=== PATIENT | female | born 1950 | race Caucasian/White ===

== ENCOUNTER → 2017-11-26 08:41 | Outpatient (CLI) | payer BC, OTHER, MEDICARE, SELFPAY ==
[2017-11-26 10:01] LABS: Absolute Lymphocyte Count 0.95 X10^3/ul (0.83-4.51); Absolute Neutrophil Count 3.1 X10^3/uL (2.0-7.7); Basophil# 0.03 X10^3/uL; Basophil% 0.6 % (0-1); Eosinophil# 0.23 X10^3/uL; Eosinophils% 4.8 % (0-5); Hematocrit 39.9 % (37-47); Hemoglobin 13.2 g/dl (12.0-15.0); Lymphocyte # 0.95 X10^3/ul (4.0); Lymphocyte % 19.8 % (19-41); Mean Corp Hgb Conc 33.1 g/gl (32-36); Mean Corpuscular Hgb 29.6 pg (27.0-32.0); Mean Corpuscular Volume 89.5 fL (81-99); Mean Platelet Vol. 10.4 fl (6.2-12.0); Monocyte# 0.53 X10^3/uL; Neutrophil # 3.06 X10^3/uL (2.7-7.7); Neutrophil % 63.6 % (47-70); Platelet Count 319 K/mm3 (150-450); RBC Distribution Width CV 13.3 % (11.6-14.6); RBC Distribution Width SD 43.7 fl (35.1-43.9); Red Blood Count 4.46 M/mm3 (4.2-5.4); White Blood Count 4.8 K/mm3 (4.4-11.0)
[2017-11-26 10:02] LABS: POSITIVE COUNT NO; POSITIVE DIFFERENTIAL NO; POSITIVE MORPHOLOGY NO
[2017-11-26 10:55] LABS: Anion Gap 9 (5-15); BUN 15 mg/dL (7-18); BUN/Creat Ratio 24.5 RATIO (10-20); Calcium,Total 9.2 mg/dL (8.5-10.1); Chloride 100 mmol/L (98-107); Cholesterol 192 mg/dL (200); Creatinine, Serum 0.61 mg/dL (0.55-1.02); EST Glomerular Filtration Rate 103 mL/min (>60); Est Glom Filt Rate - Afr Amer 125 mL/min (>60); Glucose 88 mg/dL (74-106); High Density Lipoprotein 69 mg/dL; Potassium 3.8 mmol/L (3.5-5.1); Sodium Level 139 mmol/L (136-145); Thyroid Stim Hormone (TSH) 1.53 uIU/mL (0.358-3.74); Triglycerides 115 mg/dL; Very Low Density Lipoprotein 23 mg/dL (5-40)
== END ==
PROVIDERS: Family Provider Family Medicine; PCP Family Medicine; Visit Provider Family Medicine
DX: I10 Essential (primary) hypertension (principal); E78.00 Pure hypercholesterolemia, unspecified; E03.9 Hypothyroidism, unspecified
CPT/HCPCS: 36415; 80048; 80061; 84443; 85025

== ENCOUNTER → 2017-12-15 09:20 | Outpatient (CLI) | payer BC, MEDICARE, OTHER, SELFPAY ==
--- NOTE | 2017-12-15 09:30 | BD_ITS ---
STUDY: DUAL ENERGY X-RAY ABSORPTIOMETRY / DXA REASON FOR EXAM: Female, 67 years old. Postmenopausal screening TECHNIQUE: Bone Mineral Density (BMD) measurements of lumbar spine and bilateral hips were obtained. COMPARISON: 2006 FINDINGS: Lumbar Spine (L1-L4): g/cm2 (1.122) / T-score (-0.5) / Z-score (1.1) Findings are suggestive of normal bone density with a low fracture risk. Left Femur Total: g/cm2 (0.851) / T-score (-1.2) / Z-score (0.1) Left Femoral Neck: g/cm2 (0.774) / T-score (-1.9) / Z-score (-0.3) Right Femur Total: g/cm2 (0.822) / T-score (-1.5) / Z-score (-0.1) Right Femoral Neck: g/cm2 (0.737) / T-score (-2.2) / Z-score (-0.6) The T-Scores on the most recent prior examination were: Lumbar Spine (L1-L4): There has been improvement of bone density since the previous examination. BD/Dexa Bone Density Study IMPRESSION: The patient is considered osteopenic as outlined below according to World Julio C Organization (WHO) criteria with a moderate fracture risk. There has been improvement of bone density since the previous examination. Reference Information: The T-score is the number of standard deviations above or below the standard which is normal for young adults at their peak bone mineral density. The World Health Organization (WHO) interprets the T-scores as follows: Above -1 Normal bone density Between -1 and -2.5 Osteopenia Equal to / or below -2.5 Osteoporosis As a practical clinical guideline, osteopenia may be graded as follows: Mild -1 through -1.5 Moderate -1.6 through -2.0 Severe -2.1 through -2.4 The Z-score is the number of standard deviations above or below age-matched controls. A Z-score of less than -1.5 would be considered abnormal. References: 1. NIH Osteoporosis and Related Bone Diseases http://www.osteo.org 2. International Society for Clinical Densitometry http://www.iscd.org 3. National Osteoporosis Foundation http://www.nof.org Electronically Signed: Errol Wiley MD at 9:43 EDT , Service support ,
== END ==
PROVIDERS: Family Provider Family Medicine; PCP Family Medicine; Visit Provider Family Medicine
DX: Z13.228 Encounter for screening for other metabolic disorders (principal); Z78.0 Asymptomatic menopausal state
CPT/HCPCS: 77080

== ENCOUNTER → 2017-12-23 07:12 | Outpatient (CLI) | payer BC, OTHER, MEDICARE, SELFPAY ==
--- NOTE | 2017-12-23 07:14 | BI_ITS ---
MAMMOGRAPHY - BILATERAL SCREENING REASON FOR EXAM: Female, 67 years old. Routine annual screening examination. PERTINENT HISTORY: Personal history of breast cancer. History of subtotal right mastectomy. TECHNIQUE: Digital bilateral breast [place] (3D mammographic acquisition) in the CC and MLO projections. 2-D mediolateral oblique (MLO) and craniocaudad (CC) views of both breasts were obtained. CAD: Full Field Digital Mammography with Computer Added Detection was performed. COMPARISON: Comparison is made with prior study dated December 16, 2016 and November 27, 2010. FINDINGS: Breast Composition: There are scattered areas of fibroglandular density. There are no dominant masses or suspicious calcifications. The patient is status post right subtotal mastectomy. Once again, there is a postoperative deformity of the right breast. Stable architectural distortion in the deep inferior aspect of the right breast in keeping with postsurgical change. No other significant abnormalities are identified. There has been no significant change since the prior study. BI/SCREENING MAMM (CAD), BILAT IMPRESSION: Stable bilateral screening mammogram. Yearly follow-up mammogram recommended. (A) ASSESSMENT CATEGORY: BIRADS Category 2: Benign. A letter regarding these results will be sent to the patient by the facility within 30 days. Approximately 10% of breast cancers are not detected by mammography. A normal mammogram should not delay biopsy of a clinically suspicious abnormality. [id number] Electronically Signed: Rob Ocampo MD at 13:48 EDT Tel [phone], Service support ,
--- NOTE | 2017-12-23 09:58 | RAD_ITS ---
STUDY: X-RAY - LEFT SHOULDER REASON FOR EXAM: Female, 67 years old. Pain in proximal humerus for 3 years. TECHNIQUE: 4 view(s) of the shoulder. COMPARISON: None. FINDINGS: There is severe degenerative arthrosis of the glenohumeral articulation. Normal acromioclavicular joint. There is no acute fracture, dislocation or destructive osseous pathology. There is a bony density in the subcoracoid space. Question joint mouse. There is flattening of the articular surface of the humeral head with productivity along the inferior margin. There is generalized osteopenia. The soft tissue structures are unremarkable. Normal visualized pulmonary apex. RAD/Shoulder min 2 Views IMPRESSION: Marked degenerative changes of the left shoulder. Electronically Signed: Erwin Nunez DO at 19:52 EDT Tel [phone], Service support ,
== END ==
PROVIDERS: Family Provider Family Medicine; PCP Family Medicine; Visit Provider Surgery
DX: Z12.31 Encounter for screening mammogram for malignant neoplasm of breast (principal); M19.012 Primary osteoarthritis, left shoulder
CPT/HCPCS: 73030; 77063; 77067

== ENCOUNTER → 2018-01-05 07:50 | Outpatient (CLI) | payer BC, OTHER, MEDICARE, SELFPAY | PROVIDERS: Family Provider Family Medicine; PCP Family Medicine; Visit Provider Surgery | DX: N60.02 Solitary cyst of left breast (principal) | CPT/HCPCS: 76642 ==

== ENCOUNTER → 2018-04-12 08:09 | Outpatient (CLI) | payer BC, MEDICARE, OTHER, SELFPAY ==
--- NOTE | 2018-04-12 08:00 | RAD_ITS ---
PROCEDURE: Fluoroscopic guided left shoulder Injection DATE: April 12, 2018. INDICATION: Female, 67 years old. Chronic left shoulder pain. PHYSICIAN: Rob Ocampo M.D. MEDICATIONS: 6 mg of blood betamethasone and 3 cc of 1% lidocaine. 2% Lidocaine administered subcutaneously for local anesthesia. ACCESS SITE: Left shoulder. NEEDLE: 22-gauge spinal needle. FLUOROSCOPY TIME (if supplied): (0:34) minutes/seconds FINDINGS: The risks, benefits, and alternatives to the procedure were explained to the patient. The specific risks of bleeding, infection, and neurovascular injury were detailed and accepted. Witnessed informed consent was obtained. A 22-gauge spinal needle was positioned under fluoroscopic localization. Approximately 2 cc of Isovue-300 instilled for localization purposes. Medication was then injected. The patient tolerated the procedure well without any immediate complications. The patient was placed supine with head elevated and returned to the floor in stable condition. RAD/Inj/Asp Miguelito Jt Should/Hip/Knee IMPRESSION: 1. Successful fluoroscopic guided hip injection. Electronically Signed: Rob Ocampo MD at 10:35 EST Tel [phone], Service support ,
== END ==
PROVIDERS: Family Provider Family Medicine; PCP Family Medicine; Referring Provider Specialist; Visit Provider Specialist
DX: M19.012 Primary osteoarthritis, left shoulder (principal)
CPT/HCPCS: 20610; 77002; Q9967; J0702

== ENCOUNTER → 2018-11-22 08:25 | Outpatient (CLI) | payer BC, MEDICARE, OTHER, SELFPAY ==
[2018-11-22 10:57] LABS: Anion Gap 9 (5-15); BUN 12 mg/dL (7-18); BUN/Creat Ratio 17.5 RATIO (10-20); Calcium,Total 9.7 mg/dL (8.5-10.1); Chloride 101 mmol/L (98-107); Cholesterol 192 mg/dL (200); Creatinine, Serum 0.68 mg/dL (0.55-1.02); EST Glomerular Filtration Rate 91 mL/min (>60); Est Glom Filt Rate - Afr Amer 110 mL/min (>60); Glucose 93 mg/dL (74-106); High Density Lipoprotein 71 mg/dL; Potassium 4.1 mmol/L (3.5-5.1); Sodium Level 141 mmol/L (136-145); Thyroid Stim Hormone (TSH) 2.09 uIU/mL (0.358-3.74); Triglycerides 117 mg/dL; Very Low Density Lipoprotein 23 mg/dL (5-40)
== END ==
PROVIDERS: Family Provider Family Medicine; PCP Family Medicine; Referring Provider Family Medicine; Visit Provider Family Medicine
DX: I10 Essential (primary) hypertension (principal); E78.00 Pure hypercholesterolemia, unspecified; E03.9 Hypothyroidism, unspecified
CPT/HCPCS: 36415; 80048; 80061; 84443

== ENCOUNTER → 2018-12-27 07:31 | Outpatient (CLI) | payer BC, MEDICARE, OTHER, SELFPAY ==
--- NOTE | 2018-12-27 07:00 | BI_ITS ---
MAMMOGRAPHY - BILATERAL SCREENING REASON FOR EXAM: Female, 68 years old. Routine annual screening examination. PERTINENT HISTORY: Personal history of breast cancer. Prior right mastectomy. TECHNIQUE: Digital bilateral breast maria esther (3D mammographic acquisition) in the CC and MLO projections. 2-D mediolateral oblique (MLO) and craniocaudad (CC) views of both breasts were obtained. CAD: Full Field Digital Mammography with Computer Added Detection was performed. COMPARISON: Comparison is made with prior study dated December 23, 2017 and December 16, 2016. FINDINGS: Breast Composition: There are scattered areas of fibroglandular density. There are no dominant masses or suspicious calcifications. Stable appearance of the right subtotal mastectomy. Stable deformity of the residual right breast with overlying skin thickening. No other significant abnormalities are identified. There has been no significant change since the prior study. BI/SCREEN MAMM (CAD) W/MARIA ESTHER BILAT IMPRESSION: Stable bilateral screening mammogram. Yearly follow-up mammogram recommended. (A) ASSESSMENT CATEGORY: BIRADS Category 2: Benign. A letter regarding these results will be sent to the patient by the facility within 30 days. Approximately 10% of breast cancers are not detected by mammography. A normal mammogram should not delay biopsy of a clinically suspicious abnormality. [id number] Electronically Signed: Rob Ocampo, at 8:16 EDT , Service support ,
== END ==
PROVIDERS: Family Provider Family Medicine; PCP Family Medicine; Referring Provider Surgery; Visit Provider Surgery
DX: Z12.31 Encounter for screening mammogram for malignant neoplasm of breast (principal); Z85.3 Personal history of malignant neoplasm of breast
CPT/HCPCS: 77063; 77067

== ENCOUNTER → 2019-10-31 08:26 | Outpatient (CLI) | payer BC, MEDICARE, OTHER, SELFPAY ==
[2019-05-07 08:17] VITALS: BMI 28.1
--- NOTE | 2019-10-31 08:31 | RAD_ITS ---
PROCEDURE: Fluoroscopic guided left shoulder Injection DATE: October 31, 2019. INDICATION: Female, 69 years old. Chronic shoulder pain. PHYSICIAN: Rob Ocampo M.D. MEDICATIONS: 80 mg of Kenalog and 4 cc of 1% lidocaine. 2% lidocaine administered subcutaneously for local anesthesia. ACCESS SITE: Left shoulder. NEEDLE: 22-gauge spinal needle. FLUOROSCOPY TIME (if supplied): (0:34) minutes/seconds FINDINGS: The risks, benefits, and alternatives to the procedure were explained to the patient. The specific risks of bleeding, infection, and neurovascular injury were detailed and accepted. Witnessed informed consent was obtained. A 22-gauge spinal needle was positioned under radiographic fluoroscopic localization. Approximately 2 cc of Isovue-300 instilled for localization purposes. Medication was then injected. The patient tolerated the procedure well without any immediate complications. The patient was placed supine with head elevated and returned to the floor in stable condition. RAD/Inj/Asp Miguelito Jt Should/Hip/Knee IMPRESSION: 1. Successful fluoroscopic guided left shoulder injection. Electronically Signed: Rob Ocampo, at 9:35 EDT , Service support ,
== END ==
PROVIDERS: PCP Family Medicine; Referring Provider Specialist; Visit Provider Specialist
DX: M19.012 Primary osteoarthritis, left shoulder (principal)
CPT/HCPCS: 20610; 77002; Q9965; J0702

== ENCOUNTER → 2019-11-16 08:30 | Outpatient (CLI) | payer BC, MEDICARE, OTHER, SELFPAY ==
[2019-05-07 08:17] VITALS: BMI 28.1
--- NOTE | 2019-11-16 08:41 | RAD_ITS ---
STUDY: X-RAY - PELVIS AND RIGHT HIP REASON FOR EXAM: Female, 69 years old. CHRONIC PAIN NOW RADIATES INTO GROIN, NKI TECHNIQUE: 3 views of the pelvis and hip. COMPARISON: None. FINDINGS: There is a non-specific bowel gas pattern. Normal visualized soft tissue structures. Normal bilateral iliac wings, sacroiliac joints and visualized sacrum. Normal bilateral superior and inferior pubic rami. Normal pubic symphysis. Normal bilateral ischial tuberosities. Normal visualized femoral head. Normal acetabulum. There is moderate to severe articular joint space narrowing of the hip. No demonstrated fracture or subchondral changes. However, the arthritic changes of the right hip are more advanced than those in the left hip. RAD/HIP, UNI W/ Pelvis 2-3 Views IMPRESSION: Moderate to severe right hip arthrosis without demonstrated fracture or suspicious osseous lesion Electronically Signed: Errol Wiley MD at 9:00 EDT , Service support ,
== END ==
PROVIDERS: PCP Family Medicine; Referring Provider Family Medicine; Visit Provider Family Medicine
DX: R10.31 Right lower quadrant pain (principal)
CPT/HCPCS: 73502

== ENCOUNTER → 2019-11-22 10:46 | Outpatient (CLI) | payer BC, MEDICARE, OTHER, SELFPAY ==
[2019-05-07 08:17] VITALS: BMI 28.1
[2019-11-22 13:11] LABS: ALB/GLOB Ratio 1.4 RATIO (0.9-2.4); AST(SGOT) 12 U/L (15-37); Alanine Aminotransfer ALT/SGPT 20 U/L (13-56); Albumin, Serum 4.4 g/dL (3.2-5.0); Alkaline Phosphatase 55 U/L (45-117); Anion Gap 9 (5-15); BUN 19 mg/dL (7-18); BUN/Creat Ratio 25.7 RATIO (10-20); Calcium,Total 9.5 mg/dL (8.5-10.1); Chloride 98 mmol/L (98-107); Cholesterol 204 mg/dL (200); Creatinine, Serum 0.74 mg/dL (0.55-1.02); EST Glomerular Filtration Rate 83 mL/min (>60); Est Glom Filt Rate - Afr Amer 100 mL/min (>60); Globulin 3.1 g/dL (2.2-4.2); Glucose 85 mg/dL (74-106); High Density Lipoprotein 75 mg/dL; Potassium 4.1 mmol/L (3.5-5.1); Protein, Total 7.5 g/dL (6.4-8.2); Sodium Level 136 mmol/L (136-145); Thyroid Stim Hormone (TSH) 0.98 uIU/mL (0.358-3.74); Triglycerides 101 mg/dL; Very Low Density Lipoprotein 20 mg/dL (5-40)
== END ==
PROVIDERS: PCP Family Medicine; Visit Provider Family Medicine
DX: I10 Essential (primary) hypertension (principal); E03.9 Hypothyroidism, unspecified
CPT/HCPCS: 36415; 80053; 80061; 84443

== ENCOUNTER → 2019-12-29 07:02 | Outpatient (CLI) | payer BC, MEDICARE, OTHER, SELFPAY ==
[2019-05-07 08:17] VITALS: BMI 28.1
--- NOTE | 2019-12-29 07:03 | BI_ITS ---
MAMMOGRAPHY - BILATERAL SCREENING REASON FOR EXAM: Female, 69 years old. Routine annual screening examination. PERTINENT HISTORY: Personal history of breast cancer. Prior right mastectomy. TECHNIQUE: Digital bilateral breast maria esther (3D mammographic acquisition) in the CC and MLO projections. 2-D mediolateral oblique (MLO) and craniocaudad (CC) views of both breasts were obtained. CAD: Full Field Digital Mammography with Computer Added Detection was performed. COMPARISON: Comparison is made with prior examination dated 12/27/2018 and 12/23/2017. FINDINGS: Breast Composition: There are scattered areas of fibroglandular density. There are no dominant masses or suspicious calcifications. Stable appearance of the right subtotal mastectomy. Resultant of breast deformity and overlying skin thickening. No other significant abnormalities are identified. There has been no significant change since the prior study. BI/SCREEN MAMM (CAD) W/MARIA ESTHER BILAT IMPRESSION: Stable bilateral screening mammogram. Yearly follow-up mammogram recommended. (A) ASSESSMENT CATEGORY: BIRADS Category 2: Benign. A letter regarding these results will be sent to the patient by the facility within 30 days. Approximately 10% of breast cancers are not detected by mammography. A normal mammogram should not delay biopsy of a clinically suspicious abnormality. [id number] Electronically Signed: Rob Ocampo, at 9:23 EDT , Service support ,
== END ==
PROVIDERS: PCP Family Medicine; Referring Provider Surgery; Visit Provider Surgery
DX: Z12.31 Encounter for screening mammogram for malignant neoplasm of breast (principal); Z90.11 Acquired absence of right breast and nipple; Z85.3 Personal history of malignant neoplasm of breast
CPT/HCPCS: 77063; 77067

== ENCOUNTER 2020-01-31 06:09 | Day surgery (SDC) | payer BC, MEDICARE, OTHER, SELFPAY ==
[2020-01-01 05:17] VITALS: BMI 27.1
--- NOTE | 2020-01-24 09:06 | EKG12_ITS ---
Test Reason : PRE OP Blood Pressure : / mmHG Vent. Rate : 068 BPM Atrial Rate : 068 BPM P-R Int : 178 ms QRS Dur : 092 ms QT Int : 382 ms P-R-T Axes : 048 018 030 degrees QTc Int : 406 ms Normal sinus rhythm Normal ECG Confirmed by DONN CAT, LEXA ([id number]), scientific editor JULIETA MARTIN ([id number]) on 01/25/2020 11:00:06 AM Referred By: Homer Hernandez Confirmed By:LEXA POP MD
[2020-01-24 09:26] LABS: Hematocrit 41.1 % (37-47); Hemoglobin 13.1 g/dL (12.0-15.0); Mean Corp Hgb Conc 31.9 g/dL (32-36); Mean Corpuscular Volume 91.1 fL (81-99); Mean Platelet Vol. 9.8 fl (6.2-12.0); Platelet Count 348 K/mm3 (150-450); RBC Distribution Width CV 12.8 % (11.6-14.6); RBC Distribution Width SD 42.3 fl (35.1-43.9); Red Blood Count 4.51 M/mm3 (4.2-5.4); White Blood Count 5.8 K/mm3 (4.4-11.0)
[2020-01-24 10:00] LABS: Anion Gap 5 (5-15); BUN 17 mg/dL (7-18); BUN/Creat Ratio 23.1 RATIO (10-20); Calcium,Total 9.3 mg/dL (8.5-10.1); Chloride 101 mmol/L (98-107); Creatinine, Serum 0.74 mg/dL (0.55-1.02); EST Glomerular Filtration Rate 83 mL/min (>60); Est Glom Filt Rate - Afr Amer 101 mL/min (>60); Glucose 96 mg/dL (74-106); Potassium 3.8 mmol/L (3.5-5.1); Sodium Level 136 mmol/L (136-145)
[2020-01-31] VITALS (11 sets, daily range): BP systolic 111–133; BP diastolic 58–95; PULSE 82–93; RESP 14–16; TEMP 36.1–36.8; O2SAT 93–100; BMI 26.5
[2020-01-31] MEDS: Lactated Ringers 1,000 ML 100 ML IV ×2 (07:02→10:17)
--- NOTE | 2020-01-31 08:05 | DCINST_ITS ---
Discharge Diet: Light diet - advance as tolerated - if you have questions about your diet instructions, please talk to you doctor. Discharge Activity: May Not Drive - for 3-5 days or while taking narcotic pain medicine. May shower in (days): 1 Lifting Restrictions: 10 pounds Call your doctor if your incision/area has: Continuous Slow Oozing, Sudden Increased Bleeding, Increased Pain/ Swelling, Increased Redness, Foul Smelling Discharge Call your doctor if you observe: Fever of 101 or Higher Suture Line Care: Avoid Pulling/Pushing, Avoid Pinching/Bending Additional Dressing/Incision Instructions:: Change or remove dressing in 4 days. Leave steri-strips in place for 1 week. Allergies/Adverse Reactions: Allergies adhesive tape Allergy (Mild, Verified 01/22/20 08:52) rash Penicillins Allergy (Mild, Verified 01/22/20 08:52) rash Sulfa (Sulfonamide Antibiotics) Allergy (Mild, Verified 01/22/20 08:52) rash morphine Adverse Reaction (Verified 01/22/20 09:22) Nausea Medications to take at Discharge levothyroxine 112 mcg tablet 112 mcg PO QDAY 12/31/17 meloxicam 15 mg tablet 15 mg PO QDAY 12/31/17 pantoprazole 40 mg tablet,delayed release 40 mg PO QDAY PRN 12/31/17 triamterene 37.5 mg-hydrochlorothiazide 25 mg tablet 1 tab PO QDAY 12/31/17 multivitamin,ev-eigx-jdtqgeiu 1 tab PO DAILY 05/07/19 Cholecalciferol (VIT D3) [Vitamin D3] 1,000 unit PO DAILY 01/22/20 Hydrocodone Bitart/Apap 5-325 [[place] 5MG-325MG] 1 tab PO Q6H PRN PRN 2 Days #6 tab 01/31/20 The following prescriptions were given: Hydrocodone Bitart/Apap 5-325 [[place] 5MG-325MG] 1 tab PO Q6H PRN PRN 2 Days #6 tab PRN Reason: Pain Transmission Status: Sent to [facility] Primary Care Physician: Thomas Carter MD [Primary Care Provider] - Test Results: Test results from this visit will be discussed in further detail at your follow- up appointment, if applicable. Please Follow Up With: Homer Hernandez MD - [phone] When: Call for appt. can be a ph call, or virtual, or onsite
[2020-01-31] MEDS: Bupivacaine Mpf 0.5% 30 ML VIAL (09:32)
--- NOTE | 2020-01-31 09:34 | OP.PCM_ITS ---
Problem List (1) Inguinal hernia bilateral, non-recurrent Status: Acute Qualifiers: Report of Operation Date of Procedure: 01/31/20 Pre-Operative Diagnosis: Bilateral inguinal hernias, right greater than left Post-Operative Diagnosis: Indirect bilateral inguinal hernias Surgery/Procedure Performed:: Laparoscopic bilateral inguinal herniorrhaphy. Right large Bard 3D max mesh. Lot [id number]. Reference #[id number]. Expiry date 07/21/2024. Left large Bard 3D max mesh. Lot [id number], reference #[id number], expiry date 07/21/2024. Secure strap lot [id number], expiry date May 2021 Description of Surgical Findings:: Timeout and informed consent was obtained. 69-year-old female was taken operating placed on the table underwent general endotracheal intubation anesthesia. Clindamycin 900 mg were given intravenously. The abdomen sterilely prepped and draped. 0.5% Marcaine was used as local anesthetic. Throughout the procedure total 30 cc was used. Skin sites were pre-anesthetized. A vertical incision was made the umbilicus sharp dissection carried down through the subcutaneous tissue but I could not find a free plane. So then in the right mid abdomen I used a 5 mm Visiport technology to get clean access to the abdomen. The abdomen was insufflated with CO2 to a pressure of 10 mmHg pressure. 5- minute trocar was inserted. I then was able to place an Baum catheter at the umbilicus. An additional 5 mm trocar was placed in the left lower quadrant. There was felt to be indirect inguinal hernias bilaterally. The peritoneum s uperior lateral to the internal ring on the right was incised carried medially and the peritoneum was completely dissected free until the direct indirect and femoral area was identified. Small indirect hernia identified. On the left similar technique was used. There was a cord lipoma on the left that was dissected free. The retropubic space was completely dissected. Having now completely exposed each groin and on the left some fibrofatty tissue overlying the iliac vessels had to be further mobilized. This did not look like lymph node tissue simply indurated cord lipoma. Hemoclips were used for hemostasis. I then placed a Bard 3D max left and subsequent right mesh. They just met in the midline I secured them there with secure strap. Each we then secured superiorly and laterally with secure strap. I felt that I had good coverage of the involved area. The peritoneum was then approximated to itself using secure strap and hemoclips. Complete obliteration of the mesh was achieve d. The abdomen was allowed to deflate of the CO2 via the antiviral valve. Trochars were removed. The fascia at the umbilicus approximated running 0 Vicryl. Skin edges approximated with interrupted 4-0 Monocryl subdermal stitches. At the end of the procedure I try to do an ileal inguinal nerve block bilaterally with the Marcaine percutaneously. I had already closed the incisions. Sponge and instrument and needle counts were reported to the surgeon to be correct. Blood loss minimal. She tolerated the procedure well was taken to the recovery room in satisfactory addition without apparent complication. Specimens none. Drains none. Blood loss minimal. Homer Hernandez M.D., F.A.C.S. Type of Anesthesia:: General Anesthesiologist: Almaz Izquierdo
--- NOTE | 2020-01-31 09:36 | PCM.HP.BLA ---
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 Is patient in pain?: No Allergies adhesive tape Allergy (Mild, Verified 01/01/20 07:21) rash Penicillins Allergy (Mild, Verified 01/01/20 07:21) rash Sulfa (Sulfonamide Antibiotics) Allergy (Mild, Verified 01/01/20 07:21) rash Medications levothyroxine 112 mcg tablet 112 mcg PO QDAY 12/31/17 [History Confirmed 01/01/20] meloxicam 15 mg tablet 15 mg PO QDAY 12/31/17 [History Confirmed 01/01/20] pantoprazole 40 mg tablet,delayed release 40 mg PO QDAY 12/31/17 [History Confirmed 01/01/20] triamterene 37.5 mg-hydrochlorothiazide 25 mg tablet 1 tab PO QDAY 12/31/17 [History Confirmed 01/01/20] multivitamin,ty-qvxn-bjdblxir 1 tab PO DAILY 05/07/19 [History Confirmed 01/01/20] Is last menstrual period known: No Post menopausal: Yes Patient : No [facility] Medical History Screening for intestinal cancer (Acute) History of right breast cancer (Acute) Arthritis (Acute) Chronic back pain (Acute) GERD (gastroesophageal reflux disease) (Acute) Hay fever (Acute) History of breast cancer (Acute) Hypothyroidism (Acute) Osteoarthritis (Acute) Shoulder pain (Acute) HTN (hypertension) (Chronic) Surgical History History of hysterectomy (Acute) History of lumpectomy of right breast (Acute) History of right total mastectomy (Acute) History of total bilateral knee replacement (Acute) S/P eye surgery (Acute) S/P hernia repair (Acute) S/P tonsillectomy (Acute) Family History Mother CVA (cerebral vascular accident) Hypertension Father CHF (congestive heart failure) Social History (Updated 01/01/20 @ 07:[address] Homer Hernandez MD) Smoking Status: Never smoker alcohol intake: current alcohol intake frequency: a few times a month HPI HPI HPI: DARIAN BAIRES, is a 69 F who presents to the office today for 2 separate issues. One is for long-term follow-up of right breast cancer. She had a mastectomy performed remotely by Dr. Ben Archibald. This was multiple years ago. She has had no problems with recurrence. We have followed her for a fibrous fullness upper quadrant right breast that is been mobile. We even did a biopsy. No evidence of malignancy was identified. On a separate issue the patient concerns about a right groin bulge. She also notes some mild swelling on the left as well Aided Screening [facility] Imaging Services [address] [place] [address] SCREEN MAMM (CAD) W/MARIA ESTHER BILAT MR#: [id number] Name: DARIAN BAIRES [facility] #:[id number] : 1950F 69 From: Rob Ocampo MD PCP:Dr. Thomas Carter MD Status:[facility] Study:SCREEN MAMM (CAD) W/MARIA ESTHER BILAT Date of Exam:12/29/19 Exam#[id number] Ordering Dr: Homer Hernandez MD MAMMOGRAPHY - BILATERAL SCREENING REASON FOR EXAM: Female, 69 years old. Routine annual screening examination. PERTINENT HISTORY: Personal history of breast cancer. Prior right mastectomy. TECHNIQUE: Digital bilateral breast maria esther (3D mammographic acquisition) in the CC and MLO projections. 2-D mediolateral oblique (MLO) and craniocaudad (CC) views of both breasts were obtained. CAD: Full Field Digital Mammography with Computer Added Detection was performed. COMPARISON: Comparison is made with prior examination dated 12/27/2018 and 12/23/2017. FINDINGS: Breast Composition: There are scattered areas of fibroglandular density. There are no dominant masses or suspicious calcifications. Stable appearance of the right subtotal mastectomy. Resultant of breast deformity and overlying skin thickening. No other significant abnormalities are identified. There has been no significant change since the prior study. BI/SCREEN MAMM (CAD) W/MARIA ESTHER BILAT IMPRESSION: Stable bilateral screening mammogram. Yearly follow-up mammogram recommended. (A) ASSESSMENT CATEGORY: BIRADS Category 2: Benign. A letter regarding these results will be sent to the patient by the facility within 30 days. Approximately 10% of breast cancers are not detected by mammography. A normal mammogram should not delay biopsy of a clinically suspicious abnormality. [id number] Electronically Signed: Rob Ocampo, at 9:23 EDT , Service support , Her previous history is noted as below: HPI: DARIAN BAIRES, is a 69 F who presents to the office today for ongoing surgical follow-up regarding right breast cancer. 68-year-old female. Menses at age 12. First child was born when she was 32. She had a previous remote right breast cancer by Dr. Ben Archibald. She has had no evidence of recurrence and has had a good performance function. On December 23, 2017 at the [facility] she had bilateral mammogram. Scattered areas of fibro-granular density on the left. No dominant masses. It is of note that on my review I see what appears to be a new density lateral left breast. I suspect that this is a lymph node but there is no special comment made about it The right mastectomy site demonstrates some postoperative change and residual fibrofatty tissue. BI-RADS Category 2. She has routine aches and pains nothing consistent or unusual. No unexpected weight loss. No change in bowel habit. It is of note that previously December 17, 2016 because of a abnormal clinical exam because some distortion of the right mastectomy site I did obtain a ultrasound at the [facility] and this was not remarkable for focal mass. December 16, 2016 the screening mammography at that time and suggested some focal distortion in the midportion of the right breast after what was said was subtotal mastectomy. The patient actually has had a mastectomy simply with some exuberant fibrofatty flaps remaining. HPI HPI HPI: DARIAN BAIRES, is a 69 F who presents to the office today for ROS General General: Yes weight change, fatigue and breast cancer HEENT HEENT: Yes eye surgery; no difficulty swallowing, eye injury, swollen glands or hoarseness Endo Endocrine: Yes thyroid disease; no diabetes mellitus, thyroid cancer, Hair loss, heat intolerance or cold intolerance Breast Breast: No left breast lump, right breast lump, nipple discharge, breast pain, abnormal mammogram, abnormal US or breast enlargement Musc Musculoskeletal: Yes back problems and arthritis; no rheumatoid arthritis, gout or joint pain Cardio Cardiovascular: Yes high blood pressure; no murmur, pacemaker, heart disease, atrial fibrillation, heart attack, heart stent, palpitations, shortness of breat with exertion or chest pain Resp Respiratory: No shortness of breath, No sleep apnea, No cough, No COPD, No asthma, No emphysema, No wheezing Gastro Gastrointestinal: No abdominal pain, No nausea or vomiting, No diarrhea, No constipation, No blood in stool, Yes acid reflux, No hemorrhoids, No ulcers, No gallbladder problem, No black,tarry stools Exam Const General: cooperative, healthy appearing, comfortable, no acute distress Nutritional Appearance: average body habitus Orientation: alert, awake HENPA Head: normal to inspection Chest Breast Palpation: No nipple discharge Other: Right mastectomy site: 6 cm diameter fibrous mobile area upper outer quadrant right mastectomy. Similar to previous examinations. No skin involvement. No distortion. No axillary or clavicular adenopathy Left breast: No focal mass. No nipple discharge. No axillary or clavicular adenopathy Resp Effort & Inspection: normal respiratory effort Auscultation: clear to auscultation bilaterally Cardio Rate: regular rate Rhythm: regular rhythm Heart Sounds: no murmurs GI Other: Soft, nontender, evidence of previous umbilical surgery Other: Reducible probably direct right inguinal hernia. Mild tenderness Left groin with laxity as well Musc Cervical Spine: normal cervical lordosis Skin General: no rashes or lesions noted Neuro Cognition: normal cognition Extrem General: no calf tenderness Psych Affect: normal affect Assessment & Plan Problems 1. History of right breast cancer Z85.3 2. Non-recurrent bilateral inguinal hernia without obstruction or gangrene K40.20 Plan 69-year-old female with a remote history of right breast cancer treated with mastectomy. No clinical evidence of recurrence. Left breast unremarkable on mammogram and clinical exam. Mammographic imaging of the residual tissue of the right chest wall also without change New complaint of right groin tenderness and bulge with laxity on the left as well. Clinical examination consistent with bilateral inguinal hernias. I have discussed with her recommendations for a laparoscopic bilateral inguinal hernia repair with mesh. I discussed technique, benefit, risk of alternatives. No guarantees of success have been offered. It is of note that the patient's had a remote umbilical hernia repair in infancy. Great care will need to be taken upon entering the abdomen. Because the patient does lifting and straining at work as well as with her grandchild she is interested in pursuing repair. She is well aware of the Covid-19 pandemic. She is aware that the [facility] is currently reporting a low local incidence. We will schedule and proceed at her discretion. I appreciate the ongoing opportunity of assisting with her surgical care. Copy: Dr. Thomas Hernandez M.D., F.A.C.S. Coding Level of Care Code Off vis,est,level 3 Diagnoses History of right breast cancer Z85.3 Non-recurrent bilateral inguinal hernia without obstruction or gangrene K40.20 ??Obstruction and gangrene presence: without obstruction or gangrene ??Recurrence: non-recurrent I have re-examined the patient. There are no clinical changes since date of exam. Procedure Criteria Procedure Type: Elective COVID Risk Discussion: The surgeon/proceduralist and patient have discussed in detail the risk of exposure to and/or potential harm posed by the COVID-19 virus with having a surgery/procedure at this time versus the risk of delaying the surgery/procedure. It is not possible to know either the risk of delaying the surgery or procedure or chance of getting an infection with perfect accuracy, but a joint decision was made between the patient and the surgeon/proceduralist to proceed at this time with the scheduled surgery/procedure as indicated on the consent form.
== END 2020-01-31 16:05 | disposition home or self-care (01) ==
LOC: SDC 06:10 → AC 06:10
PROVIDERS: Anesthesiology; PCP Family Medicine; Referring Provider Surgery; Visit Provider Surgery
PROC: (CPT 49650; principal; 2020-01-31 07:40)
DX: K40.20 Bilateral inguinal hernia, without obstruction or gangrene, not specified as recurrent (principal); K21.9 Gastro-esophageal reflux disease without esophagitis; I10 Essential (primary) hypertension; E03.9 Hypothyroidism, unspecified; M19.90 Unspecified osteoarthritis, unspecified site; Z85.3 Personal history of malignant neoplasm of breast; Z90.11 Acquired absence of right breast and nipple; Z79.1 Long term (current) use of non-steroidal anti-inflammatories (NSAID); Z79.899 Other long term (current) drug therapy; Z11.59 Encounter for screening for other viral diseases
CPT/HCPCS: 49650; 36415; 80048; 85027; 87635; 93005; C9803; J7120; A4216; C1781; J2405; U0003

== ENCOUNTER 2020-06-28 09:51 | Outpatient (RCR) | payer BC, MEDICARE, OTHER, SELFPAY ==
[2020-01-31 06:42] VITALS: BMI 26.5
== END 2020-06-28 23:59 ==
LOC: IMMUN 09:51
PROVIDERS: PCP Family Medicine; Visit Provider Family Medicine
DX: Z23 Encounter for immunization (principal)
CPT/HCPCS: 0011A; 0012A

== ENCOUNTER → 2020-11-26 08:26 | Outpatient (CLI) | payer BC, MEDICARE, OTHER, SELFPAY ==
[2020-11-26 10:57] LABS: ALB/GLOB Ratio 1.3 RATIO (0.9-2.4); AST(SGOT) 18 U/L (15-37); Alanine Aminotransfer ALT/SGPT 23 U/L (13-56); Albumin, Serum 3.9 g/dL (3.2-5.0); Alkaline Phosphatase 48 U/L (45-117); Anion Gap 6 (5-15); BUN 17 mg/dL (7-18); BUN/Creat Ratio 20.8 RATIO (10-20); Calcium,Total 9.3 mg/dL (8.5-10.1); Chloride 101 mmol/L (98-107); Cholesterol 183 mg/dL (200); Creatinine, Serum 0.82 mg/dL (0.55-1.02); EST Glomerular Filtration Rate 74 mL/min (>60); Est Glom Filt Rate - Afr Amer 89 mL/min (>60); Globulin 2.9 g/dL (2.2-4.2); Glucose 92 mg/dL (74-106); High Density Lipoprotein 63 mg/dL; Potassium 4.5 mmol/L (3.5-5.1); Protein, Total 6.8 g/dL (6.4-8.2); Sodium Level 138 mmol/L (136-145); Thyroid Stim Hormone (TSH) 0.83 uIU/mL (0.358-3.74); Triglycerides 120 mg/dL; Very Low Density Lipoprotein 24 mg/dL (5-40)
== END ==
PROVIDERS: PCP Family Medicine; Visit Provider Family Medicine
DX: E03.9 Hypothyroidism, unspecified (principal); E78.00 Pure hypercholesterolemia, unspecified
CPT/HCPCS: 36415; 80053; 80061; 84443

== ENCOUNTER → 2021-01-09 07:08 | Outpatient (CLI) | payer BC, MEDICARE, OTHER, SELFPAY ==
--- NOTE | 2021-01-09 07:10 | BI_ITS ---
MAMMOGRAPHY - BILATERAL SCREENING REASON FOR EXAM: Female, 70 years old. Routine annual screening examination. PERTINENT HISTORY: Personal history of breast cancer. Prior right mastectomy. TECHNIQUE: Digital bilateral breast maria esther (3D mammographic acquisition) in the CC and MLO projections. 2-D mediolateral oblique (MLO) and craniocaudad (CC) views of both breasts were obtained. CAD: Full Field Digital Mammography with Computer Added Detection was performed. COMPARISON: Comparison is made with prior study dated 12/29/2019 and 12/27/2018. FINDINGS: Breast Composition: There are scattered areas of fibroglandular density. There are no dominant masses or suspicious calcifications. Stable appearance of the right subtotal mastectomy. Resultant deformity and scarring of the remanent of the right breast. No other significant abnormalities are identified. There has been no significant change since the prior study. BI/SCRN MAMM (CAD)W/MARIA ESTHER BILAT IMPRESSION: Stable bilateral screening mammogram. Yearly follow-up mammogram recommended. (A) ASSESSMENT CATEGORY: BIRADS Category 2: Benign. A letter regarding these results will be sent to the patient by the facility within 30 days. Approximately 10% of breast cancers are not detected by mammography. A normal mammogram should not delay biopsy of a clinically suspicious abnormality. [id number] Electronically Signed: Rob Ocampo MD at 8:33 EDT , Service support ,
== END ==
PROVIDERS: PCP Family Medicine; Referring Provider Surgery; Visit Provider Surgery
DX: Z12.31 Encounter for screening mammogram for malignant neoplasm of breast (principal); Z90.11 Acquired absence of right breast and nipple; Z85.3 Personal history of malignant neoplasm of breast
CPT/HCPCS: 77063; 77067

== ENCOUNTER → 2021-02-06 06:45 | Outpatient (CLI) | payer BC, MEDICARE, OTHER, SELFPAY ==
--- NOTE | 2021-02-06 06:51 | CT_ITS ---
STUDY: CT PELVIS WITH CONTRAST REASON FOR EXAM: Female, 70 years old. Right inguinal hernia RADIATION DOSAGE (If Supplied By Facility): CTDIvol = ( 28.06 ) mGy, DLP = ( 1089.82 ) mGycm TECHNIQUE: Transaxial imaging of the pelvis was performed with oral contrast. Oral and amp;amp; IV Readi-CAT and amp;amp; 100mL Isovue-300 was administered intravenously. Individualized dose optimization techniques were used for this CT. COMPARISON: None. FINDINGS: Normal urinary bladder. The patient is status post hysterectomy. Normal visualized small intestine. There are multiple colonic diverticula of the sigmoid colon consistent with chronic diverticulosis. There is no pelvic fluid. There is no pelvic lymphadenopathy or mass lesion. There is diffuse atherosclerotic calcification of the pelvic arteries. There is a right inguinal hernia containing fat. Small umbilical hernia containing fat. There are diffuse degenerative changes of the visualized lumbar spine. Levoscoliosis. Grade 1 anterior listhesis of L4 on L5. There is a marked degree of joint space narrowing with subchondral cysts of the right femoral head and acetabulum. CT/Pelvis WITH IV Contrast IMPRESSION: Small right inguinal hernia containing fat. Small umbilical hernia containing fat. Electronically Signed: Rob Ocampo MD at 9:55 EDT , Service support ,
[2021-02-06 07:06] LABS: CREATININE FINGERSTICK 0.8 mg/dL (0.55-1.02); EGFR FINGERSTICK > 60.0000 mL/min (>60)
== END ==
PROVIDERS: PCP Family Medicine; Referring Provider Surgery; Visit Provider Surgery
DX: K40.90 Unilateral inguinal hernia, without obstruction or gangrene, not specified as recurrent (principal); K42.9 Umbilical hernia without obstruction or gangrene
CPT/HCPCS: 72193; Q9967

== ENCOUNTER → 2021-05-13 09:22 | Outpatient (CLI) | payer BC, MEDICARE, OTHER, SELFPAY ==
[2021-05-13 12:20] LABS: Absolute Lymphocyte Count 1.03 X10^3/uL (0.83-4.51); Absolute Neutrophil Count 4.3 X10^3/uL (2.0-7.7); Basophil# 0.05 X10^3/uL; Basophil% 0.8 % (0-1); Eosinophil# 0.11 X10^3/uL; Eosinophils% 1.8 % (0-5); Hematocrit 40.1 % (37-47); Hemoglobin 12.8 g/dL (12.0-15.0); Lymphocyte # 1.03 X10^3/ul (0.83-4.51); Lymphocyte % 16.6 % (19-41); Mean Corp Hgb Conc 31.9 g/dL (32-36); Mean Corpuscular Volume 90.9 fL (81-99); Mean Platelet Vol. 9.8 fl (6.2-12.0); Monocyte# 0.66 X10^3/uL; Monocyte% 10.7 % (0-10); NRBC Flagged by Analyzer 0 % (0-5); Neutrophil # 4.32 X10^3/uL (2.7-7.7); Neutrophil % 69.8 % (47-70); Platelet Count 381 K/mm3 (150-450); RBC Distribution Width CV 12.9 % (11.6-14.6); RBC Distribution Width SD 43.2 fl (35.1-43.9); Red Blood Count 4.41 M/mm3 (4.2-5.4); White Blood Count 6.2 K/mm3 (4.4-11.0)
[2021-05-13 12:33] LABS: Vitamin D,25 Hydroxy 29.1 ng/mL
[2021-05-13 12:41] LABS: ALB/GLOB Ratio 1.1 RATIO (0.9-2.4); AST(SGOT) 20 U/L (15-37); Alanine Aminotransfer ALT/SGPT 26 U/L (13-56); Albumin, Serum 4.2 g/dL (3.2-5.0); Alkaline Phosphatase 60 U/L (45-117); Anion Gap 8 (5-15); BUN 20 mg/dL (7-18); Chloride 102 mmol/L (98-107); Cholesterol 202 mg/dL (200); Creatinine, Serum 0.74 mg/dL (0.55-1.02); EST Glomerular Filtration Rate 82 mL/min (>60); Est Glom Filt Rate - Afr Amer 99 mL/min (>60); Globulin 3.7 g/dL (2.2-4.2); Glucose 92 mg/dL (74-106); High Density Lipoprotein 74 mg/dL; Potassium 3.9 mmol/L (3.5-5.1); Protein, Total 7.9 g/dL (6.4-8.2); Sodium Level 138 mmol/L (136-145); T4 Free Direct 1.51 ng/dL (0.76-1.46); Thyroid Stim Hormone (TSH) 0.77 uIU/mL (0.358-3.74); Triglycerides 110 mg/dL; Very Low Density Lipoprotein 22 mg/dL (5-40)
[2021-05-19 08:53] LABS: Magnesium 2.3 mg/dL (1.6-2.6)
== END ==
PROVIDERS: Anesthesiology; PCP Family Medicine; Referring Provider Family Medicine; Visit Provider Family Medicine
DX: I10 Essential (primary) hypertension (principal); E78.00 Pure hypercholesterolemia, unspecified; E03.9 Hypothyroidism, unspecified; E55.9 Vitamin D deficiency, unspecified
CPT/HCPCS: 36415; 80053; 80061; 82306; 83735; 84439; 84443; 85025

== ENCOUNTER 2021-05-28 07:34 | Day surgery (SDC) | payer BC, MEDICARE, OTHER, SELFPAY ==
--- NOTE | 2021-05-12 21:51 | PCM.HP.BLA ---
History and Physical History and Physical [facility] Patient Name: Betsy Osorio : 1950 From: KARL PINEDA PA-C DATE OF SURGERY: 05/28/2021 SCHEDULED PROCEDURE: right total hip arthroplasty HISTORY OF PRESENT ILLNESS: Preoperative history and physical exam was performed on May 12, 2021. This is a 71-year-old female who is had ongoing pain for over 20 years. At that time she had a fall on a sidewalk in 2000. She denies any recent trauma or injury. She does have start up pain. Pain does awaken her at nighttime. Her pain reaches high as 6/10 with activities. Her pain has been constant. She has difficulty with activities of daily living including housework and shopping. She has tripped/stumbled due to the hip pain. She has tried home exercises and oral medications with minimal relief. She is currently using tramadol and meloxicam which only takes the edge off of her pain. She denies previous surgery on the right hip. However she has had previous hernia surgery with mesh. After failing conservative measures and discussing treatment options with Dr. Chilo Blount, the patient does wish to proceed with a right total hip arthroplasty. We are obtaining surgical clearance from the primary care physician. Patient has a medical history pertinent for thyroid disease, previous breast cancer, and hypertension. Denies any chest pain, shortening of breath, fevers chills, recent infections. Patient has had the previous hernia surgery and her general surgeon advised addressing the hip prior to any revision hernia surgery due to the concern for local injury that could occur intraoperatively. REVIEW OF SYSTEMS: ROS: Const: Denies anorexia, anxiety, change in appetite, fever and weight change,hard of hearing, and vision problems. CV: Denies chest pain, heart murmur, irregular heartbeat and peripheral vascular disease. Resp: Denies asthma, cough, pneumonia, sleep apnea, shortness of breath, tuberculosis and wheezing. GI: Denies constipation, diarrhea, heartburn, nausea, bloody stools and vomiting, and difficulty swallowing. : Denies incontinence. Musculo: Reports stiffness, but denies leg swelling, trouble walking and weakness and limp. Skin: Denies Raynaud's, history of shingles and tattoo. Neuro: Denies ambulatory dysfunction, dizziness, numbness/tingling and tremor. Psych: Reports claustrophobia, but denies anxiety, depression, insomnia, mental illness and stress. Endocrine: Reports thyroid disease. Hood/Lymph: Denies anemia, bleeding/bruising tendency and past transfusion. Allergy/Immuno: Reports hay fever. Reviewed, no changes. PAST MEDICAL HISTORY: Advance Care Plan: Other Directive, POA Effective Date: 04/04/2018 Other Directive, LIVING WILL Effective Date: 04/04/2018 PMH: Medical Problems: Thyroid Disease, Cancer, High Blood Pressure Accidents: None Surgical Hx: Mastectomy - 1999 Hysterectomy - 2002 Arthroscopy - Rt Knee - 1997 Knee Replacement - (01/03/2008) rt knee dr howard at [facility] LT TKR - (06/09/2011) [email or web address] Hernia Repair Anesthesia Complications: Nausea Assistive Devices: Glasses Reviewed, no changes. 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 Personal Habits: Tobacco Use: Patient has never smoked.Cigarette Use: Never.Smokeless Tobacco: Never Used Smokeless Tobacco.E-Cigarette Use: Never used.Alcohol: Currently consumes alcohol - 1-2x/week.Drug Use: Denies Use.Enjoy Exercising: Exercises 1-3 X/Week. Reviewed, no changes. VITALS: Ht: 63.8 Wt: 163lb 2oz Wt k.993 BMI: 28.2 BP: 140/86 Pulse: 84 Resp: 16 T: 96.6 T: 35.9C Pain Level: 8 ALLERGIES: Sulfa - hives PCN - hives Morphine Adhesives MEDICATIONS: Oxycodone HCL 5 mg 1-2 tab by mouth every 4 hours, Zofran 4 mg 1-2 by mouth every 8 as needed nausea, Tramadol HCL 50 mg 1 by mouth every 8 hours as needed pain, Synthroid 112 mcg 1po qday, Centrum Silver 1 tab PO daily, Triamterene/Hydrochlorothiazide 37.5-25 mg 1 by mouth every day, Meloxicam 7.5 mg 1 by mouth twice a day, Vitamin D3 1.25 MG (72624 Ut) unsure, Tylenol 8 Hour Arthritis Pain 650 mg every 4 hour as needed pain, Pepcid 20 mg 1 by mouth every day PRE-OP EXAM: General appearance:NORMAL Other: Eyes: Conjunctivae and lids: NORMAL Pupils: ERR Ears, Nose, Mouth, and Throat: NORMAL Other: Inspection of lips, teeth and gums: NORMAL Other: Neck: Examination of neck: no masses noted. Respiratory: Assessment of respiratory effort: NORMAL Other: Auscultation of lungs: clear to auscultation no wheezes, rhonchi or rales. Cardiovascular: Auscultation of heart: regular rate and rhythm, positive systolic murmur, no gallops or rubs. PHYSICAL EXAMINATION: Patient does walk with an antalgic gait. She does have a flexion contracture of the right hip approximately 10. Right leg is 7 mm shorter than the left. Right hip flexion 95 with obligatory external rotation, internal rotation 20, external rotation 40. Pain is increased with any range of motion of the right hip. There is positive crepitus. Minimal tenderness over the greater trochanteric bursa bilaterally. Sensation intact to light touch. IMAGING STUDIES: Previous x-rays of the right hip reveal joint space narrowing with subchondral sclerosis and osteophyte formation consistent with severe stage IV osteoarthritis with associated subchondral cysts and flattening/collapse of the femoral head causing shortening of the limb. IMPRESSION: 1. Severe right hip osteoarthritis 2. History of hernia surgery 3. Hypertension 4. Thyroid disease 5. Previous history of breast cancer with mastectomy PLAN: Dr. Chilo Blount did discuss and review with the patient all treatment options including surgical versus nonsurgical options. Patient does wish to proceed with the above-stated procedure. Potential risks, benefits, and complications of the procedure were discussed in detail including but not limited to , infection, nerve and blood vessel damage, persistent pain, numbness, tingling, paresthesias, blood clot, pulmonary embolism, and requirement for possible further surgery. The patient expressed full understanding and has no further questions for the doctor. Patient does agree to proceed with the above-stated procedure and has signed the surgery consent form. We discussed the current risks associated with COVID 19. This does include the risk of exposure while in the hospital. Patient was reassured local hospitals have low infection rates and are taking all necessary precautions to avoid exposure to patients. In addition, we discussed strategies that can be used to help limit exposure including those that limit the patient's time in the hospital. Also using strategies to limit the patient's need for continued inpatient services after being discharged from the hospital. Patient was notified that we will need to comply with any screening or testing the hospital wishes to perform or that surgery may be delayed for any positive results. This dictation was created using voice recognition software. Phonetic and/or grammatical errors may exist. ___ I have re-examined the patient. There are no clinical changes since date of exam. ___ See progress notes for changes. ___ Dictated on admission Date: Time: Signature:
[2021-05-28] VITALS (8 sets, daily range): BP systolic 118–146; BP diastolic 65–83; PULSE 74–102; RESP 16–18; TEMP 36–36.7; O2SAT 96–100; BMI 26.9
[2021-05-28] MEDS: Celecoxib 200 MG Capsule 400 MG PO (08:17)
[2021-05-28] MEDS: Acetaminophen 500 MG Tablet 1000 MG PO (08:17)
[2021-05-28] MEDS: Gabapentin 600 MG Tablet PO (08:17)
[2021-05-28 09:56] LABS: Bedside Glucose 92 mg/dL (70-110)
--- NOTE | 2021-05-28 10:37 | RAD_ITS ---
STUDY: X-RAY - PELVIS AND RIGHT HIP REASON FOR EXAM: Female, 71 years old. Intraoperative digital documentation images of right total hip arthroplasty. TECHNIQUE: 7 intraoperative digital documentation views of the pelvis and hip. COMPARISON: None. FINDINGS: 7 intraoperative digital documentation views show right total hip arthroplasty in anatomic alignment. . RAD/Hip 1 view with Pelvis IMPRESSION: Intraoperative digital documentation images. Electronically Signed: Jeremy Folye MD at 13:12 EST , Service support ,
--- NOTE | 2021-05-28 11:07 | OP.PCM_ITS ---
Report of Operation Date of Procedure: 05/28/21 Pre-Operative Diagnosis: Right hip primary osteoarthritis Post-Operative Diagnosis: Right hip primary osteoarthritis Surgery/Procedure Performed:: Right minimally invasive direct anterior total hip replacement Description of Surgical Findings:: Stable hip with equal leg length Surgeon: Chilo Blount substance abuse clinician: Aldo Breaux Type of Anesthesia: General Anesthesiologist: Jhoan James Special Medications: 2 g Ancef, 1 g TXA at incision, 1 g TXA closure, 10 mg Decadron, joint cocktail (5 mg Duramorph, 30 mL of 0.5% Ropivicaine, 1000 units of epinephrine, 30 mg of Toradol) Specimen's removed: Bony cuts Estimated Blood Loss (mL): 150 Fluids Replaced: 700 ML crystalloid Description of Procedure: Components used: 1. Accolade 2 Gunnar femoral stem size 5 127? 2. Gunnar trident 2 acetabular shell size 54 mm 3. Gunnar X3 polyethylene E 4. Gunnar Biolox delta 36mm, 0mm femoral head Brief history operative indications: 71 yo F who failed conservative measures for their hip osteoarthritis. X-rays were consistent with osteoarthritis including joint space narrowing, osteophyte formation and subchondral cysts. Total hip replacement was discussed with the patient with risks and benefits including but not limited to blood loss, DVTs, PEs, neurovascular damage, dislocation, general risks of anesthesia including loss of life. Patient demonstrated an understanding medical clearance is obtained the patient was consented for surgery. Procedure: On the date of procedure the patient's right hip was marked in the preoperative area. Patient was then taken back to the operating room where anesthesia assumed control of the C-spine and airway and administered anesthetic. Patient was transferred to the operating table and placed in the supine position. The hips were placed at the break of the bed and a sacral bump was placed. The right lower extremity was then prepped out in a sterile fashion using chlorhexidine while the surgeon scrubbed. The PA was vital in the positioning of the patient. Upon reentering the room the right lower extremity was draped in the standard orthopedic fashion and the incision was marked. A timeout was called and everyone agreed upon the side, the site, the procedure be performed, antibody given, and patient's identity. At this time incision was made through skin, subcutaneous tissue, and fat down to fascia. The fascia was then incised and the TFL was retracted laterally. A retractor was placed on the lateral border of the femoral neck. Attention was directed to the inferior portion of the approach and all crossing vessels were identified and appropriately coagulated. A retractor was then placed on the medial portion of the femoral neck. The anterior capsule was then cleared of all soft tissue and then H shaped capsulotomy was made. The retractors were then placed inside the capsule. The femoral neck was identified and a cleanup cut was made. At this time a power corkscrew was used to remove the femoral head. Attention was then turned toward the acetabulum where the soft tissues were appropriately retracted and the acetabulum was sequentially reamed to 54 mm. A 54 mm cup was then selected and impacted into place. Acetabular liner was impacted into place and locking mechanism was verified. The position of the acetabular cup was then verified under live fluoroscopy. Attention was then turned to the femur. Soft tissue releases on the medial and lateral femoral neck were appropriately done, the leg was externally rotated and lateralized. A Gabriel retractor was placed medially and proximally to the greater trochanter this allowed appropriate visualization and exposure of the femoral canal. Rongeour was then used to remove excess lateral bone. A canal finder and entry broach were used to open the proximal canal. Once we verified we were down the femoral canal we subsequently broached up to a size 5 femur. The appropriate neck was placed in the previously selected head was trialed with a 0 mm neck. Traction was pulled and the hip was reduced with internal rotation. Once it was appropriately reduced and stability was checked. There was minimal shuck, equal leg lengths and appropriate stability with hyperextension and external rotation as well as with 90? flexion and internal rotation. Fluoroscopy was then also used to verify the position of the components and leg lengths using the contralateral side for comparison. The trial components were then dislocated the proximal femur was again exposed and the components were removed from the wound. The final components were verified and opened. The wound was copiously irrigated out with normal saline. The acetabulum was checked for any residual debris. The final components were placed and impacted. Traction and internal rotation were again used to reduce the hip. After adequate reduction the hip remained stable with appropriate leg lengths. The final components were once again checked with live fluoroscopy and were found to be satisfactory. The wound was then copiously irrigated with normal saline once more, and hemostasis was obtained. Closure was then done using #1 Vicryl runner to close the fascia. A 2-0 vicryl interuppted sutures were used to close the subcutaneous skin. A 3-0 Monocryl and Steri-Strips were used for final skin closure. A Silverlon dressing was placed. Patient was awakened by anesthesia and transferred to the [facility]. Patient was then transferred to the PACU for recovery. During the course of the procedure the physician enrobing machine operator (PE) played a vital role. Their intimate knowledge of my steps in the procedure aided in safe and expedient completion of the procedure. The PE played a vital rolls in positioning particularly in obtaining the appropriate positioning of the sacral bump. The PE was also vital in the retraction of soft tissues during the exposure and especially the femoral work as this is a vital part of the proced ure to prevent complications and fractures. The PE was also vital and protecting soft tissues during times of bony cuts and reaming. He also played a vital role in closure with my direct supervision. The PE was also important during reduction and dislocation of the joint and trials intraoperatively. Postoperative plan: Patient will get 24 hours postop antibiotics. Patient will get in-house ph ysical therapy and will be weight-bear as tolerated. Patient will follow up in office in 2 weeks for a wound check and x-rays. Aspirin 81 mg twice daily. Complications No intraoperative complications Admit VTE Documentation VTE Present on Admission: No VTE Mechan Device Prophylaxis: SCD's and Thigh High LEOPOLDO Hose VTE Pharm Prophylaxis ordered?: Yes
--- NOTE | 2021-05-28 11:09 | RAD_ITS ---
STUDY: X-RAY - PELVIS AND RIGHT HIP REASON FOR EXAM: Female, 71 years old. New Total Hip Arthroplasty . TECHNIQUE: Frontal and lower lateral views of the pelvis and hip. COMPARISON: 11/16/2019. FINDINGS: There is a total hip arthroplasty in anatomic alignment with expected post-operative findings. There are no complications noted. RAD/Hip Min 2 Views (Portable) IMPRESSION: Placement of total hip arthroplasty in anatomic alignment without complications. Electronically Signed: Jeremy Foley MD at 13:46 EST , Service support ,
[2021-05-28] MEDS: Lactated Ringers 1,000 ML 999 ML IV (12:25)
[2021-05-28] MEDS: Cefazolin 1 GM/50 ML BAG IV (14:15)
[2021-05-28] MEDS: Ketorolac 30 MG/ML Syringe IV (15:07)
--- NOTE | 2021-05-28 17:06 | NURSING ---
PT STATES THAT SHE HAS A SHY BLADDER. WHEN UP TO BSC, DRIBBLED A LITTLE. DENIES NEED TO URINATE AT THIS TIME.
== END 2021-05-28 23:59 | disposition home or self-care (01) ==
LOC: SDC 07:35 → AC 07:37
PROVIDERS: PCP Family Medicine; Referring Provider Specialist; Visit Provider Specialist
PROC: (CPT 27284; principal; 2021-05-28 09:50)
DX: M16.11 Unilateral primary osteoarthritis, right hip (principal); M25.751 Osteophyte, right hip; M85.68 Other cyst of bone, other site; I10 Essential (primary) hypertension; G89.29 Other chronic pain; M19.90 Unspecified osteoarthritis, unspecified site; K21.9 Gastro-esophageal reflux disease without esophagitis; E03.9 Hypothyroidism, unspecified; Z85.3 Personal history of malignant neoplasm of breast; Z78.0 Asymptomatic menopausal state; Z79.899 Other long term (current) drug therapy
CPT/HCPCS: 27130; 01214; 73501; 73502; 76000; 82962; 87081; 97161; C1776; J7120; A4216

== ENCOUNTER 2021-06-19 09:14 | Emergency (ER) | payer BC, MEDICARE, OTHER, SELFPAY ==
[2021-06-19 09:15] VITALS: BP 163/80; PULSE 87; RESP 14; TEMP 36.3; O2SAT 99; BMI 27.9
[2021-06-19 09:39] VITALS: BP 143/79; PULSE 89; RESP 16; O2SAT 99
--- NOTE | 2021-06-19 09:39 | RAD_ITS ---
STUDY: X-RAY - PELVIS AND RIGHT HIP REASON FOR EXAM: Female, 71 years old. Injury/Pain TECHNIQUE: 3 views of the pelvis and hip. COMPARISON: Comparison is made with prior study dated 05/28/2021. FINDINGS: There is evidence of a superior anterior dislocation of the right prosthetic hip joint. RAD/HIP, UNI W/ Pelvis 2-3 Views IMPRESSION: Anterior superior dislocation of the right posterior hip joint. Electronically Signed: Rob Ocampo MD at 10:47 EST ,
[2021-06-19] MEDS: Ondansetron 4 MG/2 ML Vial IV (10:08)
[2021-06-19] MEDS: HYDROmorphone 1 MG/ML Syringe 0.5 MG IV (10:09)
[2021-06-19 11:04] VITALS: BP 155/74; PULSE 90; RESP 16; O2SAT 99
[2021-06-19 11:05] VITALS: BP 111/60; BP 116/60; BP 117/66; BP 123/74; BP 133/108; BP 155/74; PULSE 75; PULSE 76; PULSE 78; PULSE 80; PULSE 81; PULSE 85; PULSE 90; RESP 16; RESP 18; O2SAT 97; O2SAT 99
--- NOTE | 2021-06-19 11:15 | RAD_ITS ---
STUDY: X-RAY - PELVIS AND RIGHT HIP REASON FOR EXAM: Female, 71 years old. Dislocation TECHNIQUE: 1 views of the pelvis and hip. COMPARISON: Comparison is made with prior study done earlier today. FINDINGS: Satisfactory reduction of the right prostatic hip dislocation. RAD/Hip 1 view with Pelvis IMPRESSION: Satisfactory reduction of the right prosthetic hip dislocation. Electronically Signed: Rob Ocampo MD at 11:44 EST ,
[2021-06-19 11:26] VITALS: BP 117/66; PULSE 80; RESP 16; O2SAT 99
[2021-06-19] MEDS: Propofol 200 MG/20 ML Vial IV BOLUS (11:28)
--- NOTE | 2021-06-19 11:52 | ED.VIS.LOWEX ---
HPI History of Present Illness HPI Narrative: Patient presents with right hip pain that began this morning. Patient states she was putting on her pants when she felt something pop in her right hip. Patient states her pain is sharp. Patient states her pain is worse with movement. Patient states she had a right total hip replacement 3 weeks ago. Patient denies any radiation of the pain. Patient denies any paresthesias or weakness. Patient denies any other injuries. Chief Complaint: Lower Extremity Injury Informant: patient Occured/Mechanism Comment: Cross a pop while putting on her pants Onset/Context/Timing Onset: Today Context: Sudden Onset Timing: Continuous Worsened by: Movement Relieved by: Nothing Associated Symptoms Associated Symptoms: Negative for Parasthesia, Weakness and Loss of Funtion PFSH [facility] Medical History Alcohol use Arthritis Back pain Chronic back pain Gastric reflux GERD (gastroesophageal reflux disease) Hay fever History of breast cancer History of edema History of IBS History of pain when walking History of right breast cancer History of steroid therapy HTN (hypertension) Hypothyroidism Inguinal hernia bilateral, non-recurrent Migraine headache Neuralgia of inguinal region Non-smoker Osteoarthritis Post-menopausal Screening for intestinal cancer Shoulder pain Thyroid disease Wears glasses Home Medications levothyroxine 112 mcg tablet 112 mcg PO QDAY 12/31/17 [History Last Taken 05/28/21 06:00] meloxicam 15 mg tablet 15 mg PO QDAY 12/31/17 [History Last Taken Unknown] pantoprazole 40 mg tablet,delayed release 40 mg PO QDAY PRN 12/31/17 [History Last Taken 05/28/21 06:00] triamterene 37.5 mg-hydrochlorothiazide 25 mg tablet 1 tab PO QDAY 12/31/17 [History Last Taken Unknown] multivitamin,ne-bcnq-zbhhslpc 1 tab PO DAILY 05/07/19 [History Last Taken Unknown] cholecalciferol (vitamin D3) 4,000 unit PO DAILY 01/22/20 [History Last Taken Unknown] aspirin [Aspir-81] 81 mg PO DAILY 06/19/21 [History Last Taken Unknown] Allergy/AdvReac Type Severity Reaction Status Date / Time adhesive tape Allergy Mild rash Verified 06/19/21 09:18 Penicillins Allergy Mild rash Verified 06/19/21 09:18 Sulfa (Sulfonamide Allergy Mild rash Verified 06/19/21 09:18 Antibiotics) morphine AdvReac Nausea Verified 06/19/21 09:18 Family History Mother CVA (cerebral vascular accident) Hypertension Father CHF (congestive heart failure) Surgical History History of hysterectomy History of lumpectomy of right breast History of right total mastectomy History of total bilateral knee replacement Hx of inguinal hernia surgery S/P eye surgery S/P hernia repair S/P tonsillectomy Social History Smoking Status: Never smoker alcohol intake: current alcohol intake frequency: a few times a month ROS ROS ED Constitutional Constitutional ED: Denies chills or fever(s) Eyes Eyes: Denies blurry vision or change in vision ENT ENT ED: Denies rhinorrhea or sore throat Cardiovascular Cardiovascular: Denies chest pain or palpitations Respiratory/Chest Respiratory/Chest: Denies cough or dyspnea Gastrointestinal Gastrointestinal: Denies nausea or vomiting Genitourinary Genitourinary ED: Denies dysuria or hematuria Musculoskeletal Musculoskeletal: Denies back pain or neck pain Integumentary Denies abscess or rash Neurologic Neurologic: Denies headache(s) or weakness Allergic/Immunologic Allergic/Immunologic ED: Denies mouth swelling or urticaria EXAM Physical Exam Const Vital Signs: 06/19/21 09:15 06/19/21 09:39 06/19/21 11:04 Temperature 97.4 F L Temperature Source Oral Pulse Rate 87 89 90 Pulse Rate [1 (Initial Baseline)] Pulse Rate [2] Pulse Rate [3] Pulse Rate [4] Pulse Rate [5] Pulse Rate [6] Pulse Rate [7] Pulse Rate [8] Respiratory Rate 14 16 16 Respiratory Rate [1 (Initial Baseline)] Respiratory Rate [2] Respiratory Rate [3] Respiratory Rate [4] Respiratory Rate [5] Respiratory Rate [6] Respiratory Rate [7] Respiratory Rate [8] Blood Pressure 163/80 H 143/79 H 155/74 H Blood Pressure [1 (Initial Baseline)] Blood Pressure [2] Blood Pressure [3] Blood Pressure [4] Blood Pressure [5] Blood Pressure [6] Blood Pressure [7] Blood Pressure [8] Blood Pressure Mean 107 Pulse Ox 99 99 99 Oxygen Delivery Method Room Air Room Air Oxygen Delivery Method [1 (Initial Baseline)] Oxygen Delivery Method [2] Oxygen Delivery Method [3] Oxygen Delivery Method [4] Oxygen Delivery Method [5] Oxygen Delivery Method [6] Oxygen Delivery Method [7] Oxygen Delivery Method [8] Oxygen Flow Rate (L/min) [2] Oxygen Flow Rate (L/min) [3] Oxygen Flow Rate (L/min) [4] Oxygen Flow Rate (L/min) [5] Oxygen Flow Rate (L/min) [6] 06/19/21 11:05 06/19/21 11:26 Temperature Temperature Source Pulse Rate 80 Pulse Rate [1 (Initial Baseline)] 90 Pulse Rate [2] 81 Pulse Rate [3] 80 Pulse Rate [4] 85 Pulse Rate [5] 80 Pulse Rate [6] 75 Pulse Rate [7] 78 Pulse Rate [8] 76 Respiratory Rate 16 Respiratory Rate [1 (Initial Baseline)] 16 Respiratory Rate [2] 16 Respiratory Rate [3] 18 Respiratory Rate [4] 16 Respiratory Rate [5] 16 Respiratory Rate [6] 16 Respiratory Rate [7] 16 Respiratory Rate [8] 16 Blood Pressure 117/66 Blood Pressure [1 (Initial Baseline)] 155/74 H Blood Pressure [2] 133/108 H Blood Pressure [3] 133/108 H Blood Pressure [4] 133/108 H Blood Pressure [5] 123/74 H Blood Pressure [6] 116/60 Blood Pressure [7] 111/60 Blood Pressure [8] 117/66 Blood Pressure Mean Pulse Ox 99 Oxygen Delivery Method Room Air Oxygen Delivery Method [1 (Initial Baseline)] Nasal Cannula Oxygen Delivery Method [2] Nasal Cannula Oxygen Delivery Method [3] Nasal Cannula Oxygen Delivery Method [4] Nasal Cannula Oxygen Delivery Method [5] Nasal Cannula Oxygen Delivery Method [6] Nasal Cannula Oxygen Delivery Method [7] Room Air Oxygen Delivery Method [8] Room Air Oxygen Flow Rate (L/min) [2] 5 Oxygen Flow Rate (L/min) [3] 4 Oxygen Flow Rate (L/min) [4] 100 Oxygen Flow Rate (L/min) [5] 4 Oxygen Flow Rate (L/min) [6] 4 Positive well nourished and well developed General Appearance ED: well developed HEENT Reports moist mucous membranes normocephalic Neck full ROM Resp normal respiratory effort and clear to auscultation bilaterally Cardio regular rate and regular rhythm GI non-tender Palpation: soft Extremity Extremity Narrative: There is shortening and external rotation of the right lower extremity. Range of motion was limited in all motions of the right hip secondary to pain. Strength is 5/5 bilaterally. There are no sensory deficits noted. Pedal pulses are equal bilateral. Capillary refill is less than 2 seconds in all digits. Neuro oriented x3, CN's II-XII intact bilaterally, moves all extremities and no sensory deficits noted Sensorium / Orientation: alert Motor Exam: strength 5/5 throughout Psych mental status grossly normal MDM MDM MDM Narrative Medical decision making narrative: X-rays of the right hip were obtained. There are 3 views. On my interpretation, there is a anterior superior dislocation of the right hip. There is no acute fracture noted. Radiologist also interpreted the x-rays and agrees. Patient was advised of the need for conscious sedation. The procedure was explained to the patient. Patient was given opportunity ask questions. She had none. Patient was given a dose of 70 mg of propofol. Reduction was attempted and was initially thought to be reduced. However, when I was putting on the knee immobilizer, I noticed the right leg was still shortened. Patient was given a repeat dose of 70 mg of propofol. I again attempted reduction of the hip. Dr. Patton also came in and helped with the reduction. He was able to get the hip reduced. Knee immobilizer was applied. The leg lengths were equal. There were no episodes of cardiac dysrhythmias or hypoxia. Patient tolerated the procedure well. Patient felt better on reevaluation. Patient states her hip pain has resolved. Patient was instructed use ice to the area. Patient was instructed to follow-up with Dr. Blount from orthopedics in 5 to 7 days. Patient was instructed to maintain her knee immobilizer. Patient was instructed to return if worse in any way. Patient understood and was agreeable with the plan. All questions were answered. Lab Data Attestation: I reviewed the patient's lab results. Radiography X-Ray: Right Hip, Read by ED Physician, Read by Radiologist and - (Anterior superior dislocation) Diagnostic Testing: Clinical Impression(s) from Imaging Studies Hip/Pelvis X-Ray 06/19/21 09:39 IMPRESSION: Anterior superior dislocation of the right posterior hip joint. Electronically Signed: Rob Ocampo MD at 10:47 EST , Hip/Pelvis X-Ray 06/19/21 11:15 IMPRESSION: Satisfactory reduction of the right prosthetic hip dislocation. Electronically Signed: Rob Ocampo MD at 11:44 EST , Discharge Plan Triage Chief Complaint: Lower Extremity Injury ED Provider: Branden Stallings Dx/Rx/DC Orders Clinical Impression: Anterior dislocation of right hip Instructions: ED Hip Replace Dislocation Reduc Prescriptions: No Action levothyroxine [Synthroid] 112 mcg tablet 112 mcg PO QDAY RF: 0 triamterene-hydrochlorothiazid [Maxzide-25mg] 37.5-25 mg tablet 1 tab PO QDAY RF: 0 meloxicam 15 mg tablet 15 mg PO QDAY RF: 0 pantoprazole [Protonix] 40 mg tablet,delayed release (DR/EC) 40 mg PO QDAY PRN (Reason: gerd) RF: 0 Complete Multivitamin Tablet 1 tab PO DAILY RF: 0 cholecalciferol (vitamin D3) 1,000 UNIT tablet 4,000 unit PO DAILY RF: 0 aspirin [Aspir-81] 81 mg Tablet,Delayed Release (Dr/Ec) 81 mg PO DAILY RF: 0 Primary Care Provider: Thomas Parker Referrals: Thomas Parker MD [Primary Care Provider] - 5-7 Days Chilo Blount MD [STAFF PHYSICIAN] - 5-7 Days Disposition Disposition: Home, Self Care
[2021-06-19 12:22] VITALS: BP 153/76; PULSE 82; RESP 19; O2SAT 95
== END 2021-06-19 12:45 | disposition home or self-care (01) ==
PROVIDERS: Emergency Provider Emergency Medicine; PCP Family Medicine; Visit Provider Emergency Medicine
DX: S73.034A Other anterior dislocation of right hip, initial encounter (principal); X58.XXXA Exposure to other specified factors, initial encounter; Y93.89 Activity, other specified; Y99.8 Other external cause status; I10 Essential (primary) hypertension; E07.9 Disorder of thyroid, unspecified; K21.9 Gastro-esophageal reflux disease without esophagitis; M19.90 Unspecified osteoarthritis, unspecified site; Z79.82 Long term (current) use of aspirin; Z79.899 Other long term (current) drug therapy
CPT/HCPCS: 27250; 73501; 73502; 96374; 96375; 99152; 99153; 99285; J7030; A4216; J2405

== ENCOUNTER 2021-08-15 10:07 | Outpatient (CLI) | payer BC, MEDICARE, OTHER, SELFPAY ==
[2021-08-15 12:07] LABS: Absolute Lymphocyte Count 1.34 X10^3/uL (0.83-4.51); Absolute Neutrophil Count 3.6 X10^3/uL (2.0-7.7); Basophil# 0.07 X10^3/uL; Basophil% 1.2 % (0-1); Eosinophil# 0.24 X10^3/uL; Hematocrit 38.2 % (37-47); Hemoglobin 11.9 g/dL (12.0-15.0); Lymphocyte # 1.34 X10^3/ul (0.83-4.51); Lymphocyte % 22.4 % (19-41); Mean Corp Hgb Conc 31.2 g/dL (32-36); Mean Corpuscular Hgb 28.7 pg (27.0-32.0); Mean Corpuscular Volume 92.3 fL (81-99); Mean Platelet Vol. 10.3 fl (6.2-12.0); Monocyte# 0.64 X10^3/uL; Monocyte% 10.7 % (0-10); NRBC Flagged by Analyzer 0 % (0-5); Neutrophil # 3.63 X10^3/uL (2.7-7.7); Neutrophil % 60.9 % (47-70); Platelet Count 357 K/mm3 (150-450); RBC Distribution Width CV 12.6 % (11.6-14.6); RBC Distribution Width SD 42.8 fl (35.1-43.9); Red Blood Count 4.14 M/mm3 (4.2-5.4)
[2021-08-15 12:23] LABS: Vitamin D,25 Hydroxy 80.2 ng/mL
[2021-08-15 12:28] LABS: ALB/GLOB Ratio 1.2 RATIO (0.9-2.4); AST(SGOT) 12 U/L (15-37); Alanine Aminotransfer ALT/SGPT 19 U/L (13-56); Albumin, Serum 4.1 g/dL (3.2-5.0); Alkaline Phosphatase 63 U/L (45-117); Anion Gap 6 (5-15); BUN 15 mg/dL (7-18); BUN/Creat Ratio 21.5 RATIO (10-20); Calcium,Total 9.7 mg/dL (8.5-10.1); Chloride 99 mmol/L (98-107); Cholesterol 171 mg/dL (200); EST Glomerular Filtration Rate 88 mL/min (>60); Est Glom Filt Rate - Afr Amer 106 mL/min (>60); Globulin 3.4 g/dL (2.2-4.2); Glucose 86 mg/dL (74-106); High Density Lipoprotein 70 mg/dL; Protein, Total 7.5 g/dL (6.4-8.2); Sodium Level 136 mmol/L (136-145); T4 Free Direct 1.56 ng/dL (0.76-1.46); Thyroid Stim Hormone (TSH) 0.49 uIU/mL (0.358-3.74); Triglycerides 108 mg/dL; Very Low Density Lipoprotein 22 mg/dL (5-40)
[2021-08-18 15:00] LABS: Ferritin 28 ng/mL (8-252); Iron 58 ug/dL (50-170); Iron Binding Capacity,Total 378 ug/dL (250-450); PERCENT IRON SATURATION 15.3 % (15.0-55.0)
== END 2021-08-15 23:59 | disposition home or self-care (01) ==
LOC: MFPLAB 10:13
PROVIDERS: PCP Family Medicine; Referring Provider Family Medicine; Visit Provider Family Medicine
DX: D64.9 Anemia, unspecified (principal)
CPT/HCPCS: 36415; 80053; 80061; 82306; 82607; 82728; 82746; 83540; 83550; 84439; 84443; 85025

== ENCOUNTER 2021-08-25 09:34 | Outpatient (CLI) | payer BC, MEDICARE, OTHER, SELFPAY ==
[2021-08-25 11:37] LABS: Vitamin B12 603 pg/mL (211-911)
[2021-08-25 12:20] LABS: Ferritin 27 ng/mL (8-252); Iron 66 ug/dL (50-170); Iron Binding Capacity,Total 490 ug/dL (250-450)
== END 2021-08-25 23:59 | disposition home or self-care (01) ==
LOC: MFPLAB 09:35
PROVIDERS: PCP Family Medicine; Visit Provider Family Medicine
DX: D64.9 Anemia, unspecified (principal)
CPT/HCPCS: 36415; 82607; 82728; 82746; 83540; 83550

== ENCOUNTER 2021-11-21 15:17 | Inpatient (IN) | payer BC, MEDICARE, OTHER, SELFPAY ==
[2021-11-19 07:16] LABS: Absolute Lymphocyte Count 1.05 X10^3/uL (0.83-4.51); Absolute Neutrophil Count 4.2 X10^3/uL (2.0-7.7); Basophil# 0.04 X10^3/uL; Basophil% 0.6 % (0-1); Eosinophil# 0.24 X10^3/uL; Eosinophils% 3.7 % (0-5); Hematocrit 37.3 % (37-47); Hemoglobin 12.1 g/dL (12.0-15.0); Lymphocyte # 1.05 X10^3/ul (0.83-4.51); Lymphocyte % 16.3 % (19-41); Mean Corp Hgb Conc 32.4 g/dL (32-36); Mean Corpuscular Hgb 29.7 pg (27.0-32.0); Mean Corpuscular Volume 91.6 fL (81-99); Mean Platelet Vol. 9.6 fl (6.2-12.0); Monocyte# 0.89 X10^3/uL; Monocyte% 13.8 % (0-10); NRBC Flagged by Analyzer 0 % (0-5); Neutrophil # 4.18 X10^3/uL (2.7-7.7); Neutrophil % 65.1 % (47-70); Platelet Count 420 K/mm3 (150-450); RBC Distribution Width CV 13.3 % (11.6-14.6); RBC Distribution Width SD 44.8 fl (35.1-43.9); Red Blood Count 4.07 M/mm3 (4.2-5.4); White Blood Count 6.4 K/mm3 (4.4-11.0)
[2021-11-19 07:44] LABS: Albumin, Serum 3.6 g/dL (3.2-5.0)
[2021-11-19 07:52] LABS: Anion Gap 10 (5-15); BUN 8 mg/dL (7-18); BUN/Creat Ratio 12.9 RATIO (10-20); Calcium,Total 9.6 mg/dL (8.5-10.1); Chloride 96 mmol/L (98-107); Creatinine, Serum 0.62 mg/dL (0.55-1.02); EST Glomerular Filtration Rate 101 mL/min (>60); Est Glom Filt Rate - Afr Amer 122 mL/min (>60); Glucose 132 mg/dL (74-106); Magnesium 1.9 mg/dL (1.6-2.6); Potassium 3.2 mmol/L (3.5-5.1); Sodium Level 136 mmol/L (136-145); Thyroid Stim Hormone (TSH) 5.21 uIU/mL (0.358-3.74)
[2021-11-19 08:16] LABS: Hemoglobin A1c 5.3 % (3.8-5.6)
[2021-11-21] VITALS (10 sets, daily range): BP systolic 127–162; BP diastolic 63–83; PULSE 70–88; RESP 14–18; TEMP 36.1–37.4; O2SAT 94–100; BMI 26.5
--- NOTE | 2021-11-21 07:13 | HP.PCM_ITS ---
History and Physical History and Physical? Patient Name: Betsy Carlton: 1950 From:? JUANITO VENTURA PA-C? DATE OF SURGERY:? 11/21/2021 SCHEDULED PROCEDURE:? HISTORY OF PRESENT ILLNESS: Patient is a 71 year old female s/p Right hip Replacement? - (05/28/2021) SAW @ [facility] , patient states he was in [place] and dislocated her hip.? ? She has out of town and dislocated her right total hip arthroplasty.? She is currently in a wheelchair for todays appointment.? patient reports severe lateral hip pain.? She is requiring a walker to ambulate.? Patient's notes that patient was standing to look at something at the store and twisted towards her right hip when she then fell backwards.? Patient notes she knew right away her hip had? dislocated. she denies any current numbness and tingling.? She did require significant transporting hip was out for 6-8 hours.? Eventually after multiple attempts it sounds like the orthopedic doctor manager of administration hospital was able to get the hip reduced.? However, they did a CAT scan related to a greater trochanteric fracture patient's pain is located over the groin and lateral hip. REVIEW OF SYSTEMS: Review Of Systems: Constitutional: Denies anorexia, anxiety, change in appetite, fever and weight change,hard of hearing, and vision problems. Cardiovasular: Denies chest pain, heart murmur, irregular heartbeat and peripheral vascular disease. Respiratory: Denies asthma, cough, pneumonia, sleep apnea, shortness of breath, tuberculosis and wheezing. Gastrointestinal: Denies constipation, diarrhea, heartburn, nausea, bloody stools and vomiting, and difficulty swallowing. Genitourinary: . (F Genital Sx) Denies incontinence. Musculoskeletal: Reports leg swelling, stiffness and trouble walking, but denies weakness and limp. Skin: Denies Raynaud's, history of shingles and tattoo. Neurological: Reports dizziness but denies ambulatory dysfunction, numbness/tingling and tremor. Psychiatric: Reports claustrophobia and depression, but denies anxiety, insomnia, mental illness and stress. Endocrine: Reports thyroid disease. Hematologic/Lymphatic: Denies anemia, bleeding/bruising tendency and past transfusion. Allergy/Immunologic: Reports hay fever. Reviewed and updated. PAST MEDICAL HISTORY: Advance Care Plan: Other Directive, POA Effective Date: 04/04/2018 Other Directive, LIVING WILL Effective Date: 04/04/2018 Past Medical History: Medical Problems: Thyroid Disease Cancer - BREAST (PAST) High Blood Pressure Accidents: Other - (06/19/2021) rt hip came out of place ` RT Hip Dislocated - IN [place] / 11/12/2021? Surgical Hx: Mastectomy - (1999) RT Hysterectomy - 2002 Arthroscopy - Rt Knee - 1997 Knee Replacement - (01/03/2008) rt knee dr howard at [facility] LT TKR - (06/09/2011) LAURA@[facility] Hernia Repair Hip Replacement RT - (05/28/2021) LIZ @ [facility] Anesthesia Complications: Nausea Assistive Devices: Glasses Reviewed and updated. 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 Personal Habits:? Tobacco Use: Patient has never smoked.Cigarette Use: Never.Smokeless Tobacco: Never Used Smokeless Tobacco.E-Cigarette Use: Never used.Alcohol: Currently consumes alcohol - 1-2x/week.Drug Use: Denies Use.Enjoy Exercising: Exercises 1-3 X/Week. Reviewed, no changes. VITALS: Ht: 64 Wt: 160lb Wt k.576 BMI: 27.5 BP: 138/78 Pulse: 94 Resp: 12 T: 97.2 T: 36.2C Pain Level: 7 O2SatR: 96 ALLERGIES: Sulfa - hives PCN - hives Adhesive Tape Morphine Penicillins Adhesives Sulfa (Sulfonamide Antibiotics)? MEDICATIONS: Levothyroxine Sodium 112 mcg daily, Pantoprazole Sodium 40 mg daily, Synthroid 112 mcg 1po qday, Centrum Silver? 1 tab PO daily, Triamterene/Hydrochlorothiazide 37.5-25 mg 1 by mouth every day, Pepcid 20 mg 1 by mouth every day, Tylenol Extra Strength 500 mg 2 pills by mouth 3x/day, Motrin Ib 200 mg PRE-OP EXAM:? General appearance:NORMAL? ? ? Other: Eyes: Conjunctivae and lids: NORMAL? Pupils: ERR Ears, Nose, Mouth, and Throat: NORMAL? Other: Inspection of lips, teeth and gums: NORMAL? ?Other: Neck: Examination of neck: no masses noted. Respiratory: Assessment of respiratory effort: NORMAL? ?Other: ?Auscultation of lungs: clear to auscultation no wheezes, rhonchi or rales. Cardiovascular:? Auscultation of heart: regular rate and rhythm, no murmurs, gallops or rubs. Exam of carotid arteries: NORMAL? ?Other: Gastrointestinal:? Exam of abdomen: soft, nontender, nondistended bowel sounds present. Lymphatic:? Palpation of nodes in neck:? NORMAL? ? ?Other: ? Palpation of nodes in Axillae: NORMAL? ?Other: Neurological: see below Psychiatric:? Orientation to time, place and person: NORMAL? ? ?Other: ?Mood and affect: NORMAL? ?Other: PHYSICAL EXAMINATION: ?Exam: Const: Appears healthy.? No signs of apparent distress present.? Alert and oriented x 3.? Musculo: Mild Trendelenburg gait? Hips: ?Insp/Palp: Right hip: Incision appears well. No redness or signs of infection. patient has pain with range of motion of the hip.? Range of motion and strength were overall deferred secondary to positive logroll.? Neurovascular intact distally.? Skin: Skin is warm, dry and intact.? Neuro: Sensation to light touch is intact in the lower extremities deep peroneal, lower extremities dorsal cutaneous, lower extremities saphenous, lower extremities sural and lower extremities tibial nerve distribution.? Neurological and vascular function intact.? ?? IMAGING STUDIES: outside x-rays and CT scan of the hip were reviewed.? All x-rays including initial films of dislocation are consistent with greater trochanteric fracture.? Postreduction films show minimal displacement of fracture.? Femoral stem and acetabular component appear to be well fixed. ? IMPRESSION: 1.? Status post right total hip replacement (05/28/21) and acute dislocation with greater trochanteric fracture (11/12/21) 2.? Thyroid disease 3.? Breast cancer?remission 4.? Hypertension PLAN: Patient denies history of DVT or PE, open wounds or sores over the body, no allergies to antibiotics and no current antibiotic use. No current dental issues Aspirin 81 twice a day ?4 weeks for DVT prophylaxis postoperatively At this time patient has consented to proceed with a revision right total hip arthroplasty and open reduction internal fixation of right trochanteric fracture.? Dr. Blount did discuss and review with the patient all treatment options including surgical versus nonsurgical options.? Patient does wish to proceed with the above-stated procedure.? Potential risk, benefits, and complications of the procedure were discussed in detail including but not limited to , infection, nerve and blood vessel damage, persistent pain, numbness, tingling, paresthesias, blood clot, pulmonary embolism, and requirement for possible further surgery.? The patient expressed full understanding and has no further questions for the doctor.? Patient does agree to proceed with the above-stated procedure and has signed the surgery consent form. I have reviewed the [place] Automated Rx Reporting System (OARRS) report for this patient for refill pattern and other prescriber involvement as part of the appropriate surveillance for the provision of acute and chronic controlled medications.? The report was requested and reviewed on the date of this entry and was considered in the prescribing process. Discussed with the patient the risks associated with the COVID-19 virus including the risk of exposure while at the hospital.? The patient was reassured local hospitals have low infection rates and taken all necessary precautions to limit patient exposure to COVID-19.? Limiting the patient's time in the hospital may decrease their exposure to COVID-19.? The patient was notified that we will need to comply with any screening or testing the hospital wishes to perform and that surgery may be delayed for any positive test results. ___? I have re-examined the patient.? There are no clinical changes since date of exam. ___? See progress notes for changes. ___? Dictated on admission Date: ? ? ?Time: Signature:
[2021-11-21] MEDS: Gabapentin 600 MG Tablet PO (10:45)
[2021-11-21] MEDS: Acetaminophen 500 MG Tablet 1000 MG PO ×2 (10:45→22:13)
[2021-11-21] MEDS: Lactated Ringers 1,000 ML 999 ML IV ×2 (10:46→16:25)
[2021-11-21] MEDS: Magnesium 2 GM IV (10:46)
[2021-11-21 10:50] LABS: Bedside Glucose 123 mg/dL (74-106)
[2021-11-21] MEDS: Cefazolin 2 GM in 0.9% Normal Saline 100 ML IV (12:50)
[2021-11-21] MEDS: TXA 1000mg in NS100 100ml (IVPB at Incision) 660 MG IV (13:12)
[2021-11-21] MEDS: dexAMETHasone 10 MG/ML Vial IV (13:12)
[2021-11-21] MEDS: TXA 1000mg in NS100 100ml (IVPB at Closure) 660 MG IV (14:56)
--- NOTE | 2021-11-21 15:22 | OP.PCM_ITS ---
Report of Operation Date of Procedure: 11/21/21 Pre-Operative Diagnosis: Right total hip instability Right hip periprosthetic greater trochanteric fracture Exam under anesthesia right hip Post-Operative Diagnosis: Right total hip instability Right hip periprosthetic greater trochanteric fracture Exam under anesthesia right hip Surgery/Procedure Performed:: 1. Revision right total hip replacement femoral and acetabular component to dual mobility implant. 2. Right greater trochanteric fracture ORIF Description of Surgical Findings:: Stable hip with hyperextension and extreme external rotation. Stable hip with hyperflexion and internal rotation Surgeon: Chilo Blount drawing in machine tender helper: Myriam Boateng Type of Anesthesia: General Anesthesiologist: Brad Cordoba Special Medications: 2 g Ancef, 1 g TXA at incision, 1 g TXA closure, 10 mg Decadron, joint cocktail (5 mg Duramorph, 30 mL of 0.5% Ropivicaine, 1000 units of epinephrine, 30 mg of Toradol) Specimen's removed: 3 separate specimens were sent to microbiology Estimated Blood Loss (mL): 150 Fluids Replaced: crystalloid Description of Procedure: On the date of the procedure patient's right hip was marked in the preoperative area. Patient was brought back to the operating room where they were transferred the table in the supine position. Anesthesia assumed control C- spine and airway and remained controlled throughout the remainder the procedure. After patient was appropriately anesthetized patient was left in the supine position and we examined the hip. Patient remained stable on extreme external rotation and extension and flexion with internal rotation unfortunately was unable to recreate the position patient dislocated in. After examining the patient patient was placed in the lateral decubitus position. After patient was safely secured to the bed in the lateral decubitus position all bony prominences were identified well-padded and the right lower extremity was prepped in a sterile fashion. Surgeons then scrubbed. Upon reentering the room the right lower extremity was draped in a standard orthopedic fashion. Incision was marked out and timeout was called. When agreed upon the side, the site, the procedure to be performed, patient's identity and antibiotics given. After the timeout incision was taken down through skin subtenons tissue fat down to fascia. Hemostasis was obtained at this layer. We then incised the fascia in line with the skin. Once he did this were able to identify the greater trochanteric fracture after removing the bursa. We then carefully remove the external rotators distally and were able to gain access to the joint. Once we are in the joint we performed a synovectomy posteriorly and anteriorly. Posterior and anterior synovium were sent for culture. Were able to identify stem and it was well fixed into the distal portion of the femur. The hip was dislocated and the trunnion and femoral head were using a bone tamp. Once this was done we then carefully placed the femoral trunnion anterior to the pelvis and retracted out of the way. Zelpi was placed and we are able to gain access to the acetabular component. 1/4 inch osteotome was used to remove the acetabular component. Once this was done we were able to get membrane from behind the acetabulum for culture. The wound was then copiously irrigated out with normal saline after thorough debridement and removal of all implants to be removed. 6 L of normal saline were used under low-pressure lavage. Attention was then directed back towards the reconstruction. An MDM liner was selected to improve stability of the hip. We placed an MDM liner in alpha code D and impacted into place. Once this was done we trialed with a +2.5 mm MDM head. This gave us good stability with flexion beyond 90 degrees and internal rotation we then hyperextended the hip and externally rotated it to an extreme position. We were unable to dislocate the hip showing stability. Once we reduced the hip we had good reduction of the trochanteric fracture. Hip was then dislocated copiously irrigated out normal saline and the final femoral head components were opened. MDM polyethylene liner alpha code D and 28 mm C taper Biolox delta +2.5 mm femoral head and a see taper adapter for the femoral trunnion. We also opened a small trochanteric plate and passed 2 cables below the lesser trochanter. Trunnion was then exposed and cleaned and dried thoroughly. Femoral head was then impacted into place and Franklin taper was engaged. Once this was done we reduced the hip and again proved stable at extremes range of motion. The greater trochanteric fragment was then reduced and the claw plate and cables were passed and tightened. Once the cables were tightened and crimped excess cable was cut and the hip was taken again through range of motion and remained stable. After this a dilute Betadine lavage was used for 3 minutes followed by chlorhexidine lavage. Copious amounts of irrigation were then irrigated throughout the wound. We then were able to identify posterior capsule to tagged with #2 FiberWire and repair through bone tunnels. Once we did this we then irrigated out the wound once more and closed the fascia with #1 Vicryl. Deep fatty layer was closed #1 Vicryl. 2-0 Vicryl followed by 4 oh strata fix and finally skin closure was completed with laura. Sterile silver dressing was placed. Patient was awakened by anesthesia and transferred the PACU for recovery in stable condition. Postop plan for this patient: DVT prophylaxis 81 mg twice daily for 4 weeks. Patient will be partial weightbearing 50% and use a walker or cane and avoid active abduction for 6 weeks. Patient will follow strict posterior precautions for 3 months and also anterior precautions due to previous anterior hip surgery. Patient will be on doxycycline for 2 weeks as we follow cultures. Complications No intraoperative complications Admit VTE Documentation VTE Present on Admission: No VTE Mechan Device Prophylaxis: SCD's and Thigh High LEOPOLDO Hose VTE Pharm Prophylaxis ordered?: Yes
[2021-11-21] MEDS: Heparin 10,000 UNITS/10 ML Vial 10000 UNITS (15:30)
--- NOTE | 2021-11-21 16:13 | RAD_ITS ---
STUDY: X-RAY - PELVIS AND RIGHT HIP REASON FOR EXAM: Female, 71 years old. Post Op -- AP both hips on single meredith/lateral of op hip PACU TECHNIQUE: XR Hip Unilateral with Pelvis when performed; 2-3 Views COMPARISON: None. FINDINGS: There is no fracture or dislocation. There is anatomic alignment. The soft tissue planes are preserved. Total hip arthroplasty. Skin laura are seen along the anterior lateral aspect of the hip. There is an air-fluid level seen in the operative site. Joint space is preserved. Subcutaneous air is noted. Right proximal femoral cerclage wires in place. RAD/HIP, UNI W/ Pelvis 2-3 Views IMPRESSION: Successful total hip arthroplasty. Electronically Signed: Fadi Danielson MD at 16:41 EDT ,
--- NOTE | 2021-11-21 17:45 | PN.HOSP_ITS ---
Documented by User: Sharron Foote NP, FIXED WING PILOT-C 11/21/21 17:58 Subjective Subjective Patient seen and examined. Underwent right hip surgery per Dr. Blount. Reports post-op pain, currenlty tolerable. Denies other symptoms or complaints. Objective Data Objective Data Vital Signs: Vital Signs Temp Pulse Resp BP Pulse Ox O2 Del Method O2 Flow Rate 98.5 F 76 16 148/78 H 100 Room Air 2 11/21/21 17:16 11/21/21 17:16 11/21/21 17:16 11/21/21 17:16 11/21/21 17:16 11/21/21 17:00 11/21/21 17:16 Oxygen Flow Rate (L/min) 2 Oxygen Delivery Method Room Air Weight: 159 lb 9.6 oz Body Mass Index (BMI) 26.5 Intake & Output: Intake and Output for Last 24 Hours 11/19/21 11/20/21 11/21/21 23:59 23:59 23:59 Intake Total 1434 / 1434 Balance 1434 / 1434 Lab / Micro Data Result Diagrams: 11/19/21 06:47 11/19/21 06:47 Labs: Laboratory Results - last 24 hr 11/21/21 10:34: POC Glucose 123 H Micro: Microbiology 11/19/21 06:47 Swab (Method) Nasal Screen MRSA/MSSA - Final Radiography Diagnostic Testing: Radiology Impression Hip/Pelvis X-Ray 11/21/21 16:13 IMPRESSION: Successful total hip arthroplasty. Electronically Signed: Fadi Danielson MD at 16:41 EDT Reading Location ID and State: [facility] / [place] , Service support , Physical Exam Const alert, oriented x3 and no apparent distress Orientation / Consciousness: awake, oriented to person, oriented to place and oriented to time HEENT normocephalic and moist oral mucous membranes Eyes PERRL, EOMs intact bilaterally and conjunctivae normal Neck no lymphadenopathy Resp normal respiratory effort and clear to auscultation bilaterally Cardio regular rate, regular rhythm and no murmurs Peripheral Pulses: pulses 2+ throughout GI normal to inspection, nondistended, normoactive bowel sounds, non-tender and non-distended Extremity normal to inspection Skin no rashes or lesions noted Skin Narrative: Right hip post op dressing intact. Lesions: no lesions Rashes: no rashes Trauma: no lacerations or abrasions Neuro CN's II-XII intact bilaterally, no focal motor deficits, no sensory deficits noted and deep tendon reflexes 2+ bilaterally Psych mental status grossly normal and affect normal Assessment & Plan Assessment/Plan (1) HTN (hypertension): PLAN: Plan 1. Right total hip instability with right hip periprosthetic greater trochanter fracture status post revision right total hip replacement femoral and acetabular component to dual mobility implant/right greater trochanter fracture ORIF- management per orthopedic medicine. PT/OT. As needed pain regimen. 2. Hypertension-stable. Continue home triamterene/HCTZ. 3. Hypothyroidism-continue Synthroid. 4. GERD-continue PPI. DVT prophylaxis- Aspirin 81 mg BID per ortho This patient was seen by NEHA Reid under the supervision of Dr. Beckham. Time spent examining patient, reviewing data and subsequent management of care: 12 minutes Documented by User: Dr. Yumiko Beckham DO 11/21/21 21:19 Objective Data Lab / Micro Data Result Diagrams: 11/19/21 06:47 11/19/21 06:47 Assessment & Plan Assessment/Plan (1) HTN (hypertension): PLAN: Plan 1. Right total hip instability with right hip periprosthetic greater trochanter fracture status post revision right total hip replacement femoral and acetabular component to dual mobility implant/right greater trochanter fracture ORIF- management per orthopedic medicine. PT/OT. As needed pain regimen. 2. Hypertension-stable. Continue home triamterene/HCTZ. 3. Hypothyroidism-continue Synthroid. 4. GERD-continue PPI. DVT prophylaxis- Aspirin 81 mg BID per ortho This patient was seen by NEHA Reid under the supervision of Dr. Beckham. Time spent examining patient, reviewing data and subsequent management of care: 12 minutes This patient was seen in conjunction with Sharron Foote NP. I have independently interviewed and examined the patient and reviewed pertinent historical, laboratory and other data. Please refer to consult note for details of this patient's presentation, findings and recommendations. I have reviewed Sharron's note and concur fully with documented findings. In brief, patient is a 71-year-old female admitted for a revision of a right total hip replacement for right hip instability secondary to right greater trochanteric fracture. We have been asked to consult and manage HTN. Blood pressure is well controlled at this time and heart rate is within normal limits. A TSH on 11/19/2021 was mildly increased at 5.21. Her last T4 was in July and it was mildly increased. I agree with the P{E documented by Sharron Foote with no exceptions. Will continue the current antihypertensives. Physical examination: Agree with the physical examination done by Sharron Foote with no exceptions. She is alert, oriented x3 and appears to be in no acute distress at the present time. Lungs are clear to auscultation with no tachypnea and no conversational dyspnea The heart had a regular rate and rhythm with no murmurs, no gallop and no rub. The abdomen was soft, nontender, nondistended and had normal bowel sounds. No rashes and no skin breakdown. Cranial nerves II through XII are grossly intact with no focal motor deficits. Assessment: 1. Hypertension -continue the current medications 2. Hypothyroidism-continue Levothyroid I have discussed my assessment with Sharron and orders have been written. Charges/Coding Visit Charges Inpatient E&M: 89346 Subs Hosp L2
[2021-11-21] MEDS: Ensure Surgery 237 ML LIQUID PO (18:00)
[2021-11-21] MEDS: oxyCODONE 5 MG Tablet PO ×2 (18:00→22:13)
[2021-11-21] MEDS: Cefazolin 1 GM/50 ML BAG IV (20:16)
[2021-11-21] MEDS: Aspirin 81 MG TAB.CHEW PO (22:13)
[2021-11-21] MEDS: Senna/Docusate Sodium 1 Tablet 2 TABLET PO (22:14)
[2021-11-22] VITALS (7 sets, daily range): BP systolic 85–130; BP diastolic 40–76; PULSE 73–96; RESP 16–18; TEMP 36.4–36.8; O2SAT 92–96
[2021-11-22] MEDS: oxyCODONE 5 MG Tablet PO ×3 (03:37→21:55)
[2021-11-22] MEDS: Cefazolin 1 GM/50 ML BAG IV (04:03)
[2021-11-22] MEDS: Levothyroxine 112 MCG Tablet PO (04:03)
[2021-11-22] MEDS: Acetaminophen 500 MG Tablet 1000 MG PO ×3 (04:03→21:55)
[2021-11-22 07:56] LABS: Hematocrit 34.4 % (37-47); Mean Corpuscular Hgb 29.6 pg (27.0-32.0); Mean Corpuscular Volume 92.5 fL (81-99); Mean Platelet Vol. 9.2 fl (6.2-12.0); Platelet Count 431 K/mm3 (150-450); RBC Distribution Width CV 13.6 % (11.6-14.6); Red Blood Count 3.72 M/mm3 (4.2-5.4); White Blood Count 12.5 K/mm3 (4.4-11.0)
[2021-11-22] MEDS: Aspirin 81 MG TAB.CHEW PO ×2 (07:58→17:04)
[2021-11-22] MEDS: Cholecalciferol (VIT D3) 25 MCG TABLET (1,000 UNITS) 100 MCG PO (08:00)
[2021-11-22] MEDS: Senna/Docusate Sodium 1 Tablet 2 TABLET PO (08:00)
[2021-11-22] MEDS: Multivitamins,Ther W-Minerals Tablet 1 TABLET PO (08:01)
[2021-11-22] MEDS: Famotidine 20 MG Tablet PO (08:01)
[2021-11-22 08:12] LABS: Anion Gap 7 (5-15); BUN 10 mg/dL (7-18); BUN/Creat Ratio 14.2 RATIO (10-20); Chloride 96 mmol/L (98-107); Creatinine, Serum 0.71 mg/dL (0.55-1.02); EST Glomerular Filtration Rate 87 mL/min (>60); Est Glom Filt Rate - Afr Amer 105 mL/min (>60); Estimated Creatinine Clearance 46.43 ml/min; Glucose 118 mg/dL (74-106); Potassium 3.9 mmol/L (3.5-5.1); Sodium Level 134 mmol/L (136-145)
--- NOTE | 2021-11-22 08:59 | PCM.PN.ORT ---
Subjective Subjective Patient overall is doing well. She reports moderate pain in her thigh. She did have some decreased blood pressure earlier this morning around the time of her blood draw. She is responded well to a 500 mL bolus of fluid. No chest pain or shortness of breath this morning. No associated numbness tingling or neurologic deficits of the extremity reported. Objective Data Objective Data Vital Signs: Vital Signs Temp Pulse Resp BP Pulse Ox O2 Del Method O2 Flow Rate 97.8 F 77 16 85/40 L 94 Room Air 2 11/22/21 07:51 11/22/21 07:51 11/22/21 07:51 11/22/21 07:51 11/22/21 07:51 11/22/21 07:51 11/21/21 21:49 Oxygen Flow Rate (L/min) 2 Oxygen Delivery Method Room Air Weight: 159 lb 9.6 oz Body Mass Index (BMI) 26.5 Intake & Output: Intake and Output for Last 24 Hours 11/20/21 11/21/21 11/22/21 23:59 23:59 23:59 Intake Total 2484 / 2484 550 / 550 Output Total 0 / 0 500 / 500 Balance 2484 / 2484 50 / 50 Lab / Micro Data Attestation: I reviewed the patient's lab results. Result Diagrams: 11/22/21 07:40 11/22/21 07:40 Labs: Laboratory Results - last 24 hr 11/21/21 10:34: POC Glucose 123 H 11/22/21 07:40: WBC 12.5 H, RBC 3.72 L, Hgb 11.0 L, Hct 34.4 L, MCV 92.5, MCH 29.6, MCHC 32.0, RDW Std Deviation 46.0 H, RDW Coeff of Samra 13.6, Plt Count 431, MPV 9.2 11/22/21 07:40: Sodium 134 L, Potassium 3.9, Chloride 96 L, Carbon Dioxide 31.0, Anion Gap 7, BUN 10, Creatinine 0.71, Estim Creat Clear Calc 46.43, Est GFR (MDRD) Af Amer 105, Est GFR (MDRD) Non-Af 87, BUN/Creatinine Ratio 14.2, Glucose 118 H, Calcium 9.0 Micro: Microbiology 11/19/21 06:47 Swab (Method) Nasal Screen MRSA/MSSA - Final Radiography Diagnostic Testing: Radiology Impression Hip/Pelvis X-Ray 11/21/21 16:13 IMPRESSION: Successful total hip arthroplasty. Electronically Signed: Fadi Danielson MD at 16:41 EDT , X-rays personally reviewed showing stable fixation of greater trochanter and revision hip replacement. Physical Exam Const alert and oriented x3 Constitutional Narrative: Slightly decreased coloration. Extremity Extremity Narrative: Right lower extremity: Dressing is clean dry and intact Sensations intact to light touch saphenous, sural, superficial peroneal, deep peroneal, and tibial distributions Motors intact EHL, DF, PF calves are soft and supple Thigh is soft and supple without excessive swelling or ecchymosis. Assessment & Plan Assessment/Plan (1) Failure of right total hip arthroplasty with dislocation of hip: PLAN: Postop day 1 right hip revision for instability with open reduction internal fixation right greater trochanteric hip fracture. 1. DVT prophylaxis: Aspirin 81 mg twice daily 2. Therapy: 50% partial weightbearing anterior and posterior hip precautions. Use walker or cane for 6 weeks with no active abduction. Activity as tolerated 3. Postop hypotension likely related to fluid shifts perioperatively. Hemoglobin is stable. Thigh is soft and supple. No evidence of continuing blood loss. Otherwise vital signs are stable. 4. Pain control: Continue with current regimen Tylenol and oxycodone 5. Med management: Patient otherwise medically stable appreciate medical management of this patient. 6. Disposition: Plan for discharge home. However due to hypotension early this morning and continued pain in thigh as well as lack of significant therapy at this point I would recommend patient remain in the hospital today and obtain therapy. If she does well throughout the day we will plan on discharge tomorrow. Patient's plan is to be discharged home if possible. We will continue to assess patient's status to determine final discharge disposition. [facility] Office: (2) Fracture of greater trochanter of right femur:
--- NOTE | 2021-11-22 09:09 | DCINST_ITS ---
Discharge Instructions Diet Discharge Diet: No restrictions Activity Discharge Activity: May Not Drive (while taking narcotic pain medications.) and Use Walker (or cane, no active aBduction of hip.) May shower in (days): 1 May resume sexual activity in: 6 weeks Ice area for (Minutes): 20 Weight Bearing Status: Partial weight bearing Additional Activity Instructions:: Wear elastic stockings for 2 weeks. DO NOT use alcohol with narcotic pain medication. DO NOT make important decisions while taking narcotic medication. If you have problems with taking your medication (rash, itching, nausea, etc.) call the office at once. Dressing / Incision Call your doctor if your incision/area has: Increased Redness and Foul Smelling Discharge Call your doctor if you observe: Fever of 101 or Higher Remove Dressing in: 3 days Additional Dressing/Incision Instructions:: If incision is clean dry and intact may leave the wound open to air and continue showering. If there is continued drainage continue daily dry dressing changes and keep incision clean dry and intact until there is no drainage. Follow Up Care Please Follow Up With: Aldo Breaux PA-C When: 12/05/2021 9:00 [facility] office Test Results: Test results from this visit will be discussed in further detail at your follow- up appointment, if applicable. Discharge Plan Admission Admit Date/Time: 11/21/21 15:17 Attending Provider: Betsy Turpin Primary Care Provider: Thomas Parker Consulting Providers: Brad Cordoba ; Betsy Turpin ; Chilo Blount Discharge Orders/Prescriptions Prescriptions: New acetaminophen 500 mg Tablet 1,000 mg PO Q8 Qty: 0 0RF famotidine 20 mg Tablet 20 mg PO DAILY 30 Days Qty: 30 0RF doxycycline monohydrate 100 mg Capsule 100 mg PO BID 12 Days Qty: 24 0RF aspirin 81 mg Tablet,Chewable 81 mg PO BIDCM Qty: 0 0RF oxycodone 5 mg Tablet 5 - 10 mg PO Q4H PRN PRN (Reason: Pain Score 4-10) 7 Days Qty: 48 0RF insulin lispro [Humalog KwikPen Insulin] 100 unit/mL Insulin Pen 1 - 6 unit subcut Q4H PRN PRN (Reason: BG>/= 180, SEE PROTOCOL) Qty: 0 0RF sennosides-docusate sodium [Stool Softener-Stimulant Laxat] 8.6-50 mg Tablet 2 tab PO BID 7 Days Qty: 14 0RF Continued levothyroxine [Synthroid] 112 mcg tablet 112 mcg PO QDAY pantoprazole [Protonix] 40 mg tablet,delayed release (DR/EC) 40 mg PO QDAY PRN (Reason: gerd) Complete Multivitamin Tablet 1 tab PO DAILY cholecalciferol (vitamin D3) 1,000 UNIT tablet 4,000 unit PO DAILY Held triamterene-hydrochlorothiazid [Maxzide-25mg] 37.5-25 mg tablet 1 tab PO QDAY Hold Instructions: Resume on 12/21/21. monitor Blood pressuer at home if begins to elevate again contact pcp to restart medication. Discontinued acetaminophen [Acetaminophen Extra Strength] 500 mg Tablet 1,000 mg PO Q6H PRN (Reason: Pain) Referrals / Follow Up: Thomas Parker MD [Primary Care Provider] - Disposition Discharge Orders: Discharge Patient (Routine); Ordered 11/23/21 Ordered By: Dr. Chilo Blount
--- NOTE | 2021-11-22 09:12 | PCM.DC.SUM ---
Providers Date of Admission: 11/21/21 Primary Care Physician: Dr. Thomas Parker MD Consultations 11/21/21 15:17 Consult: Hospitalist Routine Consulting Provider: Betsy Turpin Reason for Consult: post op med management EMERGENT Consult: No MD Notified: Yes Date Notified: 11/21/21 Time Notified: 17:28 Method of Notification: Text Reason For Visit: TOTAL POSTERIOR HIP REV RT/ORIF TROCHANTERIC FX Diagnosis Discharge Diagnosis (1) Failure of right total hip arthroplasty with dislocation of hip: Status: Acute Code(s): T84.020A - Dislocation of internal right hip prosthesis, initial encounter Plan: Postop day 1 right hip revision for instability with open reduction internal fixation right greater trochanteric hip fracture. 1. DVT prophylaxis: Aspirin 81 mg twice daily 2. Therapy: 50% partial weightbearing anterior and posterior hip precautions. Use walker or cane for 6 weeks with no active abduction. Activity as tolerated 3. Postop hypotension likely related to fluid shifts perioperatively. Hemoglobin is stable. Thigh is soft and supple. No evidence of continuing blood loss. Otherwise vital signs are stable. 4. Pain control: Continue with current regimen Tylenol and oxycodone 5. Med management: Patient otherwise medically stable appreciate medical management of this patient. 6. Disposition: Plan for discharge home. However due to hypotension early this morning and continued pain in thigh as well as lack of significant therapy at this point I would recommend patient remain in the hospital today and obtain therapy. If she does well throughout the day we will plan on discharge tomorrow. Patient's plan is to be discharged home if possible. We will continue to assess patient's status to determine final discharge disposition. [facility] Office: (2) Fracture of greater trochanter of right femur: Status: Acute Code(s): S72.111A - Displaced fracture of greater trochanter of right femur, initial encounter for closed fracture Medications at Discharge Home Medications levothyroxine 112 mcg tablet (Synthroid) 112 mcg PO QDAY thyroid 12/31/17 pantoprazole 40 mg tablet,delayed release (Protonix) 40 mg PO QDAY PRN gerd 12/31/17 triamterene 37.5 mg-hydrochlorothiazide 25 mg tablet (Maxzide-25mg) 1 tab PO QDAY bp 12/31/17 multivitamin,xp-ybjo-wqyqbgyv (Complete Multivitamin) 1 tab PO DAILY supplement 05/07/19 cholecalciferol (vitamin D3) 25 mcg (1,000 unit) tablet 4,000 unit PO DAILY supplement 01/22/20 acetaminophen 500 mg tablet 1,000 mg PO Q8 #0 tabs 11/23/21 aspirin 81 mg chewable tablet 81 mg PO BIDCM #0 tabs 11/23/21 doxycycline monohydrate 100 mg capsule 100 mg PO BID 12 days #24 caps 11/23/21 famotidine 20 mg tablet 20 mg PO DAILY 30 days #30 tabs 11/23/21 insulin lispro 100 unit/mL subcutaneous pen (Humalog KwikPen (U-100) Insulin) 1 - 6 unit (0.01 - 0.06 mL) subcut Q4H PRN PRN BG>/= 180, SEE PROTOCOL #0 mL 11/23/21 oxycodone 5 mg tablet 5 - 10 mg PO Q4H PRN PRN Pain Score 4-10 7 days #48 tabs 11/23/21 sennosides 8.6 mg-docusate sodium 50 mg tablet (Stool Softener-Stimulant Laxative) 2 tab PO BID 7 days #14 tabs 11/23/21 Hospital Course Operations total hip replacement (Revision right total hip replacement with repair of greater trochanteric fracture.) Procedures None Summary of Care Provided Hospital Course: Patient was brought to the hospital for elective admission after surgery for instability of her right total replacement and greater trochanteric fracture. Surgery commenced without complications. Postoperatively patient did have some hypotension on postop day 1 in the morning. She was maintained in the hospital to monitor her continued clinical response and proceed with physical therapy. She was made 50% weightbearing with no active abduction. The following morning patient had done well with therapies patient participated in therapy on day of discharge and was eventually discharged home. Physical Exam Const alert and oriented x3 Extremity Extremity Narrative: Right lower extremity: Dressing is clean dry and intact Sensations intact to light touch saphenous, sural, superficial peroneal, deep peroneal, and tibial distributions Motors intact EHL, DF, PF calves are soft and supple Thigh soft and supple. Weight / BMI Weight Weight: 159 lb 9.6 oz Body Mass Index (BMI) 26.5 ABG / Lab / Microbiology Data Result Diagrams: 11/22/21 07:40 11/22/21 07:40 Laboratory: Laboratory Results - last 24 hr 11/21/21 10:34: POC Glucose 123 H 11/22/21 07:40: WBC 12.5 H, RBC 3.72 L, Hgb 11.0 L, Hct 34.4 L, MCV 92.5, MCH 29.6, MCHC 32.0, RDW Std Deviation 46.0 H, RDW Coeff of Samra 13.6, Plt Count 431, MPV 9.2 11/22/21 07:40: Sodium 134 L, Potassium 3.9, Chloride 96 L, Carbon Dioxide 31.0, Anion Gap 7, BUN 10, Creatinine 0.71, Estim Creat Clear Calc 46.43, Est GFR (MDRD) Af Amer 105, Est GFR (MDRD) Non-Af 87, BUN/Creatinine Ratio 14.2, Glucose 118 H, Calcium 9.0 Microbiology: Microbiology 11/19/21 06:47 Swab (Method) Nasal Screen MRSA/MSSA - Final Radiography Diagnostic Testing: Radiology Impression Hip/Pelvis X-Ray 11/21/21 16:13 IMPRESSION: Successful total hip arthroplasty. Electronically Signed: Fadi Danielson MD at 16:41 EDT Reading Location ID and State: [facility] / [place] , Service support , D/C Instructions Discharge Diet: No restrictions May shower in (days): 1 May resume sexual activity in: 6 weeks Ice area for (Minutes): 20 Weight Bearing Status: Partial weight bearing Additional Activity Instructions: Wear elastic stockings for 2 weeks. DO NOT use alcohol with narcotic pain medication. DO NOT make important decisions while taking narcotic medication. If you have problems with taking your medication (rash, itching, nausea, etc.) call the office at once. Call your doctor if your incision/area has: Increased Redness and Foul Smelling Discharge Call your doctor if you observe: Fever of 101 or Higher Additional Dressing/Incision Instructions: If incision is clean dry and intact may leave the wound open to air and continue showering. If there is continued drainage continue daily dry dressing changes and keep incision clean dry and intact until there is no drainage. Please Follow Up With: Aldo Breaux PA-C When: 12/05/2021 9:00 [facility] office Meaningful Use Info Meaningful Use Diagnoses (Choose all that apply): None applicable Discharge Plan Admission Admit Date/Time: 11/21/21 15:17 Attending Provider: Betsy Turpin Primary Care Provider: Thomas Parker Consulting Providers: Brad Cordoba ; Betsy Turpin ; Chilo Blount Discharge Orders/Prescriptions Prescriptions: New acetaminophen 500 mg Tablet 1,000 mg PO Q8 Qty: 0 0RF famotidine 20 mg Tablet 20 mg PO DAILY 30 Days Qty: 30 0RF doxycycline monohydrate 100 mg Capsule 100 mg PO BID 12 Days Qty: 24 0RF aspirin 81 mg Tablet,Chewable 81 mg PO BIDCM Qty: 0 0RF oxycodone 5 mg Tablet 5 - 10 mg PO Q4H PRN PRN (Reason: Pain Score 4-10) 7 Days Qty: 48 0RF insulin lispro [Humalog KwikPen Insulin] 100 unit/mL Insulin Pen 1 - 6 unit subcut Q4H PRN PRN (Reason: BG>/= 180, SEE PROTOCOL) Qty: 0 0RF sennosides-docusate sodium [Stool Softener-Stimulant Laxat] 8.6-50 mg Tablet 2 tab PO BID 7 Days Qty: 14 0RF Continued levothyroxine [Synthroid] 112 mcg tablet 112 mcg PO QDAY pantoprazole [Protonix] 40 mg tablet,delayed release (DR/EC) 40 mg PO QDAY PRN (Reason: gerd) Complete Multivitamin Tablet 1 tab PO DAILY cholecalciferol (vitamin D3) 1,000 UNIT tablet 4,000 unit PO DAILY Held triamterene-hydrochlorothiazid [Maxzide-25mg] 37.5-25 mg tablet 1 tab PO QDAY Hold Instructions: Resume on 12/21/21. monitor Blood pressuer at home if begins to elevate again contact pcp to restart medication. Discontinued acetaminophen [Acetaminophen Extra Strength] 500 mg Tablet 1,000 mg PO Q6H PRN (Reason: Pain) Referrals / Follow Up: Thomas Parker MD [Primary Care Provider] - Disposition Discharge Orders: Discharge Patient (Routine); Ordered 11/23/21 Ordered By: Dr. Chilo Blount
--- NOTE | 2021-11-22 11:05 | PCM.PN.HOSP ---
Documented by User: Sharron Foote NP, CRA-C 11/22/21 11:10 Subjective Subjective Patient seen and examined. Noted to have transient episode of hypotension this morning. Patient denies symptoms during episode. She does report some mild dizziness which she feels is related to pain medications. Denies other symptoms or complaints. Objective Data Objective Data Vital Signs: Vital Signs Temp Pulse Resp BP Pulse Ox O2 Del Method O2 Flow Rate 97.9 F 73 16 117/59 L 92 Room Air 2 11/22/21 08:59 11/22/21 08:59 11/22/21 08:59 11/22/21 08:59 11/22/21 08:59 11/22/21 08:59 11/21/21 21:49 Oxygen Flow Rate (L/min) 2 Oxygen Delivery Method Room Air Weight: 159 lb 9.6 oz Body Mass Index (BMI) 26.5 Intake & Output: Intake and Output for Last 24 Hours 11/20/21 11/21/21 11/22/21 23:59 23:59 23:59 Intake Total 2484 / 2484 550 / 550 Output Total 0 / 0 500 / 500 Balance 2484 / 2484 50 / 50 Lab / Micro Data Result Diagrams: 11/22/21 07:40 11/22/21 07:40 Labs: Laboratory Results - last 24 hr 11/22/21 07:40: WBC 12.5 H, RBC 3.72 L, Hgb 11.0 L, Hct 34.4 L, MCV 92.5, MCH 29.6, MCHC 32.0, RDW Std Deviation 46.0 H, RDW Coeff of Samra 13.6, Plt Count 431, MPV 9.2 11/22/21 07:40: Sodium 134 L, Potassium 3.9, Chloride 96 L, Carbon Dioxide 31.0, Anion Gap 7, BUN 10, Creatinine 0.71, Estim Creat Clear Calc 46.43, Est GFR (MDRD) Af Amer 105, Est GFR (MDRD) Non-Af 87, BUN/Creatinine Ratio 14.2, Glucose 118 H, Calcium 9.0 Micro: Microbiology 11/21/21 Unknown Tissue - Hip Gram Stain - Final 11/21/21 Unknown Tissue - Hip Gram Stain - Final 11/21/21 Unknown Tissue - Hip Gram Stain - Final 11/19/21 06:47 Swab (Method) Nasal Screen MRSA/MSSA - Final Radiography Diagnostic Testing: Radiology Impression Hip/Pelvis X-Ray 11/21/21 16:13 IMPRESSION: Successful total hip arthroplasty. Electronically Signed: Fadi Danielson MD at 16:41 EDT Reading Location ID and State: [facility] / [place] , Service support , Physical Exam Const alert, oriented x3 and no apparent distress Orientation / Consciousness: awake, oriented to person, oriented to place and oriented to time HEENT normocephalic and moist oral mucous membranes Eyes PERRL, EOMs intact bilaterally and conjunctivae normal Neck no lymphadenopathy Resp normal respiratory effort and clear to auscultation bilaterally Cardio regular rate, regular rhythm and no murmurs Peripheral Pulses: pulses 2+ throughout GI normal to inspection, nondistended, normoactive bowel sounds, non-tender and non-distended Extremity normal to inspection Skin no rashes or lesions noted Skin Narrative: Postop dressing intact Lesions: no lesions Rashes: no rashes Trauma: no lacerations or abrasions Neuro CN's II-XII intact bilaterally, no focal motor deficits, no sensory deficits noted and deep tendon reflexes 2+ bilaterally Psych mental status grossly normal and affect normal Assessment & Plan Assessment/Plan (1) Fracture of greater trochanter of right femur: (2) Failure of right total hip arthroplasty with dislocation of hip: (3) Hypotension: PLAN: Plan 1.? Right total hip instability with right hip periprosthetic greater trochanter fracture status post revision right total hip replacement femoral and acetabular component to dual mobility implant/right greater trochanter fracture ORIF-management per orthopedic medicine.? PT/OT.? As needed pain regimen. 2. Hypertension-transient episode of hypotension this morning. Asymptomatic. Hold home triamterene/HCTZ pending further monitoring. 3. Hypothyroidism-continue Synthroid. 4. GERD-continue PPI. DVT prophylaxis- Aspirin 81 mg BID per ortho This patient was seen by NEHA Reid under the supervision of Dr. Turpin. Documented by User: Dr. Betsy Turpin DO 11/22/21 13:48 Subjective Subjective Patient seen and examined. Noted to have transient episode of hypotension this morning. Patient denies symptoms during episode. She does report some mild dizziness which she feels is related to pain medications. Denies other symptoms or complaints. This patient was seen in conjunction with Sharron Foote NP. The following represents my independent history and physical examination. Please see below for addendum the above. I was called this morning with some hypotension. The patient seemed to be fairly asymptomatic however was just lying in bed. Did not seem to be any correlation with pain medication given. Patient was given a 500 cc fluid bolus and blood pressures have improved. Objective Data Lab / Micro Data Result Diagrams: 11/22/21 07:40 11/22/21 07:40 Physical Exam Const alert, oriented x3 and no apparent distress Constitutional Narrative: Older white female sitting up in bed, appears comfortable nontoxic, Dr. Blount at bedside HEENT head/scalp atraumatic, moist oral mucous membranes and oropharynx normal HEENT Narrative: Mallampati 2, no thrush Resp normal respiratory effort, no retractions, no use of accessory muscles and clear to auscultation bilaterally Cardio regular rate, regular rhythm, S1 normal heart sound, S2 normal heart sound, no murmurs, no rub, no gallops, no clicks and no JVD GI normal to inspection, nondistended, normoactive bowel sounds, soft to palpation, non-tender and non-distended Extremity no clubbing, cyanosis or edema Extremity Narrative: Postoperative dressing right hip examined this is clean dry and intact with mild postoperative edema and tenderness Neuro oriented x3 Assessment & Plan Assessment/Plan (1) Fracture of greater trochanter of right femur: (2) Failure of right total hip arthroplasty with dislocation of hip: (3) Hypotension: PLAN: Plan 1.? Right total hip instability with right hip periprosthetic greater trochanter fracture status post revision right total hip replacement femoral and acetabular component to dual mobility implant/right greater trochanter fracture ORIF-management per orthopedic medicine.? PT/OT.? As needed pain regimen. 2. Hypertension-transient episode of hypotension this morning. Asymptomatic. Hold home triamterene/HCTZ pending further monitoring. 3. Hypothyroidism-continue Synthroid. 4. GERD-continue PPI. DVT prophylaxis- Aspirin 81 mg BID per ortho This patient was seen by NEHA Reid under the supervision of Dr. Turpin. 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
[2021-11-22] MEDS: Doxycycline 100 MG CAPSULE PO ×2 (11:35→21:55)
--- NOTE | 2021-11-22 12:10 | CASEMGMT ---
MANUEL MARIANO assessment: Face to Face with patient for initial transition planning/care coordination assessment. MANUEL MARIANO introduced self and role at [facility], pt voices understanding and consents to assessment. Pt is sitting up in chair in no distress on room air. Pt is A/Ox4 and answers all questions appropriately.? Care providers, pharmacy,?and demographics verified. ? Presentation: Pt presented for planned right total hip Admitting dx: Right total hip PCP: Keith Specialists: Jose Alejandro ortho; Mary, surgeon Preferred Pharmacy: [facility] Insurance: [place]/MCR A/B/ Prescription Benefit:?[place] Living Will/HPOA: Pt has LW/HPOA and is aware that they are not on file at [facility]. Pt states her , Aneudy Osorio, is HPOA. LNOK: Aneudy Osorio, /HPOA; Jl Osorio, son Living Arrangements: Pt lives with in 3 story home and states no concerns at home. Pt is normally independent with ADL's. Transportation: Pt drives self and states no transportation concerns. DME/HHC: Pt has the following DME: cane, walker x2, and raised toilet seat. Pt declines need for any further DME. Pt states no hx of HHC or SNF in past but is set up with OP therapy at [facility] at discharge. Pt states no concerns with going home at time of discharge. 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 Pt states does not smoke cigarettes and drinks ETOH socially. Pt states no further concerns/needs. CM to follow for any further discharge planning/needs. Advised pt to ask for CM if any further questions/concerns/needs arise, voices understanding. Pt Goal: ? Home Plan: Home w/ OP therapy [place] MANUEL MARIANO
[2021-11-23 04:40] VITALS: BP 114/67; PULSE 96; RESP 18; TEMP 37; O2SAT 93
[2021-11-23] MEDS: Levothyroxine 112 MCG Tablet PO (04:44)
[2021-11-23] MEDS: Acetaminophen 500 MG Tablet 1000 MG PO (04:44)
--- NOTE | 2021-11-23 08:02 | PN.ORTHO_ITS ---
Subjective Subjective Patient doing well today. No acute events overnight. Participated well with physical therapy and Occupational Therapy yesterday. Remains comfortable and feels ready for discharge home today. Objective Data Objective Data Vital Signs: Vital Signs Temp Pulse Resp BP Pulse Ox O2 Del Method O2 Flow Rate 98.6 F 96 18 114/67 93 Room Air 2 11/23/21 04:40 11/23/21 04:40 11/23/21 04:40 11/23/21 04:40 11/23/21 04:40 11/23/21 04:40 11/21/21 21:49 Oxygen Flow Rate (L/min) 2 Oxygen Delivery Method Room Air Weight: 159 lb 9.6 oz Body Mass Index (BMI) 26.5 Intake & Output: Intake and Output for Last 24 Hours 11/21/21 11/22/21 11/23/21 23:59 23:59 23:59 Intake Total 2484 / 2484 1500 / 1500 Output Total 0 / 0 500 / 500 Balance 2484 / 2484 1000 / 1000 Lab / Micro Data Attestation: I reviewed the patient's lab results. Result Diagrams: 11/22/21 07:40 11/22/21 07:40 Labs: Laboratory Results - last 24 hr 11/22/21 07:40: Sodium 134 L, Potassium 3.9, Chloride 96 L, Carbon Dioxide 31.0, Anion Gap 7, BUN 10, Creatinine 0.71, Estim Creat Clear Calc 46.43, Est GFR (MDRD) Af Amer 105, Est GFR (MDRD) Non-Af 87, BUN/Creatinine Ratio 14.2, Glucose 118 H, Calcium 9.0 Micro: Microbiology 11/21/21 Unknown Tissue - Hip Gram Stain - Final 11/21/21 Unknown Tissue - Hip Wound Culture - Preliminary No growth-Final to follow 11/21/21 Unknown Tissue - Hip Gram Stain - Final 11/21/21 Unknown Tissue - Hip Wound Culture - Preliminary No growth-Final to follow 11/21/21 Unknown Tissue - Hip Gram Stain - Final 11/21/21 Unknown Tissue - Hip Wound Culture - Preliminary No growth-Final to follow 11/19/21 06:47 Swab (Method) Nasal Screen MRSA/MSSA - Final Physical Exam Const alert, oriented x3 and no apparent distress General Appearance: cooperative, comfortable and well kempt Extremity Extremity Narrative: Right lower extremity: Dressing is clean dry and intact Sensations intact to light touch saphenous, sural, superficial peroneal, deep peroneal, and tibial distributions Motors intact EHL, DF, PF calves are soft and supple Assessment & Plan Assessment/Plan (1) Hypotension: PLAN: Patient's home hypertensive medicines have been held. Discussed with patient continuing to hold as her blood pressure is well controlled and not currently hypertensive. Patient was instructed to monitor blood pressure at home she knows she does have a cuff. She will also be in the office for ph ysical therapy on Wednesday which we can check her blood pressure. If it begins to elevate again we will have her contact her primary care physician to resume these medications. (2) Failure of right total hip arthroplasty with dislocation of hip: PLAN: Postop day 2 right hip revision for instability with open reduction internal fixation right greater trochanteric hip fracture. 1.? DVT prophylaxis: Aspirin 81 mg twice daily 2.? Therapy: 50% partial weightbearing anterior and posterior hip precautions.? Use walker or cane for 6 weeks with no active abduction.? Activity as tolerated. Patient tolerated well. Recommended she stay for occupational and physical therapy today prior to discharge 3.? Postop hypotension: Most likely related to fluid shifts postoperatively. Responded well to fluid bolus yesterday. Has remained stable since then. We will continue to hold hypertension medications upon discharge. Plan discussed above 4.? Pain control: Continue with current regimen Tylenol and oxycodone 5.? Med management: Patient otherwise medically stable appreciate medical management of this patient. 6. Postop leukocytosis: Likely related to perioperative changes. No signs of infection or sepsis. 7.? Disposition: Plan for discharge home.? Patient has done well with therapy. She was encouraged to continue her round of therapy today with plans for discharge home afterwards. She is doing well and agreeable to this treatment plan. We did discuss her home going medications and DVT prophylaxis. We also discussed use of the oral antibiotics and increased hip precautions different from previous discharge. (3) Fracture of greater trochanter of right femur: PLAN: Status post open reduction internal fixation. No active abduction for 6 weeks.
[2021-11-23 08:36] VITALS: BP 114/68; PULSE 93; RESP 16; TEMP 36.8; O2SAT 94
[2021-11-23] MEDS: Aspirin 81 MG TAB.CHEW PO (09:29)
[2021-11-23] MEDS: Doxycycline 100 MG CAPSULE PO (09:29)
[2021-11-23] MEDS: Famotidine 20 MG Tablet PO (09:29)
[2021-11-23] MEDS: Cholecalciferol (VIT D3) 25 MCG TABLET (1,000 UNITS) 100 MCG PO (09:29)
[2021-11-23] MEDS: Senna/Docusate Sodium 1 Tablet 2 TABLET PO (09:29)
[2021-11-23] MEDS: Multivitamins,Ther W-Minerals Tablet 1 TABLET PO (09:30)
--- NOTE | 2021-11-23 09:30 | PN.HOSP_ITS ---
Documented by User: Sharron Foote NP, HOTEL ASSISTANT MANAGER-C 11/23/21 09:37 Subjective Subjective Patient seen and examined. Denies current symptoms or complaints. Pain controlled. BP has remained stable. Plan for DC per ortho. Stable for discharge home from a medical standpoint as well. Objective Data Objective Data Vital Signs: Vital Signs Temp Pulse Resp BP Pulse Ox O2 Del Method O2 Flow Rate 98.2 F 93 16 114/68 94 Room Air 2 11/23/21 08:36 11/23/21 08:36 11/23/21 08:36 11/23/21 08:36 11/23/21 08:36 11/23/21 08:36 11/21/21 21:49 Oxygen Flow Rate (L/min) 2 Oxygen Delivery Method Room Air Weight: 159 lb 9.6 oz Body Mass Index (BMI) 26.5 Intake & Output: Intake and Output for Last 24 Hours 11/21/21 11/22/21 11/23/21 23:59 23:59 23:59 Intake Total 2484 / 2484 1500 / 1500 Output Total 0 / 0 500 / 500 Balance 2484 / 2484 1000 / 1000 Lab / Micro Data Result Diagrams: 11/22/21 07:40 11/22/21 07:40 Micro: Microbiology 11/21/21 Unknown Tissue - Hip Gram Stain - Final 11/21/21 Unknown Tissue - Hip Wound Culture - Preliminary No growth-Final to follow 11/21/21 Unknown Tissue - Hip Gram Stain - Final 11/21/21 Unknown Tissue - Hip Wound Culture - Preliminary No growth-Final to follow 11/21/21 Unknown Tissue - Hip Gram Stain - Final 11/21/21 Unknown Tissue - Hip Wound Culture - Preliminary No growth-Final to follow 11/19/21 06:47 Swab (Method) Nasal Screen MRSA/MSSA - Final Physical Exam Const alert, oriented x3 and no apparent distress Orientation / Consciousness: awake, oriented to person, oriented to place and oriented to time HEENT normocephalic and moist oral mucous membranes Eyes PERRL, EOMs intact bilaterally and conjunctivae normal Neck no lymphadenopathy Resp normal respiratory effort and clear to auscultation bilaterally Cardio regular rate, regular rhythm and no murmurs Peripheral Pulses: pulses 2+ throughout GI normal to inspection, nondistended, normoactive bowel sounds, non-tender and non-distended Extremity normal to inspection Skin no rashes or lesions noted Skin Narrative: Right hip dressing clean dry and intact. Lesions: no lesions Rashes: no rashes Trauma: no lacerations or abrasions Neuro CN's II-XII intact bilaterally, no focal motor deficits, no sensory deficits not ed and deep tendon reflexes 2+ bilaterally Psych mental status grossly normal and affect normal Assessment & Plan Assessment/Plan (1) Fracture of greater trochanter of right femur: (2) Failure of right total hip arthroplasty with dislocation of hip: (3) Hypotension: PLAN: Plan 1.? Right total hip instability with right hip periprosthetic greater trochanter fracture status post revision right total hip replacement femoral and acetabular component to dual mobility implant/right greater trochanter fracture ORIF- management per orthopedic medicine.? PT/OT.? As needed pain regimen. Plan for DC per ortho. 2. Hypertension-Hold home triamterene/HCTZ at discharge as blood pressures have remained borderline. Monitor blood pressure twice daily. Follow-up with PCP for ongoing management. 3. Hypothyroidism-continue Synthroid. 4. GERD-continue PPI. DVT prophylaxis- Aspirin 81 mg BID per ortho This patient was seen by NEHA Reid under the supervision of Dr. Turpin. Documented by User: Dr. Betsy Turpin DO 11/23/21 14:02 Objective Data Lab / Micro Data Result Diagrams: 11/22/21 07:40 11/22/21 07:40 Assessment & Plan Assessment/Plan (1) Fracture of greater trochanter of right femur: (2) Failure of right total hip arthroplasty with dislocation of hip: (3) Hypotension: PLAN: Plan 1.? Right total hip instability with right hip periprosthetic greater trochanter fracture status post revision right total hip replacement femoral and acetabular component to dual mobility implant/right greater trochanter fracture ORIF- management per orthopedic medicine.? PT/OT.? As needed pain regimen. Plan for DC per ortho. 2. Hypertension-Hold home triamterene/HCTZ at discharge as blood pressures have remained borderline. Monitor blood pressure twice daily. Follow-up with PCP for ongoing management. 3. Hypothyroidism-continue Synthroid. 4. GERD-continue PPI. DVT prophylaxis- Aspirin 81 mg BID per ortho This patient was seen by NEHA Reid under the supervision of Dr. Turpin. This patient was seen in conjunction with Sharron Foote NP. The following represents my independent history and physical examination. Please see below for addendum the above. Patient has had no further hypotensive episodes and seems to be doing well clinically. Plan is for discharge home today per discussion with Dr. Blount. Charges/Coding Visit Charges Inpatient E&M: 72056 Subs Hosp L1
[2021-11-23] MEDS: Ondansetron 4 MG/2 ML Vial IV (09:52)
[2021-11-23] MEDS: 0.9% Saline Lock 10 ML Syringe IV (09:52)
== END 2021-11-23 11:27 | disposition home or self-care (01) | DRG 467 ==
LOC: MS3 15:58 → SDC 11-25 08:34
PROVIDERS: Anesthesiology; Admitting Provider Specialist; PCP Family Medicine; Referring Provider Specialist; Visit Provider Internal Medicine
PROC: 0SP90JZ Removal of Synthetic Substitute from Right Hip Joint, Open Approach (ICD-10-PCS; CPT 27134; principal; 2021-11-21 12:05)
DX: S72.111A Displaced fracture of greater trochanter of right femur, initial encounter for closed fracture (principal); M97.01XA Periprosthetic fracture around internal prosthetic right hip joint, initial encounter; K21.9 Gastro-esophageal reflux disease without esophagitis; W01.0XXA Fall on same level from slipping, tripping and stumbling without subsequent striking against object, initial encounter; E03.9 Hypothyroidism, unspecified; I10 Essential (primary) hypertension; M25.351 Other instability, right hip; I95.81 Postprocedural hypotension; Z90.11 Acquired absence of right breast and nipple; Z79.899 Other long term (current) drug therapy; Z85.3 Personal history of malignant neoplasm of breast
CPT/HCPCS: 36415; 73502; 80048; 82040; 82962; 83036; 83735; 84443; 85025; 85027; 87015; 87070; 87075; 87081; 87102; 87116; 87205; 87206; 97116; 97162; 97166; 97530; 99251; C1776; J7040; J7050; J7120; A4216; G0463; J2405

== ENCOUNTER → 2021-12-18 | Outpatient (CLI) | payer BC, MEDICARE, OTHER, SELFPAY ==
[2021-12-18 15:02] LABS: Absolute Lymphocyte Count 1.21 X10^3/uL (0.83-4.51); Absolute Neutrophil Count 3.3 X10^3/uL (2.0-7.7); Basophil# 0.05 X10^3/uL; Basophil% 0.9 % (0-1); Eosinophil# 0.51 X10^3/uL; Eosinophils% 8.9 % (0-5); Hematocrit 35.7 % (37-47); Hemoglobin 11.4 g/dL (12.0-15.0); Lymphocyte # 1.21 X10^3/ul (0.83-4.51); Lymphocyte % 21.1 % (19-41); Mean Corp Hgb Conc 31.9 g/dL (32-36); Mean Corpuscular Hgb 29.5 pg (27.0-32.0); Mean Corpuscular Volume 92.5 fL (81-99); Mean Platelet Vol. 10.2 fl (6.2-12.0); Monocyte# 0.64 X10^3/uL; Monocyte% 11.2 % (0-10); NRBC Flagged by Analyzer 0 % (0-5); Neutrophil % 57.6 % (47-70); Platelet Count 356 K/mm3 (150-450); RBC Distribution Width CV 13.9 % (11.6-14.6); Red Blood Count 3.86 M/mm3 (4.2-5.4); White Blood Count 5.7 K/mm3 (4.4-11.0)
[2021-12-18 15:18] LABS: Vitamin B12 511 pg/mL (211-911); Vitamin D,25 Hydroxy 55.3 ng/mL
[2021-12-18 15:43] LABS: ALB/GLOB Ratio 1.1 RATIO (0.9-2.4); AST(SGOT) 14 U/L (15-37); Alanine Aminotransfer ALT/SGPT 14 U/L (13-56); Alkaline Phosphatase 69 U/L (45-117); Anion Gap 7 (5-15); BUN 16 mg/dL (7-18); BUN/Creat Ratio 21.6 RATIO (10-20); Calcium,Total 9.7 mg/dL (8.5-10.1); Chloride 98 mmol/L (98-107); Cholesterol 199 mg/dL (200); Creatinine, Serum 0.74 mg/dL (0.55-1.02); EST Glomerular Filtration Rate 82 mL/min (>60); Est Glom Filt Rate - Afr Amer 99 mL/min (>60); Ferritin 120 ng/mL (8-252); Globulin 3.6 g/dL (2.2-4.2); Glucose 88 mg/dL (74-106); High Density Lipoprotein 64 mg/dL; Iron 63 ug/dL (50-170); Iron Binding Capacity,Total 360 ug/dL (250-450); Potassium 3.8 mmol/L (3.5-5.1); Protein, Total 7.6 g/dL (6.4-8.2); Sodium Level 135 mmol/L (136-145); T4 Free Direct 1.15 ng/dL (0.76-1.46); Triglycerides 121 mg/dL; Very Low Density Lipoprotein 24 mg/dL (5-40)
== END | disposition home or self-care (01) ==
PROVIDERS: PCP Family Medicine; Referring Provider Family Medicine; Visit Provider Family Medicine
DX: D64.9 Anemia, unspecified (principal); E55.9 Vitamin D deficiency, unspecified; I10 Essential (primary) hypertension; E78.00 Pure hypercholesterolemia, unspecified; E03.9 Hypothyroidism, unspecified
CPT/HCPCS: 36415; 80053; 80061; 82306; 82607; 82728; 82746; 83540; 83550; 84439; 84443; 85025

== ENCOUNTER → 2022-02-03 | Outpatient (CLI) | payer BC, MEDICARE, OTHER, SELFPAY ==
--- NOTE | 2022-02-03 08:07 | BI_ITS ---
MAMMOGRAPHY - BILATERAL SCREENING REASON FOR EXAM: Female, 71 years old. Routine annual screening examination. PERTINENT HISTORY: Personal history of breast cancer. Subtotal right mastectomy. TECHNIQUE: Digital bilateral breast maria esther (3D mammographic acquisition) in the CC and MLO projections. 2-D mediolateral oblique (MLO) and craniocaudad (CC) views of both breasts were obtained. CAD: Full Field Digital Mammography with Computer Added Detection was performed. COMPARISON: Comparison is made with prior study 01/09/2021 and 12/29/2019. FINDINGS: Breast Composition: There are scattered areas of fibroglandular density. There are no dominant masses or suspicious calcifications. Stable appearance of the right subtotal mastectomy. Stable resultant deformity and scarring along the inferior medial aspect of the breast. No other significant abnormalities are identified. There has been no significant change since the prior study. BI/SCRN MAMM (CAD)W/MARIA ESTHER BILAT IMPRESSION: Stable bilateral screening mammogram. Yearly follow-up mammogram recommended. (A) ASSESSMENT CATEGORY: BIRADS Category 2: Benign. A letter regarding these results will be sent to the patient by the facility within 30 days. Approximately 10% of breast cancers are not detected by mammography. A normal mammogram should not delay biopsy of a clinically suspicious abnormality. [id number] Electronically Signed: Rob Ocampo MD at 10:15 EDT ,
== END | disposition home or self-care (01) ==
LOC: OPBI 07:55
PROVIDERS: PCP Family Medicine; Referring Provider Surgery; Visit Provider Surgery
DX: Z12.31 Encounter for screening mammogram for malignant neoplasm of breast (principal); Z90.11 Acquired absence of right breast and nipple; Z85.3 Personal history of malignant neoplasm of breast
CPT/HCPCS: 77063; 77067

== ENCOUNTER → 2022-02-18 | Outpatient (CLI) | payer BC, MEDICARE, OTHER, SELFPAY ==
--- NOTE | 2022-02-18 14:06 | ECHODONC_ITS ---
Reason For Study: Palps Procedure This was a 2D Doppler, Color Flow transthoracic echocardiogram. Myocardial strain analysis was performed in this exam to aid in the assessment of cardiac function. Exam performed in department. Left Ventricle Normal LV size. The estimated ejection fraction is 55 %. No regional wall motion abnormalities noted. Right Ventricle Normal RV size. Normal systolic function. Atria Normal left atrium. Normal right atrium. Mitral Valve Normal mitral valve. Mild (1+) eccentric mitral valve insufficiency. Tricuspid Valve Normal tricuspid valve. Mild tricuspid valve insufficiency. Pulmonary artery systolic pressure is 30 mmHg. Aortic Valve Trisinus/trileaflet aortic valve. Mild (1+) aortic valve insufficiency. MMode/2D Measurements & Calculations LVIDd: 3.8 cm IVSd: 1.1 cm Ao root diam: 3.5 cm LVIDs: 2.2 cm LVPWd: 1.1 cm RVDd: 3.3 cm FS: 42.0 % LAV(MOD-bp): 37.5 ml LVAd ap4: 23.4 cm2 LVAd ap2: 27.1 cm2 LAV(MOD-bp) Indexed: 20.9 ml/m2 LVLd ap4: 7.4 cm LVLd ap2: 8.1 cm LAV(MOD-sp2): 30.9 ml EDV(MOD-sp4): 61.9 ml EDV(MOD-sp2): 75.3 ml LAV(MOD-sp4): 42.4 ml EDV(sp4-el): 63.0 ml EDV(sp2-el): 77.0 ml LVAs ap4: 14.7 cm2 LVAs ap2: 18.1 cm2 LVLs ap4: 6.5 cm LVLs ap2: 7.4 cm ESV(MOD-sp4): 28.5 ml ESV(MOD-sp2): 38.5 ml ESV(sp4-el): 28.4 ml ESV(sp2-el): 37.7 ml EF(MOD-sp4): 54.0 % EF(MOD-sp2): 48.9 % EF(sp4-el): 54.9 % SV(MOD-sp4): 33.4 ml SV(MOD-sp2): 36.8 ml SV(sp4-el): 34.6 ml LA A4 area: 16.9 cm2 LA dimension(2D): 3.9 cm RA A4 area: 10.4 cm2 Doppler Measurements & Calculations MV E max kiko: 55.1 cm/sec Lat Peak E' Kiko: 7.2 cm/sec Med Peak E' Kiko: 10.6 cm/sec MV A max kiko: 92.3 cm/sec E/E' lat: 7.6 E/E' med: 5.2 MV E/A: 0.60 Ao V2 max: 112.1 cm/sec LV V1 max: 79.4 cm/sec PA V2 max: 71.9 cm/sec Ao max P.0 mmHg LV V1 max P.5 mmHg Ao V2 mean: 82.0 cm/sec LV V1 mean P.6 mmHg Ao mean P.0 mmHg LV V1 mean: 59.3 cm/sec Ao V2 VTI: 23.4 cm LV V1 VTI: 17.8 cm TR max kiko: 250.0 cm/sec TR max P.4 mmHg ECHO/ONC Echo Complete Interpretation Summary Normal LV size. The estimated ejection fraction is 55 %. Mild (1+) eccentric mitral valve insufficiency. Mild tricuspid valve insufficiency. Pulmonary artery systolic pressure is 30 mmHg. The global longitudinal strain is normal. The global longitudinal strain = -18. 1 % (normal). Ordering Physician: Reg Gunderson Referring Physician: Reg Gunderson Performed By: Amy Richard RDCS
== END | disposition home or self-care (01) ==
LOC: CVS 14:05
PROVIDERS: PCP Family Medicine; Referring Provider Internal Medicine Cardiovascular Disease; Visit Provider Internal Medicine Cardiovascular Disease
DX: I34.0 Nonrheumatic mitral (valve) insufficiency (principal)
CPT/HCPCS: 93306; 93356

== ENCOUNTER → 2022-02-26 | Outpatient (CLI) | payer BC, MEDICARE, OTHER, SELFPAY ==
--- NOTE | 2022-02-26 14:55 | STRESSREP ---
Stress Test Report Pharmacologic myocardial perfusion stress test. 71-year-old lady with a history of palpitations. Stress protocol: Resting EKG demonstrates normal sinus rhythm with a rate of 75 bpm normal intervals are noted resting blood pressure is 130/72 mmHg. 0.4 mg of regadenoson was infused per usual protocol followed by wrap intravenous saline flush injection continuous EKG monitoring was performed. The maximum heart rate attained was 111 bpm which was 74% of max impacted heart rate the maximum workload was 1 metabolic equivalent. At rest there were no ST or T wave changes noted to suggest abnormal flow reserve and at peak infusion nonspecific ST changes were noted with did not meet the criteria for ischemia. Occasional premature ventricular complexes were noted during recovery which were asymptomatic. No clinical angina was noted the test was terminated on completion of the protocol. Myocardial perfusion protocol. 11.9 mCi of technetium 99m sestamibi was injected at rest. 0.4 mg of regadenoson was infused per usual protocol. At peak infusion 34.0 mCi of technetium 99m sestamibi was injected stress images were obtained stress and rest images were reconstructed and compared in the short axis vertical long and horizontal long axis. Gated images were also obtained. Perfusion SPECT analysis: Review of the stress images demonstrate normal uptake of tracer noted in all areas of the myocardium. The resting images similar demonstrate normal uptake of tracer noted in all areas of the myocardium. No areas of reversibility are noted to suggest ischemia and no previous infarct is noted. Gated SPECT analysis: The gated ejection fraction is 70%. Conclusion: Normal pharmacologic myocardial perfusion stress test. Preserved ejection fraction.
== END | disposition home or self-care (01) ==
LOC: CVS 06:34
PROVIDERS: PCP Family Medicine; Referring Provider Internal Medicine Cardiovascular Disease; Visit Provider Internal Medicine Cardiovascular Disease
DX: R06.09 Other forms of dyspnea (principal)
CPT/HCPCS: 78452; 93017; A9500; A4216; J2785

== ENCOUNTER → 2022-06-04 | Outpatient (CLI) | payer BC, MEDICARE, OTHER, SELFPAY ==
[2022-06-04 10:02] LABS: Absolute Neutrophil Count 4.3 X10^3/uL (2.0-7.7); Basophil# 0.07 X10^3/uL; Basophil% 1.1 % (0-1); Eosinophil# 0.22 X10^3/uL; Eosinophils% 3.3 % (0-5); Hematocrit 40.7 % (37-47); Hemoglobin 12.6 g/dL (12.0-15.0); Lymphocyte % 19.7 % (19-41); Mean Corpuscular Hgb 28.4 pg (27.0-32.0); Mean Corpuscular Volume 91.9 fL (81-99); Mean Platelet Vol. 10.4 fl (6.2-12.0); Monocyte# 0.71 X10^3/uL; Monocyte% 10.7 % (0-10); NRBC Flagged by Analyzer 0 % (0-5); Neutrophil # 4.26 X10^3/uL (2.7-7.7); Neutrophil % 64.4 % (47-70); Platelet Count 334 K/mm3 (150-450); RBC Distribution Width CV 13.5 % (11.6-14.6); RBC Distribution Width SD 46.1 fl (35.1-43.9); Red Blood Count 4.43 M/mm3 (4.2-5.4); White Blood Count 6.6 K/mm3 (4.4-11.0)
[2022-06-04 10:33] LABS: Vitamin B12 418 pg/mL (211-911); Vitamin D,25 Hydroxy 88.2 ng/mL
[2022-06-04 10:48] LABS: ALB/GLOB Ratio 1.4 RATIO (0.9-2.4); AST(SGOT) 13 U/L (15-37); Alanine Aminotransfer ALT/SGPT 17 U/L (13-56); Albumin, Serum 4.2 g/dL (3.2-5.0); Alkaline Phosphatase 61 U/L (45-117); Anion Gap 8 (5-15); BUN 17 mg/dL (7-18); Calcium,Total 9.9 mg/dL (8.5-10.1); Chloride 100 mmol/L (98-107); Cholesterol 196 mg/dL (200); Creatinine, Serum 0.71 mg/dL (0.55-1.02); EST Glomerular Filtration Rate 86 mL/min (>60); Est Glom Filt Rate - Afr Amer 104 mL/min (>60); Ferritin 19 ng/mL (8-252); Glucose 92 mg/dL (74-106); High Density Lipoprotein 76 mg/dL; Iron 75 ug/dL (50-170); Iron Binding Capacity,Total 387 ug/dL (250-450); Potassium 4.4 mmol/L (3.5-5.1); Protein, Total 7.2 g/dL (6.4-8.2); Sodium Level 137 mmol/L (136-145); T4 Free Direct 0.97 ng/dL (0.76-1.46); Thyroid Stim Hormone (TSH) 6.47 uIU/mL (0.358-3.74); Triglycerides 79 mg/dL; Very Low Density Lipoprotein 16 mg/dL (5-40)
== END | disposition home or self-care (01) ==
PROVIDERS: PCP Family Medicine; Visit Provider Family Medicine
DX: E55.9 Vitamin D deficiency, unspecified (principal); E03.9 Hypothyroidism, unspecified; I10 Essential (primary) hypertension; D64.9 Anemia, unspecified
CPT/HCPCS: 36415; 80053; 80061; 82306; 82607; 82728; 82746; 83540; 83550; 84439; 84443; 85025

== ENCOUNTER → 2022-06-11 | Outpatient (CLI) | payer BC, MEDICARE, OTHER, SELFPAY ==
--- NOTE | 2022-06-11 08:26 | BD_ITS ---
STUDY: DUAL ENERGY X-RAY ABSORPTIOMETRY / DXA REASON FOR EXAM: Female, 72 years old. 733.90OsteopeniaBONE DENSITY REASON FOR EXAM TECHNIQUE: Bone Mineral Density (BMD) measurements of lumbar spine and left hip were obtained. COMPARISON: Comparison is made with prior study dated 12/15/2017. FINDINGS: Lumbar Spine (L1-L4): g/cm2 (0.968) / T-score (-0.7) / Z-score (1.5) Findings are suggestive of normal bone density with a low fracture risk. Left Femur Total: g/cm2 (0.721) / T-score (-1.8) / Z-score (-0.2) Left Femoral Neck: g/cm2 (0.600) / T-score (-2.2) / Z-score (-0.3) The T-Scores on the most recent prior examination were: Lumbar Spine (L1-L4): There has been worsening of bone density since the previous examination. Left Femur Total: which represents a worsening of 8.8%. BD/Dexa Bone Density Study IMPRESSION: The patient is considered osteopenic as outlined below according to World Julio C Organization (WHO) criteria with a high fracture risk. There has been worsening of bone density since the previous examination. Reference Information: The T-score is the number of standard deviations above or below the standard which is normal for young adults at their peak bone mineral density. The World Health Organization (WHO) interprets the T-scores as follows: Above -1 Normal bone density Between -1 and -2.5 Osteopenia Equal to / or below -2.5 Osteoporosis As a practical clinical guideline, osteopenia may be graded as follows: Mild -1 through -1.5 Moderate -1.6 through -2.0 Severe -2.1 through -2.4 The Z-score is the number of standard deviations above or below age-matched controls. A Z-score of less than -1.5 would be considered abnormal. References: 1. NIH Osteoporosis and Related Bone Diseases www osteo.org 2. International Society for Clinical Densitometry www iscd.org 3. National Osteoporosis Foundation www nof.org Electronically Signed: Rob Ocampo MD at 10:41 EST ,
== END | disposition home or self-care (01) ==
PROVIDERS: PCP Family Medicine; Visit Provider Family Medicine
DX: M85.80 Other specified disorders of bone density and structure, unspecified site (principal); Z78.0 Asymptomatic menopausal state
CPT/HCPCS: 77080

== ENCOUNTER → 2022-06-19 | Outpatient (CLI) | payer BC, MEDICARE, OTHER, SELFPAY ==
--- NOTE | 2022-06-19 11:13 | RAD_ITS ---
STUDY: X-RAY CHEST REASON FOR EXAM: Female, 72 years old. Persistent cough. TECHNIQUE: Frontal and lateral views of the chest. COMPARISON: None. FINDINGS: Elevation of the right hemidiaphragm with atelectasis at the right base. Atelectasis of the left base. There is no demonstrated pleural abnormality. Cardiomegaly. Normal mediastinum and sebastian. Normal visualized pulmonary arteries. Aortic tortuosity with calcification. Thoracic osteopenia with diffuse mild spondylosis. 12 mm in diameter ossific fragment projected below the coracoid likely representing an intra-articular osteochondral body in the left shoulder. There is no demonstrated abnormality of the visualized soft tissue structures of the upper abdomen. RAD/Chest PA and Lateral IMPRESSION: Cardiomegaly with atelectasis at both bases. No focal consolidation or acute abnormality. Electronically Signed: Jeremy Foley, at 13:18 EST ,
== END | disposition home or self-care (01) ==
LOC: MTRAD 11:13
PROVIDERS: PCP Family Medicine; Referring Provider Family Medicine; Visit Provider Family Medicine
DX: R05.3 Chronic cough (principal)
CPT/HCPCS: 71046

== ENCOUNTER → 2022-11-27 | Outpatient (CLI) | payer BC, MEDICARE, OTHER, SELFPAY ==
[2022-11-27 10:15] LABS: Absolute Lymphocyte Count 1.35 X10^3/uL (0.83-4.51); Absolute Neutrophil Count 4.1 X10^3/uL (2.0-7.7); Basophil# 0.06 X10^3/uL; Basophil% 0.9 % (0-1); Eosinophil# 0.17 X10^3/uL; Eosinophils% 2.7 % (0-5); Hematocrit 36.4 % (37-47); Hemoglobin 11.8 g/dL (12.0-15.0); Lymphocyte # 1.35 X10^3/ul (0.83-4.51); Lymphocyte % 21.2 % (19-41); Mean Corp Hgb Conc 32.4 g/dL (32-36); Mean Corpuscular Hgb 30.3 pg (27.0-32.0); Mean Corpuscular Volume 93.3 fL (81-99); Mean Platelet Vol. 10.2 fl (6.2-12.0); Monocyte# 0.65 X10^3/uL; Monocyte% 10.2 % (0-10); NRBC Flagged by Analyzer 0 % (0-5); Neutrophil # 4.09 X10^3/uL (2.7-7.7); Neutrophil % 64.4 % (47-70); Platelet Count 349 K/mm3 (150-450); RBC Distribution Width CV 13.1 % (11.6-14.6); RBC Distribution Width SD 44.7 fl (35.1-43.9); White Blood Count 6.4 K/mm3 (4.4-11.0)
[2022-11-27 10:47] LABS: Vitamin D,25 Hydroxy 78.6 ng/mL
[2022-11-27 11:08] LABS: ALB/GLOB Ratio 1.1 RATIO (0.9-2.4); AST(SGOT) 13 U/L (15-37); Alanine Aminotransfer ALT/SGPT 17 U/L (13-56); Albumin, Serum 3.9 g/dL (3.2-5.0); Alkaline Phosphatase 53 U/L (45-117); Anion Gap 6 (5-15); BUN 24 mg/dL (7-18); BUN/Creat Ratio 28.4 RATIO (10-20); Calcium,Total 9.3 mg/dL (8.5-10.1); Chloride 101 mmol/L (98-107); Cholesterol 160 mg/dL (200); Creatinine, Serum 0.84 mg/dL (0.55-1.02); EST Glomerular Filtration Rate 70 mL/min (>60); Est Glom Filt Rate - Afr Amer 85 mL/min (>60); Globulin 3.5 g/dL (2.2-4.2); Glucose 93 mg/dL (74-106); High Density Lipoprotein 67 mg/dL; Potassium 3.9 mmol/L (3.5-5.1); Protein, Total 7.4 g/dL (6.4-8.2); Sodium Level 135 mmol/L (136-145); T4 Free Direct 1.28 ng/dL (0.76-1.46); Thyroid Stim Hormone (TSH) 1.71 uIU/mL (0.358-3.74); Triglycerides 67 mg/dL; Very Low Density Lipoprotein 13 mg/dL (5-40)
[2022-11-27 13:58] LABS: Ferritin 30 ng/mL (8-252); Iron 74 ug/dL (50-170); Iron Binding Capacity,Total 350 ug/dL (250-450)
[2022-11-27 13:59] LABS: Vitamin B12 312 pg/mL (211-911)
[2022-11-28 10:27] LABS: PERCENT IRON SATURATION 21.1 % (15.0-55.0)
== END | disposition home or self-care (01) ==
LOC: MFPLAB 08:51
PROVIDERS: PCP Family Medicine; Visit Provider Family Medicine
DX: I10 Essential (primary) hypertension (principal); E03.9 Hypothyroidism, unspecified; E78.00 Pure hypercholesterolemia, unspecified; E55.9 Vitamin D deficiency, unspecified; D64.9 Anemia, unspecified
CPT/HCPCS: 36415; 80053; 80061; 82306; 82607; 82728; 83540; 83550; 84439; 84443; 85025

== ENCOUNTER → 2023-02-04 | Outpatient (CLI) | payer BC, MEDICARE, OTHER, SELFPAY ==
--- NOTE | 2023-02-04 07:05 | BI_ITS ---
MAMMOGRAPHY - BILATERAL SCREENING REASON FOR EXAM: Female, 72 years old. Routine annual screening examination. PERTINENT HISTORY: Personal history of breast cancer. Prior right mastectomy. TECHNIQUE: Digital bilateral breast maria esther (3D mammographic acquisition) in the CC and MLO projections. 2-D mediolateral oblique (MLO) and craniocaudad (CC) views of both breasts were obtained. CAD: Full Field Digital Mammography with Computer Added Detection was performed. COMPARISON: Comparison is made with prior study February 03, 2022 and January 09, 2021. FINDINGS: Breast Composition: There are scattered areas of fibroglandular density. There are no dominant masses or suspicious calcifications. Stable appearance of the right subtotal mastectomy with resultant breast deformity and scarring along its inferior medial aspect. No other significant abnormalities are identified. There has been no significant change since the prior study. BI/SCRN MAMM (CAD)W/MARIA ESTHER BILAT IMPRESSION: Stable bilateral screening mammogram. Yearly follow-up mammogram recommended. (A) ASSESSMENT CATEGORY: BIRADS Category 2: Benign. A letter regarding these results will be sent to the patient by the facility within 30 days. Approximately 10% of breast cancers are not detected by mammography. A normal mammogram should not delay biopsy of a clinically suspicious abnormality. [id number] Electronically Signed: Rob Ocampo MD at 8:29 EDT ,
== END | disposition home or self-care (01) ==
LOC: OPBI 07:05
PROVIDERS: PCP Family Medicine; Referring Provider Surgery; Visit Provider Surgery
DX: Z12.31 Encounter for screening mammogram for malignant neoplasm of breast (principal); Z08 Encounter for follow-up examination after completed treatment for malignant neoplasm; Z90.11 Acquired absence of right breast and nipple; Z85.3 Personal history of malignant neoplasm of breast
CPT/HCPCS: 77063; 77067

== ENCOUNTER → 2023-06-03 | Outpatient (CLI) | payer BC, MEDICARE, OTHER, SELFPAY ==
--- OUTSIDE RECORDS SUMMARY | 2023-06-03 09:11 | XMS RPT_ITS | CCD ---
Author Name Unknown Address [address] [place] [address] Organization [facility] Care Team Providers Care Process Assistant Name Role Phone Homer Hernandez MD Unavailable Allergies Allergy Classification Reported Allergen(s) Allergy Type Date of Onset Reaction(s) Facility (2 sources) Penicillins (Antibiotic) drug allergy 12-29-[address] [facility] Work Phone: (2 sources) Sulfonamides (Antibiotic) drug allergy 12-29-2016 [facility] Work Phone: Medications Completed/Discontinued Medications Medication Drug Class(es) Dates Sig (Normalized) Sig (Original) hydroCHLOROthiazide 25 mg / triamterene 37.5 mg oral tablet (2 sources) Potassium-spari ng Diuretic, Thiazide Diuretic Start: 12-29-2016 take 1 tablet by mouth once daily TRIAMTERENE-HCTZ 37.5-25 MG TABS One tablet by mouth daily TRIAMTERENE-HCTZ [id number] Homer Hernandez MD LEVOTHYROXINE SODIUM (2 sources) l-Thyroxine Start: 12-29-2016 SYNTHROID 112 MCG TABS .11 LEVOTHYROXINE SODIUM [id number] Homer Hernandez MD Problems Active Problems Problem Classification Problem Date Documented Date Episodic/Chronic Esophageal disorders (2 sources) Gastroesophageal reflux disease; Translations: [Gastro-esophageal reflux disease without esophagitis] Onset: 12-29-2016 12-29-2016 Chronic Essential hypertension (2 sources) Hypertensive disorder; Translations: [Essential (primary) hypertension] Onset: 12-29-2016 12-29-2016 Chronic Osteoarthritis (2 sources) Osteoarthritis; Translations: [Polyosteoarthritis, unspecified] Onset: 12-29-2016 12-29-2016 Chronic Thyroid disorders (2 sources) Graves' disease; Translations: [Thyrotoxicosis with diffuse goiter without thyrotoxic crisis or storm] Onset: 12-29-2016 12-29-2016 Chronic Past or Other Problems Problem Classification Problem Date Documented Da te Episodic/Chronic Cancer of breast (2 sources) History of malignant neoplasm of breast; Translations: [Personal history of malignant neoplasm of breast] Onset: 12-29-2016 12-29-2016 Episodic Hemorrhoids (2 sources) Hemorrhoids; Translations: [Unspecified hemorrhoids] Onset: 12-29-2016 12-29-2016 Episodic Spondylosis; intervertebral disc disorders; other back problems (2 sources) Backache; Translations: [Dorsalgia, unspecified] Onset: 12-29-2016 12-29-2016 Episodic Results Test Name Value Interpretation Reference Range Facil ity Vital Signs Date Time Vital Sign Value Performing Clinician Facility 12-29-2016 07:39-0400 BMI (Body Mass Index) 28.35 kg/m2 Homer Hernandez MD [facility] Work Phone: 12-29-2016 07:39-0400 Body Temperature 98.7 [degF] Homer Hernandez MD [facility] Work Phone: 12-29-2016 07:39-0400 BP Diastolic 72 mm[Hg] Homer Hernandez MD [facility] Work Phone: 12-29-2016 07:39-0400 BP Systolic 130 mm[Hg] Homer Hernandez MD [facility] Work Phone: 12-29-2016 07:39-0400 Height 162.56 cm Homer Hernandez MD [facility] Work Phone: 12-29-2016 07:39-0400 Pulse (Heart Rate) 72 /min Homer Hernandez MD [facility] Work Phone: 12-29-2016 07:39-0400 Respiratory Rate 16 /min Homer Hernandez MD [facility] Work Phone: 12-29-2016 07:39-0400 Weight 74.93 kg Homer Hernandez MD [facility] Work Phone: Plan of Treatment Date Care Activity Detail Author Start: 12-29-2016 End: 12-29-[address] [facility] Work Phone: [facility] Work Phone: Additional Source Comments FOR RECORDS PERTAINING TO PATIENTS WHO ARE OR HAVE BEEN ENROLLED IN A CHEMICAL DEPENDENCY/SUBSTANCEABUSE PROGRAM, SOME INFORMATION MAY BE OMITTED. This clinical summary was aggregated from multiple sources. Caution should be exercised in using it in the provision of clinical care. This summary normalizes information from multiple sources, and as a consequence, information in this document may materially change the coding, format and clinical context of patient data. In addition, data may be omitted in some cases. CLINICAL DECISIONS SHOULD BE BASED ON THE PRIMARY CLINICAL RECORDS. [facility] [employer] [facility]. provides no warranty or guarantee of the accuracy or completeness of information in this document.
[2023-06-03 10:15] LABS: Basophil# 0.07 X10^3/uL; Eosinophil# 0.17 X10^3/uL; Eosinophils% 2.5 % (0-5); Hematocrit 37.2 % (37-47); Lymphocyte % 26.9 % (19-41); Mean Corp Hgb Conc 32.3 g/dL (32-36); Mean Corpuscular Hgb 29.8 pg (27.0-32.0); Mean Corpuscular Volume 92.3 fL (81-99); Monocyte# 0.61 X10^3/uL; Monocyte% 9.1 % (0-10); NRBC Flagged by Analyzer 0 % (0-5); Neutrophil % 60.1 % (47-70); Platelet Count 386 K/mm3 (150-450); RBC Distribution Width SD 43.9 fl (35.1-43.9); Red Blood Count 4.03 M/mm3 (4.2-5.4); White Blood Count 6.7 K/mm3 (4.4-11.0)
[2023-06-03 11:01] LABS: Vitamin D,25 Hydroxy 109.7 ng/mL
[2023-06-03 11:07] LABS: ALB/GLOB Ratio 1.1 RATIO (0.9-2.4); AST(SGOT) 17 U/L (15-37); Alanine Aminotransfer ALT/SGPT 18 U/L (13-56); Alkaline Phosphatase 50 U/L (45-117); Anion Gap 6 (5-15); BUN 21 mg/dL (7-18); BUN/Creat Ratio 25.6 RATIO (10-20); Calcium,Total 9.3 mg/dL (8.5-10.1); Chloride 101 mmol/L (98-107); Cholesterol 167 mg/dL (200); Creatinine, Serum 0.82 mg/dL (0.55-1.02); EST Glomerular Filtration Rate 73 mL/min (>60); Est Glom Filt Rate - Afr Amer 88 mL/min (>60); Globulin 3.5 g/dL (2.2-4.2); Glucose 94 mg/dL (74-106); High Density Lipoprotein 70 mg/dL; Potassium 4.3 mmol/L (3.5-5.1); Protein, Total 7.5 g/dL (6.4-8.2); Sodium Level 136 mmol/L (136-145); T4 Free Direct 1.18 ng/dL (0.76-1.46); Thyroid Stim Hormone (TSH) 1.83 uIU/mL (0.358-3.74); Triglycerides 95 mg/dL; Very Low Density Lipoprotein 19 mg/dL (5-40)
== END | disposition home or self-care (01) ==
LOC: MFPLAB 08:46
PROVIDERS: PCP Family Medicine; Visit Provider Family Medicine
DX: I10 Essential (primary) hypertension (principal); E03.9 Hypothyroidism, unspecified; E55.9 Vitamin D deficiency, unspecified
CPT/HCPCS: 36415; 80053; 80061; 82306; 84439; 84443; 85025

== ENCOUNTER → 2023-10-05 | Outpatient (CLI) | payer BC, MEDICARE, OTHER, SELFPAY ==
[2023-10-05 10:33] LABS: Absolute Neutrophil Count 4.1 X10^3/uL (2.0-7.7); Basophil# 0.06 X10^3/uL; Basophil% 0.9 % (0-1); Eosinophil# 0.21 X10^3/uL; Eosinophils% 3.1 % (0-5); Hematocrit 38.9 % (37-47); Hemoglobin 12.5 g/dL (12.0-15.0); Lymphocyte % 24.7 % (19-41); Mean Corp Hgb Conc 32.1 g/dL (32-36); Mean Corpuscular Hgb 29.9 pg (27.0-32.0); Mean Corpuscular Volume 93.1 fL (81-99); Mean Platelet Vol. 10.2 fl (6.2-12.0); Monocyte# 0.76 X10^3/uL; NRBC Flagged by Analyzer 0 % (0-5); Neutrophil # 4.12 X10^3/uL (2.7-7.7); Neutrophil % 59.9 % (47-70); Platelet Count 371 K/mm3 (150-450); RBC Distribution Width CV 13.2 % (11.6-14.6); RBC Distribution Width SD 44.7 fl (35.1-43.9); Red Blood Count 4.18 M/mm3 (4.2-5.4); White Blood Count 6.9 K/mm3 (4.4-11.0)
[2023-10-05 10:57] LABS: Vitamin D,25 Hydroxy 81.7 ng/mL
[2023-10-05 11:08] LABS: ALB/GLOB Ratio 1.1 RATIO (0.9-2.4); AST(SGOT) 14 U/L (15-37); Alanine Aminotransfer ALT/SGPT 17 U/L (13-56); Alkaline Phosphatase 46 U/L (45-117); Anion Gap 8 (5-15); BUN 17 mg/dL (7-18); BUN/Creat Ratio 18.7 RATIO (10-20); Calcium,Total 10.2 mg/dL (8.5-10.1); Chloride 101 mmol/L (98-107); Cholesterol 178 mg/dL (200); Creatinine, Serum 0.91 mg/dL (0.55-1.02); EST Glomerular Filtration Rate 64 mL/min (>60); Est Glom Filt Rate - Afr Amer 78 mL/min (>60); Globulin 3.5 g/dL (2.2-4.2); Glucose 98 mg/dL (74-106); High Density Lipoprotein 72 mg/dL; Magnesium 2.1 mg/dL (1.6-2.6); Potassium 4.2 mmol/L (3.5-5.1); Protein, Total 7.5 g/dL (6.4-8.2); Sodium Level 137 mmol/L (136-145); T4 Free Direct 1.41 ng/dL (0.76-1.46); Thyroid Stim Hormone (TSH) 1.72 uIU/mL (0.358-3.74); Triglycerides 89 mg/dL; Very Low Density Lipoprotein 18 mg/dL (5-40)
[2023-10-06 08:18] LABS: Bacteria 0 SEEN /hpf (None Seen); Mucous, Urine 0 SEEN /hpf (<or=2+); Red Blood Cells-Urine 0 SEEN /hpf (0-5); Squamous Epithelial Cells - UA 0 SEEN /hpf (5-10); White Blood Cells 0 SEEN /hpf (0-5)
[2023-10-06 10:16] LABS: Color, Urine Yellow (Yellow); Glucose, Dipstick Normal (Normal); Ketone-Dipstick Negative (Negative); Leukocyte Esterase-Dipstick Negative /ul (Negative); Nitrite-Dipstick Negative (Negative); Occult Blood-Urine Negative /ul (Negative); Protein-Dipstick Negative (Negative); Urine Bilirubin Dipstick Negative (Negative); Urine Clarity Clear (Clear); Urine Urobilinogen Normal (Normal)
[2023-10-06 15:40] LABS: PTHIN 25.1 pg/mL (18.4-80.1)
== END | disposition home or self-care (01) ==
LOC: MFPLAB 08:46
PROVIDERS: PCP Family Medicine; Visit Provider Family Medicine
DX: I10 Essential (primary) hypertension (principal); E03.9 Hypothyroidism, unspecified; E83.52 Hypercalcemia; M85.80 Other specified disorders of bone density and structure, unspecified site
CPT/HCPCS: 36415; 80053; 80061; 81001; 82306; 83735; 83970; 84439; 84443; 85025

== ENCOUNTER → 2024-02-07 | Outpatient (CLI) | payer BC, MEDICARE, OTHER, SELFPAY ==
--- NOTE | 2024-02-07 07:26 | BI_ITS ---
MAMMOGRAPHY - BILATERAL SCREENING REASON FOR EXAM: Female, 73 years old. Routine annual screening examination. PERTINENT HISTORY: Personal history of breast cancer. Prior right mastectomy. TECHNIQUE: Digital bilateral breast maria esther (3D mammographic acquisition) in the CC and MLO projections. 2-D mediolateral oblique (MLO) and craniocaudad (CC) views of both breasts were obtained. CAD: Full Field Digital Mammography with Computer Added Detection was performed. COMPARISON: Comparison is made with prior study dated February 04, 2023 and February 03, 2022. FINDINGS: Breast Composition: There are scattered areas of fibroglandular density. There are no dominant masses or suspicious calcifications. Stable appearance of the right subtotal mastectomy with resultant breast deformity and scarring along its inferior margin. No other significant abnormalities are identified. There has been no significant change since the prior study. BI/SCRN MAMM (CAD)W/MARIA ESTHER BILAT IMPRESSION: Stable bilateral screening mammogram. Yearly follow-up mammogram recommended. (A) ASSESSMENT CATEGORY: BIRADS Category 2: Benign. A letter regarding these results will be sent to the patient by the facility within 30 days. Approximately 10% of breast cancers are not detected by mammography. A normal mammogram should not delay biopsy of a clinically suspicious abnormality. [id number] Electronically Signed: Rob Ocampo MD at 8:36 EDT ,
== END | disposition home or self-care (01) ==
LOC: OPBI 07:26
PROVIDERS: PCP Family Medicine; Referring Provider Surgery; Visit Provider Surgery
DX: Z12.31 Encounter for screening mammogram for malignant neoplasm of breast (principal)
CPT/HCPCS: 77063; 77067

== ENCOUNTER → 2024-02-14 | Outpatient (CLI) | payer BC, MEDICARE, OTHER, SELFPAY ==
[2024-02-14 12:23] LABS: Absolute Lymphocyte Count 1.81 X10^3/uL (0.83-4.51); Absolute Neutrophil Count 3.7 X10^3/uL (2.0-7.7); Basophil# 0.06 X10^3/uL; Basophil% 0.9 % (0-1); Eosinophil# 0.14 X10^3/uL; Eosinophils% 2.2 % (0-5); Hematocrit 36.2 % (37-47); Hemoglobin 11.2 g/dL (12.0-15.0); Lymphocyte # 1.81 X10^3/ul (0.83-4.51); Lymphocyte % 28.2 % (19-41); Mean Corp Hgb Conc 30.9 g/dL (32-36); Mean Corpuscular Hgb 28.9 pg (27.0-32.0); Mean Corpuscular Volume 93.5 fL (81-99); Mean Platelet Vol. 10.2 fl (6.2-12.0); Monocyte# 0.67 X10^3/uL; Monocyte% 10.4 % (0-10); NRBC Flagged by Analyzer 0 % (0-5); Neutrophil # 3.71 X10^3/uL (2.7-7.7); Neutrophil % 57.8 % (47-70); Platelet Count 356 K/mm3 (150-450); RBC Distribution Width CV 13.1 % (11.6-14.6); RBC Distribution Width SD 45.1 fl (35.1-43.9); Red Blood Count 3.87 M/mm3 (4.2-5.4); White Blood Count 6.4 K/mm3 (4.4-11.0)
[2024-02-14 15:56] LABS: Vitamin D,25 Hydroxy 63.8 ng/mL
[2024-02-14 15:59] LABS: ALB/GLOB Ratio 1.2 RATIO (0.9-2.4); AST(SGOT) 16 U/L (15-37); Alanine Aminotransfer ALT/SGPT 12 U/L (13-56); Alkaline Phosphatase 45 U/L (45-117); Anion Gap 5 (5-15); BUN 21 mg/dL (7-18); Calcium,Total 9.8 mg/dL (8.5-10.1); Chloride 101 mmol/L (98-107); Cholesterol 172 mg/dL (200); Creatinine, Serum 0.96 mg/dL (0.55-1.02); EST Glomerular Filtration Rate 61 mL/min (>60); Est Glom Filt Rate - Afr Amer 74 mL/min (>60); Globulin 3.2 g/dL (2.2-4.2); Glucose 91 mg/dL (74-106); High Density Lipoprotein 73 mg/dL; Potassium 4.3 mmol/L (3.5-5.1); Protein, Total 7.2 g/dL (6.4-8.2); Sodium Level 136 mmol/L (136-145); T4 Free Direct 1.37 ng/dL (0.76-1.46); Triglycerides 94 mg/dL; Very Low Density Lipoprotein 19 mg/dL (5-40)
[2024-02-15 12:11] LABS: Vitamin B12 374 pg/mL (211-911)
[2024-02-15 12:21] LABS: Ferritin 41 ng/mL (8-252); Iron 45 ug/dL (50-170); Iron Binding Capacity,Total 328 ug/dL (250-450); PERCENT IRON SATURATION 13.7 % (15.0-55.0)
== END | disposition home or self-care (01) ==
LOC: MFPLAB 10:58
PROVIDERS: PCP Family Medicine; Visit Provider Family Medicine
DX: D64.9 Anemia, unspecified (principal); E03.9 Hypothyroidism, unspecified; E55.9 Vitamin D deficiency, unspecified; E78.00 Pure hypercholesterolemia, unspecified
CPT/HCPCS: 36415; 80053; 80061; 82306; 82607; 82728; 83540; 83550; 84439; 84443; 85025

== ENCOUNTER → 2024-06-13 | Outpatient (CLI) | payer BC, MEDICARE, OTHER, SELFPAY ==
[2024-06-13 10:10] LABS: Absolute Lymphocyte Count 2.25 X10^3/uL (0.83-4.51); Absolute Neutrophil Count 4.9 X10^3/uL (2.0-7.7); Basophil# 0.07 X10^3/uL; Basophil% 0.8 % (0-1); Eosinophil# 0.17 X10^3/uL; Eosinophils% 2.1 % (0-5); Hematocrit 38.9 % (37-47); Hemoglobin 12.5 g/dL (12.0-15.0); Lymphocyte # 2.25 X10^3/ul (0.83-4.51); Lymphocyte % 27.3 % (19-41); Mean Corp Hgb Conc 32.1 g/dL (32-36); Mean Corpuscular Hgb 29.8 pg (27.0-32.0); Mean Corpuscular Volume 92.6 fL (81-99); Mean Platelet Vol. 9.9 fl (6.2-12.0); Monocyte# 0.84 X10^3/uL; Monocyte% 10.2 % (0-10); NRBC Flagged by Analyzer 0 % (0-5); Neutrophil # 4.87 X10^3/uL (2.7-7.7); Neutrophil % 59.1 % (47-70); Platelet Count 405 K/mm3 (150-450); RBC Distribution Width SD 44.5 fl (35.1-43.9); White Blood Count 8.2 K/mm3 (4.4-11.0)
[2024-06-13 10:19] LABS: Vitamin D,25 Hydroxy 74.4 ng/mL
[2024-06-13 10:40] LABS: ALB/GLOB Ratio 1.2 RATIO (0.9-2.4); AST(SGOT) 13 U/L (15-37); Alanine Aminotransfer ALT/SGPT 16 U/L (13-56); Albumin, Serum 4.3 g/dL (3.2-5.0); Alkaline Phosphatase 51 U/L (45-117); Anion Gap 5 (5-15); BUN 25 mg/dL (7-18); BUN/Creat Ratio 25.7 RATIO (10-20); Calcium,Total 9.9 mg/dL (8.5-10.1); Chloride 100 mmol/L (98-107); Cholesterol 177 mg/dL (200); Creatinine, Serum 0.97 mg/dL (0.55-1.02); EST Glomerular Filtration Rate 60 mL/min (>60); Est Glom Filt Rate - Afr Amer 72 mL/min (>60); Ferritin 38 ng/mL (8-252); Globulin 3.6 g/dL (2.2-4.2); Glucose 95 mg/dL (74-106); High Density Lipoprotein 72 mg/dL; Iron 83 ug/dL (50-170); Iron Binding Capacity,Total 375 ug/dL (250-450); Potassium 3.9 mmol/L (3.5-5.1); Protein, Total 7.9 g/dL (6.4-8.2); Sodium Level 134 mmol/L (136-145); Triglycerides 98 mg/dL; Very Low Density Lipoprotein 20 mg/dL (5-40)
== END | disposition home or self-care (01) ==
PROVIDERS: PCP Family Medicine; Referring Provider Family Medicine; Visit Provider Family Medicine
DX: E03.9 Hypothyroidism, unspecified (principal); D50.9 Iron deficiency anemia, unspecified; E55.9 Vitamin D deficiency, unspecified
CPT/HCPCS: 36415; 80053; 80061; 82306; 82728; 83540; 83550; 84439; 84443; 85025

== ENCOUNTER → 2025-02-07 | Outpatient (CLI) | payer BC, MEDICARE, OTHER, SELFPAY ==
--- OUTSIDE RECORDS SUMMARY | 2025-02-07 07:12 | XMS RPT_ITS | CCD ---
Author Organization [facility] Care Team Providers Care Engineering Laboratory Technician Name Role Phone Homer Hernandez MD Unavailable [phone] Thomas Parker Primary Care Provider Dr. Chilo Blount Admit Provider Dr. Chilo Blount Referring Provider [phone]([facility])[phone] Dr. Chilo Blount Other Provider 1([facility])[phone] Brad Cordoba Other Provider Dr. Betsy Turpin Other Provider Qamar COLON, NEHA Mcdermott Attending Provider Dr. Thomas Parker Primary Care Provider [phone] Dr. Thomas Parker Referring Provider [phone] Reg Gunderson Attending Provider 1([facility])-[phone] Homer Hernandez Attending Provider Dr. Reg Gunderson Referring Provider [phone] Gunderson Other Provider KATELYN Cisneros Attending Provider Dr. Thomas Parker Primary Care Provider [phone] Dr. Reg Gunderson Attending Provider Dr. Thomas Parker Referring Provider Dr. Thomas Parker Primary Care Provider 1([facility] )[phone] Dr. Thomas Parker Primary Care Provider [phone] Dr. Homer Hernandez Attending Provider [phone] Dr. Homer Hernandez Referring Provider Thomas Parker Attending Unavailable Thomas Parker Primary Care Unavailable Thomas Parker Referring Unavailable Thomas Parker Primary Care Unavailable Thomas Parker Attending Unavailable Thomas Parker Primary Care Unavailable Robotcelina, Dee Attending Unavailable Francesca, Dee Referring Unavailable Thomas Parker Referring Unavailable Thomas Parker Primary Care Unavailable Jayden Gundersonril Attending Unavailable Thomas Parker Referring Unavailable Francesca, Dee Attending Unavailable Thomas Parker Primary Care Unavailable Allergies Allergy Classification Reported Allergen(s) Allergy Type Date of Onset Reaction(s) Facility (2 sources) Penicillins (Antibiotic) drug allergy 7 none [facility] Work Phone: (2 sources) Sulfonamides (Antibiotic) drug allergy 7 [facility] Work Phone: (12 sources) Adhesive Tape; Translations: [adhesive tape] Allergy to substance 2 rash [facility] (11 sources) Morphine Drug Allergy 2 Nausea [facility] (12 sources) Penicillins; Translations: [Penicillins] Allergy to substance 2 [facility] (12 sources) Sulfonamides (Antibiotic); Translations: [Sulfa (Sulfonamide Antibiotics)] Allergy to substance 2 rash [facility] (4 sources) nut - unspecified; Translations: [nut - unspecified] Allergy to substance 3 Anaphylaxis [facility] (1 source) Morphine Drug Allergy 5 [facility] Repository Medications Current Medications Medication Drug Class(es) Dates Sig (Normalized) Sig (Original) acetaminophen 500 mg oral tablet (20 sources) Start: 11-23-2021 End: 07-03-2022 take 1000 mg by mouth every eight hours Acetaminophen Active 1000 MG PO EVERY 8 HOURS July 03, 2022 2:01pm Start: 11-18-2021 End: 11-23-2021 take 2 tablets by mouth every six hours Acetaminophen (Acetaminophen Extra Strength) 500 mg Tablet Discontinued 1000 MG PO EVERY 6 HOURS November 17, 2021 11:00pm November 23, 2021 7:10am calcium carbonate 1500 mg oral tablet (6 sources) Start: 02-17-2022 take 1 tablet by mouth once daily Calcium Carbonate (Calcium 600) 600 mg calcium (1,500 mg) tablet Active 600 MG PO DAILY February 16, 2022 11:00pm cholecalciferol 0.025 mg oral tablet (11 sources) Vitamin D Start: 01-22-2020 take 4000 [IU] by mouth once daily Cholecalciferol (Vitamin D3) Active 4000 UNIT PO DAILY January 21, 2020 11:00pm famotidine 20 mg oral tablet (15 sources) Histamine-2 Receptor Antagonist Start: 11-23-2021 End: 02-18-2022 take 20 mg by mouth once daily Famotidine Active 20 MG PO DAILY February 18, 2022 11:20am hydroCHLOROthiazide 25 mg / triamterene 37.5 mg oral tablet (13 sources) Potassium-spari ng Diuretic, Thiazide Diuretic Start: 12-31-2017 take 1 tablet by mouth once daily Triamterene-Hydrochl orothiazid (Maxzide-25mg) 37.5-25 mg tablet Active 1 TABLET PO daily December 30, 2017 11:00pm Start: 12-29-2016 take 1 tablet by thalia once daily TRIAMTERENE-HCTZ 37.5-25 MG TABS One tablet by mouth daily TRIAMTERENE-HCTZ [id number] Homer Hernandez MD levothyroxine sodium 0.112 mg oral tablet (20 sources) l-Thyroxine Start: 07-03-2022 take 112 ug by mouth once daily Levothyroxine Active 112 MCG PO DAILY July 03, 2022 12:00am Start: 02-18-2022 End: 07-03-2022 take 100 ug by mouth once daily Levothyroxine Discontinued 100 MCG PO DAILY February 17, 2022 11:00pm July 03, 2022 2:01pm Start: 12-31-2017 End: 02-18-2022 take 1 tablet by mouth once daily Levothyroxine (Synthroid) 112 mcg tablet Discontinued 112 MCG PO daily December 30, 2017 11:00pm February 18, 2022 11:20am Start: 12-29-2016 SYNTHROID 112 MCG TABS .11 LEVOTHYROXINE SODIUM [id number] Homer Hernandez MD Start: 12-29-2016 SYNTHROID 112 MCG TABS .11 LEVOTHYROXINE SODIUM [id number] Homer Hernandez MD losartan potassium 50 mg oral tablet (4 sources) Angiotensin 2 Receptor Maria Alejandra Start: 07-03-2022 End: 04-28-2023 take 50 mg by mouth once daily Losartan Active 50 MG PO DAILY April 28, 2023 2:11pm meloxicam 7.5 mg oral tablet (11 sources) Nonsteroidal Anti-inflammatory Drug Start: 02-18-2022 End: 07-03-2022 take 7.5 mg by mouth once daily Meloxicam Active 7.5 MG PO DAILY July 03, 2022 2:02pm Start: 12-31-2017 take 15 mg by mouth once daily Meloxicam Active 15 MG PO daily December 31, 2017 2:11pm Multivitamin,Cc-Ambo-Pyxvyae s (Complete Multivitamin) tablet (11 sources) Start: 05-07-2019 take 1 tablet by mouth once daily Multivitamin,Gv-Ypih-Rgjzzrfq (Complete Multivitamin) tablet Active 1 TABLET PO DAILY May 07, 2019 9:20am Start: 05-07-2019 take 1 tablet by thalia once daily Multivitamin,Zk-Afjo-Wdgbddot (Complete Multivitamin) tablet Active 1 TABLET PO DAILY May 07, 2019 12:00am Start: 05-07-2019 take 1 tablet by thalia th once daily Multivitamin,Ac-Oqcg-Wpiomaqj (Complete Multivitamin) tablet Active 1 TABLET PO DAILY May 07, 2019 1:00am Vit C,L-Wd-Fxrrh-Lutein-Zeax an (Preservision Areds-2) 250-90-40-1 mg capsule (3 sources) Start: 07-03-2022 Vit C,A-Nc-Gmqpc-Lutein-Zeax an (Preservision Areds-2) 250-90-40-1 mg capsule Active 1 TABLET PO TWICE A DAY July 03, 2022 12:00am Start: 07-03-2022 Vit C,E-Zn-Ratoprinter sp-Ppiwax-Lwpszp (Preservision Areds-2) 250-90-40-1 mg capsule Active 1 TABLET PO TWICE A DAY July 03, 2022 1:00am Completed/Discontinued Medications Medication Drug Class(es) Dates Sig (Normalized) Sig (Original) acetaminophen 325 mg / HYDROcodone bitartrate 5 mg oral tablet (11 sources) Opioid Agonist Start: 01-31-2020 End: 02-02-2020 take 1 tablet by mouth every six hours as needed Hydrocodone-Acetam inophen Discontinued 1 TABLET PO EVERY 6 HOURS NEEDED 10 23January 31, 2020 February 01, 2020 11:02pm aspirin 81 mg chewable tablet (17 sources) Platelet Aggregation Inhibitor, Nonsteroidal Anti-inflammatory Drug Start: 02-18-2022 End: 07-03-2022 take 81 mg by mouth once daily Aspirin Discontinued 81 MG PO DAILY February 18, 2022 11:19am July 03, 2022 2:01pm Start: 11-23-2021 End: 02-18-2022 take 81 mg by mouth twice daily at mealtime Aspirin Discontinued 81 MG PO TWICE DAILY WITH MEALS 0 November 22, 2021 11:00pm February 18, 2022 11:22am Start: 06-19-2021 take 1 tablet by thalia once daily Aspirin (Aspir-81) 81 mg Tablet,Delayed Release (Dr/Ec) Active 81 MG PO DAILY June 19, 2021 10:18am azithromycin 250 mg oral tablet (17 sources) Macrolide Antimicrobial Start: 03-17-2022 End: 07-03-2022 Azithromycin Discontinued 0 PO .COMPLEX March 16, 2022 11:00pm July 03, 2022 2:01pm take 500 mg today (day 1), then 250 mg for 4 days (days 2-5) PO Start: 05-07-2019 End: 01-01-2020 take 2-5 tablets by mouth once daily Azithromycin (Zithromax Z-Manny) 250 mg tablet Discontinued 0 PO .COMPLEX May 07, 2019 12:00am January 01, 2020 6:21am take 500 mg today (day 1), then 250 mg for 4 days (days 2-5) PO docusate sodium 50 mg / sennosides, correction 8.6 mg oral tablet (9 sources) Start: 11-23-2021 End: 02-17-2022 take 2 tablets by mouth twice daily Sennosides-Docusate Sodium (Stool Softener-Stimulant Laxat) 8.6-50 mg Tablet Discontinued 2 TABLET PO TWICE A DAY 14 November 22, 2021 11:00pm February 17, 2022 9:11pm doxycycline monohydrate 100 mg oral capsule (9 sources) Tetracycline-cl ass Drug Start: 11-23-2021 End: 02-17-2022 take 100 mg by mouth twice daily Doxycycline Monohydrate Discontinued 100 MG PO TWICE A DAY 24 November 22, 2021 11:00pm February 17, 2022 9:11pm 3 ml insulin lispro 100 unt/ml pen injector (9 sources) Insulin Analog Start: 11-23-2021 End: 02-17-2022 Insulin Lispro (Humalog Kwikpen Insulin) 100 unit/mL Insulin Pen Discontinued 1 - 6 UNIT SC EVERY 4 HOURS NEEDED November 22, 2021 11:00pm February 17, 2022 9:11pm oxyCODONE hydrochloride 5 mg oral tablet (9 sources) Opioid Agonist Start: 11-23-2021 End: 02-17-2022 take 5-10 mg by mouth every four hours as needed Oxycodone Discontinued 5 - 10 MG PO EVERY 4 HOURS NEEDED 48 November 23, 2021 February 17, 2022 9:11pm pantoprazole 40 mg delayed release oral tablet (13 sources) Proton Pump Inhibitor Start: 12-31-2017 End: 02-17-2022 take 1 tablet by mouth once daily Pantoprazole (Protonix) 40 mg tablet,delayed release (DR/EC) Discontinued 40 MG PO daily December 30, 2017 11:00pm February 17, 2022 9:11pm Start: 12-29-2016 take 1 tablet by thalia once daily PANTOPRAZOLE SODIUM 40 MG TBEC One tablet by mouth daily PANTOPRAZOLE SODIUM [id number] Homer Hernandez MD Problems Active Problems Problem Classification Problem Date Documented Date Episodic/Chronic Abdominal hernia (20 sources) Recurrent inguinal hernia; Translations: [Unilateral inguinal hernia, without obstruction or gangrene, recurrent] 02-17-2022 Episodic Acute bronchitis (9 sources) Acute bronchitis; Translations: [Acute bronchitis, unspecified] 03-17-2022 Episodic Cancer of breast (17 sources) History of malignant neoplasm of breast; Translations: [Personal history of malignant neoplasm of breast] Onset: 12-29-2016 12-29-2016 Episodic Cardiac dysrhythmias (13 sources) Intermittent palpitations; Translations: [Palpitations] 02-17-2022 Episodic Complication of device; implant or graft (12 sources) Disorder of prosthetic joint; Translations: [Dislocation of internal right hip prosthesis, initial encounter] Episodic Esophageal disorders (2 sources) Gastroesophageal reflux disease; Translations: [Gastro-esophageal reflux disease without esophagitis] Onset: 12-29-2016 12-29-2016 Chronic Essential hypertension (15 sources) Hypertensive disorder; Translations: [Essential (primary) hypertension] Onset: 12-29-2016 12-29-2016 Chronic Fracture of neck of femur (hip) (12 sources) Fracture of greater trochanter; Translations: [Displaced fracture of greater trochanter of right femur, initial encounter for closed fracture] Episodic Joint disorders and dislocations; trauma-related (11 sources) Closed anterior dislocation of hip; Translations: [Other anterior dislocation of right hip, initial encounter] 06-27-2021 Episodic Osteoarthritis (2 sources) Osteoarthritis; Translations: [Polyosteoarthritis, unspecified] Onset: 12-29-2016 12-29-2016 Chronic Other circulatory disease (9 sources) Low blood pressure; Translations: [Hypotension, unspecified] 12-01-2021 Episodic Other circulatory disease (3 sources) Hypotension, unspecified; Translations: [Hypotension, unspecified] Episodic Other connective tissue disease (11 sources) Inguinal pain; Translations: [Neuralgia and neuritis, unspecified] 02-17-2022 Episodic Other screening for suspected conditions (not mental disorders or infectious disease) (13 sources) Patient encounter status; Translations: [Encounter for screening for malignant neoplasm of intestinal tract, unspecified] 02-17-2022 Episodic Other upper respiratory infections (11 sources) Acute frontal sinusitis; Translations: [Acute frontal sinusitis, unspecified] 02-17-2022 Episodic Thyroid disorders (3 sources) Graves' disease; Translations: [Hypothyroidism, unspecified] Onset: 12-29-2016 12-29-2016 Chronic Past or Other Problems Problem Classification Problem Date Documented Da te Episodic/Chronic Deficiency and other anemia (1 source) Anemia, unspecified; Translations: [Anemia, unspecified] Onset: 03-07-2024 Episodic Hemorrhoids (2 sources) Hemorrhoids; Translations: [Unspecified hemorrhoids] Onset: 12-29-2016 12-29-2016 Episodic Spondylosis; intervertebral disc disorders; other back problems (2 sources) Backache; Translations: [Dorsalgia, unspecified] Onset: 12-29-2016 12-29-2016 Episodic Results Test Name Value Interpretation Reference Range Facility Cardiology Visit Reporton Cardiology Visit Report [facility] [address] [place] [address] OFFICE VISIT Date of Service: 10/12/24 MR#: [id number] Acct: [id number] Name: BETSY BAIRES Rep #: [id number] : 1950 Provider: Dr. Reg Gunderson MD Age/Sex: 74/F Location: [facility] [place] Status: Signed HPI HPI History of Present Illness Details: She is a pleasant 74-year-old lady who is here for follow-up visit. She does have a history of right breast carcinoma with mastectomy in 1999. She received Adriamycin, Taxol, Herceptin and radiation. She has also had a history of thyroid disorder and has been on thyroid medication. She has been on low-dose diuretic for high blood pressure. She denies any dizziness diaphoresis near syncope or syncope she has not had any chest pain she has had some shortness of breath with exertion. She says that she has been checking her blood pressures at home and they have still been elevated with a diastolic over 80. As part of her work-up for her palpitations she underwent an echocardiogram in January 2022 which demonstrated an ejection fraction of 55%, mild mitral regurgitation and a global longitudinal strain of 18.1 which was normal. Her lipid profile demonstrates a total cholesterol 167, HDL of 70, LDL of 78. Her physical exam demonstrates clear lung mcdaniels regular rate and rhythm and no pedal edema. Intake Vital Signs 08/26/23 10:11 12/20/23 08:33 10/12/24 11:55 Height 5 ft 5 in 5 ft 5 in 5 ft 5 in Weight: 162 lb BMI 26.9 BP 130/79 H Blood Pressure Location Lt brachial Position Sitting Respiration 16 Pulse 76 Pulse Source Monitor Intake Visit Reasons: 1 Y [employer] Required: No Accompanied by: Self Is patient in pain?: No Allergies nut - unspecified Allergy (Severe, Verified 10/12/24 12:03) Anaphylaxis adhesive tape Allergy (Mild, Verified 10/12/24 12:03) rash Penicillins Allergy (Mild, Verified 10/12/24 12:03) rash Sulfa (Sulfonamide Antibiotics) Allergy (Mild, Verified 10/12/24 12:03) rash morphine Adverse Reaction (Verified 10/12/24 12:03) Nausea Medications ???Medication ???Instructions ???Recorded ???Confirmed ???Type triamterene 37.5 1 tab PO QDAY bp 12/31/17 10/12/24 History mg-hydrochlorothiaz karyna 25 mg tablet (Maxzide-25mg) multivitamin,tx-iro n-minerals 1 tab PO DAILY supplement 05/07/19 10/12/24 History (Complete Multivitamin tablet) cholecalciferol (vitamin D3) 25 4,000 unit PO DAILY supplement 10/12/24 History mcg (1,000 unit) tablet calcium carbonate (Calcium 600) 600 mg PO DAILY 02/17/22 10/12/24 History famotidine 20 mg tablet 20 mg PO DAILY PRN 02/18/22 History acetaminophen 500 mg tablet 1,000 mg PO Q8 PRN 07/03/22 History levothyroxine 112 mcg tablet 112 mcg PO DAILY 07/03/22 10/12/24 History meloxicam 7.5 mg tablet 7.5 mg PO DAILY PRN 07/03/2210/12 History vit C 250 mg-vit E 90 mg-zinc 40 1 tab PO BID 07/03/22 10/12/24 His tory mg-copper 1 fo-pxvapj-izqmiy capsule (PreserVision AREDS-2) losartan 50 mg tablet 50 mg PO DAILY #90 tabs 04/28/24 0 10/12/24 Rx latanoprost 0.005 % eye drops 1 drp ophthalmic (eye) QHS 5 10/12/24 History Have you fallen in the past year?: No PFSH Medical History Screening for breast cancer Acute bronchitis Recurrent inguinal hernia Rapid palpitations Intermittent palpitations Essential hypertension Fracture of greater trochanter of right femur Wears glasses Post-menopausal Alcohol use History of steroid therapy Migraine headache History of IBS Non-smoker History of pain when walking History of edema Recurrent inguinal hernia unilateral Neuralgia of inguinal region Inguinal hernia bilateral, non-recurrent Sinusitis, acute frontal Hay fever Arthritis Screening for intestinal cancer History of right breast cancer Hypothyroidism Chronic back pain Osteoarthritis GERD (gastroesophageal reflux disease) Surgical History History of eye surgery History of tonsillectomy Hx of inguinal hernia surgery History of total bilateral knee replacement History of hysterectomy History of right total mastectomy History of lumpectomy of right breast Family History Mother CVA (cerebral vascular accident) Hypertension Father CHF (congestive heart failure) Social History Smoking Status: Never smoker alcohol intake: current alcohol intake frequency: a few times a month substance use type: does not use caffeine: Yes Type: coffee Number of servings: 3 ROS Const Const: Negative for fatigue, weakness, headach (more content not included)... Normal [facility] CBC W/Diff, Automatedon - Absolute Lymph 2.25 X10 3/uL Normal 0.83-4.51 [facility] Comment on above: Order Comment: Order Date: 10/06/23 Order Info: [id number] - [id number] Performed By: #### L 506.1000, L500.4050, L500.4100, L100.0100, L506.0400, L501.9520 #### [facility] [address] [place], [place], [id number] Absolute Neut 4.9 X10 3/uL Normal 2.0-7.7 [facility] Comment on above: Order Comment: Order Date: 10/06/23 Order Info: [id number] - [id number] Performed By: #### L 506.1000, L500.4050, L500.4100, L100.0100, L506.0400, L501.9520 #### [facility] [address] [place], [address] Basophils/100 WBC (Bld) 0.8 % Normal 0-1 [facility] Comment on above: Order Comment: Order Date: 10/06/23 Order Info: [id number] - [id number] Performed By: #### L 506.1000, L500.4050, L500.4100, L100.0100, L506.0400, L501.9520 #### [facility] [address] [place], [address] Eosinophils/100 WBC (Bld) 2.1 % Normal 0-5 [facility] Comment on above: Order Comment: Order Date: 10/06/23 Order Info: [id number] - [id number] Performed By: #### L 506.1000, L500.4050, L500.4100, L100.0100, L506.0400, L501.9520 #### [facility] [address] [place], [address] Erythrocyte distribution width (RBC) [Ratio] 13.0 % Normal 11.6-14.6 [facility] Comment on above: Order Comment: Order Date: 10/06/23 Order Info: [id number] - VITD25 Performed By: #### L 506.1000, L500.4050, L500.4100, L100.0100, L506.0400, L501.9520 #### [facility] [address] [place], [address] Hematocrit (Bld) [Volume fraction] 38.9 % Normal 37-47 [facility] Comment on above: Order Comment: Order Date: 10/06/23 Order Info: [id number] - [id number] Performed By: #### L 506.1000, L500.4050, L500.4100, L100.0100, L506.0400, L501.9520 #### [facility] [address] [place], [address] Hemoglobin (Bld) [Mass/Vol] 12.5 g/dL Normal 12.0-15.0 [facility] Comment on above: Order Comment: Order Date: 10/06/23 Order Info: [id number] - VITD25 Performed By: #### L 506.1000, L500.4050, L500.4100, L100.0100, L506.0400, L501.9520 #### [facility] [address] [place], [address] IG% 0.500 Normal 0.0-0.9 [facility] Comment on above: Order Comment: Order Date: 10/06/23 Order Info: [id number] - [id number] Result Comment: IG% - Immature Granulocytes (promyelocytes, myelocytes and metamyelocytes) > 1% indicates that a LEFT SHIFT is Present. Performed By: #### L 506.1000, L500.4050, L500.4100, L100.0100, L506.0400, L501.9520 #### [facility] [address] [place], [address] Lymphocytes/100 WBC (Bld) 27.3 % Normal 19-41 [facility] Comment on above: Order Comment: Order Date: 10/06/23 Order Info: [id number] - VITD25 Performed By: #### L 506.1000, L500.4050, L500.4100, L100.0100, L506.0400, L501.9520 #### [facility] [address] [place], [address] MCH (RBC) [Entitic mass] 29.8 pg Normal 27.0-32.0 [facility] Comment on above: Order Comment: Order Date: 10/06/23 Order Info: [id number] - VITD25 Performed By: #### L 506.1000, L500.4050, L500.4100, L100.0100, L506.0400, L501.9520 #### [facility] [address] [place], [address] MCHC (RBC) [Mass/Vol] 32.1 g/dL Normal 32-36 [facility] Comment on above: Order Comment: Order Date: 10/06/23 Order Info: [id number] - VITD25 Performed By: #### L 506.1000, L500.4050, L500.4100, L100.0100, L506.0400, L501.9520 #### [facility] [address] [place], [address] MCV (RBC) [Entitic vol] 92.6 fL Normal 81-99 [facility] Comment on above: Order Comment: Order Date: 10/06/23 Order Info: [id number] - VITD25 Performed By: #### L 506.1000, L500.4050, L500.4100, L100.0100, L506.0400, L501.9520 #### [facility] [address] [place], [address] Monocytes/100 WBC (Bld) 10.2 % High 0-10 [facility] Comment on above: Order Comment: Order Date: 10/06/23 Order Info: [id number] - [id number] Performed By: #### L 506.1000, L500.4050, L500.4100, L100.0100, L506.0400, L501.9520 #### [facility] [address] [place], [address] Neutrophils/100 WBC (Bld) 59.1 % Normal 47-70 [facility] Comment on above: Order Comment: Order Date: 10/06/23 Order Info: [id number] - VITD25 Performed By: #### L 506.1000, L500.4050, L500.4100, L100.0100, L506.0400, L501.9520 #### [facility] [address] [place], [address] Nucleated RBC (Bld) [#/Vol] 0 10*3/uL Normal 0-5 [facility] Comment on above: Order Comment: Order Date: 10/06/23 Order Info: [id number] - VITD25 Performed By: #### L 506.1000, L500.4050, L500.4100, L100.0100, L506.0400, L501.9520 #### [facility] [address] [place], [address] Platelet mean volume (Bld) [Entitic vol] 9.9 fL Normal 6.2-12.0 [facility] Comment on above: Order Comment: Order Date: 10/06/23 Order Info: [id number] - [id number] Performed By: #### L 506.1000, L500.4050, L500.4100, L100.0100, L506.0400, L501.9520 #### [facility] [address] [place], [address] Platelets (Bld) [#/Vol] 405 10*3/uL Normal 150-450 [facility] Comment on above: Order Comment: Order Date: 10/06/23 Order Info: [id number] - VITD25 Performed By: #### L 506.1000, L500.4050, L500.4100, L100.0100, L506.0400, L501.9520 #### [facility] [address] [place], [address] RBC (Bld) [#/Vol] 4.20 10*6/uL Normal 4.2-5.4 [facility] Comment on above: Order Comment: Order Date: 10/06/23 Order Info: [id number] - [id number] Performed By: #### L 506.1000, L500.4050, L500.4100, L100.0100, L506.0400, L501.9520 #### [facility] [address] [place], [address] RDW SD 44.5 fl High 35.1-43.9 [facility] Comment on above: Order Comment: Order Date: 10/06/23 Order Info: [id number] - [id number] Performed By: #### L 506.1000, L500.4050, L500.4100, L100.0100, L506.0400, L501.9520 #### [facility] [address] [place], [address] WBC (Bld) [#/Vol] 8.2 10*3/uL Normal 4.4-11.0 [facility] Comment on above: Order Comment: Order Date: 10/06/23 Order Info: [id number] - [id number] Performed By: #### L 506.1000, L500.4050, L500.4100, L100.0100, L506.0400, L501.9520 #### [facility] [address] [place], [address] Comprehensive Metabolic Prof ilon 06-13-2024 Albumin [Mass/Vol] 4.3 g/dL Normal 3.2-5.0 [facility] Comment on above: Order Comment: Order Date: 10/06/23 Order Info: [id number] - VITD25 Performed By: #### L 506.1000, L500.4050, L500.4100, L100.0100, L506.0400, L501.9520 #### [facility] [address] [place], [address] Albumin/Globulin [Mass ratio] 1.2 {ratio} Normal 0.9-2.4 [facility] Comment on above: Order Comment: Order Date: 10/06/23 Order Info: [id number] - VITD25 Performed By: #### L 506.1000, L500.4050, L500.4100, L100.0100, L506.0400, L501.9520 #### [facility] [address] [place], [address] ALK P 51 U/L Normal 45-117 [facility] Comment on above: Order Comment: Order Date: 10/06/23 Order Info: [id number] - VITD25 Performed By: #### L 506.1000, L500.4050, L500.4100, L100.0100, L506.0400, L501.9520 #### [facility] [address] [place], [address] ALT [Catalytic activity/Vol] 16 U/L Normal 13-56 [facility] Comment on above: Order Comment: Order Date: 10/06/23 Order Info: [id number] - VITD25 Performed By: #### L 506.1000, L500.4050, L500.4100, L100.0100, L506.0400, L501.9520 #### [facility] [address] [place], [address] AST [Catalytic activity/Vol] 13 U/L Low 15-37 [facility] Comment on above: Order Comment: Order Date: 10/06/23 Order Info: [id number] - VITD25 Performed By: #### L 506.1000, L500.4050, L500.4100, L100.0100, L506.0400, L501.9520 #### [facility] [address] [place], [address] Bilirubin [Mass/Vol] 0.70 mg/dL Normal 0.20-1.00 [facility] Comment on above: Order Comment: Order Date: 10/06/23 Order Info: [id number] - VITD25 Result Comment: For patients on eltrombopag therapy, use of Dimension [place] TBIL is not recommended. Performed By: #### L 506.1000, L500.4050, L500.4100, L100.0100, L506.0400, L501.9520 #### [facility] [address] [place], [address] BUN/CRE 25.7 RATIO High 10-20 [facility] Comment on above: Order Comment: Order Date: 10/06/23 Order Info: [id number] - VITD25 Performed By: #### L 506.1000, L500.4050, L500.4100, L100.0100, L506.0400, L501.9520 #### [facility] [address] [place], [address] CA,Total 9.9 mg/dL Normal 8.5-10.1 [facility] Comment on above: Order Comment: Order Date: 10/06/23 Order Info: [id number] - VITD25 Performed By: #### L 506.1000, L500.4050, L500.4100, L100.0100, L506.0400, L501.9520 #### [facility] [address] [place], [address] Chloride [Moles/Vol] 100 mmol/L Normal 98-107 [facility] Comment on above: Order Comment: Order Date: 10/06/23 Order Info: [id number] - VITD25 Performed By: #### L 506.1000, L500.4050, L500.4100, L100.0100, L506.0400, L501.9520 #### [facility] [address] [place], [address] CO2 [Moles/Vol] 29.0 mmol/L Normal 21.0-32.0 [facility] Comment on above: Order Comment: Order Date: 10/06/23 Order Info: [id number] - VITD25 Performed By: #### L 506.1000, L500.4050, L500.4100, L100.0100, L506.0400, L501.9520 #### [facility] [address] [place], [address] Creatinine [Mass/Vol] 0.97 mg/dL Normal 0.55-1.02 [facility] Comment on above: Order Comment: Order Date: 10/06/23 Order Info: [id number] - VITD25 Result Comment: The validity of the calculated GFR GFRAA in patients over 70 years has not been determined. Clinical correlation is essential. Performed By: #### L 506.1000, L500.4050, L500.4100, L100.0100, L506.0400, L501.9520 #### [facility] [address] [place], [address] EST GFR - AA 72 mL/min Normal >60 [facility] Comment on above: Order Comment: Order Date: 10/06/23 Order Info: [id number] - VITD25 Result Comment: Afri can Kosovan GFR Calc Performed By: #### L 506.1000, L500.4050, L500.4100, L100.0100, L506.0400, L501.9520 #### [facility] [address] [place], [address] GAP 5 Normal 5-15 [facility] Comment on above: Order Comment: Order Date: 10/06/23 Order Info: [id number] - VITD25 Performed By: #### L 506.1000, L500.4050, L500.4100, L100.0100, L506.0400, L501.9520 #### [facility] [address] [place], [address] GFR/1.73 sq M.predicted among non-blacks MDRD (S/P/Bld) [Vol rate/Area] 60 mL/min/{1.73_m2} Normal >60 [facility] Comment on above: Order Comment: Order Date: 10/06/23 Order Info: [id number] - VITD25 Result Comment: Non- GFR Calc Performed By: #### L 506.1000, L500.4050, L500.4100, L100.0100, L506.0400, L501.9520 #### [facility] [address] [place], [address] Globulin (S) [Mass/Vol] 3.6 g/dL Normal 2.2-4.2 [facility] Comment on above: Order Comment: Order Date: 10/06/23 Order Info: [id number] - VITD25 Performed By: #### L 506.1000, L500.4050, L500.4100, L100.0100, L506.0400, L501.9520 #### [facility] [address] [place], [address] Glucose [Mass/Vol] 95 mg/dL Normal 74-106 [facility] Comment on above: Order Comment: Order Date: 10/06/23 Order Info: [id number] - VITD25 Performed By: #### L 506.1000, L500.4050, L500.4100, L100.0100, L506.0400, L501.9520 #### [facility] [address] [place], [address] Potassium [Moles/Vol] 3.9 mmol/L Normal 3.5-5.1 [facility] Comment on above: Order Comment: Order Date: 10/06/23 Order Info: [id number] - VITD25 Performed By: #### L 506.1000, L500.4050, L500.4100, L100.0100, L506.0400, L501.9520 #### [facility] [address] [place], [address] Sodium [Moles/Vol] 134 mmol/L Low 136-145 [facility] Comment on above: Order Comment: Order Date: 10/06/23 Order Info: [id number] - VITD25 Performed By: #### L 506.1000, L500.4050, L500.4100, L100.0100, L506.0400, L501.9520 #### [facility] [address] [place], [address] T PROT 7.9 g/dL Normal 6.4-8.2 [facility] Comment on above: Order Comment: Order Date: 10/06/23 Order Info: [id number] - VITD25 Performed By: #### L 506.1000, L500.4050, L500.4100, L100.0100, L506.0400, L501.9520 #### [facility] [address] [place], [address] Urea nitrogen [Mass/Vol] 25 mg/dL High 7-18 [facility] Comment on above: Order Comment: Order Date: 10/06/23 Order Info: [id number] - VITD25 Performed By: #### L 506.1000, L500.4050, L500.4100, L100.0100, L506.0400, L501.9520 #### [facility] [address] [place], [address] Ferritinon 06-13-2024 Ferritin [Mass/Vol] 38 ng/mL Normal 8-252 [facility] Comment on above: Order Comment: Order Date: 10/06/23 Order Info: [id number] - VITD25 Performed By: #### L 506.1000, L500.4050, L500.4100, L100.0100, L506.0400, L501.9520 #### [facility] [address] [place], [address] Ironon 06-13-2024 Iron [Mass/Vol] 83 ug/dL Normal 50-170 [facility] Comment on above: Order Comment: Order Date: 10/06/23 Order Info: [id number] - VITD25 Performed By: #### L 506.1000, L500.4050, L500.4100, L100.0100, L506.0400, L501.9520 #### [facility] [address] [place], [address] Iron Binding Capacity,Totalo n 06-13-2024 TIBC 375 ug/dL Normal 250-450 [facility] Comment on above: Order Comment: Order Date: 10/06/23 Order Info: [id number] - VITD25 Performed By: #### L 506.1000, L500.4050, L500.4100, L100.0100, L506.0400, L501.9520 #### [facility] [address] [place], [address] Lipid Profileon 06-13-2024 Cholesterol [Mass/Vol] 177 mg/dL Normal 200 [facility] Comment on above: Order Comment: Order Date: 10/06/23 Order Info: [id number] - VITD25 Result Comment: <200 mg/dL Desirable 200-240 mg/dL Borderline >240 mg/dL High Risk Performed By: #### L 506.1000, L500.4050, L500.4100, L100.0100, L506.0400, L501.9520 #### [facility] [address] [place], [address] Cholesterol in HDL [Mass/Vol] 72 mg/dL Normal [facility] Comment on above: Order Comment: Order Date: 10/06/23 Order Info: [id number] - VITD25 Result Comment: The drugs N-Acetylcysteine and Metamizole may falsely depress this assay. Reference Range HDL <40 mg/dL Low HDL Cholesterol HDL >or= 60 mg/dL High HDL Cholesterol Performed By: #### L 506.1000, L500.4050, L500.4100, L100.0100, L506.0400, L501.9520 #### [facility] [address] [place], [address] Cholesterol in LDL [Mass/Vol] 85 mg/dL Normal 0-130 [facility] Comment on above: Order Comment: Order Date: 10/06/23 Order Info: [id number] - VITD25 Performed By: #### L 506.1000, L500.4050, L500.4100, L100.0100, L506.0400, L501.9520 #### [facility] [address] [place], [address] Cholesterol in VLDL [Mass/Vol] 20 mg/dL Normal 5-40 [facility] Comment on above: Order Comment: Order Date: 10/06/23 Order Info: [id number] - VITD25 Performed By: #### L 506.1000, L500.4050, L500.4100, L100.0100, L506.0400, L501.9520 #### [facility] [address] [place], [place], [address] Triglyceride [Mass/Vol] 98 mg/dL Normal [facility] Comment on above: Order Comment: Order Date: 10/06/23 Order Info: [id number] - VITD25 Result Comment: The drugs N-Acetylcysteine and Metamizole may falsely depress this assay. Serum Triglycerides Reference Interval Normal <150 mg/dL Borderline high 150 - 199 mg/dL High 200 - 499 mg/dL Very High > or = 500 mg/dL Performed By: #### L 506.1000, L500.4050, L500.4100, L100.0100, L506.0400, L501.9520 #### [facility] [address] [place], [place], [address] T4 Free Directon 06-13-2024 T4 FREE DIRECT 1.40 ng/dL Normal 0.76-1.46 [facility] Comment on above: Order Comment: Order Date: 10/06/23 Order Info: [id number] - VITD25 Performed By: #### L 506.1000, L500.4050, L500.4100, L100.0100, L506.0400, L501.9520 #### [facility] [address] [place], [place], [address] Thyroid Stim Hormone (TSH)on 06-13-2024 TSH 1.110 uIU/mL Normal 0.358-3.740 [facility] Comment on above: Order Comment: Order Date: 10/06/23 Order Info: [id number] - VITD25 Performed By: #### L 506.1000, L500.4050, L500.4100, L100.0100, L506.0400, L501.9520 #### [facility] [address] [place], [place], [address] Vitamin D,25 Hydroxyon 06-13 Vitamin D 25-OH 74.4 ng/mL Normal [facility] Comment on above: Order Comment: Order Date: 10/06/23 Order Info: [id number] - VITD25 Result Comment: Shoshana min D 25(OH) Status Range Deficiency <20 ng/mL (50nmol/L) Insufficiency 20 - 30 ng/mL (50 - 75 nmol/L) Sufficiency 30 - 100 ng/mL (75 - 250 nmol/L) Toxicity >100 ng/mL (>250 nmol/L) Performed By: #### L 506.1000, L500.4050, L500.4100, L100.0100, L506.0400, L501.9520 #### [facility] [address] [place], [place], [address] Ferritinon 02-15-2024 Ferritin [Mass/Vol] 41 ng/mL Normal 8-252 [facility] Comment on above: Order Comment: Order Date: 10/06/23 Order Info: [id number] - VITD25 Performed By: #### L 506.1000, L500.4050, L500.4100, L100.0100, L506.0400, L501.9520 #### [facility] [address] [place], [place], [address] Iron+Iron Binding Capacityon 02-15-2024 Iron [Mass/Vol] 45 ug/dL Low 50-170 [facility] Comment on above: Order Comment: RADHA Hays ADD B12 MYRA IBC TO BLOOD DRAWN 02/14/24 PER Order Date: 10/06/23 Order Info: 0786-1 - CMP Order Info: [id number] - LIPID Order Info: [id number] - TSH Order Info: 3024-7 - T4F Performed By: #### L 503.6550, L503.0105, L503.6030 #### [facility] [address] [place], [place], [address] IRON SATURATION 13.7 Low 15.0-55.0 [facility] Comment on above: Order Comment: RADHA Hays ADD B12 MYRA IBC TO BLOOD DRAWN 02/14/24 PER Order Date: 10/06/23 Order Info: 0786-1 - CMP Order Info: [id number] - LIPID Order Info: 3 - TSH Order Info: [id number] - T4F Performed By: #### L 503.6550, L503.0105, L503.6030 #### [facility] [address] [place], [address] TIBC 328 ug/dL Normal 250-450 [facility] Comment on above: Order Comment: RADHA Hays ADD B12 MYRA IBC TO BLOOD DRAWN 02/14/24 PER Order Date: 10/06/23 Order Info: 0786 - CMP Order Info: [id number] - LIPID Order Info: [id number] - TSH Order Info: 3023-11 - T4F Performed By: #### L 503.6550, L503.0105, L503.6030 #### [facility] [address] [place], [address] Vitamin B12on 02-15-2024 Cobalamin (Vitamin B12) [Mass/Vol] 374 pg/mL Normal 211-911 [facility] Comment on above: Order Comment: RADHA Hays ADD B12 MYRA IBC TO BLOOD DRAWN 02/14/24 PER Order Date: 10/06/23 Order Info: [id number] - VITD25 Performed By: #### L 503.6550, L503.0105, L503.6030 #### [facility] [address] [place], [place], [address] CBC W/Diff, Automatedon 01-23 Absolute Lymph 1.81 X10 3/uL Normal 0.83-4.51 [facility] Comment on above: Order Comment: Order Date: 10/06/23 Order Info: 0184-1 - CBCD Performed By: #### L 506.1000, L500.4050, L500.4100, L100.0100, L506.0400, L501.9520 #### [facility] [address] [place], [address] Absolute Neut 3.7 X10 3/uL Normal 2.0-7.7 [facility] Comment on above: Order Comment: Order Date: 10/06/23 Order Info: 018-1 - CBCD Performed By: #### L 506.1000, L500.4050, L500.4100, L100.0100, L506.0400, L501.9520 #### [facility] [address] [place], [address] Basophils/100 WBC (Bld) 0.9 % Normal 0-1 [facility] Comment on above: Order Comment: Order Date: 10/06/23 Order Info: 018- - CBCD Performed By: #### L 506.1000, L500.4050, L500.4100, L100.0100, L506.0400, L501.9520 #### [facility] [address] [place], [address] Eosinophils/100 WBC (Bld) 2.2 % Normal 0-5 [facility] Comment on above: Order Comment: Order Date: 10/06/23 Order Info: 018-1 - CBCD Performed By: #### L 506.1000, L500.4050, L500.4100, L100.0100, L506.0400, L501.9520 #### [facility] [address] [place], [address] Erythrocyte distribution width (RBC) [Ratio] 13.1 % Normal 11.6-14.6 [facility] Comment on above: Order Comment: Order Date: 10/06/23 Order Info: 0184-1 - CBCD Performed By: #### L 506.1000, L500.4050, L500.4100, L100.0100, L506.0400, L501.9520 #### [facility] [address] [place], [address] Hematocrit (Bld) [Volume fraction] 36.2 % Low 37-47 [facility] Comment on above: Order Comment: Order Date: 10/06/23 Order Info: 0184-1 - CBCD Performed By: #### L 506.1000, L500.4050, L500.4100, L100.0100, L506.0400, L501.9520 #### [facility] [address] [place], [address] Hemoglobin (Bld) [Mass/Vol] 11.2 g/dL Low 12.0-15.0 [facility] Comment on above: Order Comment: Order Date: 10/06/23 Order Info: 0184-1 - CBCD Performed By: #### L 506.1000, L500.4050, L500.4100, L100.0100, L506.0400, L501.9520 #### [facility] [address] [place], [address] IG% 0.500 Normal 0.0-0.9 [facility] Comment on above: Order Comment: Order Date: 10/06/23 Order Info: 0184-1 - CBCD Result Comment: IG% - Immature Granulocytes (promyelocytes, myelocytes and metamyelocytes) > 1% indicates that a LEFT SHIFT is Present. Performed By: #### L 506.1000, L500.4050, L500.4100, L100.0100, L506.0400, L501.9520 #### [facility] [address] [place], [address] Lymphocytes/100 WBC (Bld) 28.2 % Normal 19-41 [facility] Comment on above: Order Comment: Order Date: 10/06/23 Order Info: 0184-1 - CBCD Performed By: #### L 506.1000, L500.4050, L500.4100, L100.0100, L506.0400, L501.9520 #### [facility] [address] [place], [address] MCH (RBC) [Entitic mass] 28.9 pg Normal 27.0-32.0 [facility] Comment on above: Order Comment: Order Date: 10/06/23 Order Info: 018- - CBCD Performed By: #### L 506.1000, L500.4050, L500.4100, L100.0100, L506.0400, L501.9520 #### [facility] [address] [place], [address] MCHC (RBC) [Mass/Vol] 30.9 g/dL Low 32-36 [facility] Comment on above: Order Comment: Order Date: 10/06/23 Order Info: 018- - CBCD Performed By: #### L 506.1000, L500.4050, L500.4100, L100.0100, L506.0400, L501.9520 #### [facility] [address] [place], [address] MCV (RBC) [Entitic vol] 93.5 fL Normal 81-99 [facility] Comment on above: Order Comment: Order Date: 10/06/23 Order Info: 018- - CBCD Performed By: #### L 506.1000, L500.4050, L500.4100, L100.0100, L506.0400, L501.9520 #### [facility] [address] [place], [address] Monocytes/100 WBC (Bld) 10.4 % High 0-10 [facility] Comment on above: Order Comment: Order Date: 10/06/23 Order Info: 018- - CBCD Performed By: #### L 506.1000, L500.4050, L500.4100, L100.0100, L506.0400, L501.9520 #### [facility] [address] [place], [address] Neutrophils/100 WBC (Bld) 57.8 % Normal 47-70 [facility] Comment on above: Order Comment: Order Date: 10/06/23 Order Info: 018- - CBCD Performed By: #### L 506.1000, L500.4050, L500.4100, L100.0100, L506.0400, L501.9520 #### [facility] [address] [place], [address] Nucleated RBC (Bld) [#/Vol] 0 10*3/uL Normal 0-5 [facility] Comment on above: Order Comment: Order Date: 10/06/23 Order Info: 018- - CBCD Performed By: #### L 506.1000, L500.4050, L500.4100, L100.0100, L506.0400, L501.9520 #### [facility] [address] [place], [address] Platelet mean volume (Bld) [Entitic vol] 10.2 fL Normal 6.2-12.0 [facility] Comment on above: Order Comment: Order Date: 10/06/23 Order Info: 018- - CBCD Performed By: #### L 506.1000, L500.4050, L500.4100, L100.0100, L506.0400, L501.9520 #### [facility] [address] [place], [address] Platelets (Bld) [#/Vol] 356 10*3/uL Normal 150-450 [facility] Comment on above: Order Comment: Order Date: 10/06/23 Order Info: 018- - CBCD Performed By: #### L 506.1000, L500.4050, L500.4100, L100.0100, L506.0400, L501.9520 #### [facility] [address] [place], [address] RBC (Bld) [#/Vol] 3.87 10*6/uL Low 4.2-5.4 [facility] Comment on above: Order Comment: Order Date: 10/06/23 Order Info: 0184-1 - CBCD Performed By: #### L 506.1000, L500.4050, L500.4100, L100.0100, L506.0400, L501.9520 #### [facility] [address] [place], [address] RDW SD 45.1 fl High 35.1-43.9 [facility] Comment on above: Order Comment: Order Date: 10/06/23 Order Info: 0184 - CBCD Performed By: #### L 506.1000, L500.4050, L500.4100, L100.0100, L506.0400, L501.9520 #### [facility] [address] [place], [address] WBC (Bld) [#/Vol] 6.4 10*3/uL Normal 4.4-11.0 [facility] Comment on above: Order Comment: Order Date: 10/06/23 Order Info: 0184- - CBCD Performed By: #### L 506.1000, L500.4050, L500.4100, L100.0100, L506.0400, L501.9520 #### [facility] [address] [facility] [place], [address] Comprehensive Metabolic Prof ilon 02-14-2024 Albumin [Mass/Vol] 4.0 g/dL Normal 3.2-5.0 [facility] Comment on above: Order Comment: Order Date: 10/06/23 Order Info: 0786-1 - CMP Order Info: [id number] - LIPID Order Info: [id number] - TSH Order Info: 3024-7 - T4F Performed By: #### L 506.1000, L500.4050, L500.4100, L100.0100, L506.0400, L501.9520 #### [facility] [address] [place], [address] Albumin/Globulin [Mass ratio] 1.2 {ratio} Normal 0.9-2.4 [facility] Comment on above: Order Comment: Order Date: 10/06/23 Order Info: 0786-1 - CMP Order Info: [id number] - LIPID Order Info: [id number] - TSH Order Info: 3024-7 - T4F Performed By: #### L 506.1000, L500.4050, L500.4100, L100.0100, L506.0400, L501.9520 #### [facility] [address] [place], [address] ALK P 45 U/L Normal 45-117 [facility] Comment on above: Order Comment: Order Date: 10/06/23 Order Info: 785- - CMP Order Info: [id number] - LIPID Order Info: [id number] - TSH Order Info: 3024-7 - T4F Performed By: #### L 506.1000, L500.4050, L500.4100, L100.0100, L506.0400, L501.9520 #### [facility] [address] [place], [address] ALT [Catalytic activity/Vol] 12 U/L Low 13-56 [facility] Comment on above: Order Comment: Order Date: 10/06/23 Order Info: 0786-1 - CMP Order Info: [id number] - LIPID Order Info: [id number] - TSH Order Info: 3024-7 - T4F Performed By: #### L 506.1000, L500.4050, L500.4100, L100.0100, L506.0400, L501.9520 #### [facility] [address] [place], [address] AST [Catalytic activity/Vol] 16 U/L Normal 15-37 [facility] Comment on above: Order Comment: Order Date: 10/06/23 Order Info: 785- - CMP Order Info: - LIPID Order Info: [id number] - TSH Order Info: 7 - T4F Performed By: #### L 506.1000, L500.4050, L500.4100, L100.0100, L506.0400, L501.9520 #### [facility] [address] [place], [address] Bilirubin [Mass/Vol] 0.50 mg/dL Normal 0.20-1.00 [facility] Comment on above: Order Comment: Order Date: 10/06/23 Order Info: 785- - CMP Order Info: - LIPID Order Info: [id number] - TSH Order Info: 7 - T4F Result Comment: For patients on eltrombopag therapy, use of Dimension [place] TBIL is not recommended. Performed By: #### L 506.1000, L500.4050, L500.4100, L100.0100, L506.0400, L501.9520 #### [facility] [address] [place], [address] BUN/CRE 22.0 RATIO High 10-20 [facility] Comment on above: Order Comment: Order Date: 10/06/23 Order Info: 785- - CMP Order Info: - LIPID Order Info: [id number] - TSH Order Info: [id number] - T4F Performed By: #### L 506.1000, L500.4050, L500.4100, L100.0100, L506.0400, [id number] #### [facility] [address] [place], [address] CA,Total 9.8 mg/dL Normal 8.5-10.1 [facility] Comment on above: Order Comment: Order Date: 10/06/23 Order Info: [id number]- - CMP Order Info: [id number] - LIPID Order Info: [id number] - TSH Order Info: 3024-7 - T4F Performed By: #### L 506.1000, L500.4050, L500.4100, L100.0100, L506.0400, [id number] #### [facility] [address] [place], [address] Chloride [Moles/Vol] 101 mmol/L Normal 98-107 [facility] Comment on above: Order Comment: Order Date: 10/06/23 Order Info: 86-1 - CMP Order Info: [id number] - LIPID Order Info: 3 - TSH Order Info: 7 - T4F Performed By: #### L 506.1000, L500.4050, L500.4100, L100.0100, L506.0400, L501.9520 #### [facility] [address] [place], [address] CO2 [Moles/Vol] 30.0 mmol/L Normal 21.0-32.0 [facility] Comment on above: Order Comment: Order Date: 10/06/23 Order Info: 785- - CMP Order Info: [id number] - LIPID Order Info: 3 - TSH Order Info: 7 - T4F Performed By: #### L 506.1000, L500.4050, L500.4100, L100.0100, L506.0400, L501.9520 #### [facility] [address] [place], [address] Creatinine [Mass/Vol] 0.96 mg/dL Normal 0.55-1.02 [facility] Comment on above: Order Comment: Order Date: 10/06/23 Order Info: 86-1 - CMP Order Info: [id number] - LIPID Order Info: 3 - TSH Order Info: [id number] - T4F Result Comment: The validity of the calculated GFR GFRAA in patients over 70 years has not been determined. Clinical correlation is essential. Performed By: #### L 506.1000, L500.4050, L500.4100, L100.0100, L506.0400, L501.9520 #### [facility] [address] [place], [address] EST GFR - AA 74 mL/min Normal >60 [facility] Comment on above: Order Comment: Order Date: 10/06/23 Order Info: 86-1 - CMP Order Info: [id number] - LIPID Order Info: 3 - TSH Order Info: [id number] - T4F Result Comment: Afri can Kosovan GFR Calc Performed By: #### L 506.1000, L500.4050, L500.4100, L100.0100, L506.0400, L501.9520 #### [facility] [address] [place], [address] GAP 5 Normal 5-15 [facility] Comment on above: Order Comment: Order Date: 10/06/23 Order Info: 785-05 - CMP Order Info: - LIPID Order Info: [id number] - TSH Order Info: 7 - T4F Performed By: #### L 506.1000, L500.4050, L500.4100, L100.0100, L506.0400, L501.9520 #### [facility] [address] [place], [address] GFR/1.73 sq M.predicted among non-blacks MDRD (S/P/Bld) [Vol rate/Area] 61 mL/min/{1.73_m2} Normal >60 [facility] Comment on above: Order Comment: Order Date: 10/06/23 Order Info: 785-1 - CMP Order Info: [id number] - LIPID Order Info: 3 - TSH Order Info: [id number] - T4F Result Comment: Non- GFR Calc Performed By: #### L 506.1000, L500.4050, L500.4100, L100.0100, L506.0400, L501.9520 #### [facility] [address] [place], [address] Globulin (S) [Mass/Vol] 3.2 g/dL Normal 2.2-4.2 [facility] Comment on above: Order Comment: Order Date: 10/06/23 Order Info: 785-1 - CMP Order Info: [id number] - LIPID Order Info: [id number] - TSH Order Info: 3024-7 - T4F Performed By: #### L 506.1000, L500.4050, L500.4100, L100.0100, L506.0400, L501.9520 #### [facility] [address] [place], [address] Glucose [Mass/Vol] 91 mg/dL Normal 74-106 [facility] Comment on above: Order Comment: Order Date: 10/06/23 Order Info: 785- - CMP Order Info: - LIPID Order Info: 3 - TSH Order Info: [id number] - T4F Performed By: #### L 506.1000, L500.4050, L500.4100, L100.0100, L506.0400, L501.9520 #### [facility] [address] [place], [address] Potassium [Moles/Vol] 4.3 mmol/L Normal 3.5-5.1 [facility] Comment on above: Order Comment: Order Date: 10/06/23 Order Info: 785- - CMP Order Info: [id number] - LIPID Order Info: [id number] - TSH Order Info: 3024-7 - T4F Performed By: #### L 506.1000, L500.4050, L500.4100, L100.0100, L506.0400, L501.9520 #### [facility] [address] [place], [address] Sodium [Moles/Vol] 136 mmol/L Normal 136-145 [facility] Comment on above: Order Comment: Order Date: 10/06/23 Order Info: 07-1 - CMP Order Info: - LIPID Order Info: [id number] - TSH Order Info: 7 - T4F Performed By: #### L 506.1000, L500.4050, L500.4100, L100.0100, L506.0400, L501.9520 #### [facility] [address] [place], [address] T PROT 7.2 g/dL Normal 6.4-8.2 [facility] Comment on above: Order Comment: Order Date: 10/06/23 Order Info: 785-05 - CMP Order Info: - LIPID Order Info: [id number] - TSH Order Info: [id number] - T4F Performed By: #### L 506.1000, L500.4050, L500.4100, L100.0100, L506.0400, L501.9520 #### [facility] [address] [place], [address] Urea nitrogen [Mass/Vol] 21 mg/dL High 7- [facility] Comment on above: Order Comment: Order Date: 10/06/23 Order Info: 785-05 - CMP Order Info: - LIPID Order Info: [id number] - TSH Order Info: [id number] - T4F Performed By: #### L 506.1000, L500.4050, L500.4100, L100.0100, L506.0400, L501.9520 #### [facility] [address] [place], [address] Lipid Profileon 02-14-2024 Cholesterol [Mass/Vol] 172 mg/dL Normal 200 [facility] Comment on above: Order Comment: Order Date: 10/06/23 Order Info: 86-1 - CMP Order Info: [id number] - LIPID Order Info: 3 - TSH Order Info: [id number] - T4F Result Comment: <200 mg/dL Desirable 200-240 mg/dL Borderline >240 mg/dL High Risk Performed By: #### L 506.1000, L500.4050, L500.4100, L100.0100, L506.0400, L501.9520 #### [facility] [address] [place], [address] Cholesterol in HDL [Mass/Vol] 73 mg/dL Normal [facility] Comment on above: Order Comment: Order Date: 10/06/23 Order Info: 785-05 - CMP Order Info: - LIPID Order Info: [id number] - TSH Order Info: 7 - T4F Result Comment: The drugs N-Acetylcysteine and Metamizole may falsely depress this assay. Reference Range HDL <40 mg/dL Low HDL Cholesterol HDL >or= 60 mg/dL High HDL Cholesterol Performed By: #### L 506.1000, L500.4050, L500.4100, L100.0100, L506.0400, L501.9520 #### [facility] [address] [place], [address] Cholesterol in LDL [Mass/Vol] 80 mg/dL Normal 0-130 [facility] Comment on above: Order Comment: Order Date: 10/06/23 Order Info: 785-05 - CMP Order Info: - LIPID Order Info: [id number] - TSH Order Info: 7 - T4F Performed By: #### L 506.1000, L500.4050, L500.4100, L100.0100, L506.0400, L501.9520 #### [facility] [address] [place], [address] Cholesterol in VLDL [Mass/Vol] 19 mg/dL Normal 5-40 [facility] Comment on above: Order Comment: Order Date: 10/06/23 Order Info: 785-05 - CMP Order Info: - LIPID Order Info: 3 - TSH Order Info: 7 - T4F Performed By: #### L 506.1000, L500.4050, L500.4100, L100.0100, L506.0400, L501.9520 #### [facility] [address] [place], [place], [id number] Triglyceride [Mass/Vol] 94 mg/dL Normal [facility] Comment on above: Order Comment: Order Date: 10/06/23 Order Info: 07 - CMP Order Info: - LIPID Order Info: 3 - TSH Order Info: 7 - T4F Result Comment: The drugs N-Acetylcysteine and Metamizole may falsely depress this assay. Serum Triglycerides Reference Interval Normal <150 mg/dL Borderline high 150 - 199 mg/dL High 200 - 499 mg/dL Very High > or = 500 mg/dL Performed By: #### L 506.1000, L500.4050, L500.4100, L100.0100, L506.0400, L501.9520 #### [facility] [address] [place], [place], [id number] T4 Free Directon 02-14-2024 T4 FREE DIRECT 1.37 ng/dL Normal 0.76-1.46 [facility] Comment on above: Order Comment: Order Date: 10/06/23 Order Info: 785-05 - CMP Order Info: - LIPID Order Info: 3 - TSH Order Info: 7 - T4F Performed By: #### L 506.1000, L500.4050, L500.4100, L100.0100, L506.0400, L501.9520 #### [facility] [address] [place], [place], [id number] Thyroid Stim Hormone (TSH)on 02-14-2024 TSH 1.020 uIU/mL Normal 0.358-3.740 [facility] Comment on above: Order Comment: Order Date: 10/06/23 Order Info: 785-05 - CMP Order Info: - LIPID Order Info: 63 - TSH Order Info: [id number] - T4F Performed By: #### L 506.1000, L500.4050, L500.4100, L100.0100, L506.0400, L501.9520 #### [facility] [address] [place], [place], [address] Vitamin D,25 Hydroxyon 02-13 Vitamin D 25-OH 63.8 ng/mL Normal [facility] Comment on above: Order Comment: Order Date: 10/06/23 Order Info: [id number] - VITD25 Result Comment: [place] min D 25(OH) Status Range Deficiency <20 ng/mL (50nmol/L) Insufficiency 20 - 30 ng/mL (50 - 75 nmol/L) Sufficiency 30 - 100 ng/mL (75 - 250 nmol/L) Toxicity >100 ng/mL (>250 nmol/L) Performed By: #### L 506.1000, L500.4050, L500.4100, L100.0100, L506.0400, L501.9520 #### [facility] [address] [place], [address] Surgery Visit Reporton 02-10 Surgery Visit Report [facility] [address] [place] [address] OFFICE VISIT Date of Service: 02/11/24 MR#: [id number] Acct: [id number] Name: BETSY BAIRES Rep #: [id number] : 1950 Provider: Dr. 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 Chief Complaint: 1 year breast check [employer] Required: No Is patient in pain?: No Allergies nut - unspecified Allergy (Severe, Verified 02/11/24 09:01) Anaphylaxis adhesive tape Allergy (Mild, Verified 02/11/24 09:01) rash Penicillins Allergy (Mild, Verified 02/11/24 09:01) rash Sulfa (Sulfonamide Antibiotics) Allergy (Mild, Verified 02/11/24 09:01) rash morphine Adverse Reaction (Verified 02/11/24 09:01) Nausea Medications ???Medication ???Instructions ???Recorded ???Confirmed ???Type triamterene 37.5 1 tab PO QDAY bp 12/31/17 02/11/24 History mg-hydrochlorothiaz karyna 25 mg tablet (Maxzide-25mg) multivitamin,tx-iro n-minerals 1 tab PO DAILY supplement 05/07/19 02/11/24 History (Complete Multivitamin tablet) cholecalciferol (vitamin D3) 25 4,000 unit PO DAILY supplement 01/22/20 02/11/24 History mcg (1,000 unit) tablet calcium carbonate (Calcium 600) 600 mg PO DAILY 02/17/22 02/11/24 History famotidine 20 mg tablet 20 mg PO DAILY PRN 02/18/22 02/11/24 History acetaminophen 500 mg tablet 1,000 mg PO Q8 PRN 07/03/22 02/11/24 History levothyroxine 112 mcg tablet 112 mcg PO DAILY 07/03/22 02/11/24 History meloxicam 7.5 mg tablet 7.5 mg PO DAILY PRN 07/03/22 02/11/24 History vit C 250 mg-vit E 90 mg-zinc 40 1 tab PO BID 07/03/22 02/11/24 History mg-copper 1 jp-paqdlv-eqgasl capsule (PreserVision AREDS-2) losartan 50 mg tablet 50 mg PO DAILY #90 tabs 04/28/23 02/11/24 Rx azithromycin 250 mg tablet See Rx Instructions PO .COMPLEX #6 12/20/23 02/11/24 Rx tabs Have you fallen in the past year?: No PFSH Medical History Screening for breast cancer Acute bronchitis Recurrent inguinal hernia Rapid palpitations Intermittent palpitations Essential hypertension Fracture of greater trochanter of right femur Wears glasses Post-menopausal Alcohol use History of steroid therapy Migraine headache History of IBS Non-smoker History of pain when walking History of edema Recurrent inguinal hernia unilateral Neuralgia of inguinal region Inguinal hernia bilateral, non-recurrent Sinusitis, acute frontal Hay fever Arthritis Screening for intestinal cancer History of right breast cancer Hypothyroidism Chronic back pain Osteoarthritis GERD (gastroesophageal reflux disease) Surgical History History of eye surgery History of tonsillectomy Hx of inguinal hernia surgery History of total bilateral knee replacement History of hysterectomy History of right total mastectomy History of lumpectomy of right breast Family History Mother CVA (cerebral vascular accident) Hypertension Father CHF (congestive heart failure) Social History Smoking Status: Never smoker alcohol intake: current alcohol intake frequency: a few times a month substance use type: does not use caffeine: Yes Type: coffee Number of servings: 3 HPI HPI HPI: 73-year-old female presents for discussion of annual screening mammography. Patient is status post a right mastectomy by Dr. Archibald and biopsy of some fullness in the right breast by Dr. Hernandez which was negative for malignancy. Patient's repeat mammogram was stable given a BI-RADS 2. Exam Const General: cooperative, healthy appearing and no acute distress [facility] Head: normal to inspection Chest Other: Breast inspection: Status post right mastectomy mound with fibrous Right breast: Right mastectomy mound with some fibrofatty fibrosis Left breast: Fibroglandular tissue, no masses on exam, no nipple discharge or pain, no change in overlying skin No axillary or supraclavicular adenopathy bilaterally Resp Effort Inspection: normal respiratory effort Cardio Rate: regular rate GI Inspection: non-distended Palpation: soft Skin General: no rashes or lesions noted Neuro General: patient oriented x3 Extrem General: no clubbing, cyanosis or edema Psych Affect: normal affect Assessment and Plan Assessment and Plan ( (more content not included)... Normal [facility] Absolute lymphocyte countOrd ered By: Thomas Parker on 06-03-2023 Lymphocytes Auto (Unsp spec) [#/Vol] 1.80 10*3/uL 0.83-4.51 [facility] Basophil percentageOrdered B y: Thomas Parker on 06-03-2023 Basophils/100 WBC (Bld) 1.0 % 0-1 [facility] Bilirubin [Mass/Vol] 0.70 mg/dL 0.20-1.00 [facility] Comment on above: For patients on eltr ombopag therapy, use of Dimension [place] TBIL is not recommended. Chloride [Moles/Vol] 101 mmol/L 98-107 [facility] Cholesterol [Mass/Vol] 167 mg/dL <200 [facility] Comment on above: <200 mg/dL Desirable 200-240 mg/dL Borderline >240 mg/dL High Risk Eosinophils/100 WBC (Bld) 2.5 % 0-5 [facility] Glucose [Mass/Vol] 94 mg/dL 74-106 [facility] Neutrophils (Bld) [#/Vol] 4.0 10*3/uL 2.0-7.7 [facility] Neutrophils/100 WBC (Bld) 60.1 % 47-70 [facility] Potassium [Moles/Vol] 4.3 mmol/L 3.5-5.1 [facility] Protein [Mass/Vol] 7.5 g/dL 6.4-8.2 [facility] Sodium [Moles/Vol] 136 mmol/L 136-145 [facility] Triglyceride [Mass/Vol] 95 mg/dL <199 [facility] Comment on above: The drugs N-Acetylcy steine and Metamizole may falsely depress this assay.Serum Triglycerides Reference Interval Normal <150 mg/dL Borderline high 150 - 199 mg/dL High 200 - 499 mg/dL Very High > or = 500 mg/dL WBC (Bld) [#/Vol] 6.7 10*3/uL 4.4-11.0 [facility] Blood erythrocytes count (nu mber/volume)Ordered By: Thomas Parker on 06-03-2023 RBC (Bld) [#/Vol] 4.03 10*6/uL 4.2-5.4 [facility] Blood hemoglobin measurement (mass/volume)Ordered By: Thomas Parker on 06-03-2023 Hemoglobin (Bld) [Mass/Vol] 12.0 g/dL 12.0-15.0 [facility] Blood lymphocytes/100 leukoc ytesOrdered By: Thomas Parker on 06-03-2023 Lymphocytes/100 WBC (Bld) 26.9 % 19-41 [facility] Blood monocytes/100 leukocyt esOrdered By: Thomas Parker on 06-03-2023 Monocytes/100 WBC (Bld) 9.1 % 0-10 [facility] Blood platelet mean volumeOr dered By: Thomas Parker on 06-03-2023 Platelet mean volume (Bld) [Entitic vol] 10.0 fL 6.2-12.0 [facility] Determination of erythrocyte mean corpuscular volume (MCV)Ordered By: Thomas Parker on 06-03-2023 MCV (RBC) [Entitic vol] 92.3 fL 81-99 [facility] Hematocrit Auto (Bld) [Volum e fraction]Ordered By: Thomas Parker on 06-03-2023 Hematocrit (Bld) [Volume fraction] 37.2 % 37-47 [facility] - Chemistry and C hemistry - challengeOrdered By: Thomas Parker on 06-03-2023 ALP [Catalytic activity/Vol] 50 U/L 45-117 [facility] ALT [Catalytic activity/Vol] 18 U/L 13-56 [facility] CO2 [Moles/Vol] 29.0 mmol/L 21.0-32.0 [facility] Free T4 [Mass/Vol] 1.18 ng/dL 0.76-1.46 [facility] Globulin (S) [Mass/Vol] 3.5 g/dL 2.2-4.2 [facility] Urea nitrogen/Creatinine [Mass ratio] 25.6 mg/mg 10-20 [facility] - Hematology and Cell countsOrdered By: Thomas Parker on 06-03-2023 Erythrocyte distribution width (RBC) [Entitic vol] 43.9 fL 35.1-43.9 [facility] Erythrocyte distribution width (RBC) [Ratio] 13.0 % 11.6-14.6 [facility] Immature granulocytes/100 WBC (Bld) 0.400 % 0.0-0.9 [facility] Comment on above: IG% - Immature Granu locytes (promyelocytes, myelocytes and metamyelocytes) > 1% indicates that a LEFT SHIFT is Present. MCH (RBC) [Entitic mass] 29.8 pg 27.0-32.0 [facility] Nucleated RBC/100 WBC (Bld) [Ratio] 0 % 0-5 [facility] Auto (RBC) [Mass/Vol]Or dered By: Thomas Parker on 06-03-2023 MCHC (RBC) [Mass/Vol] 32.3 g/dL 32-36 [facility] No Panel InformationOrdered By: Thomas Parker on 06-03-2023 Estimated GFR (MDRD) Amer 88 mL/min >60 [facility] Comment on above: GFR Calc Estimated GFR (MDRD) Non-Af Amer 73 mL/min >60 [facility] Comment on above: Non- GFR Calc Thyroid Stimulating Hormone (TSH) 1.83 uIU/mL 0.358-3.74 [facility] Vitamin D 25-Hydroxy 109.7 ng/mL [facility] Comment on above: Vitamin D 25(OH) Sta tus Range Deficiency <20 ng/mL (50nmol/L) Insufficiency 20 - 30 ng/mL (50 - 75 nmol/L) Sufficiency 30 - 100 ng/mL (75 - 250 nmol/L) Toxicity >100 ng/mL (>250 nmol/L)Evidence suggests that patients undergoing fluorescein dye angiography can retain small amounts of fluorescein in the body for up to 48 to 72 hours post-treatment. In the cases of patients with renal insufficiency, retention could be much longer. Samples containing fluorescein can produce falsely elevated values when tested with the [employer] Centaur Vitamin D assay. With fluorescein interference, observed Vitamin D values can be as high as >150 ng/mL (>375 nmol/L). Samples should be resubmitted post fluorescein clearance to ensure there is no interference with Vitamin D test results. Platelets bldOrdered By: Martin Parker on 06-03-2023 Platelets (Bld) [#/Vol] 386 10*3/uL 150-450 [facility] Serum or plasma albumin christine urement (mass/volume)Ordered By: Thomas Parker on 06-03-2023 Albumin [Mass/Vol] 4.0 g/dL 3.2-5.0 [facility] Serum or plasma albumin/glob ulin mass ratioOrdered By: Thomas Parker on 06-03-2023 Albumin/Globulin [Mass ratio] 1.1 {ratio} 0.9-2.4 [facility] Serum or plasma calcium christine urement (mass/volume)Ordered By: Thomas Parker on 06-03-2023 Calcium [Mass/Vol] 9.3 mg/dL 8.5-10.1 [facility] Serum or plasma cholesterol in HDL measurement (mass/volume)Ordered By: Thomas Parker on 06-03-2023 Cholesterol in HDL [Mass/Vol] 70 mg/dL >40 [facility] Comment on above: The drugs N-Acetylcy steine and Metamizole may falsely depress this assay. Reference Range HDL <40 mg/dL Low HDL Cholesterol HDL >or= 60 mg/dL High HDL Cholesterol Serum or plasma cholesterol in VLDL measurement (mass/volume)Ordered By: Thomas Parker on 06-03-2023 Cholesterol in VLDL [Mass/Vol] 19 mg/dL 5-40 [facility] Serum or plasma creatinine m easurement (mass/volume)Ordered By: Thomas Parker on 06-03-2023 Creatinine [Mass/Vol] 0.82 mg/dL 0.55-1.02 [facility] Comment on above: The validity of the calculated GFR & GFRAA in patients over 70 years has not been determined. Clinical correlation is essential. Serum or plasma low density lipoprotein (LDL) cholesterol measurement (mass/volume)Ordered By: Thomas Parker on 06-03-2023 Cholesterol in LDL [Mass/Vol] 78 mg/dL 0-130 [facility] Serum or plasma urea nitroge n measurement (mass/volume)Ordered By: Thomas Parker on 06-03-2023 Urea nitrogen [Mass/Vol] 21 mg/dL 7-18 [facility] Thin prep Papanicolaou smear with manual screeningOrdered By: Thomas Parker on 06-03-2023 Thin prep Papanicolaou smear with manual screening 17 U/L 15-37 [facility] Thin prep Papanicolaou smear with manual screening 6 5-15 [facility] Absolute lymphocyte countOrd ered By: Thomas Parker on 11-27-2022 Lymphocytes Auto (Unsp spec) [#/Vol] 1.35 10*3/uL 0.83-4.51 [facility] Basophil percentageOrdered B y: Thomas Parker on 11-27-2022 Basophils/100 WBC (Bld) 0.9 % 0-1 [facility] Bilirubin [Mass/Vol] 0.70 mg/dL 0.20-1.00 [facility] Comment on above: For patients on eltr ombopag therapy, use of Dimension [place] TBIL is not recommended. Chloride [Moles/Vol] 101 mmol/L 98-107 [facility] Cholesterol [Mass/Vol] 160 mg/dL <200 [facility] Comment on above: <200 mg/dL Desirable 200-240 mg/dL Borderline >240 mg/dL High Risk Eosinophils/100 WBC (Bld) 2.7 % 0-5 [facility] Glucose [Mass/Vol] 93 mg/dL 74-106 [facility] Neutrophils (Bld) [#/Vol] 4.1 10*3/uL 2.0-7.7 [facility] Neutrophils/100 WBC (Bld) 64.4 % 47-70 [facility] Potassium [Moles/Vol] 3.9 mmol/L 3.5-5.1 [facility] Protein [Mass/Vol] 7.4 g/dL 6.4-8.2 [facility] Sodium [Moles/Vol] 135 mmol/L 136-145 [facility] Triglyceride [Mass/Vol] 67 mg/dL <199 [facility] Comment on above: The drugs N-Acetylcy steine and Metamizole may falsely depress this assay.Serum Triglycerides Reference Interval Normal <150 mg/dL Borderline high 150 - 199 mg/dL High 200 - 499 mg/dL Very High > or = 500 mg/dL WBC (Bld) [#/Vol] 6.4 10*3/uL 4.4-11.0 [facility] Blood erythrocytes count (nu mber/volume)Ordered By: Thomas Parker on 11-27-2022 RBC (Bld) [#/Vol] 3.90 10*6/uL 4.2-5.4 [facility] Blood hemoglobin measurement (mass/volume)Ordered By: Thomas Parker on 11-27-2022 Hemoglobin (Bld) [Mass/Vol] 11.8 g/dL 12.0-15.0 [facility] Blood lymphocytes/100 leukoc ytesOrdered By: Thomas Parker on 11-27-2022 Lymphocytes/100 WBC (Bld) 21.2 % 19-41 [facility] Blood monocytes/100 leukocyt esOrdered By: Thomas Parker on 11-27-2022 Monocytes/100 WBC (Bld) 10.2 % 0-10 [facility] Blood platelet mean volumeOr dered By: Thomas Parker on 11-27-2022 Platelet mean volume (Bld) [Entitic vol] 10.2 fL 6.2-12.0 [facility] Determination of erythrocyte mean corpuscular volume (MCV)Ordered By: Thomas Parker on 11-27-2022 MCV (RBC) [Entitic vol] 93.3 fL 81-99 [facility] Hematocrit Auto (Bld) [Volum e fraction]Ordered By: Thomas Parker on 11-27-2022 Hematocrit (Bld) [Volume fraction] 36.4 % 37-47 [facility] Iron measurement (mass/mass) Ordered By: Thmoas Parker on 11-27-2022 Iron (Unsp spec) [Mass/Mass] 74 ug/dL 50-170 [facility] - Chemistry and C hemistry - challengeOrdered By: Thomas Parker on 11-27-2022 ALP [Catalytic activity/Vol] 53 U/L 45-117 [facility] ALT [Catalytic activity/Vol] 17 U/L 13-56 [facility] CO2 [Moles/Vol] 28.0 mmol/L 21.0-32.0 [facility] Cobalamin (Vitamin B12) [Mass/Vol] 312 pg/mL 211-911 [facility] Free T4 [Mass/Vol] 1.28 ng/dL 0.76-1.46 [facility] Globulin (S) [Mass/Vol] 3.5 g/dL 2.2-4.2 [facility] Urea nitrogen/Creatinine [Mass ratio] 28.4 mg/mg 10-20 [facility] Laboratory - Hematology and Cell countsOrdered By: Thomas Parker on 11-27-2022 Erythrocyte distribution width (RBC) [Entitic vol] 44.7 fL 35.1-43.9 [facility] Erythrocyte distribution width (RBC) [Ratio] 13.1 % 11.6-14.6 [facility] Immature granulocytes/100 WBC (Bld) 0.600 % 0.0-0.9 [facility] Comment on above: IG% - Immature Granu locytes (promyelocytes, myelocytes and metamyelocytes) > 1% indicates that a LEFT SHIFT is Present. MCH (RBC) [Entitic mass] 30.3 pg 27.0-32.0 [facility] Nucleated RBC/100 WBC (Bld) [Ratio] 0 % 0-5 [facility] MCHC Auto (RBC) [Mass/Vol]Or dered By: Thomas Parker on 11-27-2022 MCHC (RBC) [Mass/Vol] 32.4 g/dL 32-36 [facility] No Panel InformationOrdered By: Thomas Parker on 11-27-2022 Estimated GFR (MDRD) Amer 85 mL/min >60 [facility] Comment on above: GFR Calc Estimated GFR (MDRD) Non-Af Amer 70 mL/min >60 [facility] Comment on above: Non- GFR Calc Thyroid Stimulating Hormone (TSH) 1.71 uIU/mL 0.358-3.74 [facility] Total Iron Binding Capacity 350 ug/dL 250-450 [facility] Vitamin D 25-Hydroxy 78.6 ng/mL [facility] Comment on above: Vitamin D 25(OH) Sta tus Range Deficiency <20 ng/mL (50nmol/L) Insufficiency 20 - 30 ng/mL (50 - 75 nmol/L) Sufficiency 30 - 100 ng/mL (75 - 250 nmol/L) Toxicity >100 ng/mL (>250 nmol/L) Platelets bldOrdered By: Martin Parker on 11-27-2022 Platelets (Bld) [#/Vol] 349 10*3/uL 150-450 [facility] Serum or plasma albumin christine urement (mass/volume)Ordered By: Thomas Parker on 11-27-2022 Albumin [Mass/Vol] 3.9 g/dL 3.2-5.0 [facility] Serum or plasma albumin/glob ulin mass ratioOrdered By: Thomas Parker on 11-27-2022 Albumin/Globulin [Mass ratio] 1.1 {ratio} 0.9-2.4 [facility] Serum or plasma calcium christine urement (mass/volume)Ordered By: Thomas Parker on 11-27-2022 Calcium [Mass/Vol] 9.3 mg/dL 8.5-10.1 [facility] Serum or plasma cholesterol in HDL measurement (mass/volume)Ordered By: Thomas Parker on 11-27-2022 Cholesterol in HDL [Mass/Vol] 67 mg/dL >40 [facility] Comment on above: The drugs N-Acetylcy steine and Metamizole may falsely depress this assay. Reference Range HDL <40 mg/dL Low HDL Cholesterol HDL >or= 60 mg/dL High HDL Cholesterol Serum or plasma cholesterol in VLDL measurement (mass/volume)Ordered By: Thomas Parker on 11-27-2022 Cholesterol in VLDL [Mass/Vol] 13 mg/dL 5-40 [facility] Serum or plasma creatinine m easurement (mass/volume)Ordered By: Thomas Parker on 11-27-2022 Creatinine [Mass/Vol] 0.84 mg/dL 0.55-1.02 [facility] Comment on above: The validity of the calculated GFR & GFRAA in patients over 70 years has not been determined. Clinical correlation is essential. Serum or plasma ferritin ginger surement (mass/volume)Ordered By: Thomas Parker on 11-27-2022 Ferritin [Mass/Vol] 30 ng/mL 8-252 [facility] Serum or plasma iron saturat ion measurement (mass fraction)Ordered By: Thomas Parker on 11-27-2022 Iron saturation [Mass fraction] 21.1 % 15.0-55.0 [facility] Serum or plasma low density lipoprotein (LDL) cholesterol measurement (mass/volume)Ordered By: Thomas Parker on 11-27-2022 Cholesterol in LDL [Mass/Vol] 80 mg/dL 0-130 [facility] Serum or plasma urea nitroge n measurement (mass/volume)Ordered By: Thomas Parker on 11-27-2022 Urea nitrogen [Mass/Vol] 24 mg/dL 7-18 [facility] Thin prep Papanicolaou smear with manual screeningOrdered By: Thomas Parker on 11-27-2022 Thin prep Papanicolaou smear with manual screening 13 U/L 15-37 [facility] Thin prep Papanicolaou smear with manual screening 6 5-15 [facility] Absolute lymphocyte countOrd ered By: Dr. Parker on 06-04-2022 Lymphocytes Auto (Unsp spec) [#/Vol] 1.30 10*3/uL 0.83-4.51 [facility] Basophil percentageOrdered B y: Dr. Parker on 06-04-2022 Basophils/100 WBC (Bld) 1.1 % 0-1 [facility] Bilirubin [Mass/Vol] 0.70 mg/dL 0.20-1.00 [facility] Comment on above: For patients on eltr ombopag therapy, use of Dimension [place] TBIL is not recommended. Chloride [Moles/Vol] 100 mmol/L 98-107 [facility] Cholesterol [Mass/Vol] 196 mg/dL <200 [facility] Comment on above: <200 mg/dL Desirable 200-240 mg/dL Borderline >240 mg/dL High Risk Eosinophils/100 WBC (Bld) 3.3 % 0-5 [facility] Glucose [Mass/Vol] 92 mg/dL 74-106 [facility] Neutrophils (Bld) [#/Vol] 4.3 10*3/uL 2.0-7.7 [facility] Neutrophils/100 WBC (Bld) 64.4 % 47-70 [facility] Potassium [Moles/Vol] 4.4 mmol/L 3.5-5.1 [facility] Protein [Mass/Vol] 7.2 g/dL 6.4-8.2 [facility] Sodium [Moles/Vol] 137 mmol/L 136-145 [facility] Triglyceride [Mass/Vol] 79 mg/dL <199 [facility] Comment on above: The drugs N-Acetylcy steine and Metamizole may falsely depress this assay.Serum Triglycerides Reference Interval Normal <150 mg/dL Borderline high 150 - 199 mg/dL High 200 - 499 mg/dL Very High > or = 500 mg/dL WBC (Bld) [#/Vol] 6.6 10*3/uL 4.4-11.0 [facility] Blood erythrocytes count (nu mber/volume)Ordered By: Dr. Parker on 06-04-2022 RBC (Bld) [#/Vol] 4.43 10*6/uL 4.2-5.4 [facility] Blood hemoglobin measurement (mass/volume)Ordered By: Dr. Parker on 06-04-2022 Hemoglobin (Bld) [Mass/Vol] 12.6 g/dL 12.0-15.0 [facility] Blood lymphocytes/100 leukoc ytesOrdered By: Dr. Parker on 06-04-2022 Lymphocytes/100 WBC (Bld) 19.7 % 19-41 [facility] Blood monocytes/100 leukocyt esOrdered By: Dr. Parker on 06-04-2022 Monocytes/100 WBC (Bld) 10.7 % 0-10 [facility] Blood platelet mean volumeOr dered By: Dr. Parker on 06-04-2022 Platelet mean volume (Bld) [Entitic vol] 10.4 fL 6.2-12.0 [facility] Determination of erythrocyte mean corpuscular volume (MCV)Ordered By: Dr. Parker on 06-04-2022 MCV (RBC) [Entitic vol] 91.9 fL 81-99 [facility] Hematocrit Auto (Bld) [Volum e fraction]Ordered By: Dr. Parker on 06-04-2022 Hematocrit (Bld) [Volume fraction] 40.7 % 37-47 [facility] Iron measurement (mass/mass) Ordered By: Dr. Parker on 06-04-2022 Iron (Unsp spec) [Mass/Mass] 75 ug/dL 50-170 [facility] Laboratory - Chemistry and C hemistry - challengeOrdered By: Dr. Parker on 06-04-2022 ALP [Catalytic activity/Vol] 61 U/L 45-117 [facility] ALT [Catalytic activity/Vol] 17 U/L 13-56 [facility] CO2 [Moles/Vol] 29.0 mmol/L 21.0-32.0 [facility] Cobalamin (Vitamin B12) [Mass/Vol] 418 pg/mL 211-911 [facility] Free T4 [Mass/Vol] 0.97 ng/dL 0.76-1.46 [facility] Globulin (S) [Mass/Vol] 3.0 g/dL 2.2-4.2 [facility] Urea nitrogen/Creatinine [Mass ratio] 24.0 mg/mg 10-20 [facility] Laboratory - Hematology and Cell countsOrdered By: Dr. Parker on 06-04-2022 Erythrocyte distribution width (RBC) [Entitic vol] 46.1 fL 35.1-43.9 [facility] Erythrocyte distribution width (RBC) [Ratio] 13.5 % 11.6-14.6 [facility] Immature granulocytes/100 WBC (Bld) 0.800 % 0.0-0.9 [facility] Comment on above: IG% - Immature Granu locytes (promyelocytes, myelocytes and metamyelocytes) > 1% indicates that a LEFT SHIFT is Present. MCH (RBC) [Entitic mass] 28.4 pg 27.0-32.0 [facility] Nucleated RBC/100 WBC (Bld) [Ratio] 0 % 0-5 [facility] MCHC Auto (RBC) [Mass/Vol]Or dered By: Dr. Parker on 06-04-2022 MCHC (RBC) [Mass/Vol] 31.0 g/dL 32-36 [facility] No Panel InformationOrdered By: Dr. Parker on 06-04-2022 Estimated GFR (MDRD) Amer 104 mL/min >60 [facility] Comment on above: GFR Calc Estimated GFR (MDRD) Non-Af Amer 86 mL/min >60 [facility] Comment on above: Non- GFR Calc Thyroid Stimulating Hormone (TSH) 6.47 uIU/mL 0.358-3.74 [facility] Total Iron Binding Capacity 387 ug/dL 250-450 [facility] Vitamin D 25-Hydroxy 88.2 ng/mL [facility] Comment on above: Vitamin D 25(OH) Sta tus Range Deficiency <20 ng/mL (50nmol/L) Insufficiency 20 - 30 ng/mL (50 - 75 nmol/L) Sufficiency 30 - 100 ng/mL (75 - 250 nmol/L) Toxicity >100 ng/mL (>250 nmol/L) Platelets bldOrdered By: Dr. Parker on 06-04-2022 Platelets (Bld) [#/Vol] 334 10*3/uL 150-450 [facility] Serum or plasma albumin christine urement (mass/volume)Ordered By: Dr. Parker on 06-04-2022 Albumin [Mass/Vol] 4.2 g/dL 3.2-5.0 [facility] Serum or plasma albumin/glob ulin mass ratioOrdered By: Dr. Parker on 06-04-2022 Albumin/Globulin [Mass ratio] 1.4 {ratio} 0.9-2.4 [facility] Serum or plasma calcium christine urement (mass/volume)Ordered By: Dr. Parker on 06-04-2022 Calcium [Mass/Vol] 9.9 mg/dL 8.5-10.1 [facility] Serum or plasma cholesterol in HDL measurement (mass/volume)Ordered By: Dr. Parker on 06-04-2022 Cholesterol in HDL [Mass/Vol] 76 mg/dL >40 [facility] Comment on above: The drugs N-Acetylcy steine and Metamizole may falsely depress this assay. Reference Range HDL <40 mg/dL Low HDL Cholesterol HDL >or= 60 mg/dL High HDL Cholesterol Serum or plasma cholesterol in VLDL measurement (mass/volume)Ordered By: Dr. Parker on 06-04-2022 Cholesterol in VLDL [Mass/Vol] 16 mg/dL 5-40 [facility] Serum or plasma creatinine m easurement (mass/volume)Ordered By: Dr. Parker on 06-04-2022 Creatinine [Mass/Vol] 0.71 mg/dL 0.55-1.02 [facility] Comment on above: The validity of the calculated GFR & GFRAA in patients over 70 years has not been determined. Clinical correlation is essential. Serum or plasma ferritin ginger surement (mass/volume)Ordered By: Dr. Parker on 06-04-2022 Ferritin [Mass/Vol] 19 ng/mL 8-252 [facility] Serum or plasma folate measu rement (mass/volume)Ordered By: Dr. Parker on 06-04-2022 Folate [Mass/Vol] 16.40 ng/mL 3.1-55.4 [facility] Serum or plasma low density lipoprotein (LDL) cholesterol measurement (mass/volume)Ordered By: Dr. Parker on 06-04-2022 Cholesterol in LDL [Mass/Vol] 104 mg/dL 0-130 [facility] Serum or plasma urea nitroge n measurement (mass/volume)Ordered By: Dr. Parker on 06-04-2022 Urea nitrogen [Mass/Vol] 17 mg/dL 7-18 [facility] Thin prep Papanicolaou smear with manual screeningOrdered By: Dr. Parker on 06-04-2022 Thin prep Papanicolaou smear with manual screening 13 U/L 15-37 [facility] Thin prep Papanicolaou smear with manual screening 8 5-15 [facility] Absolute lymphocyte counton 12-18-2021 Lymphocytes Auto (Unsp spec) [#/Vol] 1.21 10*3/uL 0.83-4.51 [facility] Work Phone: Basophil percentageon 2021 Basophils/100 WBC (Bld) 0.9 % 0-1 [facility] Work Phone: Bilirubin [Mass/Vol] 0.60 mg/dL 0.20-1.00 [facility] Work Phone: Comment on above: For patients on eltr ombopag therapy, use of Dimension [place] TBIL is not recommended. Chloride [Moles/Vol] 98 mmol/L 98-107 [facility] Work Phone: Cholesterol [Mass/Vol] 199 mg/dL <200 [facility] Work Phone: Comment on above: <200 mg/dL Desirable 200-240 mg/dL Borderline >240 mg/dL High Risk Eosinophils/100 WBC (Bld) 8.9 % 0-5 [facility] Work Phone: Glucose [Mass/Vol] 88 mg/dL 74-106 [facility] Work Phone: Neutrophils (Bld) [#/Vol] 3.3 10*3/uL 2.0-7.7 [facility] Work Phone: Neutrophils/100 WBC (Bld) 57.6 % 47-70 [facility] Work Phone: Potassium [Moles/Vol] 3.8 mmol/L 3.5-5.1 [facility] Work Phone: Protein [Mass/Vol] 7.6 g/dL 6.4-8.2 [facility] Work Phone: Sodium [Moles/Vol] 135 mmol/L 136-145 [facility] Work Phone: Triglyceride [Mass/Vol] 121 mg/dL <199 [facility] Work Phone: Comment on above: The drugs N-Acetylcy steine and Metamizole may falsely depress this assay.Serum Triglycerides Reference Interval Normal <150 mg/dL Borderline high 150 - 199 mg/dL High 200 - 499 mg/dL Very High > or = 500 mg/dL WBC (Bld) [#/Vol] 5.7 10*3/uL 4.4-11.0 [facility] Work Phone: Blood erythrocytes count (nu mber/volume)on 12-18-2021 RBC (Bld) [#/Vol] 3.86 10*6/uL 4.2-5.4 [facility] Work Phone: Blood hemoglobin measurement (mass/volume)on 12-18-2021 Hemoglobin (Bld) [Mass/Vol] 11.4 g/dL 12.0-15.0 [facility] Work Phone: Blood lymphocytes/100 leukoc yteson 12-18-2021 Lymphocytes/100 WBC (Bld) 21.1 % 19-41 [facility] Work Phone: Blood monocytes/100 leukocyt eson 12-18-2021 Monocytes/100 WBC (Bld) 11.2 % 0-10 [facility] Work Phone: Blood platelet mean volumeon 12-18-2021 Platelet mean volume (Bld) [Entitic vol] 10.2 fL 6.2-12.0 [facility] Work Phone: Determination of erythrocyte mean corpuscular volume (MCV)on 12-18-2021 MCV (RBC) [Entitic vol] 92.5 fL 81-99 [facility] Work Phone: [phone] Hematocrit Auto (Bld) [Volum e fraction]on 12-18-2021 Hematocrit (Bld) [Volume fraction] 35.7 % 37-47 [facility] Work Phone: Iron measurement (mass/mass) on 12-18-2021 Iron (Unsp spec) [Mass/Mass] 63 ug/dL 50-170 [facility] Work Phone: Laboratory - Chemistry and C hemistry - challengeon 12-18-2021 ALP [Catalytic activity/Vol] 69 U/L 45-117 [facility] Work Phone: [phone] ALT [Catalytic activity/Vol] 14 U/L 13-56 [facility] Work Phone: [phone] CO2 [Moles/Vol] 30.0 mmol/L 21.0-32.0 [facility] Work Phone: Cobalamin (Vitamin B12) [Mass/Vol] 511 pg/mL 211-911 [facility] Work Phone: [phone] Free T4 [Mass/Vol] 1.15 ng/dL 0.76-1.46 [facility] Work Phone: Globulin (S) [Mass/Vol] 3.6 g/dL 2.2-4.2 [facility] Work Phone: Urea nitrogen/Creatinine [Mass ratio] 21.6 mg/mg 10-20 [facility] Work Phone: Laboratory - Hematology and Cell countson 12-18-2021 Erythrocyte distribution width (RBC) [Entitic vol] 47.0 fL 35.1-43.9 [facility] Work Phone: [phone] Erythrocyte distribution width (RBC) [Ratio] 13.9 % 11.6-14.6 [facility] Work Phone: [phone] Immature granulocytes/100 WBC (Bld) 0.300 % 0.0-0.9 [facility] Work Phone: Comment on above: IG% - Immature Granu locytes (promyelocytes, myelocytes and metamyelocytes) > 1% indicates that a LEFT SHIFT is Present. MCH (RBC) [Entitic mass] 29.5 pg 27.0-32.0 [facility] Work Phone: Nucleated RBC/100 WBC (Bld) [Ratio] 0 % 0-5 [facility] Work Phone: MCHC Auto (RBC) [Mass/Vol]on 12-18-2021 MCHC (RBC) [Mass/Vol] 31.9 g/dL 32-36 [facility] Work Phone: No Panel Informationon 12-18 Estimated GFR (MDRD) Amer 99 mL/min >60 [facility] Work Phone: Comment on above: GFR Calc Estimated GFR (MDRD) Non-Af Amer 82 mL/min >60 [facility] Work Phone: Comment on above: Non- GFR Calc Thyroid Stimulating Hormone (TSH) 2.60 uIU/mL 0.358-3.74 [facility] Work Phone: Total Iron Binding Capacity 360 ug/dL 250-450 [facility] Work Phone: Vitamin D 25-Hydroxy 55.3 ng/mL [facility] Work Phone: Comment on above: Vitamin D 25(OH) Sta tus Range Deficiency <20 ng/mL (50nmol/L) Insufficiency 20 - 30 ng/mL (50 - 75 nmol/L) Sufficiency 30 - 100 ng/mL (75 - 250 nmol/L) Toxicity >100 ng/mL (>250 nmol/L) Platelets bldon 12-18-2021 Platelets (Bld) [#/Vol] 356 10*3/uL 150-450 [facility] Work Phone: Serum or plasma albumin christine urement (mass/volume)on 12-18-2021 Albumin [Mass/Vol] 4.0 g/dL 3.2-5.0 [facility] Work Phone: Serum or plasma albumin/glob ulin mass ratioon 12-18-2021 Albumin/Globulin [Mass ratio] 1.1 {ratio} 0.9-2.4 [facility] Work Phone: Serum or plasma calcium christine urement (mass/volume)on 12-18-2021 Calcium [Mass/Vol] 9.7 mg/dL 8.5-10.1 [facility] Work Phone: Serum or plasma cholesterol in HDL measurement (mass/volume)on 12-18-2021 Cholesterol in HDL [Mass/Vol] 64 mg/dL >40 [facility] Work Phone: Comment on above: The drugs N-Acetylcy steine and Metamizole may falsely depress this assay. Reference Range HDL <40 mg/dL Low HDL Cholesterol HDL >or= 60 mg/dL High HDL Cholesterol Serum or plasma cholesterol in VLDL measurement (mass/volume)on 12-18-2021 Cholesterol in VLDL [Mass/Vol] 24 mg/dL 5-40 [facility] Work Phone: Serum or plasma creatinine m easurement (mass/volume)on 12-18-2021 Creatinine [Mass/Vol] 0.74 mg/dL 0.55-1.02 [facility] Work Phone: Comment on above: The validity of the calculated GFR & GFRAA in patients over 70 years has not been determined. Clinical correlation is essential. Serum or plasma ferritin ginger surement (mass/volume)on 12-18-2021 Ferritin [Mass/Vol] 120 ng/mL 8-252 [facility] Work Phone: Serum or plasma folate measu rement (mass/volume)on 12-18-2021 Folate [Mass/Vol] 15.50 ng/mL 3.1-55.4 [facility] Work Phone: Serum or plasma low density lipoprotein (LDL) cholesterol measurement (mass/volume)on 12-18-2021 Cholesterol in LDL [Mass/Vol] 111 mg/dL 0-130 [facility] Work Phone: Serum or plasma urea nitroge n measurement (mass/volume)on 12-18-2021 Urea nitrogen [Mass/Vol] 16 mg/dL 7-18 [facility] Work Phone: Thin prep Papanicolaou smear with manual screeningon 12-18-2021 Thin prep Papanicolaou smear with manual screening 14 U/L 15-37 [facility] Work Phone: Thin prep Papanicolaou smear with manual screening 7 5-15 [facility] Work Phone: Basophil percentageon 2021 Chloride [Moles/Vol] 96 mmol/L 98-107 [facility] Work Phone: Glucose [Mass/Vol] 118 mg/dL 74-106 [facility] Work Phone: Comment on above: Fasting Glucose resu lt from 100 to 125 mg/dL suggests IMPAIRED HOMEOSTASIS per A.D.A. criteria. Potassium [Moles/Vol] 3.9 mmol/L 3.5-5.1 [facility] Work Phone: Sodium [Moles/Vol] 134 mmol/L 136-145 [facility] Work Phone: WBC (Bld) [#/Vol] 12.5 10*3/uL 4.4-11.0 [facility] Work Phone: Blood erythrocytes count (nu mber/volume)on 11-22-2021 RBC (Bld) [#/Vol] 3.72 10*6/uL 4.2-5.4 [facility] Work Phone: Blood hemoglobin measurement (mass/volume)on 11-22-2021 Hemoglobin (Bld) [Mass/Vol] 11.0 g/dL 12.0-15.0 [facility] Work Phone: Blood platelet mean volumeon 11-22-2021 Platelet mean volume (Bld) [Entitic vol] 9.2 fL 6.2-12.0 [facility] Work Phone: Determination of erythrocyte mean corpuscular volume (MCV)on 11-22-2021 MCV (RBC) [Entitic vol] 92.5 fL 81-99 [facility] Work Phone: Hematocrit Auto (Bld) [Volum e fraction]on 11-22-2021 Hematocrit (Bld) [Volume fraction] 34.4 % 37-47 [facility] Work Phone: Laboratory - Chemistry and C hemistry - challengeon 11-22-2021 CO2 [Moles/Vol] 31.0 mmol/L 21.0-32.0 [facility] Work Phone: Urea nitrogen/Creatinine [Mass ratio] 14.2 mg/mg 10-20 [facility] Work Phone: Laboratory - Hematology and Cell countson 11-22-2021 Erythrocyte distribution width (RBC) [Entitic vol] 46.0 fL 35.1-43.9 [facility] Work Phone: Erythrocyte distribution width (RBC) [Ratio] 13.6 % 11.6-14.6 [facility] Work Phone: MCH (RBC) [Entitic mass] 29.6 pg 27.0-32.0 [facility] Work Phone: MCHC Auto (RBC) [Mass/Vol]on 11-22-2021 MCHC (RBC) [Mass/Vol] 32.0 g/dL 32-36 [facility] Work Phone: No Panel Informationon 11-22 Estimated Creatinine Clearance Calc 46.43 ml/min [facility] Work Phone: Estimated GFR (MDRD) Amer 105 mL/min >60 [facility] Work Phone: Comment on above: GFR Calc Estimated GFR (MDRD) Non-Af Amer 87 mL/min >60 [facility] Work Phone: Comment on above: Non- GFR Calc Platelets bldon 11-22-2021 Platelets (Bld) [#/Vol] 431 10*3/uL 150-450 [facility] Work Phone: Serum or plasma calcium christine urement (mass/volume)on 11-22-2021 Calcium [Mass/Vol] 9.0 mg/dL 8.5-10.1 [facility] Work Phone: Serum or plasma creatinine m easurement (mass/volume)on 11-22-2021 Creatinine [Mass/Vol] 0.71 mg/dL 0.55-1.02 [facility] Work Phone: Comment on above: The validity of the calculated GFR & GFRAA in patients over 70 years has not been determined. Clinical correlation is essential. Serum or plasma urea nitroge n measurement (mass/volume)on 11-22-2021 Urea nitrogen [Mass/Vol] 10 mg/dL 7-18 [facility] Work Phone: Thin prep Papanicolaou smear with manual screeningon 11-22-2021 Thin prep Papanicolaou smear with manual screening 7 5-15 [facility] Work Phone: Glucose Glucometer (BldC) [M ass/Vol]on 11-21-2021 Glucose [Mass/Vol] 123 mg/dL 74-106 [facility] Work Phone: Comment on above: MANAGEMENT OF PATIEN T CARE PER NURSING PROTOCOL Absolute lymphocyte counton 11-19-2021 Lymphocytes Auto (Unsp spec) [#/Vol] 1.05 10*3/uL 0.83-4.51 [facility] Work Phone: Basophil percentageon 2021 Basophils/100 WBC (Bld) 0.6 % 0-1 [facility] Work Phone: Eosinophils/100 WBC (Bld) 3.7 % 0-5 [facility] Work Phone: Neutrophils (Bld) [#/Vol] 4.2 10*3/uL 2.0-7.7 [facility] Work Phone: Neutrophils/100 WBC (Bld) 65.1 % 47-70 [facility] Work Phone: Blood lymphocytes/100 leukoc yteson 11-19-2021 Lymphocytes/100 WBC (Bld) 16.3 % 19-41 [facility] Work Phone: Blood monocytes/100 leukocyt eson 11-19-2021 Monocytes/100 WBC (Bld) 13.8 % 0-10 [facility] Work Phone: Laboratory - Chemistry and C hemistry - challengeon 11-19-2021 Magnesium [Mass/Vol] 1.9 mg/dL 1.6-2.6 [facility] Work Phone: Laboratory - Hematology and Cell countson 11-19-2021 Immature granulocytes/100 WBC (Bld) 0.500 % 0.0-0.9 [facility] Work Phone: Comment on above: IG% - Immature Granu locytes (promyelocytes, myelocytes and metamyelocytes) > 1% indicates that a LEFT SHIFT is Present. Nucleated RBC/100 WBC (Bld) [Ratio] 0 % 0-5 [facility] Work Phone: No Panel Informationon 11-19 Thyroid Stimulating Hormone (TSH) 5.21 uIU/mL 0.358-3.74 [facility] Work Phone: Serum or plasma albumin christine urement (mass/volume)on 11-19-2021 Albumin [Mass/Vol] 3.6 g/dL 3.2-5.0 [facility] Work Phone: Whole blood hemoglobin A1c/t otal hemoglobin ratio (mass fraction)on 11-19-2021 HbA1c (Bld) [Mass fraction] 5.3 % 3.8-5.6 [facility] Work Phone: Comment on above: Normal < 5.7 % Predi abetic 5.7 - 6.4 % Diabetic >or= 6.5 % Please note range changes. Iron measurement (mass/mass) on 08-25-2021 Iron (Unsp spec) [Mass/Mass] 66 ug/dL 50-170 [facility] Work Phone: Laboratory - Chemistry and C hemistry - challengeon 08-25-2021 Cobalamin (Vitamin B12) [Mass/Vol] 603 pg/mL 211-911 [facility] Work Phone: No Panel Informationon 08-25 Total Iron Binding Capacity 490 ug/dL 250-450 [facility] Work Phone: Serum or plasma ferritin ginger surement (mass/volume)on 08-25-2021 Ferritin [Mass/Vol] 27 ng/mL 8-252 [place] [facility] Work Phone: Serum or plasma folate measu rement (mass/volume)on 08-25-2021 Folate [Mass/Vol] 44.60 ng/mL 3.1-55.4 [place] [facility] Work Phone: Comment on above: Slight Hemolysis, Re sult may be falsely increased. Absolute lymphocyte counton 08-15-2021 Lymphocytes Auto (Unsp spec) [#/Vol] 1.34 10*3/uL 0.83-4.51 [facility] Work Phone: Basophil percentageon 2021 Basophils/100 WBC (Bld) 1.2 % 0-1 [facility] Work Phone: Bilirubin [Mass/Vol] 0.50 mg/dL 0.20-1.00 [facility] Work Phone: Comment on above: For patients on eltr ombopag therapy, use of Dimension [place] TBIL is not recommended. Chloride [Moles/Vol] 99 mmol/L 98-107 [facility] Work Phone: Cholesterol [Mass/Vol] 171 mg/dL <200 [facility] Work Phone: Comment on above: <200 mg/dL Desirable 200-240 mg/dL Borderline >240 mg/dL High Risk Eosinophils/100 WBC (Bld) 4.0 % 0-5 [facility] Work Phone: Glucose [Mass/Vol] 86 mg/dL 74-106 [facility] Work Phone: Neutrophils (Bld) [#/Vol] 3.6 10*3/uL 2.0-7.7 [facility] Work Phone: Neutrophils/100 WBC (Bld) 60.9 % 47-70 [facility] Work Phone: Potassium [Moles/Vol] 4.0 mmol/L 3.5-5.1 [facility] Work Phone: Protein [Mass/Vol] 7.5 g/dL 6.4-8.2 [facility] Work Phone: Sodium [Moles/Vol] 136 mmol/L 136-145 [facility] Work Phone: Triglyceride [Mass/Vol] 108 mg/dL <199 [facility] Work Phone: Comment on above: The drugs N-Acetylcy steine and Metamizole may falsely depress this assay.Serum Triglycerides Reference Interval Normal <150 mg/dL Borderline high 150 - 199 mg/dL High 200 - 499 mg/dL Very High > or = 500 mg/dL WBC (Bld) [#/Vol] 6.0 10*3/uL 4.4-11.0 [facility] Work Phone: Blood erythrocytes count (nu mber/volume)on 08-15-2021 RBC (Bld) [#/Vol] 4.14 10*6/uL 4.2-5.4 [facility] Work Phone: Blood hemoglobin measurement (mass/volume)on 08-15-2021 Hemoglobin (Bld) [Mass/Vol] 11.9 g/dL 12.0-15.0 [facility] Work Phone: Blood lymphocytes/100 leukoc yteson 08-15-2021 Lymphocytes/100 WBC (Bld) 22.4 % 19-41 [facility] Work Phone: Blood monocytes/100 leukocyt eson 08-15-2021 Monocytes/100 WBC (Bld) 10.7 % 0-10 [facility] Work Phone: Blood platelet mean volumeon 08-15-2021 Platelet mean volume (Bld) [Entitic vol] 10.3 fL 6.2-12.0 [facility] Work Phone: Determination of erythrocyte mean corpuscular volume (MCV)on 08-15-2021 MCV (RBC) [Entitic vol] 92.3 fL 81-99 [facility] Work Phone: Hematocrit Auto (Bld) [Volum e fraction]on 08-15-2021 Hematocrit (Bld) [Volume fraction] 38.2 % 37-47 [facility] Work Phone: Iron measurement (mass/mass) on 08-15-2021 Iron (Unsp spec) [Mass/Mass] 58 ug/dL 50-170 [facility] Work Phone: Laboratory - Chemistry and C hemistry - challengeon 08-15-2021 ALP [Catalytic activity/Vol] 63 U/L 45-117 [facility] Work Phone: ALT [Catalytic activity/Vol] 19 U/L 13-56 [facility] Work Phone: CO2 [Moles/Vol] 31.0 mmol/L 21.0-32.0 [facility] Work Phone: Free T4 [Mass/Vol] 1.56 ng/dL 0.76-1.46 [facility] Work Phone: Globulin (S) [Mass/Vol] 3.4 g/dL 2.2-4.2 [facility] Work Phone: Urea nitrogen/Creatinine [Mass ratio] 21.5 mg/mg 10-20 [facility] Work Phone: Laboratory - Hematology and Cell countson 08-15-2021 Erythrocyte distribution width (RBC) [Entitic vol] 42.8 fL 35.1-43.9 [facility] Work Phone: Erythrocyte distribution width (RBC) [Ratio] 12.6 % 11.6-14.6 [facility] Work Phone: Immature granulocytes/100 WBC (Bld) 0.800 % 0.0-0.9 [facility] Work Phone: Comment on above: IG% - Immature Granu locytes (promyelocytes, myelocytes and metamyelocytes) > 1% indicates that a LEFT SHIFT is Present. MCH (RBC) [Entitic mass] 28.7 pg 27.0-32.0 [facility] Work Phone: Nucleated RBC/100 WBC (Bld) [Ratio] 0 % 0-5 [facility] Work Phone: MCHC Auto (RBC) [Mass/Vol]on 08-15-2021 MCHC (RBC) [Mass/Vol] 31.2 g/dL 32-36 [facility] Work Phone: No Panel Informationon 08-15 Estimated GFR (MDRD) Amer 106 mL/min >60 [facility] Work Phone: Comment on above: GFR Calc Estimated GFR (MDRD) Non-Af Amer 88 mL/min >60 [facility] Work Phone: Comment on above: Non- GFR Calc Thyroid Stimulating Hormone (TSH) 0.49 uIU/mL 0.358-3.74 [facility] Work Phone: Total Iron Binding Capacity 378 ug/dL 250-450 [facility] Work Phone: Vitamin D 25-Hydroxy 80.2 ng/mL [facility] Work Phone: Comment on above: Vitamin D 25(OH) Sta tus Range Deficiency <20 ng/mL (50nmol/L) Insufficiency 20 - 30 ng/mL (50 - 75 nmol/L) Sufficiency 30 - 100 ng/mL (75 - 250 nmol/L) Toxicity >100 ng/mL (>250 nmol/L) Platelets bldon 03-25-2022 Platelets (Bld) [#/Vol] 357 10*3/uL 150-450 [facility] Work Phone: Serum or plasma albumin christine urement (mass/volume)on 08-15-2021 Albumin [Mass/Vol] 4.1 g/dL 3.2-5.0 [facility] Work Phone: Serum or plasma albumin/glob ulin mass ratioon 08-15-2021 Albumin/Globulin [Mass ratio] 1.2 {ratio} 0.9-2.4 [facility] Work Phone: Serum or plasma calcium christine urement (mass/volume)on 08-15-2021 Calcium [Mass/Vol] 9.7 mg/dL 8.5-10.1 [facility] Work Phone: Serum or plasma cholesterol in HDL measurement (mass/volume)on 08-15-2021 Cholesterol in HDL [Mass/Vol] 70 mg/dL >40 [facility] Work Phone: Comment on above: The drugs N-Acetylcy steine and Metamizole may falsely depress this assay. Reference Range HDL <40 mg/dL Low HDL Cholesterol HDL >or= 60 mg/dL High HDL Cholesterol Serum or plasma cholesterol in VLDL measurement (mass/volume)on 08-15-2021 Cholesterol in VLDL [Mass/Vol] 22 mg/dL 5-40 [facility] Work Phone: Serum or plasma creatinine m easurement (mass/volume)on 08-15-2021 Creatinine [Mass/Vol] 0.70 mg/dL 0.55-1.02 [facility] Work Phone: Comment on above: The validity of the calculated GFR & GFRAA in patients over 70 years has not been determined. Clinical correlation is essential. Serum or plasma ferritin ginger surement (mass/volume)on 08-15-2021 Ferritin [Mass/Vol] 28 ng/mL 8-252 [facility] Work Phone: Serum or plasma iron saturat ion measurement (mass fraction)on 08-15-2021 Iron saturation [Mass fraction] 15.3 % 15.0-55.0 [facility] Work Phone: Serum or plasma low density lipoprotein (LDL) cholesterol measurement (mass/volume)on 08-15-2021 Cholesterol in LDL [Mass/Vol] 79 mg/dL 0-130 [facility] Work Phone: Serum or plasma urea nitroge n measurement (mass/volume)on 08-15-2021 Urea nitrogen [Mass/Vol] 15 mg/dL 7-18 [facility] Work Phone: Thin prep Papanicolaou smear with manual screeningon 08-15-2021 Thin prep Papanicolaou smear with manual screening 12 U/L 15-37 [facility] Work Phone: Thin prep Papanicolaou smear with manual screening 6 5-15 [facility] Work Phone: Glucose Glucometer (BldC) [M ass/Vol]on 05-28-2021 Glucose [Mass/Vol] 92 mg/dL 70-110 [facility] Work Phone: Comment on above: MANAGEMENT OF PATIEN T CARE PER NURSING PROTOCOL No Panel Informationon 05-19 Nasal Screen MRSA/MSSA [facility] Work Phone: Absolute lymphocyte counton 05-13-2021 Lymphocytes Auto (Unsp spec) [#/Vol] 1.03 10*3/uL 0.83-4.51 [facility] Work Phone: Basophil percentageon 2020 Bilirubin [Mass/Vol] 0.70 mg/dL 0.20-1.00 [facility] Work Phone: Comment on above: For patients on eltr ombopag therapy, use of Dimension [place] TBIL is not recommended. Chloride [Moles/Vol] 102 mmol/L 98-107 [facility] Work Phone: Cholesterol [Mass/Vol] 202 mg/dL <200 [facility] Work Phone: Comment on above: <200 mg/dL Desirable 200-240 mg/dL Borderline >240 mg/dL High Risk Eosinophils/100 WBC (Bld) 1.8 % 0-5 [facility] Work Phone: Glucose [Mass/Vol] 92 mg/dL 74-106 [facility] Work Phone: Comment on above: Please note revised GLUCOSE reference range effective 2017. Neutrophils (Bld) [#/Vol] 4.3 10*3/uL 2.0-7.7 [facility] Work Phone: Potassium [Moles/Vol] 3.9 mmol/L 3.5-5.1 [facility] Work Phone: Protein [Mass/Vol] 7.9 g/dL 6.4-8.2 [facility] Work Phone: Sodium [Moles/Vol] 138 mmol/L 136-145 [facility] Work Phone: Triglyceride [Mass/Vol] 110 mg/dL [facility] Work Phone: Comment on above: The drugs N-Acetylcy steine and Metamizole may falsely depress this assay.Serum Triglycerides Reference Interval Normal <150 mg/dL Borderline high 150 - 199 mg/dL High 200 - 499 mg/dL Very High > or = 500 mg/dL WBC (Bld) [#/Vol] 6.2 10*3/uL 4.4-11.0 [facility] Work Phone: Blood erythrocytes count (nu mber/volume)on 05-13-2021 RBC (Bld) [#/Vol] 4.41 10*6/uL 4.2-5.4 [facility] Work Phone: Blood hemoglobin measurement (mass/volume)on 05-13-2021 Hemoglobin (Bld) [Mass/Vol] 12.8 g/dL 12.0-15.0 [facility] Work Phone: Blood lymphocytes/100 leukoc yteson 05-13-2021 Lymphocytes/100 WBC (Bld) 16.6 % 19-41 [facility] Work Phone: Blood monocytes/100 leukocyt eson 05-13-2021 Monocytes/100 WBC (Bld) 10.7 % 0-10 [facility] Work Phone: Blood platelet mean volumeon 05-13-2021 Platelet mean volume (Bld) [Entitic vol] 9.8 fL 6.2-12.0 [facility] Work Phone: Determination of erythrocyte mean corpuscular volume (MCV)on 05-13-2021 MCV (RBC) [Entitic vol] 90.9 fL 81-99 [facility] Work Phone: Hematocrit Auto (Bld) [Volum e fraction]on 05-13-2021 Hematocrit (Bld) [Volume fraction] 40.1 % 37-47 [facility] Work Phone: Laboratory - Chemistry and C hemistry - challengeon 05-13-2021 ALP [Catalytic activity/Vol] 60 U/L 45-117 [facility] Work Phone: ALT [Catalytic activity/Vol] 26 U/L 13-56 [facility] Work Phone: CO2 [Moles/Vol] 28.0 mmol/L 21.0-32.0 [facility] Work Phone: Free T4 [Mass/Vol] 1.51 ng/dL 0.76-1.46 [facility] Work Phone: Globulin (S) [Mass/Vol] 3.7 g/dL 2.2-4.2 [facility] Work Phone: Magnesium [Mass/Vol] 2.3 mg/dL 1.6-2.6 [facility] Work Phone: Urea nitrogen/Creatinine [Mass ratio] 27.0 mg/mg 10-20 [facility] Work Phone: Laboratory - Hematology and Cell countson 05-13-2021 Basophils/100 WBC (Unsp spec) 0.8 % 0-1 [facility] Work Phone: Erythrocyte distribution width (RBC) [Entitic vol] 43.2 fL 35.1-43.9 [facility] Work Phone: Erythrocyte distribution width (RBC) [Ratio] 12.9 % 11.6-14.6 [facility] Work Phone: Immature granulocytes/100 WBC (Bld) 0.300 % 0.0-0.9 [facility] Work Phone: Comment on above: IG% - Immature Granu locytes (promyelocytes, myelocytes and metamyelocytes) > 1% indicates that a LEFT SHIFT is Present. MCH (RBC) [Entitic mass] 29.0 pg 27.0-32.0 [facility] Work Phone: Neutrophils/100 WBC (Bld) 69.8 % 47-70 [facility] Work Phone: Nucleated RBC/100 WBC (Bld) [Ratio] 0 % 0-5 [facility] Work Phone: MCHC Auto (RBC) [Mass/Vol]on 05-13-2021 MCHC (RBC) [Mass/Vol] 31.9 g/dL 32-36 [facility] Work Phone: No Panel Informationon 05-13 Estimated GFR (MDRD) Amer 99 mL/min >60 [facility] Work Phone: Comment on above: GFR Calc Estimated GFR (MDRD) Non-Af Amer 82 mL/min >60 [facility] Work Phone: Comment on above: Non- GFR Calc Thyroid Stimulating Hormone (TSH) 0.77 uIU/mL 0.358-3.74 [facility] Work Phone: Vitamin D 25-Hydroxy 29.1 ng/mL [facility] Work Phone: Comment on above: Vitamin D 25(OH) Sta tus Range Deficiency <20 ng/mL (50nmol/L) Insufficiency 20 - 30 ng/mL (50 - 75 nmol/L) Sufficiency 30 - 100 ng/mL (75 - 250 nmol/L) Toxicity >100 ng/mL (>250 nmol/L) Platelets bldon 05-13-2021 Platelets (Bld) [#/Vol] 381 10*3/uL 150-450 [facility] Work Phone: Serum or plasma albumin christine urement (mass/volume)on 05-13-2021 Albumin [Mass/Vol] 4.2 g/dL 3.2-5.0 [facility] Work Phone: Serum or plasma albumin/glob ulin mass ratioon 05-13-2021 Albumin/Globulin [Mass ratio] 1.1 {ratio} 0.9-2.4 [facility] Work Phone: Serum or plasma calcium christine urement (mass/volume)on 05-13-2021 Calcium [Mass/Vol] 10.0 mg/dL 8.5-10.1 [facility] Work Phone: Serum or plasma cholesterol in HDL measurement (mass/volume)on 05-13-2021 Cholesterol in HDL [Mass/Vol] 74 mg/dL [facility] Work Phone: Comment on above: The drugs N-Acetylcy steine and Metamizole may falsely depress this assay. Reference Range HDL <40 mg/dL Low HDL Cholesterol HDL >or= 60 mg/dL High HDL Cholesterol Serum or plasma cholesterol in VLDL measurement (mass/volume)on 05-13-2021 Cholesterol in VLDL [Mass/Vol] 22 mg/dL 5-40 [facility] Work Phone: Serum or plasma creatinine m easurement (mass/volume)on 05-13-2021 Creatinine [Mass/Vol] 0.74 mg/dL 0.55-1.02 [facility] Work Phone: Comment on above: The validity of the calculated GFR & GFRAA in patients over 70 years has not been determined. Clinical correlation is essential. Serum or plasma low density lipoprotein (LDL) cholesterol measurement (mass/volume)on 12-21-2021 Cholesterol in LDL [Mass/Vol] 106 mg/dL 0-130 [facility] Work Phone: Serum or plasma urea nitroge n measurement (mass/volume)on 05-13-2021 Urea nitrogen [Mass/Vol] 20 mg/dL 7-18 [facility] Work Phone: Thin prep Papanicolaou smear with manual screeningon 05-13-2021 Thin prep Papanicolaou smear with manual screening 20 U/L 15-37 [facility] Work Phone: Thin prep Papanicolaou smear with manual screening 8 5-15 [facility] Work Phone: Office Visit: yearly breasto n 12-29-2016 Alcoholism counseling (procedure) no Invalid Interpretation Code [facility] Work Phone: Documentation of current medications (procedure) Done Invalid Interpretation Code [facility] Work Phone: Fall risk assessment No Invalid Interpretation Code [facility] Work Phone: Protein mass conc Done [facility] [employer] Work Phone: Protein mass conc no [facility] Work Phone: Tobacco smoking status ALIS Never Invalid Interpretation Code [facility] Work Phone: Tobacco smoking status [facility] Never smoker [facility] Work Phone: Tobacco use [facility] Never smoker Invalid Interpretation Code [facility] Work Phone: Office Visit: yearly breasto n 12-17-2016 MG Breast screening Normal Right Invalid Interpretation Code [facility] Work Phone: Bacteria identified Anaer cx Nom (Unsp spec) Anaerobic microbial culture No anaerobic bacteria isolated. [facility] Work Phone: Gram stain for investigation of transfusion reaction Microscopic observation Gram stain Nom (Unsp spec) [facility] Work Phone: Vital Signs Date Time Vital Sign Value Performing Clinician Facility 03-17-2022 09:32-0400 Body temperature 98.2 [degF] Dr. Thomas Parker Work Phone: [facility] 03-17-2022 09:32-0400 Diastolic blood pressure 82 mm[Hg] Dr. Thomas Parker Work Phone: [facility] 03-17-2022 09:32-0400 Heart rate 90 /min Dr. Thomas Parker Work Phone: [facility] 03-17-2022 09:32-0400 Respiratory rate 16 /min Dr. Thomas Parker Work Phone: [facility] 03-17-2022 09:32-0400 SaO2% (BldA) [Mass fraction] 93 % Dr. Thomas Parker Work Phone: [phone](172)[phone] [place] [address] 03-17-2022 09:32-0400 Systolic blood pressure 140 mm[Hg] Dr. Thomas Parker Work Phone: 4(038)[phone] [place] [address] 02-18-2022 12:19-0400 Body height 165.[address] Thomas Parker Work Phone: 5(900)[phone] [place] [address] 02-18-2022 12:19-0400 Body mass index (BMI) [Ratio] 26.4 kg/m2 Dr. Thomas Parker Work Phone: 2(263)165-992076 [address] 02-18-2022 12:19-0400 Body weight 72.[address] Thomas Parker Work Phone: 9(106)[phone] [place] [address] 02-18-2022 12:19-0400 Diastolic blood pressure 87 mm[Hg] Dr. Thomas Parker Work Phone: [facility] 02-18-2022 12:19-0400 Heart rate 92 /min Dr. Thomas Parker Work Phone: 3(988)[phone] [place] [address] 02-18-2022 12:19-0400 Respiratory rate 16 /min Dr. Thomas Parker Work Phone: 7(375)[phone] [place] [address] 02-18-2022 12:19-0400 SaO2% (BldA) [Mass fraction] 97 % Dr. Thomas Parker Work Phone: 2(467)[phone] [place] [address] 02-18-2022 12:19-0400 Systolic blood pressure 147 mm[Hg] Dr. Thomas Parker Work Phone: [facility] 11-23-2021 08:36-0400 Body temperature 98.2 [degF] Dr. Thomas Parker Work Phone: [facility] Work Phone: 11-23-2021 08:36-0400 Diastolic blood pressure 68 mm[Hg] Dr. Thomas Parker Work Phone: [facility] Work Phone: 11-23-2021 08:36-0400 Heart rate 93 /min Dr. Thomas Parker Work Phone: [facility] Work Phone: 11-23-2021 08:36-0400 Respiratory rate 16 /min Dr. Thomas Parker Work Phone: [facility] Work Phone: 11-23-2021 08:36-0400 SaO2% (BldA) [Mass fraction] 94 % Dr. Thomas Parker Work Phone: [facility] Work Phone: 11-23-2021 08:36-0400 Systolic blood pressure 114 mm[Hg] Dr. Thomas Parker Work Phone: [facility] Work Phone: 11-21-2021 21:49-0400 Inhaled oxygen flow rate 2 L/min Dr. Thomas Parker Work Phone: [facility] Work Phone: 11-21-2021 17:49-0400 Body height 165.[address] Thomas Parker Work Phone: [facility] Work Phone: 11-21-2021 17:49-0400 Body mass index (BMI) [Ratio] 26.5 kg/m2 Dr. Thomas Parker Work Phone: [facility] Work Phone: 11-21-2021 17:49-0400 Body weight 72.[address] Thomas Parker Work Phone: [facility] Work Phone: 06-19-2021 11:22-0500 Diastolic blood pressure 76 mm[Hg] [facility] Work Phone: 06-19-2021 11:22-0500 Heart rate 82 /min [facility] Work Phone: 06-19-2021 11:22-0500 Respiratory rate 19 /min [facility] Work Phone: 06-19-2021 11:22-0500 SaO2% (BldA) [Mass fraction] 95 % [facility] Work Phone: 06-19-2021 11:22-0500 Systolic blood pressure 153 mm[Hg] [facility] Work Phone: 06-19-2021 08:15-0500 Body height 165.1 cm [facility] Work Phone: 06-19-2021 08:15-0500 Body mass index (BMI) [Ratio] 27.9 kg/m2 [facility] Work Phone: 06-19-2021 08:15-0500 Body temperature 97.4 [degF] [facility] Work Phone: 06-19-2021 08:15-0500 Body weight 76.2 kg [facility] Work Phone: 05-28-2021 12:20-0500 Body temperature 97.6 [degF] [facility] Work Phone: 05-28-2021 12:20-0500 Diastolic blood pressure 78 mm[Hg] [facility] Work Phone: 05-28-2021 12:20-0500 Heart rate 80 /min [facility] Work Phone: 05-28-2021 12:20-0500 Respiratory rate 18 /min [facility] Work Phone: 05-28-2021 12:20-0500 SaO2% (BldA) [Mass fraction] 96 % [facility] Work Phone: 05-28-2021 12:20-0500 Systolic blood pressure 134 mm[Hg] [facility] Work Phone: 05-28-2021 07:20-0500 Body mass index (BMI) [Ratio] 26.9 kg/m2 [facility] Work Phone: 05-28-2021 07:20-0500 Body weight 71 kg [facility] Work Phone: 12-29-2016 07:39-0400 BMI (Body Mass Index) 28.35 kg/m2 Homer Hernandez MD [facility] Work Phone: 12-29-2016 07:39-0400 Body Temperature 98.7 [degF] Homer Hernandez MD [facility] Work Phone: 12-29-2016 07:39-0400 BP Diastolic 72 mm[Hg] Homer Hernandez MD [facility] Work Phone: 12-29-2016 07:39-0400 BP Systolic 130 mm[Hg] Homer Hernandez MD [facility] Work Phone: 12-29-2016 07:39-0400 Height 162.56 cm Homer Hernandez MD [facility] Work Phone: 12-29-2016 07:39-0400 Pulse (Heart Rate) 72 /min Homer Hernandez MD [facility] Work Phone: 12-29-2016 07:39-0400 Respiratory Rate 16 /min Homer Hernandez MD [facility] Work Phone: 12-29-2016 07:39-0400 Weight 74.93 kg Homer Hernandez MD [facility] Work Phone: Encounters Encounter Date Encounter Type Care Provider Facility Start: 02-07-2025 ambulatory Thomas Parker Facilit y:[facility] Start: 10-12-2024 End: 10-12-2024 ambulatory Thomas Parker Facility:[facility] Start: 06-13-2024 End: 06-13-2024 ambulatory Thomas Parker Facility:[facility] Start: 02-14-2024 End: 02-14-2024 ambulatory Thomas Parker Facility:[facility] Start: 02-11-2024 End: 02-11-2024 ambulatory Thomas Parker Facility:[facility] Start: 06-03-2023 End: 06-03-[address] Thomas Parker Work Phone: [facility] Work Phone: Start: 06-03-2023 End: 06-03-[address] Thomas Parker Work Phone: [facility] Start: 02-22-2023 End: 02-22-[address] Thomas Parker Work Phone: [facility] Work Phone: Start: 02-04-2023 End: 02-04-2023 ambulatory [facility] Work Phone: Start: 02-04-2023 End: 02-04-2023 Patient encounter procedure [facility] Work Phone: Start: 11-27-2022 End: 11-27-2022 ambulatory [facility] Work Phone: Start: 11-27-2022 End: 11-27-2022 Patient encounter procedure [facility] Start: 06-19-2022 End: 06-19-[address] Thomas Parker Work Phone: [facility] Work Phone: Start: 06-19-2022 End: 06-19-[address] [facility] [facility] Start: 06-11-2022 End: 06-11-[address] Thomas Parker Work Phone: [facility] Work Phone: Start: 06-11-2022 End: 06-11-[address] Thomas Parker Work Phone: [facility]Outpatient [facility] Densitometry Start: 06-04-2022 End: 06-04-[address] Thomas Parker Work Phone: [facility] Work Phone: Start: 06-04-2022 End: 06-04-[address] Thomas Parker Work Phone: [facility] Start: 03-17-2022 End: 03-17-[address] Thomas Parker Work Phone: [facility] Start: 02-26-2022 Non-patient / Non-visit Dr. Stephanie Parker Work Phone: [facility] Start: 02-26-2022 End: 02-26-[address] Thomas Parker Work Phone: [facility]Cardi[facility] Start: 02-18-2022 Non-patient / Non-visit Dr. Stephanie Parker Work Phone: [facility] Start: 02-18-2022 End: 02-18-[address] Thomas Parker Work Phone: [facility] Start: 02-18-2022 End: 02-18-[address] Thomas Parker Work Phone: [facility] Start: 02-03-2022 End: 02-03-[address] Thomas Parker Work Phone: [facility] Work Phone: Start: 02-03-2022 End: 02-03-[address] Thomas Parker Work Phone: [facility]Outpatient Breast Imaging Start: 12-18-2021 End: 12-18-[address] Thomas Parker Work Phone: [facility] Start: 11-23-2021 Non-patient / Non-visit Dr. Stephanie Parker Work Phone: [facility] Start: 11-22-2021 Non-patient / Non-visit Dr. Stephanie Parker Work Phone: [facility] Start: 11-21-2021 Non-patient / Non-visit Dr. Stephanie Parker Work Phone: [facility] Start: 11-21-2021 End: 11-23-2021 Evaluation and management of inpatient Dr. Thomas Parker Work Phone: [facility] 3 Start: 08-25-2021 End: 08-25-2021 Patient encounter procedure [facility] Start: 08-15-2021 End: 08-15-2021 Patient encounter procedure [facility] Start: 06-19-2021 End: 06-19-2021 Emergency department patient visit [facility]Emergency [facility] Start: 05-28-2021 End: 05-28-2021 Admission to same day surgery center [facility] Start: 05-13-2021 Patient encounter procedure [facility] Procedures Date Procedure Procedure Detail Performing Clinician Start: 02-04-2023 Screening mammography Start: 06-19-2022 Plain chest X-ray Dr. Rebeca Parker Work Phone: Start: 06-11-2022 Dual energy X-ray absorptiometry Dr. Thomas Parker Work Phone: Start: 02-26-2022 Cardiovascular stres s test using pharmacologic stress agent Dr. Thomas Parker Work Phone: Start: 02-03-2022 Screening mammography Carlitos Parker Work Phone: Start: 11-21-2021 Plain x-ray of pelvi s and lower extremity Dr. Thomas Parker Work Phone: Start: 11-21-2021 Revision uncemented total hip replacement Dr. Thomas Parker Work Phone: Start: 06-19-2021 Plain x-ray of pelvi s and lower extremity Start: 06-19-2021 Plain x-ray of pelvi s and lower extremity Start: 05-28-2021 Plain X-ray of hip Start: 05-28-2021 O.R. Fluoro for C-Arm Start: 05-28-2021 Plain x-ray of pelvi s and lower extremity Start: 05-19-2021 Nasal Screen MRSA/MSSA Acid fast bacilli culture Dr Marco Parker Work Phone: Anaerobic microbial culture Dr. Thomas Parker Work Phone: Cytopathology proced ure, preparation of smear, genital source Dr. Thomas Parker Work Phone: Fungus stain method Dr. Thomas Parker Work Phone: Investigation of transfusion reaction Dr. Thomas Parker Work Phone: Microbial culture, routine Carlitos Parker Work Phone: Mycology culture Dr. Thomas paiz Work Phone: Plan of Treatment Date Care Activity Detail Author Start: 11-23-2021 Patient discharge [facility] Work Phone: Start: 11-23-2021 [facility] Work Phone: Start: 11-21-2021 Following clinical pathway protocol [facility] Work Phone: Start: 11-21-2021 Provision of overbed trapeze [facility] Work Phone: Start: 11-21-2021 End: 11-21-2021 [facility] Work Phone: Start: 11-21-2021 Admission procedure [facility] Work Phone: Start: 11-21-2021 Ambulation therapy management [facility] Work Phone: Start: 11-21-2021 Application of device [facility] Work Phone: Start: 11-21-2021 Assessment of risk of venous thromboembolism [facility] Work Phone: Start: 11-21-2021 Catheterization of vein [facility] Work Phone: Start: 11-21-2021 Consultation [facility] Work Phone: Start: 11-21-2021 Exercises [facility] Work Phone: Start: 11-21-2021 Following clinical pathway protocol [facility] Work Phone: Start: 11-21-2021 Incentive spirometry [facility] Work Phone: Start: 11-21-2021 Introduction of urinary catheter [facility] Work Phone: Start: 11-21-2021 Measuring intake and output [facility] Work Phone: Start: 11-21-2021 Neurovascular assessment [facility] Work Phone: Start: 11-21-2021 Patient education [facility] Work Phone: Start: 11-21-2021 Procedure discontinued [facility] Work Phone: Start: 11-21-2021 Provision of activity privileges [facility] Work Phone: Start: 11-21-2021 Referral to occupational therapist [facility] Work Phone: Start: 11-21-2021 Referral to service [facility] Work Phone: Start: 11-21-2021 Vital signs measurements [facility] Work Phone: Start: 11-21-2021 Wound care [facility] Work Phone: Start: 06-19-2021 Cltx hip dislocation traumatic w/o anesthesia TREAT HIP DISLOCATION [facility] Work Phone: Start: 05-28-2021 Anesthesia open total hip arthroplasty ANESTH HIP ARTHROPLASTY [facility] Work Phone: Start: 05-28-2021 Arthrp acetblr/prox fem prostc agrft/algrft TOTAL HIP ARTHROPLASTY [facility] Work Phone: Start: 12-29-2016 End: 12-29-2016 Appointment Appointment [facility] Work Phone: Acid fast bacilli culture [facility] Work Phone: Anaerobic Culture Anaerobic Culture [facility] Work Phone: Bacteria identified in Unspecified specimen by Anaerobe culture [facility] Work Phone: Microbial culture, routine Wound Culture [facility] Work Phone: Mycobacterium sp identified in Unspecified specimen by Organism specific culture [facility] Work Phone: Patient Education ED Hip Replace Dislocation Reduc [facility] Work Phone: Patient referral [facility] Work Phone: [facility] Work Phone: Immunizations Immunization Date Immunization Notes Care Provider Fa fawn 03-26-2021 Covid (Moderna) [facility] 07-26-2020 Covid (Moderna) [facility] 06-28-2020 Covid (Moderna) [facility] Payers Date Payer Category Payer Self-pay [id number] 2021 [employer] ( [employer] others) [id number] 2021 [employer] ( and others) [id number] 2021 Medicare [id number] 2021 Unknown [id number] 2011 Unknown [id number] Department [facility] e ( and others) [employer] [id number] Unknown [id number] 62 Unknown [id number] 62 Unknown [id number] 62 Unknown [id number] 62 Unknown [id number] Social History Date Type Detail Facility Start: 06-19-2021 End: 02-22-2023 Tobacco smoking status ALIS Unknown if ever smoked [facility] Start: 1950 Sex Assigned At Female W [facility] Medical Equipment Procedure Code Equipment Code Equipment Origin al Text Equipment Identifier Dates Revision of uncemented total hip replacement ([id number]) Internal orthopaedic fixation system, plate/screw, non-bioabsorbable, sterile ()[id number] FDA Start: 11-21-2021 Revision of uncemented total hip replacement ([id number]) Non-constrained polyethylene acetabular liner ()[id number] FDA Start: 11-21-2021 Revision of uncemented total hip replacement ([id number]) Acetabular shell ()[id number] FDA Start: 11-21-2021 Revision of uncemented total hip replacement ([id number]) Ceramic femoral head prosthesis ()[id number] FDA Start: 11-21-2021 Revision of uncemented total hip replacement ([id number]) Femoral head/stem prosthesis adaptor ()[id number] FDA Start: 11-21-2021 Minimally invasive total replacement of hip joint by anterior approach ([id number]) Ceramic femoral head prosthesis ()[id number] FDA Start: 05-28-2021 Minimally invasive total replacement of hip joint by anterior approach ([id number]) Coated hip femur prosthesis, modular ()[id number] FDA Start: 05-28-2021 Minimally invasive total replacement of hip joint by anterior approach ([id number]) Non-constrained polyethylene acetabular liner ()[id number] FDA Start: 05-28-2021 Minimally invasive total replacement of hip joint by anterior approach ([id number]) Acetabular shell ()[id number] FDA Start: 05-28-2021 RAMO JACQUES FDA Start: 01-31-2020 RAMO JACQUES FDA Start: 01-31-2020 RAMO JACQUES FDA Start: 01-31-2020 MESH,3DMAX LEFT LG [id number] FDA Start: 01-31-2020 MESH,3DMAX RIGHT LG [id number] FDA Start: 01-31-2020 TACKER,SECURE STRAP FDA Start : 01-31-2020 RAMO JACQUES FDA Start: 01-31-2020 RAMO JACQUES FDA Start: 01-31-2020 RAMO JACQUES FDA Start: 01-31-2020 MESH,3DMAX LEFT LG [id number] FDA Start: 01-31-2020 MESH,3DMAX RIGHT LG [id number] FDA Start: 01-31-2020 TACKER,SECURE STRAP FDA Start : 01-31-2020 CLIP,RAMO MARCUS Carlitos HENDRICKS FDA Start: 01-31-2020 CLIP,RAMO MARCUS Carlitos SERENANATASHA FDA Start: 01-31-2020 CLIP,RAMO MARCUS Carlitos RUTHIE FDA Start: 01-31-2020 MESH,3DMAX LEFT LG [id number] FDA Start: 01-31-2020 MESH,3DMAX RIGHT LG [id number] FDA Start: 01-31-2020 TACKER,SECURE STRAP FDA Start : 01-31-2020 CLIP,RAMO MARCUS Carlitos HENDRICKS FDA Start: 01-31-2020 CLIP,RAMO MARCSU Carlitos HENDRICKS FDA Start: 01-31-2020 CLIP,RAMO MARCUS Carlitos HENDRICKS FDA Start: 01-31-2020 MESH,3DMAX LEFT LG [id number] FDA Start: 01-31-2020 MESH,3DMAX RIGHT LG [id number] FDA Start: 01-31-2020 TACKER,SECURE STRAP FDA Start : 01-31-2020 CLIP,RAMO MARCUS Carlitos LYONSNATASHA FDA Start: 01-31-2020 CLIP,ARMO MARCUS Carlitos HENDRICKS FDA Start: 01-31-2020 CLIP,RAMO MARCUS Carlitos HENDRICKS FDA Start: 01-31-2020 MESH,3DMAX LEFT LG [id number] FDA Start: 01-31-2020 MESH,3DMAX RIGHT LG [id number] FDA Start: 01-31-2020 TACKER,SECURE STRAP FDA Start : 01-31-2020 CLIP,RAMO MARCUS Carlitos HENDRICKS FDA Start: 01-31-2020 CLIP,RAMO MARCUS Carlitos RUTHIE FDA Start: 01-31-2020 CLIP,RAMO MARCUS Carlitos RUTHIE FDA Start: 01-31-2020 MESH,3DMAX LEFT LG [id number] FDA Start: 01-31-2020 MESH,3DMAX RIGHT LG [id number] FDA Start: 01-31-2020 TACKER,SECURE STRAP FDA Start : 01-31-2020 CLIP,GALINDONATASHA HENDRICKS FDA Start: 01-31-2020 CLIP,RAMO MARCUS Carlitos HENDRICKS FDA Start: 01-31-2020 CLIP,RAMO MARCUS Carlitos RUTHIE FDA Start: 01-31-2020 MESH,3DMAX LEFT LG [id number] FDA Start: 01-31-2020 MESH,3DMAX RIGHT LG [id number] FDA Start: 01-31-2020 TACKER,SECURE STRAP FDA Start : 01-31-2020 CLIP,RAMO Urbina SERENANATASHA FDA Start: 01-31-2020 CLIP,RAMO MARCUS Carlitos RUTHIE FDA Start: 01-31-2020 CLIP,RAMO HENDRICKS FDA Start: 01-31-2020 MESH,3DMAX LEFT LG [id number] FDA Start: 01-31-2020 MESH,3DMAX RIGHT LG [id number] FDA Start: 01-31-2020 TACKER,SECURE STRAP FDA Start : 01-31-2020 CLIP,RAMO MARCUS Carlitos LYONSNATASHA FDA Start: 01-31-2020 CLIPRAMO FDA Start: 01-31-2020 CLIP,RAMO MARCUS Carlitos LYONSNATASHA FDA Start: 01-31-2020 MESH,3DMAX LEFT LG [id number] FDA Start: 01-31-2020 MESH,3DMAX RIGHT LG [id number] FDA Start: 01-31-2020 TACKER,SECURE STRAP FDA Start : 01-31-2020 CLIP,RAMO MARCUS Carlitos LYONSNATASHA FDA Start: 01-31-2020 CLIP,RAMO HENDRICKS FDA Start: 01-31-2020 CLIP,RAMO HENDRICKS FDA Start: 01-31-2020 MESH,3DMAX LEFT LG [id number] FDA Start: 01-31-2020 MESH,3DMAX RIGHT LG [id number] FDA Start: 01-31-2020 TACKER,SECURE STRAP FDA Start : 01-31-2020 CLIP,RAMO MARCUS Carlitos RUTHIE FDA Start: 01-31-2020 CLIP,RAMO MARCUS Carlitos RUTHIE FDA Start: 01-31-2020 CLIP,RAMO HENDRICKS FDA Start: 01-31-2020 MESH,3DMAX LEFT LG [id number] FDA Start: 01-31-2020 MESH,3DMAX RIGHT LG [id number] FDA Start: 01-31-2020 TACKER,SECURE STRAP FDA Start : 01-31-2020 Goals Date Patient Goal Desired Activity /State Functional Status Date Assessment Result Facility 11-23-2021 Functional status Ambulates [facility] Work Phone: 05-28-2021 Functional status Bedside Commode [facility] Work Phone: Mental Status Date Assessment Result Facility 11-23-2021 Cognitive function Voice/Name [facility] Work Phone: 06-19-2021 Cognitive function Awake;Alert 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 Fracture of greater trochant er of right femur acute Hypotension acute HTN (hypertension) chronic [facility] Work Phone: Evaluation note Note Date & Type Note Facility Evaluation note Diagnosis Onset Date Fracture of greater trochant er of right femur acute HTN (hypertension) chronic 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 resolved Hypotension resolved [facility] Work Phone: Evaluation note Note Date & Type Note Facility Evaluation note Diagnosis Onset Date Intermittent palpitations ac [place] Essential hypertension chron ic History of right breast cancer acute Recurrent inguinal hernia ac [place] Acute bronchitis acute [facility] Work Phone: Evaluation note Note Date & Type Note Facility Evaluation note Diagnosis Onset Date Acute bronchitis acute [facility] Work Phone: Evaluation note Note Date & Type Note Facility Evaluation note Diagnosis Onset Date History of right breast cancer acute [facility] Work Phone: Chief Complaint and Reason for Visit Chief Complaint R DIRECT ANTERIOR TO ART HIP RIGHT HIP PAIN Chief Complaint TOTAL POSTERIOR HIP REV RT/ORIF TROCHANTERIC FX TOTAL POSTERIOR HIP REV RT/ORIF TROCHANTERIC FX TOTAL POSTERIOR HIP REV RT/ORIF TROCHANTERIC FX Reason for Visit Failure of right tot al hip arthroplasty with dislocation of hip Fracture of greater trochanter of right femur Hypotension HTN (hypertension) Chief Complaint TOTAL POSTERIOR HIP REV RT/ORIF TROCHANTERIC FX TOTAL POSTERIOR HIP REV RT/ORIF TROCHANTERIC FX TOTAL POSTERIOR HIP REV RT/ORIF TROCHANTERIC FX TOTAL POSTERIOR HIP REV RT/ORIF TROCHANTERIC FX Reason for Visit Fracture of greater trochanter of right femur HTN (hypertension) Failure of right total hip arthroplasty with dislocation of hip Hypotension Chief Complaint TOTAL POSTERIOR HIP REV RT/ORIF TROCHANTERIC FX TOTAL POSTERIOR HIP REV RT/ORIF TROCHANTERIC FX TOTAL POSTERIOR HIP REV RT/ORIF TROCHANTERIC FX TOTAL POSTERIOR HIP REV RT/ORIF TROCHANTERIC FX SCREENING Reason for Visit Fracture of greater trochanter of right femur HTN (hypertension) Failure of right total hip arthroplasty with dislocation of hip Hypotension Chief Complaint 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 ELIJAH 02/03 ARRYHTHMIA ARRYHTHMIA ARRYHTHMIA CONCERN FOR BRONCHITIS DISORDERS OF BONE DENSITY/STRUCTURE Reason for Visit Intermittent palpita tions Essential hypertension History of right breast cancer Recurrent inguinal hernia Acute bronchitis Chief Complaint ARRYHTHMIA ARRYHTHMIA 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 FOR BRONCHITIS 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 Reason for Visit Acute bronchitis Chief Complaint CONCERN FOR BRONCHIT IS 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 Reason for Visit Acute bronchitis Chief Complaint SCREENING Chief Complaint 1YR F/U Mammo 02/04 [facility] Reason for Visit History of right elizabeth ast cancer Family History No Family History Records Found Relationship Condition Age at Onset Recorded Date/T osmany mother Cerebrovascular accident (CVA) Unknown Hypertension Unknown father Congestive heart failure Unknown Advance Directives No Advanced Directives Records Found Advance Directive Response Recorded Date/ Time Name of Medical Power of Cardiology Manager ARIELLE BAIRES May 19, 2021 9:21am Living Will Yes June 19 10:25am Power of Cardiology Manager Yes June 19, 2021 10:25am Advance Directive Response Recorded Date/ Time Name of Medical Power of Cardiology Manager November 21, 2021 5:49pm Living Will Yes November 21, 2021 5 :49pm Power of Cardiology Manager Yes November 21, 2021 5:49pm Advance Directive Response Recorded Date/ Time Living Will Yes November 21, 2021 4 :49pm Power of Cardiology Manager Yes November 21, 2021 4:49pm Advance Directive Response Recorded Date/ Time Living Will Yes November 21, 2021 5 :49pm Power of Cardiology Manager Yes November 21, 2021 5:49pm Summary Purpose Additional Source Comments Goals (unrecognized section and content) Goals may be documented in a n alternate sectionGoals may be documented in an alternate sectionGoals may be documented in an alternate sectionGoals may be documented in an alternate sectionGoals may be documented in an alternate sectionGoals may be documented in an alternate sectionGoals may be documented in an alternate section Care Teams (unrecognized sec tion and content) Team Status: Active Member Role Status Dates Dr. Thomas Reagan MD Family Provider Active Dr. Thomas Parker MD Primary Care Provider Active Team Status: Inactive Member Role Status Dates Dr. Thomas Parker MD Primary Care Provider, Referr ing Provider Active Dr. Homer Hernandez MD Attending Provider Active Team Status: Inactive Member Role Status Dates Dr. Thomas Parker MD Primary Care Provider, Referr ing Provider Active Dr. Reg Gunderson MD Attending Provider Active Team Status: Active Member Role Status Dates Dr. Thomas Parker MD Primary Care Provider Active Dr. Reg Gunderson MD Attending Provider Active Team Status: Active Member Role Status Dates Dr. Thomas Parker MD Primary Care Provider Active Dr. Reg Gunderson MD Attending Provider, Referring Provider, Other Provider Active Team Status: Inactive Member Role Status Dates Dr. Thomas Parker MD Primary Care Provider, Referr ing Provider Active Pascual Bella PA, PA Attending Provider Active Team Status: Inactive Member Role Status Dates Dr. Thomas Parker MD Primary Care Provider Active Dr. Reg Gunderson MD Attending Provider, Referring Pro vider Active Team Status: Inactive Member Role Status Dates Dr. Thomas Parker MD Primary Care Provider, Attend ing Provider Active Team Status: Active Member Role Status Dates Dr. Thomas Parker MD Primary Care Provider, Attend ing Provider Active Team Status: Active Member Role Status Dates Dr. Thomas Parker MD Primary Care Pr ovider, Attending Provider, Referring Provider Active Team Status: Inactive Member Role Status Dates Dr. Thomas Parker MD Primary Care Pr ovider, Attending Provider, Referring Provider Active Team Status: Inactive Member Role Status Dates Dr. Thomas Parker MD Primary Care Provider Active Dr. Homer Hernandez MD Attending Provider, Referring Provider Active INFORMATION SOURCE (unrecogn ized section and content) DATE CREATED AUTHOR 02/06/2025 [facility] FOR RECORDS PERTAINING TO PATIENTS WHO ARE [...] BE BASED ON THE PRIMARY CLINICAL RECORDS. [employer] provides no warranty or guarantee of the accuracy or completeness of information in this document.
--- NOTE | 2025-02-07 07:15 | BI_ITS ---
EXAM: SCRN MAMM (CAD)W/MARIA ESTHER BILAT DATE: 02/07/2025 CLINICAL HISTORY: F, Age 74 y/o , YEARLY Personal history of breast cancer. Prior right subtotal mastectomy. TECHNIQUE: Procedure Code: [id number] Modality: MG Procedure: SCRN MAMM (CAD)W/MARIA ESTHER BILAT COMPARISON: Prior exam(s) dated February 07, 2024.. FINDINGS: TISSUE DENSITY: The breasts are heterogeneously dense, which may obscure small masses. Bilateral Breast Mammographic Findings: No significant masses, calcifications or other abnormalities are identified. Stable postsurgical changes are seen in the right breast. A tissue clip marker is once again visualized. Stable small benign- appearing bilateral axillary lymph nodes. No suspicious masses, areas of developing architectural distortion, or suspicious calcifications. There has been no significant interval change. BI/SCRN MAMM (CAD)W/MARIA ESTHER BILAT IMPRESSION: Stable bilateral screening mammogram. OVERALL FINAL ASSESSMENT BI-RADS 2: BENIGN RECOMMENDATION: Routine annual follow-up in 1 Year A letter with findings and recommendations will be mailed to the patient. Reading Location: [place] [address]
== END | disposition home or self-care (01) ==
LOC: OPBI 07:05
PROVIDERS: PCP Family Medicine; Referring Provider Surgery; Visit Provider Surgery
DX: Z12.31 Encounter for screening mammogram for malignant neoplasm of breast (principal)
CPT/HCPCS: 77063; 77067

== ENCOUNTER → 2025-04-18 | Outpatient (CLI) | payer BC, MEDICARE, OTHER, SELFPAY ==
--- OUTSIDE RECORDS SUMMARY | 2025-04-18 07:00 | XMS RPT_ITS | CCD ---
Author Organization [facility] CliniSymt Care Team Providers Care Tong Setter Name Role Phone Homer Hernandez MD Unavailable Dr. Thomas Parker Primary Care Provider [phone] Dr. Chilo Blount Admit Provider Dr. Chilo Blount Referring Provider Dr. Chilo Blount Other Provider 1([facility])[phone] Brad Cordoba Other Provider 1([facility])[phone] Betsy Turpin Other Provider Qamar DINING CAR STEWARD, DINING CAR STEWARD-Benjamin Mcdermott Attending Provider Dr. Thomas Parker Primary Care Provider Dr. Thomas Parker Referring Provider 1([facility])[phone] Dr. Reg Gunderson Attending Provider 1([facility])[phone] Homer Hernandez Attending Provider 1([facility])[phone] Dr. Reg Gunderson Referring Provider 1([facility])[phone] Reg Gunderson Other Provider KATELYN Cisneros Attending Provider [phone] Thomas Parker Primary Care Provider 1([facility] )[phone] Dr. Reg Gunderson Attending Provider 1([facility])[phone] Thomas Parker Referring Provider Dr. Thomas Parker Primary Care Provider 1([facility] )[phone] Dr. Thomas Parker Primary Care Provider 1([facility] )[phone] Dr. Homer Hernandez Attending Provider 1([facility])[phone] Dr. Homer Hernandez Referring Provider Keith CAT, Dr. Thomas Hays Primary Care Physician Francesca CAT, Dr. Price Attending Physician Dr. Dee Ma MD Referring Provider Keith CAT, Dr. Thomas Hays Referring Provider Dee Ma Attending Unavailable Dee Ma Referring Unavailable Schinner, Thomas E Primary Care Unavailable Schinner, Thomas E Referring Unavailable Schinner, Thomas E Primary Care Unavailable SchinnerThomas E Attending Unavailable Schinner, Thomas E Primary Care Unavailable McMorrow DINING CAR STEWARD, Froylan Attending Unavailable McMorrow DINING CAR STEWARD, Froylan Referring Unavailable Schinner, Thomas E Referring Unavailable Reg Gunderson Attending Unavailable Schinner, Thomas E Primary Care Unavailable Schinner, Thomas E Referring Unavailable Thomas Parker E Primary Care Unavailable Dee Ma Attending Unavailable Allergies Allergy Classification Reported Allergen(s) Allergy Type Date of Onset Reaction(s) Facility (2 sources) Penicillins (Antibiotic) drug allergy 7 none [facility] Work Phone: (2 sources) Sulfonamides (Antibiotic) drug allergy 7 [facility] Work Phone: (14 sources) Adhesive Tape; Translations: [adhesive tape] Allergy to substance 2 rash [facility] (13 sources) Morphine Drug Allergy 2 Nausea [facility] (14 sources) Penicillins; Translations: [Penicillins] Allergy to substance 2 rash [facility] (14 sources) Sulfonamides (Antibiotic); Translations: [Sulfa (Sulfonamide Antibiotics)] Allergy to substance 2 rash [facility] (6 sources) nut - unspecified; Translations: [nut - unspecified] Allergy to substance 3 Anaphylaxis [facility] (1 source) Morphine Drug Allergy 5 [facility] Repository Medications Current Medications Medication Drug Class(es) Dates Sig (Normalized) Sig (Original) acetaminophen 500 mg oral tablet (20 sources) Start: 11-23-2021 End: 07-03-2022 take 2 tablets by mouth every eight hours as needed Acetaminophen 500 mg tablet Active 1000 mg PO EVERY 8 HOURS as needed July 03, 2022 3:01pm Complies with drug therapy Start: 11-23-2021 End: 07-03-2022 take 1000 mg by mouth every eight hours Acetaminophen Active 1000 MG PO EVERY 8 HOURS July 03, 2022 2:01pm Start: 11-18-2021 End: 11-23-2021 take 2 tablets by mouth every six hours as needed for pain Acetaminophen (Acetaminophen Extra Strength) 500 mg Tablet Discontinued 1000 mg PO EVERY 6 HOURS as needed for Pain November 18, 2021 12:00am November 23, 2021 8:10am calcium carbonate 1500 mg oral tablet (8 sources) Start: 02-17-2022 take 1 tablet by mouth once daily Calcium Carbonate (Calcium 600) 600 mg calcium (1,500 mg) tablet Active 600 mg PO DAILY February 17, 2022 12:00am Complies with drug therapy cholecalciferol 0.025 mg oral tablet (13 sources) Vitamin D Start: 01-22-2020 take 4 tablets by mouth once daily Cholecalciferol (Vitamin D3) 1,000 UNIT tablet Active 4000 U PO DAILY January 22, 2020 12:00am supplement Complies with drug therapy Start: 01-22-2020 take 4000 [IU] by mo [facility] once daily Cholecalciferol (Vitamin D3) Active 4000 UNIT PO DAILY January 21, 2020 11:00pm famotidine 20 mg oral tablet (19 sources) Histamine-2 Receptor Antagonist Start: 11-23-2021 End: 02-18-2022 take 1 tablet by mouth once daily as needed Famotidine 20 mg tablet Active 20 mg PO DAILY as needed February 18, 2022 12:20pm Complies with drug therapy hydroCHLOROthiazide 25 mg / triamterene 37.5 mg oral tablet (15 sources) Potassium-sparing Diuretic, Thiazide Diuretic Start: 12-31-2017 Triamterene-Hyd rochlorothiazid (Maxzide-25mg) 37.5-25 mg tablet Active 1 {tbl} PO daily December 31, 2017 12:00am bp Complies with drug therapy Start: 12-29-2016 [facility] TRIAMTERENE-HCTZ 37.5-25 MG TABS One tablet by mouth daily TRIAMTERENE-HCTZ [id number] Homer Hernandez MD latanoprost 0.05 mg/ml ophthalmic solution (2 sources) Prostaglandin Analog Start: 10-12-2024 Latanoprost 0.005 % drops Active 1 NMA OPHTHALMIC AT BEDTIME October 12, 2024 12:00am Complies with drug therapy levothyroxine sodium 0.112 mg oral tablet (20 sources) l-Thyroxine Start: 07-03-2022 take 1 tablet by mouth once daily Levothyroxine 112 mcg tablet Active 112 ug PO DAILY July 03, 2022 1:00am Complies with drug therapy Start: 02-18-2022 End: 07-03-2022 take 1 tablet by mouth once daily Levothyroxine 100 mcg tablet Discontinued 100 ug PO DAILY February 18, 2022 12:00am July 03, 2022 3:01pm Start: 12-31-2017 End: 02-18-2022 take 1 tablet by mouth once daily Levothyroxine (Synthroid) 112 mcg tablet Discontinued 112 ug PO daily December 31, 2017 12:00am February 18, 2022 12:20pm thyroid Start: 12-29-2016 SYNTHROID 112 MCG TABS .11 LEVOTHYROXINE SODIUM [id number] Homer Hernandez MD Start: 12-29-2016 SYNTHROID 112 MCG TABS .11 LEVOTHYROXINE SODIUM [id number] Homer Hernandez MD meloxicam 7.5 mg oral tablet (15 sources) Nonsteroidal Anti-inflammatory Drug Start: 02-18-2022 End: 07-03-2022 take 1 tablet by mouth once daily as needed Meloxicam 7.5 mg tablet Active 7.5 mg PO DAILY as needed July 03, 2022 3:02pm Complies with drug therapy Start: 12-31-2017 take 15 mg by mouth once daily Meloxicam Active 15 MG PO daily December 31, 2017 2:11pm Multivitamin,Ko-Kczu-Vvptrlm s (Complete Multivitamin) tablet (13 sources) Start: 05-07-2019 take 1 tablet by mouth once daily Multivitamin,Zk-Xidi-Awzkdaty (Complete Multivitamin) tablet Active 1 TABLET PO DAILY May 07, 2019 9:20am Start: 05-07-2019 Multivitamin,T m-Pisg-Vbecnarh (Complete Multivitamin) tablet Active 1 {tbl} PO DAILY May 07, 2019 1:00am supplement Complies with drug therapy Start: 05-07-2019 take 1 tablet by thalia th once daily Multivitamin,Su-Aybm-Gmruswgk (Complete Multivitamin) tablet Active 1 TABLET PO DAILY May 07, 2019 12:00am Start: 05-07-2019 take 1 tablet by thalia th once daily Multivitamin,Az-Kxml-Tiddodyy (Complete Multivitamin) tablet Active 1 TABLET PO DAILY May 07, 2019 1:00am Vit C,F-Dq-Nvsvh-Lutein-Zeax an (Preservision Areds-2) 250-90-40-1 mg capsule (5 sources) Start: 07-03-2022 take 2 capsules by mouth twice daily Vit C,J-Rh-Lglpv-Lutein-Zeaxan (Preservision Areds-2) 250-90-40-1 mg capsule Active 1 {tbl} PO TWICE A DAY July 03, 2022 1:00am Complies with drug therapy Start: 07-03-2022 Vit C,E-Zn-Polish Maker sn-Pzeruy-Kmjsxh (Preservision Areds-2) 250-90-40-1 mg capsule Active 1 TABLET PO TWICE A DAY July 03, 2022 12:00am Start: 07-03-2022 Vit C,E-Zn-Polish Maker pu-Esmvnt-Hmcopj (Preservision Areds-2) 250-90-40-1 mg capsule Active 1 TABLET PO TWICE A DAY July 03, 2022 1:00am Completed/Discontinued Medications Medication Drug Class(es) Dates Sig (Normalized) Sig (Original) acetaminophen 325 mg / HYDROcodone bitartrate 5 mg oral tablet (13 sources) Opioid Agonist Start: 01-31-2020 End: 02-02-2020 Hydrocodone-Acetamino phen 1 TABLET tablet Discontinued 1 {tbl} PO EVERY 6 HOURS NEEDED as needed for Pain 6 2 0 January 31, 2020 February 01, 2020 12:00am February 02, 2020 12:02am Postoperative pain Other acute postprocedural pain Start: 01-31-2020 End: 02-02-2020 take 1 tablet by mouth every six hours as needed Hydrocodone-Acetaminophen Discontinued 1 TABLET PO EVERY 6 HOURS NEEDED 6 2 January 31, 2020 February 01, 2020 11:02pm aspirin 81 mg chewable tablet (20 sources) Platelet Aggregation Inhibitor, Nonsteroidal Anti-inflammatory Drug Start: 02-18-2022 End: 07-03-2022 take 1 tablet by mouth once daily Aspirin 81 mg tablet,chewable Discontinued 81 mg PO DAILY February 18, 2022 12:19pm July 03, 2022 3:01pm Start: 11-23-2021 End: 02-18-2022 take 1 tablet by mouth twice daily at mealtime Aspirin 81 mg Tablet,Chewable Discontinued 81 mg PO TWICE DAILY WITH MEALS 0 0 November 23, 2021 12:00am February 18, 2022 12:22pm Start: 06-19-2021 take 1 tablet by thalia th once daily Aspirin (Aspir-81) 81 mg Tablet,Delayed Release (Dr/Ec) Active 81 MG PO DAILY June 19, 2021 10:18am azithromycin 250 mg oral tablet (20 sources) Macrolide Antimicrobial Start: 12-20-2023 End: 10-12-2024 Azithromycin 250 mg tablet Discontinued 0 PO .COMPLEX 6 0 December 20, 2023 12:00am October 12, 2024 12:03pm For 250 mg dose pack: take 500 mg today (day 1), then 250 mg for 4 days (days 2-5) PO Start: 03-17-2022 End: 07-03-2022 take 2-5 tablets by mouth once daily Azithromycin 250 mg tablet Discontinued 0 PO .COMPLEX 6 0 March 17, 2022 12:00am July 03, 2022 3:01pm take 500 mg today (day 1), then 250 mg for 4 days (days 2-5) PO Start: 05-07-2019 End: 01-01-2020 take 2-5 tablets by mouth once daily Azithromycin (Zithromax Z-Manny) 250 mg tablet Discontinued 0 PO .COMPLEX 6 1 May 07, 2019 1:00am January 01, 2020 7:21am sinusitis/laryngitis PCN allergy take 500 mg today (day 1), then 250 mg for 4 days (days 2-5) PO docusate sodium 50 mg / sennosides, custodial 8.6 mg oral tablet (11 sources) Start: 11-23-2021 End: 02-17-2022 Sennosides-Docusate Sodium (Stool Softener-Stimulant Laxat) 8.6-50 mg Tablet Discontinued 2 {tbl} PO TWICE A DAY 14 7 0 November 23, 2021 12:00am February 17, 2022 10:11pm doxycycline monohydrate 100 mg oral capsule (11 sources) Tetracycline- class Drug Start: 11-23-2021 End: 02-17-2022 take 1 capsule by mouth twice daily Doxycycline Monohydrate 100 mg Capsule Discontinued 100 mg PO TWICE A DAY 24 12 0 November 23, 2021 12:00am February 17, 2022 10:11pm 3 ml insulin lispro 100 unt/ml pen injector (11 sources) Insulin Analog Start: 11-23-2021 End: 02-17-2022 Insulin Lispro (Humalog Kwikpen Insulin) 100 unit/mL Insulin Pen Discontinued 1 - 6 U SC EVERY 4 HOURS NEEDED as needed for BG>/= 180, SEE PROTOCOL 0 0 November 23, 2021 12:00am February 17, 2022 10:11pm Start: 11-23-2021 End: 02-17-2022 Insulin Lispro (Humalog Kwik pen Insulin) 100 unit/mL Insulin Pen Discontinued 1 - 6 UNIT SC EVERY 4 HOURS NEEDED 0 November 22, 2021 11:00pm February 17, 2022 9:11pm losartan potassium 50 mg oral tablet (10 sources) Angiotensin 2 Receptor Maria Alejandra Start: 07-03-2022 End: 04-28-2024 take 1 tablet by mouth once daily Losartan 50 mg tablet Discontinued 50 mg PO DAILY 90 3 April 28, 2023 3:11pm April 28, 2024 5:28pm oxyCODONE hydrochloride 5 mg oral tablet (11 sources) Opioid Agonist Start: 11-23-2021 End: 02-17-2022 take 5-10 mg by mouth every four hours as needed for pain Oxycodone 5 mg Tablet Discontinued 5 - 10 mg PO EVERY 4 HOURS NEEDED as needed for Pain Score 4-10 48 7 0 November 23, 2021 February 17, 2022 10:11pm Fracture of greater trochanter of right femur Failure of right total hip arthroplasty with dislocation of hip Dislocation of internal right hip prosthesis, initial encounter pantoprazole 40 mg delayed release oral tablet (15 sources) Proton Pump Inhibitor Start: 12-31-2017 End: 02-17-2022 take 1 tablet by mouth once daily as needed for gastroesophageal reflux disease Pantoprazole (Protonix) 40 mg tablet,delayed release (DR/EC) Discontinued 40 mg PO daily as needed for gerd December 31, 2017 12:00am February 17, 2022 10:11pm Start: 12-29-2016 take 1 tablet by thalia th once daily PANTOPRAZOLE SODIUM 40 MG TBEC One tablet by mouth daily PANTOPRAZOLE SODIUM [id number] Homer Hernandez MD Problems Active Problems Problem Classification Problem Date Documented Date Episodic/Chronic Abdominal hernia (20 sources) Recurrent inguinal hernia; Translations: [Unilateral inguinal hernia, without obstruction or gangrene, recurrent] 02-17-2022 Episodic Acute bronchitis (11 sources) Acute bronchitis; Translations: [Acute bronchitis, unspecified] 03-17-2022 Episodic Cancer of breast (17 sources) History of malignant neoplasm of breast; Translations: [Personal history of malignant neoplasm of breast] Onset: 12-29-2016 12-29-2016 Episodic Cardiac dysrhythmias (17 sources) Intermittent palpitations; Translations: [Palpitations] 02-17-2022 Episodic Complication of device; implant or graft (14 sources) Disorder of prosthetic joint; Translations: [Dislocation of internal right hip prosthesis, initial encounter] Episodic Esophageal disorders (2 sources) Gastroesophageal reflux disease; Translations: [Gastro-esophageal reflux disease without esophagitis] Onset: 12-29-2016 12-29-2016 Chronic Essential hypertension (17 sources) Hypertensive disorder; Translations: [Essential (primary) hypertension] Onset: 12-29-2016 12-29-2016 Chronic Fracture of neck of femur (hip) (14 sources) Fracture of greater trochanter; Translations: [Displaced fracture of greater trochanter of right femur, initial encounter for closed fracture] Episodic Joint disorders and dislocations; trauma-related (13 sources) Closed anterior dislocation of hip; Translations: [Other anterior dislocation of right hip, initial encounter] 06-27-2021 Episodic Osteoarthritis (2 sources) Osteoarthritis; Translations: [Polyosteoarthritis, unspecified] Onset: 12-29-2016 12-29-2016 Chronic Other circulatory disease (11 sources) Low blood pressure; Translations: [Hypotension, unspecified] 12-01-2021 Episodic Other circulatory disease (3 sources) Hypotension, unspecified; Translations: [Hypotension, unspecified] Episodic Other connective tissue disease (13 sources) Inguinal pain; Translations: [Neuralgia and neuritis, unspecified] 02-17-2022 Episodic Other screening for suspected conditions (not mental disorders or infectious disease) (20 sources) Patient encounter status; Translations: [Encounter for screening for malignant neoplasm of intestinal tract, unspecified] Onset: 02-20-2025 02-17-2022 Episodic Other upper respiratory infections (13 sources) Acute frontal sinusitis; Translations: [Acute frontal sinusitis, unspecified] 02-17-2022 Episodic Thyroid disorders (3 sources) Graves' disease; Translations: [Hypothyroidism, unspecified] Onset: 12-29-2016 12-29-2016 Chronic Past or Other Problems Problem Classification Problem Date Documented Da te Episodic/Chronic Hemorrhoids (2 sources) Hemorrhoids; Translations: [Unspecified hemorrhoids] Onset: 12-29-2016 12-29-2016 Episodic Spondylosis; intervertebral disc disorders; other back problems (2 sources) Backache; Translations: [Dorsalgia, unspecified] Onset: 12-29-2016 12-29-2016 Episodic Results Test Name Value Interpretation Reference Range Facility Surgery Visit Reporton 02-16 Surgery Visit Report [facility] [address] [place] [address] OFFICE VISIT Date of Service: 02/16/25 MR#: [id number] Acct: [id number] Name: BETSY BAIRES Rep #: [id number] : 1950 Provider: Dr. Dee patrick MD Age/Sex: 74/F Location: [facility] Status: Signed Intake Vital Signs 10/12/24 11:55 Height 5 ft 5 in Weight: 162 lb BMI 26.9 BP 130/79 H Blood Pressure Location Lt brachial Position Sitting Respiration 16 Pulse 76 Pulse Source Monitor Intake Visit Reasons: Breast exam follow-up Chief Complaint: breast exam f/u Is patient in pain?: No Allergies nut - unspecified Allergy (Severe, Verified 02/16/25 08:36) Anaphylaxis adhesive tape Allergy (Mild, Verified 02/16/25 08:36) rash Penicillins Allergy (Mild, Verified 02/16/25 08:36) rash Sulfa (Sulfonamide Antibiotics) Allergy (Mild, Verified 02/16/25 08:36) rash morphine Adverse Reaction (Verified 02/16/25 08:36) Nausea Medications ???Medication ???Instructions ???Recorded ???Confirmed ???Type triamterene 37.5 1 tab PO QDAY bp 12/31/17 02/16/25 History mg-hydrochlorothiaz karyna 25 mg tablet (Maxzide-25mg) multivitamin,tx-iro n-minerals 1 tab PO DAILY supplement 05/07/19 02/16/25 History (Complete Multivitamin tablet) cholecalciferol (vitamin D3) 25 4,000 unit PO DAILY supplement 02/16/25 History mcg (1,000 unit) tablet calcium carbonate (Calcium 600) 600 mg PO DAILY 02/17/22 02/16/25 History famotidine 20 mg tablet 20 mg PO DAILY PRN 02/18/22 History acetaminophen 500 mg tablet 1,000 mg PO Q8 PRN 07/03/22 History levothyroxine 112 mcg tablet 112 mcg PO DAILY 07/03/22 02/16/25 History meloxicam 7.5 mg tablet 7.5 mg PO DAILY PRN 07/03/2202/16 History vit C 250 mg-vit E 90 mg-zinc 40 1 tab PO BID 07/03/22 02/16/25 His tory mg-copper 1 ae-pztmgf-xybejg capsule (PreserVision AREDS-2) losartan 50 mg tablet 50 mg PO DAILY #90 tabs 04/28/24 0 02/16/25 Rx latanoprost 0.005 % eye drops 1 drp ophthalmic (eye) QHS 5 02/16/25 History Have you fallen in the past [...] status post a right mastectomy by Dr. Archibald???HER2 positive; and biopsy of some fullness in the right breast by Dr. Hernandez which was negative for malignancy previous to 2022. Patient's repeat 2024 mammogram was stable given a BI-RADS 2. Patient has no questions or concerns or breast pain or lumps on self- exam. ROS Breast Breast: No left breast lump, nipple discharge, breast pain or abnormal mammogram Additional Details: No change in right chest incision status postmastectomy Exam Const General: cooperative, healthy appearing and no acute distress [facility] Head: normal to inspection Chest Other: Breast inspection: Status post right mastectomy mound with fibrofatty fibrosis Right breast: Right mastectomy mound with some fibrofatty fibrosis???unchange d Left breast: Fibroglandular tissue, no masses on exam, no nipple discharge or pain, no change in overlying skin No axillary or supraclavicular adenopathy bilaterally Resp Effort Inspection: normal respiratory effort Cardio Rate: regular rate GI Inspection: (more content not included)... Normal [facility] Breast imaging reportOrdered By: Rob Ocampo on 02-07-2025 Study report [facility] [address] [place], [place] [id number] SCRN MAMM (CAD)W/MARIA ESTHER KEANE MR#: [id number] Acct: [id number] Name: BETSY BAIRES Rep #: [id number] : 1950 F 74 From: Ziyad Ocampo MD PCP: Dr. Thomas Parker MD Status: RE G CLI Study:SCRN MAMM (CAD)W/MARIA ESTHER BILAT Date of Exa m: 02/07/25 Exam# [id number] Ordering Dr: Dee Ma MD EXAM: SCRN MAMM (CAD)W/MARIA ESTHER BILAT DATE: 02/07/2025 CLINICAL HISTORY: F, Age 74 y/o , YEARLY Personal history of breast cancer. Prior right subtotal mastectomy. TECHNIQUE: Procedure Code: BISMWCADBTOM Modality: MG Procedure: SCRN MAMM (CAD)W/MARIA ESTHER BILAT COMPARISON: Prior exam(s) dated February 07, 2024.. FINDINGS: TISSUE DENSITY: The breasts are heterogeneously dense, which may obscure small masses. Bilateral Breast Mammographic Findings: No significant masses, calcifications or other abnormalities are identified. Stable postsurgical changes are seen in the right breast. A tissue clip marker is once again visualized. Stable small benign-appearing bilateral axillary lymph nodes. No suspicious masses, areas of developing architectural distortion, or suspicious calcifications. There has been no significant interval change. BI/SCRN MAMM (CAD)W/MARIA ESTHER BILAT IMPRESSION: Stable bilateral screening mammogram. OVERALL FINAL ASSESSMENT BI-RADS 2: BENIGN RECOMMENDATION: Routine annual follow-up in 1 Year A letter with findings and recommendations will be mailed to the patient. Reading Location: [place] [address] CC: Dr. Thomas Parker MD; Dr. Dee Ma MD ~ Signaler: Signed [facility] SCRN MAMM (CAD)W/MARIA ESTHER BILATo n 02-07-2025 SCRN MAMM (CAD)W/MARIA ESTHER BILAT [facility] Imaging Services [address] [place] [id number] SCRN MAMM (CAD)W/MARIA ESTHER BILAT MR#: [id number] Acct: [id number] Name: BETSY BAIRES Rep #: [id number] : 1950 F 74 From: Rob cobos MD PCP: Dr. Thomas Parker MD Status: REG CLI Study: SCRN MAMM (CAD)W/MARIA ESTHER BILAT Date of Exam: 01/22 12/15 Exam# [id number] Ordering Dr: Dee Ma MD EXAM: SCRN MAMM (CAD)W/MARIA ESTHER BILAT DATE: 02/07/2025 CLINICAL HISTORY: F, Age 74 y/o , YEARLY Personal history of breast cancer. Prior right subtotal mastectomy. TECHNIQUE: Procedure Code: BISMWCADBTOM Modality: MG Procedure: SCRN MAMM (CAD)W/MARIA ESTHER BILAT COMPARISON: Prior exam(s) dated February 07, 2024.. FINDINGS: TISSUE DENSITY: The breasts are heterogeneously dense, which may obscure small masses. Bilateral Breast Mammographic Findings: No significant masses, calcifications or other abnormalities are identified. Stable postsurgical changes are seen in the right breast. A tissue clip marker is once again visualized. Stable small benign-appearing bilateral axillary lymph nodes. No suspicious masses, areas of developing architectural distortion, or suspicious calcifications. There has been no significant interval change. BI/SCRN MAMM (CAD)W/MARIA ESTHER BILAT IMPRESSION: Stable bilateral screening mammogram. OVERALL FINAL ASSESSMENT BI-RADS 2: BENIGN RECOMMENDATION: Routine annual follow-up in 1 Year A letter with findings and recommendations will be mailed to the patient. Reading Location: [place] [address] CC: Dr. Thomas Parker MD; Dr. Dee Ma MD Signaler: Signed Normal [facility] Cardiology Visit Reporton Cardiology Visit Report [facility] [address] [place] [address] OFFICE VISIT Date of Service: 10/12/24 MR#: [id number] Acct: [id number] Name: BETSY BAIRES Rep #: [id number] : 1950 Provider: Dr. Reg Gunderson MD Age/Sex: 74/F Location[facility] Status: Signed HPI HPI History of Present [...] Monitor Intake Visit Reasons: 1 Y FU Wiener Packer Required: No Accompanied by: Self Is patient [...] BID 07/03/22 10/12/24 His tory mg-copper 1 tn-wajfsh-qdpfvc capsule (PreserVision AREDS-2) losartan 50 mg tablet [...] weakness, headach (more content not included)... Normal [facility] CBC W/Diff, Automatedon 05-25 Absolute Lymph 2.25 X10 3/uL Normal 0.83-4.51 [facility] Comment on above: Order Comment: Order Date: 02/16/24 Order Info: [id number] - CBCD Performed By: #### L 500.4050, L503.6150, L500.4100, L503.6075, L100.0100, L501.9520, L503.6550, L506.1000, L506.0400 #### [facility] [address] [place], [address] Absolute Neut 4.9 X10 3/uL Normal 2.0-7.7 [facility] Comment on above: Order Comment: Order Date: 02/16/24 Order Info: [id number] - CBCD Performed By: #### L 500.4050, L503.6150, L500.4100, L503.6075, L100.0100, L501.9520, L503.6550, L506.1000, L506.0400 #### [facility] [address] [place], [address] Basophils/100 WBC (Bld) 0.8 % Normal 0-1 [facility] Comment on above: Order Comment: Order Date: 02/16/24 Order Info: [id number] - CBCD Performed By: #### L 500.4050, L503.6150, L500.4100, L503.6075, L100.0100, L501.9520, L503.6550, L506.1000, L506.0400 #### [facility] [address] [place], [place], [id number] Eosinophils/100 WBC (Bld) 2.1 % Normal 0-5 [facility] Comment on above: Order Comment: Order Date: 02/16/24 Order Info: 0184-1 - CBCD Performed By: #### L 500.4050, L503.6150, L500.4100, L503.6075, L100.0100, L501.9520, L503.6550, L506.1000, L506.0400 #### [facility] [address] [place], [place], [id number] [phone] Erythrocyte distribution width (RBC) [Ratio] 13.0 % Normal 11.6-14.6 [facility] Comment on above: Order Comment: Order Date: 02/16/24 Order Info: 0184- - CBCD Performed By: #### L 500.4050, L503.6150, L500.4100, L503.6075, L100.0100, L501.9520, L503.6550, L506.1000, L506.0400 #### [facility] [address] [place], [place], [id number] Hematocrit (Bld) [Volume fraction] 38.9 % Normal 37-47 [facility] Comment on above: Order Comment: Order Date: 02/16/24 Order Info: 0184- - CBCD Performed By: #### L 500.4050, L503.6150, L500.4100, L503.6075, L100.0100, L501.9520, L503.6550, L506.1000, L506.0400 #### [facility] [address] [place], [place], [phone] Hemoglobin (Bld) [Mass/Vol] 12.5 g/dL Normal 12.0-15.0 [facility] Comment on above: Order Comment: Order Date: 02/16/24 Order Info: 0184- - CBCD Performed By: #### L 500.4050, L503.6150, L500.4100, L503.6075, L100.0100, L501.9520, L503.6550, L506.1000, L506.0400 #### [facility] [address] [place], [address] IG% 0.500 Normal 0.0-0.9 [facility] Comment on above: Order Comment: Order Date: 02/16/24 Order Info: 0184-1 - CBCD Result Comment: IG% - Immature Granulocytes (promyelocytes, myelocytes and metamyelocytes) > 1% indicates that a LEFT SHIFT is Present. Performed By: #### L 500.4050, L503.6150, L500.4100, L503.6075, L100.0100, L501.9520, L503.6550, L506.1000, L506.0400 #### [facility] [address] [place], [address] Lymphocytes/100 WBC (Bld) 27.3 % Normal 19-41 [facility] Comment on above: Order Comment: Order Date: 02/16/24 Order Info: 0184-1 - CBCD Performed By: #### L 500.4050, L503.6150, L500.4100, L503.6075, L100.0100, L501.9520, L503.6550, L506.1000, L506.0400 #### [facility] [address] [place], [address] MCH (RBC) [Entitic mass] 29.8 pg Normal 27.0-32.0 [facility] Comment on above: Order Comment: Order Date: 02/16/24 Order Info: 0184-1 - CBCD Performed By: #### L 500.4050, L503.6150, L500.4100, L503.6075, L100.0100, L501.9520, L503.6550, L506.1000, L506.0400 #### [facility] [address] [place], [address] MCHC (RBC) [Mass/Vol] 32.1 g/dL Normal 32-36 [facility] Comment on above: Order Comment: Order Date: 02/16/24 Order Info: 0184-1 - CBCD Performed By: #### L 500.4050, L503.6150, L500.4100, L503.6075, L100.0100, L501.9520, L503.6550, L506.1000, L506.0400 #### [facility] [address] [place], [address] MCV (RBC) [Entitic vol] 92.6 fL Normal 81-99 [facility] Comment on above: Order Comment: Order Date: 02/16/24 Order Info: 0184- - CBCD Performed By: #### L 500.4050, L503.6150, L500.4100, L503.6075, L100.0100, L501.9520, L503.6550, L506.1000, L506.0400 #### [facility] [address] [place], [address] Monocytes/100 WBC (Bld) 10.2 % High 0-10 [facility] Comment on above: Order Comment: Order Date: 02/16/24 Order Info: 0184- - CBCD Performed By: #### L 500.4050, L503.6150, L500.4100, L503.6075, L100.0100, L501.9520, L503.6550, L506.1000, L506.0400 #### [facility] [address] [place], [address] Neutrophils/100 WBC (Bld) 59.1 % Normal 47-70 [facility] Comment on above: Order Comment: Order Date: 02/16/24 Order Info: 0184-1 - CBCD Performed By: #### L 500.4050, L503.6150, L500.4100, L503.6075, L100.0100, L501.9520, L503.6550, L506.1000, L506.0400 #### [facility] [address] [place], [address] Nucleated RBC (Bld) [#/Vol] 0 10*3/uL Normal 0-5 [facility] Comment on above: Order Comment: Order Date: 02/16/24 Order Info: 0184-1 - CBCD Performed By: #### L 500.4050, L503.6150, L500.4100, L503.6075, L100.0100, L501.9520, L503.6550, L506.1000, L506.0400 #### [facility] [address] [place], [address] Platelet mean volume (Bld) [Entitic vol] 9.9 fL Normal 6.2-12.0 [facility] Comment on above: Order Comment: Order Date: 02/16/24 Order Info: 0184- - CBCD Performed By: #### L 500.4050, L503.6150, L500.4100, L503.6075, L100.0100, L501.9520, L503.6550, L506.1000, L506.0400 #### [facility] [address] [place], [address] Platelets (Bld) [#/Vol] 405 10*3/uL Normal 150-450 [facility] Comment on above: Order Comment: Order Date: 02/16/24 Order Info: 0184-1 - CBCD Performed By: #### L 500.4050, L503.6150, L500.4100, L503.6075, L100.0100, L501.9520, L503.6550, L506.1000, L506.0400 #### [facility] [address] [place], [address] RBC (Bld) [#/Vol] 4.20 10*6/uL Normal 4.2-5.4 [facility] Comment on above: Order Comment: Order Date: 02/16/24 Order Info: 0184-1 - CBCD Performed By: #### L 500.4050, L503.6150, L500.4100, L503.6075, L100.0100, L501.9520, L503.6550, L506.1000, L506.0400 #### [facility] [address] [place], [address] RDW SD 44.5 fl High 35.1-43.9 [facility] Comment on above: Order Comment: Order Date: 02/16/24 Order Info: 0184- - CBCD Performed By: #### L 500.4050, L503.6150, L500.4100, L503.6075, L100.0100, L501.9520, L503.6550, L506.1000, L506.0400 #### [facility] [address] [place], [place], [phone] WBC (Bld) [#/Vol] 8.2 10*3/uL Normal 4.4-11.0 [facility] Comment on above: Order Comment: Order Date: 02/16/24 Order Info: 0184- - CBCD Performed By: #### L 500.4050, L503.6150, L500.4100, L503.6075, L100.0100, L501.9520, L503.6550, L506.1000, L506.0400 #### [facility] [address] [place], [address] Comprehensive Metabolic Prof ilon 06-13-2024 Albumin [Mass/Vol] 4.3 g/dL Normal 3.2-5.0 [facility] Comment on above: Order Comment: Order Date: 02/16/24 Order Info: 0786-1 - CMP Order Info: 60004-2 - LIPID Order Info: 3016-3 - TSH Order Info: 2500-7 - TIBC Order Info: 6238-4 - FE Order Info: 2306-4 - MYRA Order Info: 0114-7 - T4F Performed By: #### L 500.4050, L503.6150, L500.4100, L503.6075, L100.0100, L501.9520, L503.6550, L506.1000, L506.0400 #### [facility] [address] [place], [address] Albumin/Globulin [Mass ratio] 1.2 {ratio} Normal 0.9-2.4 [facility] Comment on above: Order Comment: Order Date: 02/16/24 Order Info: 07- - CMP Order Info: 15510-9 - LIPID Order Info: 3 - TSH Order Info: 2499-11 - TIBC Order Info: 2497-08 - FE Order Info: 2275-08 - MYRA Order Info: 3023-11 - T4F Performed By: #### L 500.4050, L503.6150, L500.4100, L503.6075, L100.0100, L501.9520, L503.6550, L506.1000, L506.0400 #### [facility] [address] [facility], [address] ALK P 51 U/L Normal 45-117 [facility] Comment on above: Order Comment: Order Date: 02/16/24 Order Info: 0786- - CMP Order Info: 62363-7 - LIPID Order Info: 3015-07 - TSH Order Info: 2499-11 - TIBC Order Info: 2497-08 - FE Order Info: 2275-08 - MYRA Order Info: 3023-11 - T4F Performed By: #### L 500.4050, L503.6150, L500.4100, L503.6075, L100.0100, L501.9520, L503.6550, L506.1000, L506.0400 #### [facility] [address] [place], [address] ALT [Catalytic activity/Vol] 16 U/L Normal 13-56 [facility] Comment on above: Order Comment: Order Date: 02/16/24 Order Info: 07-1 - CMP Order Info: 02955-2 - LIPID Order Info: 3015-07 - TSH Order Info: 2499-11 - TIBC Order Info: 2497-08 - FE Order Info: 2275-08 - MYRA Order Info: 3023-11 - T4F Performed By: #### L 500.4050, L503.6150, L500.4100, L503.6075, L100.0100, L501.9520, L503.6550, L506.1000, L506.0400 #### [facility] [address] [place], [place], [id number] AST [Catalytic activity/Vol] 13 U/L Low 15-37 [facility] Comment on above: Order Comment: Order Date: 02/16/24 Order Info: 0786 - CMP Order Info: - LIPID Order Info: 3015-07 - TSH Order Info: 2499-11 - TIBC Order Info: 2497-08 - FE Order Info: 2275-08 - MYRA Order Info: 3023-11 - T4F Performed By: #### L 500.4050, L503.6150, L500.4100, L503.6075, L100.0100, L501.9520, L503.6550, L506.1000, L506.0400 #### [facility] [address] [place], [place], [address] Bilirubin [Mass/Vol] 0.70 mg/dL Normal 0.20-1.00 [facility] Comment on above: Order Comment: Order Date: 02/16/24 Order Info: 0786- - CMP Order Info: - LIPID Order Info: 3015-07 - TSH Order Info: 2499-11 - TIBC Order Info: 2497-08 - FE Order Info: 2275-08 - MYRA Order Info: 3023-11 - T4F Result Comment: For patients on eltrombopag therapy, use of Dimension [place] TBIL is not recommended. Performed By: #### L 500.4050, L503.6150, L500.4100, L503.6075, L100.0100, L501.9520, L503.6550, L506.1000, L506.0400 #### [facility] [address] [place], [address] BUN/CRE 25.7 RATIO High 10-20 [facility] Comment on above: Order Comment: Order Date: 02/16/24 Order Info: 0786-1 - CMP Order Info: 43977-3 - LIPID Order Info: 3016-3 - TSH Order Info: 2500-7 - TIBC Order Info: 249-4 - FE Order Info: 2275-4 - MYRA Order Info: 3024-7 - T4F Performed By: #### L 500.4050, L503.6150, L500.4100, L503.6075, L100.0100, L501.9520, L503.6550, L506.1000, L506.0400 #### [facility] [address] [place], [address] CA,Total 9.9 mg/dL Normal 8.5-10.1 [facility] Comment on above: Order Comment: Order Date: 02/16/24 Order Info: 785-1 - CMP Order Info: 28870-8 - LIPID Order Info: 3015-3 - TSH Order Info: 7 - TIBC Order Info: 4 - FE Order Info: 4 - MYRA Order Info: 3024-7 - T4F Performed By: #### L 500.4050, L503.6150, L500.4100, L503.6075, L100.0100, L501.9520, L503.6550, L506.1000, L506.0400 #### [facility] [address] [place], [address] Chloride [Moles/Vol] 100 mmol/L Normal 98-107 [facility] Comment on above: Order Comment: Order Date: 02/16/24 Order Info: 0786-1 - CMP Order Info: 04266-9 - LIPID Order Info: 3016-3 - TSH Order Info: 2500-7 - TIBC Order Info: 2494 - FE Order Info: 227-4 - MYRA Order Info: 3023-11 T4F Performed By: #### L 500.4050, L503.6150, L500.4100, L503.6075, L100.0100, L501.9520, L503.6550, L506.1000, L506.0400 #### [facility] [address] [place], [place], [address] [phone] CO2 [Moles/Vol] 29.0 mmol/L Normal 21.0-32.0 [facility] Comment on above: Order Comment: Order Date: 02/16/24 Order Info: 07- - CMP Order Info: - LIPID Order Info: 3015-07 - TSH Order Info: 2499-11 - TIBC Order Info: 2497-08 - FE Order Info: 2275-08 - MYRA Order Info: 3023-11 - T4F Performed By: #### L 500.4050, L503.6150, L500.4100, L503.6075, L100.0100, L501.9520, L503.6550, L506.1000, L506.0400 #### [facility] [address] [place], [address] Creatinine [Mass/Vol] 0.97 mg/dL Normal 0.55-1.02 [facility] Comment on above: Order Comment: Order Date: 02/16/24 Order Info: 07 - CMP Order Info: - LIPID Order Info: 3 - TSH Order Info: 2499-11 - TIBC Order Info: 2497-08 FE Order Info: 2275-08 MYRA Order Info: 3023-11 - T4F Result Comment: The validity of the calculated GFR GFRAA in patients over 70 years has not been determined. Clinical correlation is essential. Performed By: #### L 500.4050, L503.6150, L500.4100, L503.6075, L100.0100, L501.9520, L503.6550, L506.1000, L506.0400 #### [facility] [address] [place], [place], [address] EST GFR - AA 72 mL/min Normal >60 [facility] Comment on above: Order Comment: Order Date: 02/16/24 Order Info: 785- - CMP Order Info: 92715-2 - LIPID Order Info: 3 - TSH Order Info: 2499-11 - TIBC Order Info: 2497-08 - FE Order Info: 2275-08 - MYRA Order Info: 3023-11 - T4F Result Comment: Afri can Estonian GFR Calc Performed By: #### L 500.4050, L503.6150, L500.4100, L503.6075, L100.0100, L501.9520, L503.6550, L506.1000, L506.0400 #### [facility] [address] [place], [place], [id number] [phone] GAP 5 Normal 5-15 [facility] Comment on above: Order Comment: Order Date: 02/16/24 Order Info: 785-05 - CMP Order Info: - LIPID Order Info: 3015-07 - TSH Order Info: 2499-11 - TIBC Order Info: 2497-08 - FE Order Info: 2275-08 - MYRA Order Info: 3023-11 - T4F Performed By: #### L 500.4050, L503.6150, L500.4100, L503.6075, L100.0100, L501.9520, L503.6550, L506.1000, L506.0400 #### [facility] [address] [place], [place], [address] GFR/1.73 sq M.predicted among non-blacks MDRD (S/P/Bld) [Vol rate/Area] 60 mL/min/{1.73_m2} Normal >60 [facility] Comment on above: Order Comment: Order Date: 02/16/24 Order Info: 785- - CMP Order Info: 11053-3 - LIPID Order Info: 3015-07 - TSH Order Info: 2499-11 - TIBC Order Info: 2497-08 - FE Order Info: 2275-08 - MYRA Order Info: 3023-11 - T4F Result Comment: Non- GFR Calc Performed By: #### L 500.4050, L503.6150, L500.4100, L503.6075, L100.0100, L501.9520, L503.6550, L506.1000, L506.0400 #### [facility] [address] [place], [address] Globulin (S) [Mass/Vol] 3.6 g/dL Normal 2.2-4.2 [facility] Comment on above: Order Comment: Order Date: 02/16/24 Order Info: 07 - CMP Order Info: - LIPID Order Info: 3015-07 - TSH Order Info: 2499-11 - TIBC Order Info: 2497-08 - FE Order Info: 2275-08 MYRA Order Info: 3023-11 - T4F Performed By: #### L 500.4050, L503.6150, L500.4100, L503.6075, L100.0100, L501.9520, L503.6550, L506.1000, L506.0400 #### [facility] [address] [place], [address] Glucose [Mass/Vol] 95 mg/dL Normal 74-106 [facility] Comment on above: Order Comment: Order Date: 02/16/24 Order Info: 785-05 - CMP Order Info: - LIPID Order Info: 3015-07 - TSH Order Info: 2499-11 - TIBC Order Info: 2497-08 - FE Order Info: 2275-08 - MYRA Order Info: 3023-11 - T4F Performed By: #### L 500.4050, L503.6150, L500.4100, L503.6075, L100.0100, L501.9520, L503.6550, L506.1000, L506.0400 #### [facility] [address] [place], [address] Potassium [Moles/Vol] 3.9 mmol/L Normal 3.5-5.1 [facility] Comment on above: Order Comment: Order Date: 02/16/24 Order Info: 785- - CMP Order Info: - LIPID Order Info: 3015-3 - TSH Order Info: 7 - TIBC Order Info: 4 - FE Order Info: 2275-08 - MYRA Order Info: 7 - T4F Performed By: #### L 500.4050, L503.6150, L500.4100, L503.6075, L100.0100, L501.9520, L503.6550, L506.1000, L506.0400 #### [facility] [address] [place], [place], [address] [phone] Sodium [Moles/Vol] 134 mmol/L Low 136-145 [facility] Comment on above: Order Comment: Order Date: 02/16/24 Order Info: 785-05 - CMP Order Info: - LIPID Order Info: 3015-07 - TSH Order Info: 2499-11 - TIBC Order Info: 2497-08 - FE Order Info: 2275-08 - MYRA Order Info: 3023-11 - T4F Performed By: #### L 500.4050, L503.6150, L500.4100, L503.6075, L100.0100, L501.9520, L503.6550, L506.1000, L506.0400 #### [facility] [address] [place], [place], [phone] T PROT 7.9 g/dL Normal 6.4-8.2 [facility] Comment on above: Order Comment: Order Date: 02/16/24 Order Info: 785-05 - CMP Order Info: - LIPID Order Info: 3 - TSH Order Info: 7 - TIBC Order Info: 4 - FE Order Info: 4 - MYRA Order Info: 7 - T4F Performed By: #### L 500.4050, L503.6150, L500.4100, L503.6075, L100.0100, L501.9520, L503.6550, L506.1000, L506.0400 #### [facility] [address] [place], [place], [address] [phone] Urea nitrogen [Mass/Vol] 25 mg/dL High 7-18 [facility] Comment on above: Order Comment: Order Date: 02/16/24 Order Info: 0786-1 - CMP Order Info: 52002-4 - LIPID Order Info: 3 - TSH Order Info: 7 - TIBC Order Info: 24984 - FE Order Info: 2275-08 - MYRA Order Info: 3023-11 - T4F Performed By: #### L 500.4050, L503.6150, L500.4100, L503.6075, L100.0100, L501.9520, L503.6550, L506.1000, L506.0400 #### [facility] [address] [place], [place], [address] [phone] Ferritinon 06-13-2024 Ferritin [Mass/Vol] 38 ng/mL Normal 8-252 [facility] Comment on above: Order Comment: Order Date: 02/16/24 Order Info: 0786-1 - CMP Order Info: 67756-4 - LIPID Order Info: 3 - TSH Order Info: 25007 - TIBC Order Info: 24984 - FE Order Info: 2275-08 - MYRA Order Info: 3023-11 - T4F Performed By: #### L 500.4050, L503.6150, L500.4100, L503.6075, L100.0100, L501.9520, L503.6550, L506.1000, L506.0400 #### [facility] [address] [place], [place], [id number] Ironon 06-13-2024 Iron [Mass/Vol] 83 ug/dL Normal 50-170 [facility] Comment on above: Order Comment: Order Date: 02/16/24 Order Info: 785-05 - CMP Order Info: - LIPID Order Info: 3015-07 - TSH Order Info: 2499-11 - TIBC Order Info: 2497-08 - FE Order Info: 2275-08 - MYRA Order Info: 3023-11 - T4F Performed By: #### L 500.4050, L503.6150, L500.4100, L503.6075, L100.0100, L501.9520, L503.6550, L506.1000, L506.0400 #### [facility] [address] [place], [place], [id number] Iron Binding Capacity,Totalo n 06-13-2024 TIBC 375 ug/dL Normal 250-450 [facility] Comment on above: Order Comment: Order Date: 02/16/24 Order Info: 785-05 - CMP Order Info: - LIPID Order Info: 3015-07 - TSH Order Info: 2499-11 - TIBC Order Info: 2497-08 - FE Order Info: 2275-08 - MYRA Order Info: 3023-11 - T4F Performed By: #### L 500.4050, L503.6150, L500.4100, L503.6075, L100.0100, L501.9520, L503.6550, L506.1000, L506.0400 #### [facility] [address] [place], [place], [id number] Lipid Profileon 06-13-2024 Cholesterol [Mass/Vol] 177 mg/dL Normal 200 [facility] Comment on above: Order Comment: Order Date: 02/16/24 Order Info: 785-05 - CMP Order Info: - LIPID Order Info: 3015-07 - TSH Order Info: 2499-11 - TIBC Order Info: 2497-08 - FE Order Info: 2275-08 - MYRA Order Info: 3023-11 - T4F Result Comment: <200 mg/dL Desirable 200-240 mg/dL Borderline >240 mg/dL High Risk Performed By: #### L 500.4050, L503.6150, L500.4100, L503.6075, L100.0100, L501.9520, L503.6550, L506.1000, L506.0400 #### [facility] [address] [place], [address] Cholesterol in HDL [Mass/Vol] 72 mg/dL Normal [facility] Comment on above: Order Comment: Order Date: 02/16/24 Order Info: 0786 - CMP Order Info: - LIPID Order Info: 3015-07 - TSH Order Info: 2499-11 - TIBC Order Info: 2497-08 Order Info: 2275-08 - MYRA Order Info: 3023-11 T4F Result Comment: The drugs N-Acetylcysteine and Metamizole may falsely depress this assay. Reference Range HDL <40 mg/dL Low HDL Cholesterol HDL >or= 60 mg/dL High HDL Cholesterol Performed By: #### L 500.4050, L503.6150, L500.4100, L503.6075, L100.0100, L501.9520, L503.6550, L506.1000, L506.0400 #### [facility] [address] [place], [address] Cholesterol in LDL [Mass/Vol] 85 mg/dL Normal 0-130 [facility] Comment on above: Order Comment: Order Date: 02/16/24 Order Info: 0786 - CMP Order Info: - LIPID Order Info: 3015-07 - TSH Order Info: 2499-11 TIBC Order Info: 2497-08 Order Info: 2275-08 - MYRA Order Info: 3023-11 T4F Performed By: #### L 500.4050, L503.6150, L500.4100, L503.6075, L100.0100, L501.9520, L503.6550, L506.1000, L506.0400 #### [facility] [address] [place], [address] Cholesterol in VLDL [Mass/Vol] 20 mg/dL Normal 5-40 [facility] Comment on above: Order Comment: Order Date: 02/16/24 Order Info: 785-05 - CMP Order Info: - LIPID Order Info: 3015-07 - TSH Order Info: 2499-11 - TIBC Order Info: 2497-08 FE Order Info: 2275-08 - MYRA Order Info: 3023-7 - T4F Performed By: #### L 500.4050, L503.6150, L500.4100, L503.6075, L100.0100, L501.9520, L503.6550, L506.1000, L506.0400 #### [facility] [address] [place], [address] Triglyceride [Mass/Vol] 98 mg/dL Normal [facility] Comment on above: Order Comment: Order Date: 02/16/24 Order Info: 785-05 - CMP Order Info: - LIPID Order Info: 3015-07 - TSH Order Info: 2499-11 - TIBC Order Info: 2497-08 FE Order Info: 2275-08 - MYRA Order Info: 7 - T4F Result Comment: The drugs N-Acetylcysteine and Metamizole may falsely depress this assay. Serum Triglycerides Reference Interval Normal <150 mg/dL Borderline high 150 - 199 mg/dL High 200 - 499 mg/dL Very High > or = 500 mg/dL Performed By: #### L 500.4050, L503.6150, L500.4100, L503.6075, L100.0100, L501.9520, L503.6550, L506.1000, L506.0400 #### [facility] [address] [place], [address] T4 Free Directon 06-13-2024 T4 FREE DIRECT 1.40 ng/dL Normal 0.76-1.46 [facility] Comment on above: Order Comment: Order Date: 02/16/24 Order Info: 785-05 - CMP Order Info: - LIPID Order Info: 3015-07 - TSH Order Info: 2499-11 - TIBC Order Info: 2498-4 - FE Order Info: 2275-08 - MYRA Order Info: 3023-11 - T4F Performed By: #### L 500.4050, L503.6150, L500.4100, L503.6075, L100.0100, L501.9520, L503.6550, L506.1000, L506.0400 #### [facility] [address] [place], [place], [id number] Thyroid Stim Hormone (TSH)on 06-13-2024 TSH 1.110 uIU/mL Normal 0.358-3.740 [facility] Comment on above: Order Comment: Order Date: 02/16/24 Order Info: 0786-1 - CMP Order Info: 10623-5 - LIPID Order Info: 3016-3 - TSH Order Info: 2500-7 - TIBC Order Info: 2497-08 - FE Order Info: 2275-08 - MYRA Order Info: 3023-11 - T4F Performed By: #### L 500.4050, L503.6150, L500.4100, L503.6075, L100.0100, L501.9520, L503.6550, L506.1000, L506.0400 #### [facility] [address] [place], [place], [address] Vitamin D,25 Hydroxyon 06-13 Vitamin D 25-OH 74.4 ng/mL Normal [facility] Comment on above: Order Comment: Order Date: 02/16/24 Order Info: 12707-5 - VITD25 Result Comment: Shoshana min D 25(OH) Status Range Deficiency <20 ng/mL (50nmol/L) Insufficiency 20 - 30 ng/mL (50 - 75 nmol/L) Sufficiency 30 - 100 ng/mL (75 - 250 nmol/L) Toxicity >100 ng/mL (>250 nmol/L) Performed By: #### L 500.4050, L503.6150, L500.4100, L503.6075, L100.0100, L501.9520, L503.6550, L506.1000, L506.0400 #### [facility] [address] [place], [address] Absolute lymphocyte countOrd ered By: Thomas Parker on 06-03-2023 Lymphocytes Auto (Unsp spec) [#/Vol] 1.80 10*3/uL 0.83-4.51 [facility] Basophil percentageOrdered B y: Thomas Parker on 06-03-2023 Basophils/100 WBC (Bld) 1.0 % 0-1 [facility] Bilirubin [Mass/Vol] 0.70 mg/dL 0.20-1.00 [facility] Comment on above: For patients on eltr ombopag therapy, use of Dimension [place] TBIL is not recommended. Chloride [Moles/Vol] 101 mmol/L 98-107 [facility] Cholesterol [Mass/Vol] 167 mg/dL <200 [facility] Comment on above: <200 mg/dL Desirable 200-240 mg/dL Borderline >240 mg/dL High Risk Eosinophils/100 WBC (Bld) 2.5 % 0-5 [facility] Glucose [Mass/Vol] 94 mg/dL 74-106 [facility] Neutrophils (Bld) [#/Vol] 4.0 10*3/uL 2.0-7.7 [facility] Neutrophils/100 WBC (Bld) 60.1 % 47-70 [facility] Potassium [Moles/Vol] 4.3 mmol/L 3.5-5.1 [facility] Protein [Mass/Vol] 7.5 g/dL 6.4-8.2 [facility] Sodium [Moles/Vol] 136 mmol/L 136-145 [facility] Triglyceride [Mass/Vol] 95 mg/dL <199 [facility] Comment on above: The drugs N-Acetylcy steine and Metamizole may falsely depress this assay.Serum Triglycerides Reference Interval Normal <150 mg/dL Borderline high 150 - 199 mg/dL High 200 - 499 mg/dL Very High > or = 500 mg/dL WBC (Bld) [#/Vol] 6.7 10*3/uL 4.4-11.0 [facility] Blood erythrocytes count (nu mber/volume)Ordered By: Thomas Parker on 06-03-2023 RBC (Bld) [#/Vol] 4.03 10*6/uL 4.2-5.4 [place] Blood hemoglobin measurement (mass/volume)Ordered By: Thomas Parker on 06-03-2023 Hemoglobin (Bld) [Mass/Vol] 12.0 g/dL 12.0-15.0 [facility] Blood lymphocytes/100 leukoc ytesOrdered By: Thomas Parker on 06-03-2023 Lymphocytes/100 WBC (Bld) 26.9 % 19-41 [facility] Blood monocytes/100 leukocyt esOrdered By: Thomas Parker on 06-03-2023 Monocytes/100 WBC (Bld) 9.1 % 0-10 [facility] Blood platelet mean volumeOr dered By: Thomas Parker on 06-03-2023 Platelet mean volume (Bld) [Entitic vol] 10.0 fL 6.2-12.0 [facility] Determination of erythrocyte mean corpuscular volume (MCV)Ordered By: Thomas Parker on 06-03-2023 MCV (RBC) [Entitic vol] 92.3 fL 81-99 [facility] Hematocrit Auto (Bld) [Volum e fraction]Ordered By: Thomas Parker on 06-03-2023 Hematocrit (Bld) [Volume fraction] 37.2 % 37-47 [facility] Laboratory - Chemistry and C hemistry - challengeOrdered By: Thomas Parker on 06-03-2023 ALP [Catalytic activity/Vol] 50 U/L 45-117 [facility] ALT [Catalytic activity/Vol] 18 U/L 13-56 [facility] CO2 [Moles/Vol] 29.0 mmol/L 21.0-32.0 [facility] Free T4 [Mass/Vol] 1.18 ng/dL 0.76-1.46 [facility] Globulin (S) [Mass/Vol] 3.5 g/dL 2.2-4.2 [facility] Urea nitrogen/Creatinine [Mass ratio] 25.6 mg/mg 10-20 [facility] Laboratory - Hematology and Cell countsOrdered By: Thomas Parker on 06-03-2023 Erythrocyte distribution width (RBC) [Entitic vol] 43.9 fL 35.1-43.9 [facility] Erythrocyte distribution width (RBC) [Ratio] 13.0 % 11.6-14.6 [facility] Immature granulocytes/100 WBC (Bld) 0.400 % 0.0-0.9 [facility] Comment on above: IG% - Immature Granu locytes (promyelocytes, myelocytes and metamyelocytes) > 1% indicates that a LEFT SHIFT is Present. MCH (RBC) [Entitic mass] 29.8 pg 27.0-32.0 [facility] Nucleated RBC/100 WBC (Bld) [Ratio] 0 % 0-5 [facility] MCHC Auto (RBC) [Mass/Vol]Or dered By: Thomas Parker on 06-03-2023 MCHC (RBC) [Mass/Vol] 32.3 g/dL 32-36 [facility] No Panel InformationOrdered By: Thomas Parker on 06-03-2023 Estimated GFR (MDRD) Amer 88 mL/min >60 [facility] Comment on above: GFR Calc Estimated GFR (MDRD) Non-Af Amer 73 mL/min >60 [facility] Comment on above: Non- GFR Calc Thyroid Stimulating Hormone (TSH) 1.83 uIU/mL 0.358-3.74 [facility] Vitamin D 25-Hydroxy 109.7 ng/mL [facility] Comment on above: Vitamin D 25(OH) Sta [...] 06-03-2023 Platelets (Bld) [#/Vol] 386 10*3/uL 150-450 [facility] Serum or plasma albumin christine urement (mass/volume)Ordered By: Thomas Parker on 06-03-2023 Albumin [Mass/Vol] 4.0 g/dL 3.2-5.0 [facility] Serum or plasma albumin/glob ulin mass ratioOrdered By: Thomas Parker on 06-03-2023 Albumin/Globulin [Mass ratio] 1.1 {ratio} 0.9-2.4 [facility] Serum or plasma calcium christine urement (mass/volume)Ordered By: Thomas Parker on 06-03-2023 Calcium [Mass/Vol] 9.3 mg/dL 8.5-10.1 [facility] Serum or plasma cholesterol in HDL measurement (mass/volume)Ordered By: Thomas Parker on 06-03-2023 Cholesterol in HDL [Mass/Vol] 70 mg/dL >40 [facility] Comment on above: The drugs N-Acetylcy steine and Metamizole may falsely depress this assay. Reference Range HDL <40 mg/dL Low HDL Cholesterol HDL >or= 60 mg/dL High HDL Cholesterol Serum or plasma cholesterol in VLDL measurement (mass/volume)Ordered By: Thomas Parker on 06-03-2023 Cholesterol in VLDL [Mass/Vol] 19 mg/dL 5-40 [facility] Serum or plasma creatinine m easurement (mass/volume)Ordered By: Thomas Parker on 06-03-2023 Creatinine [Mass/Vol] 0.82 mg/dL 0.55-1.02 [facility] Comment on above: The validity of the calculated GFR & GFRAA in patients over 70 years has not been determined. Clinical correlation is essential. Serum or plasma low density lipoprotein (LDL) cholesterol measurement (mass/volume)Ordered By: Thomas Parker on 06-03-2023 Cholesterol in LDL [Mass/Vol] 78 mg/dL 0-130 [facility] Serum or plasma urea nitroge n measurement (mass/volume)Ordered By: Thomas Parker on 06-03-2023 Urea nitrogen [Mass/Vol] 21 mg/dL 7-18 [facility] Thin prep Papanicolaou smear with manual screeningOrdered By: Thomas Parker on 06-03-2023 Thin prep Papanicolaou smear with manual screening 17 U/L 15-37 [facility] Thin prep Papanicolaou smear with manual screening 6 5-15 [facility] Absolute lymphocyte countOrd ered By: Thomas Parker on 11-27-2022 Lymphocytes Auto (Unsp spec) [#/Vol] 1.35 10*3/uL 0.83-4.51 [facility] Basophil percentageOrdered B y: Thomas Parker on 11-27-2022 Basophils/100 WBC (Bld) 0.9 % 0-1 [facility] Bilirubin [Mass/Vol] 0.70 mg/dL 0.20-1.00 [facility] Comment on above: For patients on eltr ombopag therapy, use of [employer] [place] TBIL is not recommended. Chloride [Moles/Vol] 101 mmol/L 98-107 [facility] Cholesterol [Mass/Vol] 160 mg/dL <200 [facility] Comment on above: <200 mg/dL Desirable 200-240 mg/dL Borderline >240 mg/dL High Risk Eosinophils/100 WBC (Bld) 2.7 % 0-5 [facility] Glucose [Mass/Vol] 93 mg/dL 74-106 [facility] Neutrophils (Bld) [#/Vol] 4.1 10*3/uL 2.0-7.7 [facility] Neutrophils/100 WBC (Bld) 64.4 % 47-70 [facility] Potassium [Moles/Vol] 3.9 mmol/L 3.5-5.1 [facility] Protein [Mass/Vol] 7.4 g/dL 6.4-8.2 [facility] Sodium [Moles/Vol] 135 mmol/L 136-145 [facility] Triglyceride [Mass/Vol] 67 mg/dL <199 [facility] Comment on above: The drugs N-Acetylcy steine and Metamizole may falsely depress this assay.Serum Triglycerides Reference Interval Normal <150 mg/dL Borderline high 150 - 199 mg/dL High 200 - 499 mg/dL Very High > or = 500 mg/dL WBC (Bld) [#/Vol] 6.4 10*3/uL 4.4-11.0 [facility] Blood erythrocytes count (nu mber/volume)Ordered By: Thomas Parker on 11-27-2022 RBC (Bld) [#/Vol] 3.90 10*6/uL 4.2-5.4 [place] Blood hemoglobin measurement (mass/volume)Ordered By: Thomas Parker on 11-27-2022 Hemoglobin (Bld) [Mass/Vol] 11.8 g/dL 12.0-15.0 [facility] Blood lymphocytes/100 leukoc ytesOrdered By: Thomas Parker on 11-27-2022 Lymphocytes/100 WBC (Bld) 21.2 % 19-41 [facility] Blood monocytes/100 leukocyt esOrdered By: Thomas Parker on 11-27-2022 Monocytes/100 WBC (Bld) 10.2 % 0-10 [facility] Blood platelet mean volumeOr dered By: Thomas Parker on 11-27-2022 Platelet mean volume (Bld) [Entitic vol] 10.2 fL 6.2-12.0 [facility] Determination of erythrocyte mean corpuscular volume (MCV)Ordered By: Thomas Parker on 11-27-2022 MCV (RBC) [Entitic vol] 93.3 fL 81-99 [facility] Hematocrit Auto (Bld) [Volum e fraction]Ordered By: Thomas Parker on 11-27-2022 Hematocrit (Bld) [Volume fraction] 36.4 % 37-47 [facility] Iron measurement (mass/mass) Ordered By: Thomas Parker on 11-27-2022 Iron (Unsp spec) [Mass/Mass] 74 ug/dL 50-170 [facility] Laboratory - Chemistry and C hemistry - challengeOrdered By: Thomas Parker on 11-27-2022 ALP [Catalytic activity/Vol] 53 U/L 45-117 [facility] ALT [Catalytic activity/Vol] 17 U/L 13-56 [facility] CO2 [Moles/Vol] 28.0 mmol/L 21.0-32.0 [facility] Cobalamin (Vitamin B12) [Mass/Vol] 312 pg/mL 211-911 [facility] Free T4 [Mass/Vol] 1.28 ng/dL 0.76-1.46 [facility] Globulin (S) [Mass/Vol] 3.5 g/dL 2.2-4.2 [facility] Urea nitrogen/Creatinine [Mass ratio] 28.4 mg/mg 10-20 [facility] Laboratory - Hematology and Cell countsOrdered By: Thomas Parker on 11-27-2022 Erythrocyte distribution width (RBC) [Entitic vol] 44.7 fL 35.1-43.9 [facility] Erythrocyte distribution width (RBC) [Ratio] 13.1 % 11.6-14.6 [facility] Immature granulocytes/100 WBC (Bld) 0.600 % 0.0-0.9 [facility] Comment on above: IG% - Immature Granu locytes (promyelocytes, myelocytes and metamyelocytes) > 1% indicates that a LEFT SHIFT is Present. MCH (RBC) [Entitic mass] 30.3 pg 27.0-32.0 [facility] Nucleated RBC/100 WBC (Bld) [Ratio] 0 % 0-5 [facility] MCHC Auto (RBC) [Mass/Vol]Or dered By: Thomas Parker on 11-27-2022 MCHC (RBC) [Mass/Vol] 32.4 g/dL 32-36 [facility] No Panel InformationOrdered By: Thomas Parker on 11-27-2022 Estimated GFR (MDRD) Amer 85 mL/min >60 [facility] Comment on above: GFR Calc Estimated GFR (MDRD) Non-Af Amer 70 mL/min >60 [facility] Comment on above: Non- GFR Calc Thyroid Stimulating Hormone (TSH) 1.71 uIU/mL 0.358-3.74 [facility] Total Iron Binding Capacity 350 ug/dL 250-450 [facility] Vitamin D 25-Hydroxy 78.6 ng/mL [facility] Comment on above: Vitamin D 25(OH) Sta tus Range Deficiency <20 ng/mL (50nmol/L) Insufficiency 20 - 30 ng/mL (50 - 75 nmol/L) Sufficiency 30 - 100 ng/mL (75 - 250 nmol/L) Toxicity >100 ng/mL (>250 nmol/L) Platelets bldOrdered By: Martin Parker on 11-27-2022 Platelets (Bld) [#/Vol] 349 10*3/uL 150-450 [facility] Serum or plasma albumin christine urement (mass/volume)Ordered By: Thomas Parker on 11-27-2022 Albumin [Mass/Vol] 3.9 g/dL 3.2-5.0 [facility] Serum or plasma albumin/glob ulin mass ratioOrdered By: Thomas Parker on 11-27-2022 Albumin/Globulin [Mass ratio] 1.1 {ratio} 0.9-2.4 [facility] Serum or plasma calcium christine urement (mass/volume)Ordered By: Thomas Parker on 11-27-2022 Calcium [Mass/Vol] 9.3 mg/dL 8.5-10.1 [facility] Serum or plasma cholesterol in HDL measurement (mass/volume)Ordered By: Thomas Parker on 11-27-2022 Cholesterol in HDL [Mass/Vol] 67 mg/dL >40 [facility] Comment on above: The drugs N-Acetylcy steine and Metamizole may falsely depress this assay. Reference Range HDL <40 mg/dL Low HDL Cholesterol HDL >or= 60 mg/dL High HDL Cholesterol Serum or plasma cholesterol in VLDL measurement (mass/volume)Ordered By: Thomas Parker on 11-27-2022 Cholesterol in VLDL [Mass/Vol] 13 mg/dL 5-40 [facility] Serum or plasma creatinine m easurement (mass/volume)Ordered By: Thomas Parker on 11-27-2022 Creatinine [Mass/Vol] 0.84 mg/dL 0.55-1.02 [facility] Comment on above: The validity of the calculated GFR & GFRAA in patients over 70 years has not been determined. Clinical correlation is essential. Serum or plasma ferritin ginger surement (mass/volume)Ordered By: Thomas Parker on 11-27-2022 Ferritin [Mass/Vol] 30 ng/mL 8-252 [place] Serum or plasma iron saturat ion measurement (mass fraction)Ordered By: Thomas Parker on 11-27-2022 Iron saturation [Mass fraction] 21.1 % 15.0-55.0 [facility] Serum or plasma low density lipoprotein (LDL) cholesterol measurement (mass/volume)Ordered By: Thomas Parker on 11-27-2022 Cholesterol in LDL [Mass/Vol] 80 mg/dL 0-130 [facility] Serum or plasma urea nitroge n measurement (mass/volume)Ordered By: Thomas Parker on 11-27-2022 Urea nitrogen [Mass/Vol] 24 mg/dL 7-18 [facility] Thin prep Papanicolaou smear with manual screeningOrdered By: Thomas Parker on 11-27-2022 Thin prep Papanicolaou smear with manual screening 13 U/L 15-37 [facility] Thin prep Papanicolaou smear with manual screening 6 5-15 [facility] Absolute lymphocyte countOrd ered By: Dr. Parker on 06-04-2022 Lymphocytes Auto (Unsp spec) [#/Vol] 1.30 10*3/uL 0.83-4.51 [facility] Basophil percentageOrdered B y: Dr. Parker on 06-04-2022 Basophils/100 WBC (Bld) 1.1 % 0-1 [facility] Bilirubin [Mass/Vol] 0.70 mg/dL 0.20-1.00 [facility] Comment on above: For patients on eltr ombopag therapy, use of [employer] [place] TBIL is not recommended. Chloride [Moles/Vol] 100 mmol/L 98-107 [facility] Cholesterol [Mass/Vol] 196 mg/dL <200 [facility] Comment on above: <200 mg/dL Desirable 200-240 mg/dL Borderline >240 mg/dL High Risk Eosinophils/100 WBC (Bld) 3.3 % 0-5 [facility] Glucose [Mass/Vol] 92 mg/dL 74-106 [facility] Neutrophils (Bld) [#/Vol] 4.3 10*3/uL 2.0-7.7 [facility] Neutrophils/100 WBC (Bld) 64.4 % 47-70 [facility] Potassium [Moles/Vol] 4.4 mmol/L 3.5-5.1 [facility] Protein [Mass/Vol] 7.2 g/dL 6.4-8.2 [facility] Sodium [Moles/Vol] 137 mmol/L 136-145 [facility] Triglyceride [Mass/Vol] 79 mg/dL <199 [facility] Comment on above: The drugs N-Acetylcy steine and Metamizole may falsely depress this assay.Serum Triglycerides Reference Interval Normal <150 mg/dL Borderline high 150 - 199 mg/dL High 200 - 499 mg/dL Very High > or = 500 mg/dL WBC (Bld) [#/Vol] 6.6 10*3/uL 4.4-11.0 [facility] Blood erythrocytes count (nu mber/volume)Ordered By: Dr. Parkre on 06-04-2022 RBC (Bld) [#/Vol] 4.43 10*6/uL 4.2-5.4 [place] Blood hemoglobin measurement (mass/volume)Ordered By: Dr. Parker on 06-04-2022 Hemoglobin (Bld) [Mass/Vol] 12.6 g/dL 12.0-15.0 [facility] Blood lymphocytes/100 leukoc ytesOrdered By: Dr. Parker on 06-04-2022 Lymphocytes/100 WBC (Bld) 19.7 % 19-41 [facility] Blood monocytes/100 leukocyt esOrdered By: Dr. Parker on 06-04-2022 Monocytes/100 WBC (Bld) 10.7 % 0-10 [facility] Blood platelet mean volumeOr dered By: Dr. Parker on 06-04-2022 Platelet mean volume (Bld) [Entitic vol] 10.4 fL 6.2-12.0 [facility] Determination of erythrocyte mean corpuscular volume (MCV)Ordered By: Dr. Parker on 06-04-2022 MCV (RBC) [Entitic vol] 91.9 fL 81-99 [facility] Hematocrit Auto (Bld) [Volum e fraction]Ordered By: Dr. Parker on 06-04-2022 Hematocrit (Bld) [Volume fraction] 40.7 % 37-47 [facility] Iron measurement (mass/mass) Ordered By: Dr. Parker on 06-04-2022 Iron (Unsp spec) [Mass/Mass] 75 ug/dL 50-170 [facility] Laboratory - Chemistry and C hemistry - challengeOrdered By: Dr. Parker on 06-04-2022 ALP [Catalytic activity/Vol] 61 U/L 45-117 [facility] ALT [Catalytic activity/Vol] 17 U/L 13-56 [facility] CO2 [Moles/Vol] 29.0 mmol/L 21.0-32.0 [facility] Cobalamin (Vitamin B12) [Mass/Vol] 418 pg/mL 211-911 [facility] Free T4 [Mass/Vol] 0.97 ng/dL 0.76-1.46 [facility] Globulin (S) [Mass/Vol] 3.0 g/dL 2.2-4.2 [facility] Urea nitrogen/Creatinine [Mass ratio] 24.0 mg/mg 10-20 [facility] Laboratory - Hematology and Cell countsOrdered By: Dr. Parker on 06-04-2022 Erythrocyte distribution width (RBC) [Entitic vol] 46.1 fL 35.1-43.9 [facility] Erythrocyte distribution width (RBC) [Ratio] 13.5 % 11.6-14.6 [facility] Immature granulocytes/100 WBC (Bld) 0.800 % 0.0-0.9 [facility] Comment on above: IG% - Immature Granu locytes (promyelocytes, myelocytes and metamyelocytes) > 1% indicates that a LEFT SHIFT is Present. MCH (RBC) [Entitic mass] 28.4 pg 27.0-32.0 [facility] Nucleated RBC/100 WBC (Bld) [Ratio] 0 % 0-5 [facility] MCHC Auto (RBC) [Mass/Vol]Or dered By: Dr. Parker on 06-04-2022 MCHC (RBC) [Mass/Vol] 31.0 g/dL 32-36 [facility] No Panel InformationOrdered By: Dr. Parker on 06-04-2022 Estimated GFR (MDRD) Amer 104 mL/min >60 [facility] Comment on above: GFR Calc Estimated GFR (MDRD) Non-Af Amer 86 mL/min >60 [facility] Comment on above: Non- GFR Calc Thyroid Stimulating Hormone (TSH) 6.47 uIU/mL 0.358-3.74 [facility] Total Iron Binding Capacity 387 ug/dL 250-450 [facility] Vitamin D 25-Hydroxy 88.2 ng/mL [facility] Comment on above: Vitamin D 25(OH) Sta tus Range Deficiency <20 ng/mL (50nmol/L) Insufficiency 20 - 30 ng/mL (50 - 75 nmol/L) Sufficiency 30 - 100 ng/mL (75 - 250 nmol/L) Toxicity >100 ng/mL (>250 nmol/L) Platelets bldOrdered By: Dr. Parker on 06-04-2022 Platelets (Bld) [#/Vol] 334 10*3/uL 150-450 [facility] Serum or plasma albumin christine urement (mass/volume)Ordered By: Dr. Parker on 06-04-2022 Albumin [Mass/Vol] 4.2 g/dL 3.2-5.0 [facility] Serum or plasma albumin/glob ulin mass ratioOrdered By: Dr. Parker on 06-04-2022 Albumin/Globulin [Mass ratio] 1.4 {ratio} 0.9-2.4 [facility] Serum or plasma calcium christine urement (mass/volume)Ordered By: Dr. Parker on 06-04-2022 Calcium [Mass/Vol] 9.9 mg/dL 8.5-10.1 [facility] Serum or plasma cholesterol in HDL measurement (mass/volume)Ordered By: Dr. Parker on 06-04-2022 Cholesterol in HDL [Mass/Vol] 76 mg/dL >40 [facility] Comment on above: The drugs N-Acetylcy steine and Metamizole may falsely depress this assay. Reference Range HDL <40 mg/dL Low HDL Cholesterol HDL >or= 60 mg/dL High HDL Cholesterol Serum or plasma cholesterol in VLDL measurement (mass/volume)Ordered By: Dr. Parker on 06-04-2022 Cholesterol in VLDL [Mass/Vol] 16 mg/dL 5-40 [facility] Serum or plasma creatinine m easurement (mass/volume)Ordered By: Dr. Parker on 06-04-2022 Creatinine [Mass/Vol] 0.71 mg/dL 0.55-1.02 [facility] Comment on above: The validity of the calculated GFR & GFRAA in patients over 70 years has not been determined. Clinical correlation is essential. Serum or plasma ferritin ginger surement (mass/volume)Ordered By: Dr. Parker on 06-04-2022 Ferritin [Mass/Vol] 19 ng/mL 8-252 [place] Serum or plasma folate measu rement (mass/volume)Ordered By: Dr. Parker on 06-04-2022 Folate [Mass/Vol] 16.40 ng/mL 3.1-55.4 [facility] Serum or plasma low density lipoprotein (LDL) cholesterol measurement (mass/volume)Ordered By: Dr. Parker on 06-04-2022 Cholesterol in LDL [Mass/Vol] 104 mg/dL 0-130 [facility] Serum or plasma urea nitroge n measurement (mass/volume)Ordered By: Dr. Parker on 06-04-2022 Urea nitrogen [Mass/Vol] 17 mg/dL 7-18 [facility] Thin prep Papanicolaou smear with manual screeningOrdered By: Dr. Parker on 06-04-2022 Thin prep Papanicolaou smear with manual screening 13 U/L 15-37 [facility] Thin prep Papanicolaou smear with manual screening 8 5-15 [facility] Absolute lymphocyte counton 12-18-2021 Lymphocytes Auto (Unsp spec) [#/Vol] 1.21 10*3/uL 0.83-4.51 [facility] Work Phone: Basophil percentageon 2021 Basophils/100 WBC (Bld) 0.9 % 0-1 [facility] Work Phone: Bilirubin [Mass/Vol] 0.60 mg/dL 0.20-1.00 [facility] Work Phone: Comment on above: For patients on eltr ombopag therapy, use of [employer] [place] TBIL is not recommended. Chloride [Moles/Vol] 98 mmol/L 98-107 [facility] Work Phone: Cholesterol [Mass/Vol] 199 mg/dL <200 [facility] Work Phone: Comment on above: <200 mg/dL Desirable 200-240 mg/dL Borderline >240 mg/dL High Risk Eosinophils/100 WBC (Bld) 8.9 % 0-5 [facility] Work Phone: Glucose [Mass/Vol] 88 mg/dL 74-106 [facility] Work Phone: Neutrophils (Bld) [#/Vol] 3.3 10*3/uL 2.0-7.7 [facility] Work Phone: Neutrophils/100 WBC (Bld) 57.6 % 47-70 [facility] Work Phone: Potassium [Moles/Vol] 3.8 mmol/L 3.5-5.1 [facility] Work Phone: Protein [Mass/Vol] 7.6 g/dL 6.4-8.2 [facility] Work Phone: Sodium [Moles/Vol] 135 mmol/L 136-145 [facility] Work Phone: Triglyceride [Mass/Vol] 121 mg/dL <199 [facility] Work Phone: Comment on above: The drugs N-Acetylcy steine and Metamizole may falsely depress this assay.Serum Triglycerides Reference Interval Normal <150 mg/dL Borderline high 150 - 199 mg/dL High 200 - 499 mg/dL Very High > or = 500 mg/dL WBC (Bld) [#/Vol] 5.7 10*3/uL 4.4-11.0 [facility] Work Phone: Blood erythrocytes count (nu mber/volume)on 12-18-2021 RBC (Bld) [#/Vol] 3.86 10*6/uL 4.2-5.4 [place] Work Phone: Blood hemoglobin measurement (mass/volume)on 12-18-2021 Hemoglobin (Bld) [Mass/Vol] 11.4 g/dL 12.0-15.0 [facility] Work Phone: Blood lymphocytes/100 leukoc yteson 12-18-2021 Lymphocytes/100 WBC (Bld) 21.1 % 19-41 [facility] Work Phone: Blood monocytes/100 leukocyt eson 12-18-2021 Monocytes/100 WBC (Bld) 11.2 % 0-10 [facility] Work Phone: Blood platelet mean volumeon 12-18-2021 Platelet mean volume (Bld) [Entitic vol] 10.2 fL 6.2-12.0 [facility] Work Phone: Determination of erythrocyte mean corpuscular volume (MCV)on 12-18-2021 MCV (RBC) [Entitic vol] 92.5 fL 81-99 [facility] Work Phone: Hematocrit Auto (Bld) [Volum e fraction]on 12-18-2021 Hematocrit (Bld) [Volume fraction] 35.7 % 37-47 [facility] Work Phone: Iron measurement (mass/mass) on 12-18-2021 Iron (Unsp spec) [Mass/Mass] 63 ug/dL 50-170 [facility] Work Phone: Laboratory - Chemistry and C hemistry - challengeon 12-18-2021 ALP [Catalytic activity/Vol] 69 U/L 45-117 [facility] Work Phone: ALT [Catalytic activity/Vol] 14 U/L 13-56 [facility] Work Phone: CO2 [Moles/Vol] 30.0 mmol/L 21.0-32.0 [facility] Work Phone: Cobalamin (Vitamin B12) [Mass/Vol] 511 pg/mL 211-911 [facility] Work Phone: Free T4 [Mass/Vol] 1.15 ng/dL 0.76-1.46 [facility] Work Phone: Globulin (S) [Mass/Vol] 3.6 g/dL 2.2-4.2 [facility] Work Phone: Urea nitrogen/Creatinine [Mass ratio] 21.6 mg/mg 10-20 [facility] Work Phone: Laboratory - Hematology and Cell countson 12-18-2021 Erythrocyte distribution width (RBC) [Entitic vol] 47.0 fL 35.1-43.9 [facility] Work Phone: Erythrocyte distribution width (RBC) [Ratio] 13.9 % 11.6-14.6 [facility] Work Phone: Immature granulocytes/100 WBC (Bld) 0.300 % 0.0-0.9 [facility] Work Phone: Comment on above: IG% - Immature Granu locytes (promyelocytes, myelocytes and metamyelocytes) > 1% indicates that a LEFT SHIFT is Present. MCH (RBC) [Entitic mass] 29.5 pg 27.0-32.0 [facility] Work Phone: Nucleated RBC/100 WBC (Bld) [Ratio] 0 % 0-5 [facility] Work Phone: MCHC Auto (RBC) [Mass/Vol]on 12-18-2021 MCHC (RBC) [Mass/Vol] 31.9 g/dL 32-36 [facility] Work Phone: No Panel Informationon 12-18 Estimated GFR (MDRD) Amer 99 mL/min >60 [facility] Work Phone: Comment on above: GFR Calc Estimated GFR (MDRD) Non-Af Amer 82 mL/min >60 [facility] Work Phone: Comment on above: Non- GFR Calc Thyroid Stimulating Hormone (TSH) 2.60 uIU/mL 0.358-3.74 [facility] Work Phone: Total Iron Binding Capacity 360 ug/dL 250-450 [facility] Work Phone: Vitamin D 25-Hydroxy 55.3 ng/mL [facility] Work Phone: Comment on above: Vitamin D 25(OH) Sta tus Range Deficiency <20 ng/mL (50nmol/L) Insufficiency 20 - 30 ng/mL (50 - 75 nmol/L) Sufficiency 30 - 100 ng/mL (75 - 250 nmol/L) Toxicity >100 ng/mL (>250 nmol/L) Platelets bldon 12-18-2021 Platelets (Bld) [#/Vol] 356 10*3/uL 150-450 [facility] Work Phone: Serum or plasma albumin christine urement (mass/volume)on 12-18-2021 Albumin [Mass/Vol] 4.0 g/dL 3.2-5.0 [facility] Work Phone: Serum or plasma albumin/glob ulin mass ratioon 12-18-2021 Albumin/Globulin [Mass ratio] 1.1 {ratio} 0.9-2.4 [facility] Work Phone: Serum or plasma calcium christine urement (mass/volume)on 12-18-2021 Calcium [Mass/Vol] 9.7 mg/dL 8.5-10.1 [facility] Work Phone: Serum or plasma cholesterol in HDL measurement (mass/volume)on 12-18-2021 Cholesterol in HDL [Mass/Vol] 64 mg/dL >40 [facility] Work Phone: Comment on above: The drugs N-Acetylcy steine and Metamizole may falsely depress this assay. Reference Range HDL <40 mg/dL Low HDL Cholesterol HDL >or= 60 mg/dL High HDL Cholesterol Serum or plasma cholesterol in VLDL measurement (mass/volume)on 12-18-2021 Cholesterol in VLDL [Mass/Vol] 24 mg/dL 5-40 [facility] Work Phone: Serum or plasma creatinine m easurement (mass/volume)on 12-18-2021 Creatinine [Mass/Vol] 0.74 mg/dL 0.55-1.02 [facility] Work Phone: Comment on above: The validity of the calculated GFR & GFRAA in patients over 70 years has not been determined. Clinical correlation is essential. Serum or plasma ferritin ginger surement (mass/volume)on 12-18-2021 Ferritin [Mass/Vol] 120 ng/mL 8-252 [place] Work Phone: Serum or plasma folate measu rement (mass/volume)on 12-18-2021 Folate [Mass/Vol] 15.50 ng/mL 3.1-55.4 [facility] Work Phone: Serum or plasma low density lipoprotein (LDL) cholesterol measurement (mass/volume)on 12-18-2021 Cholesterol in LDL [Mass/Vol] 111 mg/dL 0-130 [facility] Work Phone: Serum or plasma urea nitroge n measurement (mass/volume)on 12-18-2021 Urea nitrogen [Mass/Vol] 16 mg/dL 7-18 [facility] Work Phone: Thin prep Papanicolaou smear with manual screeningon 12-18-2021 Thin prep Papanicolaou smear with manual screening 14 U/L 15-37 [facility] Work Phone: Thin prep Papanicolaou smear with manual screening 7 5-15 [facility] Work Phone: Basophil percentageon 2021 Chloride [Moles/Vol] 96 mmol/L 98-107 [facility] Work Phone: Glucose [Mass/Vol] 118 mg/dL 74-106 [facility] Work Phone: Comment on above: Fasting Glucose resu lt from 100 to 125 mg/dL suggests IMPAIRED HOMEOSTASIS per A.D.A. criteria. Potassium [Moles/Vol] 3.9 mmol/L 3.5-5.1 [facility] Work Phone: Sodium [Moles/Vol] 134 mmol/L 136-145 [facility] Work Phone: WBC (Bld) [#/Vol] 12.5 10*3/uL 4.4-11.0 [place] Work Phone: Blood erythrocytes count (nu mber/volume)on 11-22-2021 RBC (Bld) [#/Vol] 3.72 10*6/uL 4.2-5.4 [place] Work Phone: Blood hemoglobin measurement (mass/volume)on 11-22-2021 Hemoglobin (Bld) [Mass/Vol] 11.0 g/dL 12.0-15.0 [facility] Work Phone: Blood platelet mean volumeon 11-22-2021 Platelet mean volume (Bld) [Entitic vol] 9.2 fL 6.2-12.0 [facility] Work Phone: Determination of erythrocyte mean corpuscular volume (MCV)on 11-22-2021 MCV (RBC) [Entitic vol] 92.5 fL 81-99 [facility] Work Phone: Hematocrit Auto (Bld) [Volum e fraction]on 11-22-2021 Hematocrit (Bld) [Volume fraction] 34.4 % 37-47 [facility] Work Phone: Laboratory - Chemistry and C hemistry - challengeon 11-22-2021 CO2 [Moles/Vol] 31.0 mmol/L 21.0-32.0 [facility] Work Phone: Urea nitrogen/Creatinine [Mass ratio] 14.2 mg/mg 10-20 [facility] Work Phone: Laboratory - Hematology and Cell countson 11-22-2021 Erythrocyte distribution width (RBC) [Entitic vol] 46.0 fL 35.1-43.9 [facility] Work Phone: Erythrocyte distribution width (RBC) [Ratio] 13.6 % 11.6-14.6 [facility] Work Phone: MCH (RBC) [Entitic mass] 29.6 pg 27.0-32.0 [facility] Work Phone: MCHC Auto (RBC) [Mass/Vol]on 11-22-2021 MCHC (RBC) [Mass/Vol] 32.0 g/dL 32-36 [facility] Work Phone: No Panel Informationon 11-22 Estimated Creatinine Clearance Calc 46.43 ml/min [facility] Work Phone: Estimated GFR (MDRD) Amer 105 mL/min >60 [facility] Work Phone: Comment on above: GFR Calc Estimated GFR (MDRD) Non-Af Amer 87 mL/min >60 [facility] Work Phone: Comment on above: Non- GFR Calc Platelets bldon 11-22-2021 Platelets (Bld) [#/Vol] 431 10*3/uL 150-450 [facility] Work Phone: Serum or plasma calcium christine urement (mass/volume)on 11-22-2021 Calcium [Mass/Vol] 9.0 mg/dL 8.5-10.1 [facility] Work Phone: Serum or plasma creatinine m easurement (mass/volume)on 11-22-2021 Creatinine [Mass/Vol] 0.71 mg/dL 0.55-1.02 [facility] Work Phone: Comment on above: The validity of the calculated GFR & GFRAA in patients over 70 years has not been determined. Clinical correlation is essential. Serum or plasma urea nitroge n measurement (mass/volume)on 11-22-2021 Urea nitrogen [Mass/Vol] 10 mg/dL 7-18 [facility] Work Phone: Thin prep Papanicolaou smear with manual screeningon 11-22-2021 Thin prep Papanicolaou smear with manual screening 7 5-15 [facility] Work Phone: Glucose Glucometer (BldC) [M ass/Vol]on 11-21-2021 Glucose [Mass/Vol] 123 mg/dL 74-106 [facility] Work Phone: Comment on above: MANAGEMENT OF PATIEN T CARE PER NURSING PROTOCOL Absolute lymphocyte counton 11-19-2021 Lymphocytes Auto (Unsp spec) [#/Vol] 1.05 10*3/uL 0.83-4.51 [facility] Work Phone: Basophil percentageon 2021 Basophils/100 WBC (Bld) 0.6 % 0-1 [facility] Work Phone: Eosinophils/100 WBC (Bld) 3.7 % 0-5 [facility] Work Phone: Neutrophils (Bld) [#/Vol] 4.2 10*3/uL 2.0-7.7 [facility] Work Phone: Neutrophils/100 WBC (Bld) 65.1 % 47-70 [facility] Work Phone: Blood lymphocytes/100 leukoc yteson 11-19-2021 Lymphocytes/100 WBC (Bld) 16.3 % 19-41 [facility] Work Phone: Blood monocytes/100 leukocyt eson 11-19-2021 Monocytes/100 WBC (Bld) 13.8 % 0-10 [facility] Work Phone: Laboratory - Chemistry and C hemistry - challengeon 11-19-2021 Magnesium [Mass/Vol] 1.9 mg/dL 1.6-2.6 [facility] Work Phone: Laboratory - Hematology and Cell countson 11-19-2021 Immature granulocytes/100 WBC (Bld) 0.500 % 0.0-0.9 [facility] Work Phone: Comment on above: IG% - Immature Granu locytes (promyelocytes, myelocytes and metamyelocytes) > 1% indicates that a LEFT SHIFT is Present. Nucleated RBC/100 WBC (Bld) [Ratio] 0 % 0-5 [facility] Work Phone: No Panel Informationon 11-19 Thyroid Stimulating Hormone (TSH) 5.21 uIU/mL 0.358-3.74 [facility] Work Phone: Serum or plasma albumin christine urement (mass/volume)on 11-19-2021 Albumin [Mass/Vol] 3.6 g/dL 3.2-5.0 [facility] Work Phone: Whole blood hemoglobin A1c/t otal hemoglobin ratio (mass fraction)on 11-19-2021 HbA1c (Bld) [Mass fraction] 5.3 % 3.8-5.6 [facility] Work Phone: Comment on above: Normal < 5.7 % Predi abetic 5.7 - 6.4 % Diabetic >or= 6.5 % Please note range changes. Iron measurement (mass/mass) on 08-25-2021 Iron (Unsp spec) [Mass/Mass] 66 ug/dL 50-170 [facility] Work Phone: Laboratory - Chemistry and C hemistry - challengeon 08-25-2021 Cobalamin (Vitamin B12) [Mass/Vol] 603 pg/mL 211-911 [facility] Work Phone: No Panel Informationon 08-25 Total Iron Binding Capacity 490 ug/dL 250-450 [facility] Work Phone: Serum or plasma ferritin ginger surement (mass/volume)on 08-25-2021 Ferritin [Mass/Vol] 27 ng/mL 8-252 [facility] Work Phone: Serum or plasma folate measu rement (mass/volume)on 08-25-2021 Folate [Mass/Vol] 44.60 ng/mL 3.1-55.4 [facility] Work Phone: Comment on above: Slight Hemolysis, Re sult may be falsely increased. Absolute lymphocyte counton 08-15-2021 Lymphocytes Auto (Unsp spec) [#/Vol] 1.34 10*3/uL 0.83-4.51 [facility] Work Phone: Basophil percentageon 2021 Basophils/100 WBC (Bld) 1.2 % 0-1 [facility] Work Phone: Bilirubin [Mass/Vol] 0.50 mg/dL 0.20-1.00 [facility] Work Phone: Comment on above: For patients on eltr ombopag therapy, use of Dimension [place] TBIL is not recommended. Chloride [Moles/Vol] 99 mmol/L 98-[address] [facility] Work Phone: [phone] Cholesterol [Mass/Vol] 171 mg/dL <200 [facility] Work Phone: Comment on above: <200 mg/dL Desirable 200-240 mg/dL Borderline >240 mg/dL High Risk Eosinophils/100 WBC (Bld) 4.0 % 0-5 [facility] Work Phone: Glucose [Mass/Vol] 86 mg/dL 74-106 [facility] Work Phone: [phone] Neutrophils (Bld) [#/Vol] 3.6 10*3/uL 2.0-7.7 [facility] Work Phone: [phone] Neutrophils/100 WBC (Bld) 60.9 % 47-70 [facility] Work Phone: [phone] Potassium [Moles/Vol] 4.0 mmol/L 3.5-5.1 [facility] Work Phone: [phone] Protein [Mass/Vol] 7.5 g/dL 6.4-8.2 [facility] Work Phone: [phone] Sodium [Moles/Vol] 136 mmol/L 136-145 [facility] Work Phone: [phone] Triglyceride [Mass/Vol] 108 mg/dL <199 [facility] Work Phone: [phone] Comment on above: The drugs N-Acetylcy steine and Metamizole may falsely depress this assay.Serum Triglycerides Reference Interval Normal <150 mg/dL Borderline high 150 - 199 mg/dL High 200 - 499 mg/dL Very High > or = 500 mg/dL WBC (Bld) [#/Vol] 6.0 10*3/uL 4.4-11.0 [facility] Work Phone: [phone] Blood erythrocytes count (nu mber/volume)on 08-15-2021 RBC (Bld) [#/Vol] 4.14 10*6/uL 4.2-5.4 [place] Work Phone: Blood hemoglobin measurement (mass/volume)on 08-15-2021 Hemoglobin (Bld) [Mass/Vol] 11.9 g/dL 12.0-15.0 [facility] Work Phone: Blood lymphocytes/100 leukoc yteson 08-15-2021 Lymphocytes/100 WBC (Bld) 22.4 % 19-41 [facility] Work Phone: Blood monocytes/100 leukocyt eson 08-15-2021 Monocytes/100 WBC (Bld) 10.7 % 0-10 [facility] Work Phone: Blood platelet mean volumeon 08-15-2021 Platelet mean volume (Bld) [Entitic vol] 10.3 fL 6.2-12.0 [facility] Work Phone: Determination of erythrocyte mean corpuscular volume (MCV)on 08-15-2021 MCV (RBC) [Entitic vol] 92.3 fL 81-99 [facility] Work Phone: Hematocrit Auto (Bld) [Volum e fraction]on 08-15-2021 Hematocrit (Bld) [Volume fraction] 38.2 % 37-47 [facility] Work Phone: Iron measurement (mass/mass) on 08-15-2021 Iron (Unsp spec) [Mass/Mass] 58 ug/dL 50-170 [facility] Work Phone: Laboratory - Chemistry and C hemistry - challengeon 08-15-2021 ALP [Catalytic activity/Vol] 63 U/L 45-117 [facility] Work Phone: ALT [Catalytic activity/Vol] 19 U/L 13-56 [facility] Work Phone: CO2 [Moles/Vol] 31.0 mmol/L 21.0-32.0 [facility] Work Phone: Free T4 [Mass/Vol] 1.56 ng/dL 0.76-1.46 [facility] Work Phone: Globulin (S) [Mass/Vol] 3.4 g/dL 2.2-4.2 [facility] Work Phone: Urea nitrogen/Creatinine [Mass ratio] 21.5 mg/mg 10-20 [facility] Work Phone: Laboratory - Hematology and Cell countson 08-15-2021 Erythrocyte distribution width (RBC) [Entitic vol] 42.8 fL 35.1-43.9 [facility] Work Phone: Erythrocyte distribution width (RBC) [Ratio] 12.6 % 11.6-14.6 [facility] Work Phone: Immature granulocytes/100 WBC (Bld) 0.800 % 0.0-0.9 [facility] Work Phone: Comment on above: IG% - Immature Granu locytes (promyelocytes, myelocytes and metamyelocytes) > 1% indicates that a LEFT SHIFT is Present. MCH (RBC) [Entitic mass] 28.7 pg 27.0-32.0 [facility] Work Phone: Nucleated RBC/100 WBC (Bld) [Ratio] 0 % 0-5 [facility] Work Phone: MCHC Auto (RBC) [Mass/Vol]on 08-15-2021 MCHC (RBC) [Mass/Vol] 31.2 g/dL 32-36 [facility] Work Phone: No Panel Informationon 08-15 Estimated GFR (MDRD) Amer 106 mL/min >60 [facility] Work Phone: Comment on above: GFR Calc Estimated GFR (MDRD) Non-Af Amer 88 mL/min >60 [facility] Work Phone: Comment on above: Non- GFR Calc Thyroid Stimulating Hormone (TSH) 0.49 uIU/mL 0.358-3.74 [facility] Work Phone: Total Iron Binding Capacity 378 ug/dL 250-450 [facility] Work Phone: Vitamin D 25-Hydroxy 80.2 ng/mL [facility] Work Phone: Comment on above: Vitamin D 25(OH) Sta tus Range Deficiency <20 ng/mL (50nmol/L) Insufficiency 20 - 30 ng/mL (50 - 75 nmol/L) Sufficiency 30 - 100 ng/mL (75 - 250 nmol/L) Toxicity >100 ng/mL (>250 nmol/L) Platelets bldon 08-15-2021 Platelets (Bld) [#/Vol] 357 10*3/uL 150-450 [facility] Work Phone: Serum or plasma albumin christine urement (mass/volume)on 08-15-2021 Albumin [Mass/Vol] 4.1 g/dL 3.2-5.0 [facility] Work Phone: Serum or plasma albumin/glob ulin mass ratioon 08-15-2021 Albumin/Globulin [Mass ratio] 1.2 {ratio} 0.9-2.4 [facility] Work Phone: Serum or plasma calcium christine urement (mass/volume)on 08-15-2021 Calcium [Mass/Vol] 9.7 mg/dL 8.5-10.1 [facility] Work Phone: Serum or plasma cholesterol in HDL measurement (mass/volume)on 08-15-2021 Cholesterol in HDL [Mass/Vol] 70 mg/dL >40 [facility] Work Phone: Comment on above: The drugs N-Acetylcy steine and Metamizole may falsely depress this assay. Reference Range HDL <40 mg/dL Low HDL Cholesterol HDL >or= 60 mg/dL High HDL Cholesterol Serum or plasma cholesterol in VLDL measurement (mass/volume)on 08-15-2021 Cholesterol in VLDL [Mass/Vol] 22 mg/dL 5-40 [facility] Work Phone: Serum or plasma creatinine m easurement (mass/volume)on 08-15-2021 Creatinine [Mass/Vol] 0.70 mg/dL 0.55-1.02 [facility] Work Phone: Comment on above: The validity of the calculated GFR & GFRAA in patients over 70 years has not been determined. Clinical correlation is essential. Serum or plasma ferritin ginger surement (mass/volume)on 08-15-2021 Ferritin [Mass/Vol] 28 ng/mL 8-252 [place] Work Phone: Serum or plasma iron saturat ion measurement (mass fraction)on 08-15-2021 Iron saturation [Mass fraction] 15.3 % 15.0-55.0 [facility] Work Phone: Serum or plasma low density lipoprotein (LDL) cholesterol measurement (mass/volume)on 08-15-2021 Cholesterol in LDL [Mass/Vol] 79 mg/dL 0-130 [facility] Work Phone: Serum or plasma urea nitroge n measurement (mass/volume)on 08-15-2021 Urea nitrogen [Mass/Vol] 15 mg/dL 7-18 [facility] Work Phone: Thin prep Papanicolaou smear with manual screeningon 08-15-2021 Thin prep Papanicolaou smear with manual screening 12 U/L 15-37 [facility] Work Phone: Thin prep Papanicolaou smear with manual screening 6 5-15 [facility] Work Phone: Glucose Glucometer (BldC) [M ass/Vol]on 05-28-2021 Glucose [Mass/Vol] 92 mg/dL 70-110 [facility] Work Phone: Comment on above: MANAGEMENT OF PATIEN T CARE PER NURSING PROTOCOL No Panel Informationon 05-19 Nasal Screen MRSA/MSSA [facility] Work Phone: Absolute lymphocyte counton 05-13-2021 Lymphocytes Auto (Unsp spec) [#/Vol] 1.03 10*3/uL 0.83-4.51 [facility] Work Phone: Basophil percentageon 2020 Bilirubin [Mass/Vol] 0.70 mg/dL 0.20-1.00 [facility] Work Phone: Comment on above: For patients on eltr ombopag therapy, use of Dimension [place] TBIL is not recommended. Chloride [Moles/Vol] 102 mmol/L 98-107 [facility] Work Phone: Cholesterol [Mass/Vol] 202 mg/dL <200 [facility] Work Phone: Comment on above: <200 mg/dL Desirable 200-240 mg/dL Borderline >240 mg/dL High Risk Eosinophils/100 WBC (Bld) 1.8 % 0-5 [facility] Work Phone: Glucose [Mass/Vol] 92 mg/dL 74-106 [facility] Work Phone: Comment on above: Please note revised GLUCOSE reference range effective 2017. Neutrophils (Bld) [#/Vol] 4.3 10*3/uL 2.0-7.7 [facility] Work Phone: Potassium [Moles/Vol] 3.9 mmol/L 3.5-5.1 [facility] Work Phone: Protein [Mass/Vol] 7.9 g/dL 6.4-8.2 [facility] Work Phone: Sodium [Moles/Vol] 138 mmol/L 136-145 [facility] Work Phone: Triglyceride [Mass/Vol] 110 mg/dL [facility] Work Phone: Comment on above: The drugs N-Acetylcy steine and Metamizole may falsely depress this assay.Serum Triglycerides Reference Interval Normal <150 mg/dL Borderline high 150 - 199 mg/dL High 200 - 499 mg/dL Very High > or = 500 mg/dL WBC (Bld) [#/Vol] 6.2 10*3/uL 4.4-11.0 [facility] Work Phone: Blood erythrocytes count (nu mber/volume)on 05-13-2021 RBC (Bld) [#/Vol] 4.41 10*6/uL 4.2-5.4 [place] Work Phone: Blood hemoglobin measurement (mass/volume)on 05-13-2021 Hemoglobin (Bld) [Mass/Vol] 12.8 g/dL 12.0-15.0 [facility] Work Phone: Blood lymphocytes/100 leukoc yteson 05-13-2021 Lymphocytes/100 WBC (Bld) 16.6 % 19-41 [facility] Work Phone: Blood monocytes/100 leukocyt eson 05-13-2021 Monocytes/100 WBC (Bld) 10.7 % 0-10 [facility] Work Phone: Blood platelet mean volumeon 05-13-2021 Platelet mean volume (Bld) [Entitic vol] 9.8 fL 6.2-12.0 [facility] Work Phone: Determination of erythrocyte mean corpuscular volume (MCV)on 05-13-2021 MCV (RBC) [Entitic vol] 90.9 fL 81-99 [facility] Work Phone: Hematocrit Auto (Bld) [Volum e fraction]on 05-13-2021 Hematocrit (Bld) [Volume fraction] 40.1 % 37-47 [facility] Work Phone: Laboratory - Chemistry and C hemistry - challengeon 05-13-2021 ALP [Catalytic activity/Vol] 60 U/L 45-117 [facility] Work Phone: ALT [Catalytic activity/Vol] 26 U/L 13-56 [facility] Work Phone: CO2 [Moles/Vol] 28.0 mmol/L 21.0-32.0 [facility] Work Phone: Free T4 [Mass/Vol] 1.51 ng/dL 0.76-1.46 [facility] Work Phone: Globulin (S) [Mass/Vol] 3.7 g/dL 2.2-4.2 [facility] Work Phone: Magnesium [Mass/Vol] 2.3 mg/dL 1.6-2.6 [facility] Work Phone: Urea nitrogen/Creatinine [Mass ratio] 27.0 mg/mg 10-20 [facility] Work Phone: Laboratory - Hematology and Cell countson 05-13-2021 Basophils/100 WBC (Unsp spec) 0.8 % 0-1 [facility] Work Phone: Erythrocyte distribution width (RBC) [Entitic vol] 43.2 fL 35.1-43.9 [facility] Work Phone: Erythrocyte distribution width (RBC) [Ratio] 12.9 % 11.6-14.6 [facility] Work Phone: Immature granulocytes/100 WBC (Bld) 0.300 % 0.0-0.9 [facility] Work Phone: Comment on above: IG% - Immature Granu locytes (promyelocytes, myelocytes and metamyelocytes) > 1% indicates that a LEFT SHIFT is Present. MCH (RBC) [Entitic mass] 29.0 pg 27.0-32.0 [facility] Work Phone: Neutrophils/100 WBC (Bld) 69.8 % 47-70 [facility] Work Phone: Nucleated RBC/100 WBC (Bld) [Ratio] 0 % 0-5 [facility] Work Phone: MCHC Auto (RBC) [Mass/Vol]on 05-13-2021 MCHC (RBC) [Mass/Vol] 31.9 g/dL 32-36 [facility] Work Phone: No Panel Informationon 05-13 Estimated GFR (MDRD) Amer 99 mL/min >60 [facility] Work Phone: Comment on above: GFR Calc Estimated GFR (MDRD) Non-Af Amer 82 mL/min >60 [facility] Work Phone: Comment on above: Non- GFR Calc Thyroid Stimulating Hormone (TSH) 0.77 uIU/mL 0.358-3.74 [facility] Work Phone: Vitamin D 25-Hydroxy 29.1 ng/mL [facility] Work Phone: Comment on above: Vitamin D 25(OH) Sta tus Range Deficiency <20 ng/mL (50nmol/L) Insufficiency 20 - 30 ng/mL (50 - 75 nmol/L) Sufficiency 30 - 100 ng/mL (75 - 250 nmol/L) Toxicity >100 ng/mL (>250 nmol/L) Platelets bldon 05-13-2021 Platelets (Bld) [#/Vol] 381 10*3/uL 150-450 [facility] Work Phone: Serum or plasma albumin christine urement (mass/volume)on 05-13-2021 Albumin [Mass/Vol] 4.2 g/dL 3.2-5.0 [facility] Work Phone: Serum or plasma albumin/glob ulin mass ratioon 05-13-2021 Albumin/Globulin [Mass ratio] 1.1 {ratio} 0.9-2.4 [facility] Work Phone: Serum or plasma calcium christine urement (mass/volume)on 05-13-2021 Calcium [Mass/Vol] 10.0 mg/dL 8.5-10.1 [facility] Work Phone: Serum or plasma cholesterol in HDL measurement (mass/volume)on 05-13-2021 Cholesterol in HDL [Mass/Vol] 74 mg/dL [facility] Work Phone: Comment on above: The drugs N-Acetylcy steine and Metamizole may falsely depress this assay. Reference Range HDL <40 mg/dL Low HDL Cholesterol HDL >or= 60 mg/dL High HDL Cholesterol Serum or plasma cholesterol in VLDL measurement (mass/volume)on 05-13-2021 Cholesterol in VLDL [Mass/Vol] 22 mg/dL 5-40 [facility] Work Phone: Serum or plasma creatinine m easurement (mass/volume)on 05-13-2021 Creatinine [Mass/Vol] 0.74 mg/dL 0.55-1.02 [facility] Work Phone: Comment on above: The validity of the calculated GFR & GFRAA in patients over 70 years has not been determined. Clinical correlation is essential. Serum or plasma low density lipoprotein (LDL) cholesterol measurement (mass/volume)on 05-13-2021 Cholesterol in LDL [Mass/Vol] 106 mg/dL 0-130 [facility] Work Phone: Serum or plasma urea nitroge n measurement (mass/volume)on 05-13-2021 Urea nitrogen [Mass/Vol] 20 mg/dL 7-18 [facility] Work Phone: Thin prep Papanicolaou smear with manual screeningon 05-13-2021 Thin prep Papanicolaou smear with manual screening 20 U/L 15-37 [facility] Work Phone: Thin prep Papanicolaou smear with manual screening 8 5-15 [facility] Work Phone: Office Visit: yearly breasto n 12-29-2016 Alcoholism counseling (procedure) no Invalid Interpretation Code [facility] [employer] Work Phone: Documentation of current medications (procedure) Done Invalid Interpretation Code [facility] Work Phone: Fall risk assessment No Invalid Interpretation Code [facility] [employer] Work Phone: Protein mass conc Done [facility] [employer] Work Phone: Protein mass conc no [facility] [employer] Work Phone: Tobacco smoking status NHIS Never Invalid Interpretation Code [facility] [employer] Work Phone: Tobacco smoking status NHIS Never smoker [facility] [employer] Work Phone: Tobacco use [facility] Never smoker Invalid Interpretation Code [facility] [employer] Work Phone: Office Visit: yearly breasto n 12-17-2016 MG Breast screening Normal Right Invalid Interpretation Code [facility] Work Phone: Bacteria identified Anaer cx Nom (Unsp spec) Anaerobic microbial culture No anaerobic bacteria isolated. [facility] Work Phone: Gram stain for investigation of transfusion reaction Microscopic observation Gram stain Nom (Unsp spec) [facility] Work Phone: Vital Signs Date Time Vital Sign Value Performing Clinician Facility 03-17-2022 09:32-0400 Body temperature 98.2 [degF] Dr. Thomas Parker Work Phone: [facility] 03-17-2022 09:32-0400 Diastolic blood pressure 82 mm[Hg] Dr. Thomas Parker Work Phone: [facility] 03-17-2022 09:32-0400 Heart rate 90 /min Dr. Thomas Parker Work Phone: [facility] 03-17-2022 09:32-0400 Respiratory rate 16 /min Dr. Thomas Parker Work Phone: [facility] 03-17-2022 09:32-0400 SaO2% (BldA) [Mass fraction] 93 % Dr. Thomas Parker Work Phone: [facility] 03-17-2022 09:32-0400 Systolic blood pressure 140 mm[Hg] Dr. Thomas Parker Work Phone: [facility] 02-18-2022 12:19-0400 Body height 165.[address] Thomas Parker Work Phone: [facility] 02-18-2022 12:19-0400 Body mass index (BMI) [Ratio] 26.4 kg/m2 Dr. Thomas Parker Work Phone: [facility] 02-18-2022 12:19-0400 Body weight 72.[address] Thomas Parker Work Phone: [facility] 02-18-2022 12:19-0400 Diastolic blood pressure 87 mm[Hg] Dr. Thomas Parker Work Phone: [facility] 02-18-2022 12:19-0400 Heart rate 92 /min Dr. Thomas Parker Work Phone: [facility] 02-18-2022 12:19-0400 Respiratory rate 16 /min Dr. Thomas Parker Work Phone: [facility] 02-18-2022 12:19-0400 SaO2% (BldA) [Mass fraction] 97 % Dr. Thomas Parker Work Phone: [facility] 02-18-2022 12:19-0400 Systolic blood pressure 147 mm[Hg] Dr. Thomas Parker Work Phone: [facility] 11-23-2021 08:36-0400 Body temperature 98.2 [degF] Dr. Thomas Parker Work Phone: [facility] Work Phone: 11-23-2021 08:36-0400 Diastolic blood pressure 68 mm[Hg] Dr. Thomas Parker Work Phone: [facility] Work Phone: 11-23-2021 08:36-0400 Heart rate 93 /min Dr. Thomas Parker Work Phone: [facility] Work Phone: 11-23-2021 08:36-0400 Respiratory rate 16 /min Dr. Thomas Parker Work Phone: [facility] Work Phone: 11-23-2021 08:36-0400 SaO2% (BldA) [Mass fraction] 94 % Dr. Thomas Parker Work Phone: [facility] Work Phone: 11-23-2021 08:36-0400 Systolic blood pressure 114 mm[Hg] Dr. Thomas Parker Work Phone: [facility] Work Phone: 11-21-2021 21:49-0400 Inhaled oxygen flow rate 2 L/min Dr. Thomas Parker Work Phone: [facility] Work Phone: 11-21-2021 17:49-0400 Body height 165.[address] Thomas Parker Work Phone: [facility] Work Phone: 11-21-2021 17:49-0400 Body mass index (BMI) [Ratio] 26.5 kg/m2 Dr. Thomas Parker Work Phone: [facility] Work Phone: 11-21-2021 17:49-0400 Body weight 72.[address] Thomas Parker Work Phone: [facility] Work Phone: 06-19-2021 11:22-0500 Diastolic blood pressure 76 mm[Hg] [facility] Work Phone: 06-19-2021 11:22-0500 Heart rate 82 /min [facility] Work Phone: 06-19-2021 11:22-0500 Respiratory rate 19 /min [facility] Work Phone: 06-19-2021 11:22-0500 SaO2% (BldA) [Mass fraction] 95 % [facility] Work Phone: 06-19-2021 11:22-0500 Systolic blood pressure 153 mm[Hg] [facility] Work Phone: 06-19-2021 08:15-0500 Body height 165.1 cm [facility] Work Phone: 06-19-2021 08:15-0500 Body mass index (BMI) [Ratio] 27.9 kg/m2 [facility] Work Phone: 06-19-2021 08:15-0500 Body temperature 97.4 [degF] [facility] Work Phone: 06-19-2021 08:15-0500 Body weight 76.2 kg [facility] Work Phone: 05-28-2021 12:20-0500 Body temperature 97.6 [degF] [facility] Work Phone: 05-28-2021 12:20-0500 Diastolic blood pressure 78 mm[Hg] [facility] Work Phone: 05-28-2021 12:20-0500 Heart rate 80 /min [facility] Work Phone: 05-28-2021 12:20-0500 Respiratory rate 18 /min [facility] Work Phone: 05-28-2021 12:20-0500 SaO2% (BldA) [Mass fraction] 96 % [facility] Work Phone: 05-28-2021 12:20-0500 Systolic blood pressure 134 mm[Hg] [facility] Work Phone: 05-28-2021 07:20-0500 Body mass index (BMI) [Ratio] 26.9 kg/m2 [facility] Work Phone: 05-28-2021 07:20-0500 Body weight 71 kg [facility] Work Phone: 12-29-2016 07:39-0400 BMI (Body Mass Index) 28.35 kg/m2 Homer Hernandez MD [facility] Work Phone: 12-29-2016 07:39-0400 Body Temperature 98.7 [degF] Homer Hernandez MD [facility] Work Phone: 12-29-2016 07:39-0400 BP Diastolic 72 mm[Hg] Homer Hernandez MD [facility] Work Phone: 12-29-2016 07:39-0400 BP Systolic 130 mm[Hg] Homer Hernandez MD [facility] Work Phone: 12-29-2016 07:39-0400 Height 162.56 cm Homer Hernandez MD [facility] Work Phone: 12-29-2016 07:39-0400 Pulse (Heart Rate) 72 /min Homer Hernandez MD [facility] Work Phone: 12-29-2016 07:39-0400 Respiratory Rate 16 /min Homer Hernandez MD [facility] Work Phone: 12-29-2016 07:39-0400 Weight 74.93 kg Homer Hernandez MD [facility] Work Phone: Encounters Encounter Date Encounter Type Care Provider Facility Start: 04-12-2025 ambulatory Thomas Parker Facilit y:[facility] Start: 02-16-2025 End: 02-16-[address] Dee Ma MD -[facility] Work Phone: Start: 02-16-2025 End: 02-16-[address] Thomas Parker MD Work Phone: -[facility] Start: 02-07-2025 End: 02-07-[address] Thomas Parker MD Work Phone: -[facility] Start: 02-07-2025 End: 02-07-[address] Dee Ma MD -[facility] Work Phone: Start: 02-07-2025 End: 02-07-2025 ambulatory Dee Ma Facility:[facility] Start: 10-12-2024 End: 10-12-2024 ambulatory Thomas Parker Facility:[facility] Start: 06-13-2024 End: 06-13-2024 ambulatory Thomas Parker Facility:[facility] Start: 06-03-2023 End: 06-03-[address] Thomas Parker Work Phone: [facility] Work Phone: Start: 06-03-2023 End: 06-03-[address] Thomas Parker Work Phone: [facility] Start: 02-22-2023 End: 02-22-[address] Thomas Parker Work Phone: [facility] Work Phone: Start: 02-04-2023 End: 02-04-2023 ambulatory [facility] Work Phone: Start: 02-04-2023 End: 02-04-2023 Patient encounter procedure [facility] Work Phone: Start: 11-27-2022 End: 11-27-2022 ambulatory [facility] Work Phone: Start: 11-27-2022 End: 11-27-2022 Patient encounter procedure [facility] Start: 06-19-2022 End: 06-19-[address] Thomas Parker Work Phone: [facility] Work Phone: Start: 06-19-2022 End: 06-19-[address] Thomas Parker Work Phone: [facility] Start: 06-11-2022 End: 06-11-[address] Thomas Parker Work Phone: [facility] Work Phone: Start: 06-11-2022 End: 06-11-[address] Thomas Parker Work Phone: [facility]-Outpatient Bone Densitometry Start: 06-04-2022 End: 06-04-[address] Thomas Parker Work Phone: [facility] Work Phone: Start: 06-04-2022 End: 06-04-[address] Thomas Parker Work Phone: [facility] Start: 03-17-2022 End: 03-17-[address] Thomas Parker Work Phone: [facility] Start: 02-26-2022 Non-patient / Non-visit Dr. Stephanie Parker Work Phone: [facility] Start: 02-26-2022 End: 02-26-[address] Thomas Parker Work Phone: [facility] Start: 02-18-2022 Non-patient / Non-visit Dr. Stephanie Parker Work Phone: [facility] Start: 02-18-2022 End: 02-18-[address] Thomas Parker Work Phone: [facility] Start: 02-18-2022 End: 02-18-[address] Thomas Parker Work Phone: [facility] Start: 02-03-2022 End: 02-03-[address] Thomas Parker Work Phone: [facility] Work Phone: Start: 02-03-2022 End: 02-03-[address] Thomas Parker Work Phone: [facility]patient Breast [facility] Start: 12-18-2021 End: 12-18-[address] Thomas Parker Work Phone: [facility] Start: 11-23-2021 Non-patient / Non-visit Dr. Stephanie Parker Work Phone: [facility] Start: 11-22-2021 Non-patient / Non-visit Dr. Stephanie Parker Work Phone: [facility] Start: 11-21-2021 Non-patient / Non-visit Dr. Stephanie Parker Work Phone: [facility] Start: 11-21-2021 End: 11-23-2021 Evaluation and management of inpatient [facility] Start: 08-25-2021 End: 08-25-2021 Patient encounter procedure [facility] Start: 08-15-2021 End: 08-15-2021 Patient encounter procedure [facility] Start: 06-19-2021 End: 06-19-2021 [facility] Start: 05-28-2021 End: 05-28-2021 [facility] Start: 05-13-2021 Patient encounter procedure [facility] Procedures Date Procedure Procedure Detail Performing Clinician Start: 02-07-2025 Screening mammography Carlitos Parker MD Work Phone: Start: 02-04-2023 Screening mammography Start: 06-19-2022 Plain [...] Thomas Parker Work Phone: Microbial culture, routine D kenyon Parker Work Phone: Mycology culture Dr. Thomas paiz Work Phone: Plan of Treatment Date Care Activity Detail Author Start: 11-23-2021 Patient discharge [facility] Work Phone: Start: 11-23-2021 [facility] Work Phone: Start: 11-21-2021 Following clinical pathway protocol [facility] Work Phone: Start: 11-21-2021 Provision of overbed trapeze [facility] Work Phone: Start: 11-21-2021 End: 11-21-2021 [facility] Work Phone: Start: 11-21-2021 Admission procedure [facility] Work Phone: Start: 11-21-2021 Ambulation therapy management [facility] Work Phone: Start: 11-21-2021 Application of device [facility] Work Phone: Start: 11-21-2021 Assessment of risk of venous thromboembolism [facility] Work Phone: Start: 11-21-2021 Catheterization of vein [facility] Work Phone: Start: 11-21-2021 Consultation [facility] Work Phone: Start: 11-21-2021 Exercises [facility] Work Phone: Start: 11-21-2021 Following clinical pathway protocol [facility] Work Phone: Start: 11-21-2021 Incentive spirometry [facility] Work Phone: Start: 11-21-2021 Introduction of urinary catheter [facility] Work Phone: Start: 11-21-2021 Measuring intake and output [facility] Work Phone: Start: 11-21-2021 Neurovascular assessment [facility] Work Phone: Start: 11-21-2021 Patient education [facility] Work Phone: Start: 11-21-2021 Procedure discontinued [facility] Work Phone: Start: 11-21-2021 Provision of activity privileges [facility] Work Phone: Start: 11-21-2021 Referral to occupational therapist [facility] Work Phone: Start: 11-21-2021 Referral to service [facility] Work Phone: Start: 11-21-2021 Vital signs measurements [facility] Work Phone: Start: 11-21-2021 Wound care [facility] Work Phone: Start: 06-19-2021 Cltx hip dislocation traumatic w/o anesthesia TREAT HIP DISLOCATION [facility] Work Phone: Start: 05-28-2021 Anesthesia open total hip arthroplasty ANESTH HIP ARTHROPLASTY [facility] Work Phone: Start: 05-28-2021 Arthrp acetblr/prox fem prostc agrft/algrft TOTAL HIP ARTHROPLASTY [facility] Work Phone: Start: 12-29-2016 End: 12-29-2016 Appointment Appointment [facility] Work Phone: Acid fast bacilli culture [facility] Work Phone: Anaerobic Culture [facility] [place] Work Phone: Bacteria identified in Unspecified specimen by Anaerobe culture [facility] Work Phone: Microbial culture, routine Wound Culture [facility] Work Phone: Mycobacterium sp identified in Unspecified specimen by Organism specific culture [facility] Work Phone: Patient Education ED Hip Replace Dislocation Reduc [facility] Work Phone: Patient referral [facility] Work Phone: [facility] Work Phone: Immunizations Immunization Date Immunization Notes Care Provider Fa cility 03-26-2021 Covid ([facility]) [facility] 07-26-2020 Covid ([facility]) [facility] 06-28-2020 Covid ([facility]) [facility] Payers Date Payer Category Payer Self-pay [id number] 2021 [employer] ( [employer] others) [id number] 2021 Medicare [id number] 2021 Unknown [id number] 2011 Unknown [id number] [employer] ( and others) [facility] [id number] [employer] ( and others) [facility] [id number] Unknown [id number] Unknown [id number] 62 Unknown [id number] 62 Unknown [id number] 62 Unknown [id number] Social History Date Type Detail Facility Start: 06-19-2021 End: 02-22-2023 Tobacco smoking status DCIS Unknown if ever smoked [facility] Start: 1950 Sex Assigned At Female [facility] Start: 08-26-2023 [facility] Sex Female [facility] Medical Equipment Procedure Code Equipment Code Equipment Origin al Text Equipment Identifier Dates Revision of uncemented total hip replacement ([id number]) Internal orthopaedic fixation system, plate/screw, non-bioabsorbable, sterile ()[id number] FDA Start: 11-21-2021 Revision of uncemented total hip replacement ([id number]) Non-constrained polyethylene acetabular liner ()[id number] FDA Start: 11-21-2021 Revision of uncemented total hip replacement ([id number]) Acetabular shell ()[id number] FDA Start: 11-21-2021 Revision of uncemented total hip replacement ([id number]) Ceramic femoral head prosthesis ()[id number] FDA Start: 11-21-2021 Revision of uncemented total hip replacement ([id number]) Femoral head/stem prosthesis adaptor ()[id number] FDA Start: 11-21-2021 Minimally invasive total replacement of hip joint by anterior approach ([id number]) Ceramic femoral head prosthesis ()[id number] FDA Start: 05-28-2021 Minimally invasive total replacement of hip joint by anterior approach ([id number]) Coated hip femur prosthesis, modular ()[id number] FDA Start: 05-28-2021 Minimally invasive total replacement of hip joint by anterior approach ([id number]) Non-constrained polyethylene acetabular liner ()[id number] FDA Start: 05-28-2021 Minimally invasive total replacement of hip joint by anterior approach ([id number]) Acetabular shell ()[id number] FDA Start: 05-28-2021 RAMO JACQUES FDA Start: 01-31-2020 RAMO JACQUES FDA Start: 01-31-2020 RAMO JACQUES FDA Start: 01-31-2020 MESH,3DMAX LEFT LG [id number] FDA Start: 01-31-2020 MESH,3DMAX RIGHT LG [id number] FDA Start: 01-31-2020 TACKER,SECURE STRAP FDA Start : 01-31-2020 RAMO JACQUES FDA Start: 01-31-2020 RAMO JACQUES FDA Start: 01-31-2020 RAMO JACQUES FDA Start: 01-31-2020 MESH,3DMAX LEFT LG [id number] FDA Start: 01-31-2020 MESH,3DMAX RIGHT LG [id number] FDA Start: 01-31-2020 TACKER,SECURE STRAP FDA Start : 01-31-2020 RAMO JACQUES FDA Start: 01-31-2020 RAMO JACQUES FDA Start: 01-31-2020 RAMO JACQUES FDA Start: 01-31-2020 MESH,3DMAX LEFT LG [id number] FDA Start: 01-31-2020 MESH,3DMAX RIGHT LG [id number] FDA Start: 01-31-2020 TACKER,SECURE STRAP FDA Start : 01-31-2020 RAMO JACQUES FDA Start: 01-31-2020 CLIP,RAMO HENDRICKS FDA Start: 01-31-2020 CLIP,RAMO HENDRICKS FDA Start: 01-31-2020 MESH,3DMAX LEFT LG [id number] FDA Start: 01-31-2020 MESH,3DMAX RIGHT LG [id number] FDA Start: 01-31-2020 TACKER,SECURE STRAP FDA Start : 01-31-2020 CLIP,RAMO HENDRICKS FDA Start: 01-31-2020 CLIP,RAMO HENDRICKS FDA Start: 01-31-2020 CLIP,RAMO HENDRICKS FDA Start: 01-31-2020 MESH,3DMAX LEFT LG [id number] FDA Start: 01-31-2020 MESH,3DMAX RIGHT LG [id number] FDA Start: 01-31-2020 TACKER,SECURE STRAP FDA Start : 01-31-2020 CLIP,RAMO HENDRICKS FDA Start: 01-31-2020 CLIP,RAMO HENDRICKS FDA Start: 01-31-2020 CLIP,RAMO HENDRICKS FDA Start: 01-31-2020 MESH,3DMAX LEFT LG [id number] FDA Start: 01-31-2020 MESH,3DMAX RIGHT LG [id number] FDA Start: 01-31-2020 TACKER,SECURE STRAP FDA Start : 01-31-2020 CLIP,RAMO HENDRICKS FDA Start: 01-31-2020 CLIP,RAMO HENDRICKS FDA Start: 01-31-2020 CLIP,RAMO HENDRICKS FDA Start: 01-31-2020 MESH,3DMAX LEFT LG [id number] FDA Start: 01-31-2020 MESH,3DMAX RIGHT LG [id number] FDA Start: 01-31-2020 TACKER,SECURE STRAP FDA Start : 01-31-2020 CLIP,RAMO HENDRICKS FDA Start: 01-31-2020 CLIP,RAMO HENDRICKS FDA Start: 01-31-2020 CLIP,RAMO HENDRICKS FDA Start: 01-31-2020 MESH,3DMAX LEFT LG [id number] FDA Start: 01-31-2020 MESH,3DMAX RIGHT LG [id number] FDA Start: 01-31-2020 TACKER,SECURE STRAP FDA Start : 01-31-2020 CLIP,RAMO HENDRICKS FDA Start: 01-31-2020 CLIP,RAMO HENDRICKS FDA Start: 01-31-2020 CLIP,RAMO HENDRICKS FDA Start: 01-31-2020 MESH,3DMAX LEFT LG [id number] FDA Start: 01-31-2020 MESH,3DMAX RIGHT LG [id number] FDA Start: 01-31-2020 TACKER,SECURE STRAP FDA Start : 01-31-2020 CLIP,RAMO HENDRICKS FDA Start: 01-31-2020 CLIP,RAMO HENDRICKS FDA Start: 01-31-2020 CLIP,RAMO HENDRICKS FDA Start: 01-31-2020 MESH,3DMAX LEFT LG [id number] FDA Start: 01-31-2020 MESH,3DMAX RIGHT LG [id number] FDA Start: 01-31-2020 TACKER,SECURE STRAP FDA Start : 01-31-2020 CLIP,RAMO HENDRICKS FDA Start: 01-31-2020 CLIP,RAMO HENDRICKS FDA Start: 01-31-2020 CLIP,RAMO HENDRICKS FDA Start: 01-31-2020 MESH,3DMAX LEFT LG [id number] FDA Start: 01-31-2020 MESH,3DMAX RIGHT LG [id number] FDA Start: 01-31-2020 TACKER,SECURE STRAP FDA Start : 01-31-2020 CLIP,RAMO HENDRICKS FDA Start: 01-31-2020 CLIP,RAMO HENDRICKS FDA Start: 01-31-2020 CLIP,RAMO HENDRICKS FDA Start: 01-31-2020 MESH,3DMAX LEFT LG [id number] FDA Start: 01-31-2020 MESH,3DMAX RIGHT LG [id number] FDA Start: 01-31-2020 TACKER,SECURE STRAP FDA Start : 01-31-2020 CLIP,RAMO HENDRICKS FDA Start: 01-31-2020 CLIP,RAMO HENDRICKS FDA Start: 01-31-2020 CLIP,RAMO HENDRICKS FDA Start: 01-31-2020 MESH,3DMAX LEFT LG [id number] FDA Start: 01-31-2020 MESH,3DMAX RIGHT LG [id number] FDA Start: 01-31-2020 TACKERJOB STRAP FDA Start : 01-31-2020 Goals Date Patient Goal Desired Activity /State Functional Status Date Assessment Result Facility 11-23-2021 Functional status Ambulates [facility] Work Phone: 05-28-2021 Functional status Bedside Commode [facility] Work Phone: Mental Status Date Assessment Result Facility 11-23-2021 Cognitive function Voice/Name [facility] Work Phone: 06-19-2021 Cognitive function Awake;Alert [facility] Work Phone: 05-28-2021 Cognitive function Voice/Name;Touch/Shaki ng [facility] Work Phone: 05-28-2021 Cognitive function Patient Orien tation Person;Place;Time [facility] Work Phone: Clinical Notes 02-16-2025 Note Date & Type Note Facility 02-16-2025 Evaluation note Diagnosis Onset Date Resolution Breast cancer screening noneactive February 16, 2025 8:30am [facility] Work Phone: 1(215) 157-735809-26-2025 [facility] [address] [place] [address] OFFICE VISIT Date of Service: 02/16/25 MR#: [id number] Acct: [id number] Name: BETSY BAIRES Rep #: [id number] : 1950 Provider: Dr. Gaetano Ma MD Age/Sex: 74/F Location: [facility] Status: Signed Intake Vital Signs 10/12/24 11:55 Height 5 ft 5 in Weight: 162 lb BMI 26.9 BP 130/79 H Blood Pressure Location Lt brachial Position Sitting Respiration 16 Pulse 76 Pulse Source Monitor Intake Visit Reasons: Breast exam follow-up Chief Complaint: breast exam f/u Is patient in pain?: No Allergies nut - unspecified Allergy (Severe, Verified 02/16/25 08:36) Anaphylaxis adhesive tape Allergy (Mild, Verified 02/16/25 08:36) rash Penicillins Allergy (Mild, Verified 02/16/25 08:36) rash Sulfa (Sulfonamide Antibiotics) Allergy (Mild, Verified 02/16/25 08:36) rash morphine Adverse Reaction (Verified 02/16/25 08:36) Nausea Medications ?Medication ?Instructions ?Recorded ?Confirmed ?Type triamterene 37.5 1 tab PO QDAY bp 12/31/17 History mg-hydrochlorothiazide 25 mg tablet (Maxzide-25mg) multivitamin,qt-[id number] 1 tab PO DAILY supplemen t 05/07/19 02/16/25 History (Complete Multivitamin tablet) cholecalciferol (vitamin D3) 25 4,000 unit PO DAILY [place] pplement 01/22/20 02/16/25 History mcg (1,000 unit) tablet calcium carbonate (Calcium 600) 600 mg PO DAILY 02/16/25 History famotidine 20 mg tablet 20 mg PO DAILY PRN 02/18/22 02/16/25 History acetaminophen 500 mg tablet 1,000 mg PO Q8 PRN 3 02/16/25 History levothyroxine 112 mcg tablet 112 mcg PO DAILY 07/03/22 02/16/25 History meloxicam 7.5 mg tablet 7.5 mg PO DAILY PRN 07/03/22 02/16/25 History vit C 250 mg-vit E 90 mg-zinc 40 1 tab PO BID 07/03/22 02/16/25 History mg-copper 1 li-zgsmzx-flumwz capsule (PreserVision AREDS-2) losartan 50 mg tablet 50 mg PO DAILY #90 tabs 12/0 11/1402/16/25 Rx latanoprost 0.005 % eye drops 1 drp ophthalmic (eye) Q HS 10/12/24 02/16/25 History Have you fallen in the past [...] status post a right mastectomy by Dr. Archibald?HER2 positive; and biopsy of some fullness in the right breast by Dr. Hernandez which was negative for malignancy previous to 2022. Patient's repeat 2024 mammogram was stable given Carrie-RADS 2. Patient has no questions or concerns or breast pain or lumps on self-exam. ROS Breast Breast: No left breast lump, nipple discharge, breast pain or abnormal mammogram Additional Details: No change in right chest incision status postmastectomy Exam Const General: cooperative, healthy appearing and no acute distress [facility] Head: normal to inspection Chest Other: Breast inspection: Status post right mastectomy mound with fibrofatty fibrosis Right breast: Right mastectomy mound with some fibrofatty fibrosis?unchanged Left breast: Fibroglandular tissue, no masses on exam, no nipple discharge or pain, no change in overlying skin No axillary or supraclavicular adenopathy bilaterally Resp Effort & Inspection: normal respiratory effort Cardio Rate: regular rate GI Inspection: non-distended Palpation: soft Skin General: no rashes or lesions noted Neuro General: patient oriented x3 Extrem General: no clubbing, cyanosis or edema Psych Affect: normal affect Assessment and Plan Assessment and Plan (1) Breast cancer screening: Plan Did review patient's mammogram personally with the patient and agree with BI- RADS 2. On exam no changes. Will plan to follow-up in 1 year and continue annual screening mammography. Patient is agreeable to plan Dee Ma M.D. Pager: [phone] [facility] [address] [place] [address], [facility], [address] [place] [address] Office: [phone] Coding Level of Care Code Off vis,est,level 3 Diagnoses Breast cancer screening Z12.39 Clinical Quality Measures Falls Risk Screening/Assistive Devices Have you fallen in the past year?: No 02/16/25 1253 am > Date _ Dee Ma MD Cosigner Signature: Date (if applicable) CC: Dr. 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 resolved Hypotension resolved [facility] Work Phone: Evaluation note* Diagnosis Onset Date Resolution Status Intermittent palpitations ac havasupai Essential hypertension chron ic History of right breast cancer acute Recurrent inguinal hernia ac havasupai Acute bronchitis acute [facility] Work Phone: Evaluation note* Diagnosis Onset Date Resolution Status Acute bronchitis acute [facility] Work Phone: Evaluation note* Diagnosis Onset Date Resolution Status History of right breast cancer acute [facility] Work Phone: Evaluation note* Diagnosis Onset Date Resolution Status Admit Date Breast cancer screening noneactive S nicole 2024 8:30am [facility] Work Phone: Progress note Author Dee Ma [facility] Note Date/Time February 16, 2025 9:26am [facility] [address] [place] [address] OFFICE VISIT Date of Service: 02/16/25 MR#: [id number] Acct: [id number] Name: BETSY BAIRES Rep #: [id number] : 1950 Provider: Dr. Gaetano Ma MD Age/Sex: 74/F Location: [facility] Status: Signed Intake Vital Signs 10/12/24 11:55 Height 5 ft 5 in Weight: 162 lb BMI 26.9 BP 130/79 H Blood Pressure Location Lt brachial Position Sitting Respiration 16 Pulse 76 Pulse Source Monitor Intake Visit Reasons: Breast exam follow-up Chief Complaint: breast exam f/u Is patient in pain?: No Allergies nut - unspecified Allergy (Severe, Verified 02/16/25 08:36) Anaphylaxis adhesive tape Allergy (Mild, Verified 02/16/25 08:36) rash Penicillins Allergy (Mild, Verified 02/16/25 08:36) rash Sulfa (Sulfonamide Antibiotics) Allergy (Mild, Verified 02/16/25 08:36) rash morphine Adverse Reaction (Verified 02/16/25 08:36) Nausea Medications ?Medication ?Instructions ?Recorded ?Confirmed ?Type triamterene 37.5 1 tab PO QDAY bp 12/31/17 History mg-hydrochlorothiazide 25 mg tablet (Maxzide-25mg) multivitamin,[id number] 1 tab PO DAILY supplemen t 05/07/19 02/16/25 History (Complete Multivitamin tablet) cholecalciferol (vitamin D3) 25 4,000 unit PO DAILY [place] pplement 01/22/20 02/16/25 History mcg (1,000 unit) tablet calcium carbonate (Calcium 600) 600 mg PO DAILY 02/16/25 History famotidine 20 mg tablet 20 mg PO DAILY PRN 02/18/22 02/16/25 History acetaminophen 500 mg tablet 1,000 mg PO Q8 PRN 3 02/16/25 History levothyroxine 112 mcg tablet 112 mcg PO DAILY 07/03/22 02/16/25 History meloxicam 7.5 mg tablet 7.5 mg PO DAILY PRN 07/03/22 02/16/25 History vit C 250 mg-vit E 90 mg-zinc 40 1 tab PO BID 07/03/22 02/16/25 History mg-copper 1 dv-[id number] capsule (PreserVision AREDS-2) losartan 50 mg tablet 50 mg PO DAILY #90 tabs 12/0 11/1402/16/25 Rx latanoprost 0.005 % eye drops 1 drp ophthalmic (eye) Q HS 10/12/24 02/16/25 History Have you fallen in the past [...] status post a right mastectomy by Dr. Archibald?HER2 positive; and biopsy of some fullness in the right breast by Dr. Hernandez which was negative for malignancy previous to 2022. Patient's repeat 2024 mammogram was stable given Carrie-RADS 2. Patient has no questions or concerns or breast pain or lumps on self-exam. ROS Breast Breast: No left breast lump, nipple discharge, breast pain or abnormal mammogram Additional Details: No change in right chest incision status postmastectomy Exam Const General: cooperative, healthy appearing and no acute distress HENMT Head: normal to inspection Chest Other: Breast inspection: Status post right mastectomy mound with fibrofatty fibrosis Right breast: Right mastectomy mound with some fibrofatty fibrosis?unchanged Left breast: Fibroglandular tissue, no masses on exam, no nipple discharge or pain, no change in overlying skin No axillary or supraclavicular adenopathy bilaterally Resp Effort & Inspection: normal respiratory effort Cardio Rate: regular rate GI Inspection: non-distended Palpation: soft Skin General: no rashes or lesions noted Neuro General: patient oriented x3 Extrem General: no clubbing, cyanosis or edema Psych Affect: normal affect Assessment and Plan Assessment and Plan (1) Breast cancer screening: Plan Did review patient's mammogram personally with the patient and agree with BI- RADS 2. On exam no changes. Will plan to follow-up in 1 year and continue annual screening mammography. Patient is agreeable to plan Dee Ma M.D. Pager: [phone] [facility] [address] [place] [address], [address] [place] [address] Office: [phone] Coding Level of Care Code Off vis,est,level 3 Diagnoses Breast cancer screening Z12.39 Clinical Quality Measures Falls Risk Screening/Assistive Devices Have you fallen in the past year?: No 02/16/25 2206 <Electronically signed by Dee Morejon am, MD> Date _ Dee Ma MD Cosigner Signature: Date (if applicable) CC: Dr. 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 Reason for Visit Acute bronchitis Chief Complaint CONCERN FOR BRONCHIT IS 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 Reason for Visit Acute bronchitis Chief Complaint SCREENING Chief Complaint 1YR F/U Mammo 02/04 [facility] Reason for Visit History of right elizabeth ast cancer Chief Complaint Admit Date screening February 07, 2025 7:03am Breast exam follow-up February 16 8:30am Reason for Visit Admit Date Breast cancer screening February 16, 2025 8:30am Family History No Family History Records Found Relationship Condition Age at Onset Recorded Date/T osmany mother Cerebrovascular accident (CVA) Unknown Hypertension Unknown father Congestive heart failure Unknown Advance Directives No Advanced Directives Records Found Advance Directive Response Recorded Date/ Time Name of Medical Power of Angle Shear Operator ARIELLE BAIRES May 19, 2021 9:21am Living Will Yes June 19 10:25am Power of Angle Shear Operator Yes June 19, 2021 10:25am Advance Directive Response Recorded Date/ Time Name of Medical Power of Angle Shear Operator November 21, 2021 5:49pm Living Will Yes November 21, 2021 5 :49pm Power of Angle Shear Operator Yes November 21, 2021 5:49pm Advance Directive Response Recorded Date/ Time Living Will Yes November 21, 2021 4 :49pm Power of Angle Shear Operator Yes November 21, 2021 4:49pm Advance Directive Response Recorded Date/ Time Living Will Yes November 21, 2021 5 :49pm Power of Angle Shear Operator Yes November 21, 2021 5:49pm Summary Purpose [...] Care Provider, Referr ing Provider Active Pascual ZEPEDA PA Attending Provider Active Team Status: Inactive [...] Hernandez MD Attending Provider, Referring Provider Active Team Status: Active Member Role/Relationship Status Dates Dr. Thomas Parker MD Primary care physician Active Team Status: Inactive Member Role/Relationship Status Dates Dr. Thomas Parker MD Primary care physician Active Start: February 07, 2025 End: February 07, 2025 Dr. Dee Ma MD Attending physician Active Start: February 07, 2025 End: February 07, 2025 Dr. Dee Ma MD Referring Provider Active Start: February 07, 2025 End: February 07, 2025 Team Status: Inactive Member Role/Relationship Status Dates Dr. Thomas Parker MD Primary care physician Active Start: February 16, 2025 End: February 16, 2025 Dr. Thomas Parker MD Referring Provider Active Start: February 16, 2025 End: February 16, 2025 Dr. Dee Ma MD Attending physician Active Start: February 16, 2025 End: February 16, 2025 INFORMATION SOURCE (unrecogn ized section and content) DATE CREATED AUTHOR 03/04/2025 [facility] FOR RECORDS PERTAINING TO PATIENTS WHO [...] BE BASED ON THE PRIMARY CLINICAL RECORDS. [facility] [employer] [facility]. provides no warranty or guarantee of the accuracy or completeness of information in this document.
--- NOTE | 2025-04-18 07:04 | BD_ITS ---
PROCEDURE: DEXA BONE DENSITY STUDY 04/18/2025 REASON FOR EXAM: F, age 74 y/o . Postmenopausal. TECHNIQUE: Procedure Code: BDDBD Modality: DX Procedure: DEXA BONE DENSITY STUDY COMPARISON: DEXA examination dated 06/11/2022 FINDINGS: BMD and T-SCORES Lumbar spine: 0.976 g/cm2, T-score -0.4 Levels: L1 through L4 Change from prior: Significant increase by 4.8% since the prior study dated 06/11/2022. Left femoral neck: 0.642 g/cm2, T-score -1.9 Left total hip: 0.762 g/cm2, T-score -1.5 Change from prior: There has been a significant increase by 5.8% since the prior study dated 06/11/2022. The World Health Organization has defined the following categories based on bone density: Normal bone density: T-score equal to or greater than -1.0 Osteopenia: T-score between -1.0 and -2.5 Osteoporosis: T-score equal to or less than -2.5 FRAX (or Comparable) Fracture Risk Assessment: 10 Year Probability of Fracture: Major Osteoporotic Fracture: 28% Hip Fracture: 7.1% (Note: FRAX is not to be reported in setting of normal range bone density, osteoporosis on DEXA, known history of osteoporosis, prior osteoporotic hip or vertebral fracture, or for any patient undergoing pharmacological treatment for bone loss.) The National Osteoporosis Foundation (NOF) recommends pharmacological treatment for patients with a FRAX 10-year risk of 3% or higher for a hip fracture, or 20% or higher for a major osteoporotic fracture, to prevent osteoporosis and reduce fracture risk. The patient does meet the pharmacological treatment recommendations for prevention of osteoporosis. BD/Dexa Bone Density Study IMPRESSION: OSTEOPENIA. Recommend follow-up as clinically warranted. Reading Location: [id number]
== END | disposition home or self-care (01) ==
PROVIDERS: PCP Family Medicine
DX: Z13.820 Encounter for screening for osteoporosis (principal)
CPT/HCPCS: 77080